=== PATIENT | male | born 1970 | race American Indian/Alaskan Native ===

== ENCOUNTER 2017-04-12 08:14 | Inpatient (IN) | payer OTHER ==
--- NOTE | 2017-04-12 08:58 | Emergency Department Report ---
ED Shortness of Breath HPI - General Chief Complaint: Dyspnea/Respdistress Stated Complaint: SOB / LEG SWELLING Time Seen by Provider: 04/12/17 08:50 Source: patient, family Mode of arrival: Wheelchair Limitations: Physical Limitation - History of Present Illness MD Complaint: shortness of breath, cough -: week(s) Severity: moderate - Related Data Home Medications Medication Instructions Recorded Confirmed Last Taken Amlodipine Besylate [Norvasc] 5 mg PO DAILY 08/19/15 08/19/15 Unknown AtorvaSTATin [Lipitor] 20 mg PO DAILY 08/19/15 08/19/15 Unknown Colesevelam [Welchol] 1,875 mg PO BID 08/19/15 08/19/15 Unknown Duloxetine HCl [DULoxetine] 60 mg PO DAILY 08/19/15 08/19/15 Unknown Furosemide [Lasix TAB] 20 mg PO DAILY 08/19/15 08/19/15 Unknown Insulin Glargine [Lantus VIAL] 35 units SQ BID 08/19/15 08/19/15 Unknown Insulin Glargine [Lantus VIAL] 100 unit SQ DAILY 08/19/15 08/19/15 Unknown Insulin Lispro [Humalog Kwikpen 35 units SQ BID 08/19/15 08/19/15 Unknown 200 UNITS/ML] Iron,Fum&Ps/FA/Vit B&C#18/L.ca 1 each PO DAILY 08/19/15 08/19/15 Unknown [Fusion Plus Capsule] Losartan [Cozaar] 100 mg PO DAILY 08/19/15 08/19/15 Unknown Ofloxacin [Ofloxacin 0.3%] 5 ml INTRAOCULA DAILY 08/19/15 08/19/15 Unknown Potassium Chloride [Klor-Con 10] 10 meq PO DAILY 08/19/15 08/19/15 Unknown Tobramycin/Dexameth 0.1-0.3% 3.5 gm SUBDERMAL DAILY 08/19/15 08/19/15 Unknown [Tobradex] Allergies Allergy/AdvReac Type Severity Reaction Status Date / Time AMMY Inhibitors Allergy Unknown Verified 08/19/15 01:31 ED Review of Systems ROS: Stated complaint: SOB / LEG SWELLING Other details as noted in HPI Comment: All other systems reviewed and negative Constitutional: denies: chills, fever Respiratory: orthopnea, shortness of breath, SOB with exertion. denies: cough, wheezing Cardiovascular: palpitations. denies: chest pain Endocrine: excessive sweating Gastrointestinal: denies: abdominal pain, nausea, vomiting Neurological: denies: headache, numbness ED Past Medical Hx - Past Medical History Previous Medical History?: Yes Hx Hypertension: Yes Hx Diabetes: Yes Additional medical history: HIGH CHOLESTEROL, Afib - Surgical History Past Surgical History?: Yes Hx Cholecystectomy: Yes Additional Surgical History: Cardiac ablation - Social History Smoking Status: Never Smoker Substance Use Type: Non Opiate Pain, Prescribed - Medications Home Medications: Home Medications Medication Instructions Recorded Confirmed Last Taken Type Amlodipine Besylate [Norvasc] 5 mg PO DAILY 08/19/15 08/19/15 Unknown History AtorvaSTATin [Lipitor] 20 mg PO DAILY 08/19/15 08/19/15 Unknown History Colesevelam [Welchol] 1,875 mg PO BID 08/19/15 08/19/15 Unknown History Duloxetine HCl [DULoxetine] 60 mg PO DAILY 08/19/15 08/19/15 Unknown History Furosemide [Lasix TAB] 20 mg PO DAILY 08/19/15 08/19/15 Unknown History Insulin Glargine [Lantus VIAL] 35 units SQ BID 08/19/15 08/19/15 Unknown History Insulin Glargine [Lantus VIAL] 100 unit SQ DAILY 08/19/15 08/19/15 Unknown History Insulin Lispro [Humalog Kwikpen 35 units SQ BID 08/19/15 08/19/15 Unknown History 200 UNITS/ML] Iron,Fum&Ps/FA/Vit B&C#18/L.ca 1 each PO DAILY 08/19/15 08/19/15 Unknown History [Fusion Plus Capsule] Losartan [Cozaar] 100 mg PO DAILY 08/19/15 08/19/15 Unknown History Ofloxacin [Ofloxacin 0.3%] 5 ml INTRAOCULA DAILY 08/19/15 08/19/15 Unknown History Potassium Chloride [Klor-Con 10] 10 meq PO DAILY 08/19/15 08/19/15 Unknown History Tobramycin/Dexameth 0.1-0.3% 3.5 gm SUBDERMAL DAILY 08/19/15 08/19/15 Unknown History [Tobradex] ED Physical Exam - General Limitations: Physical Limitation General appearance: alert, in no apparent distress - Head Head exam: Present: atraumatic - Eye Eye exam: Present: normal appearance Pupils: Present: normal accommodation - ENT ENT exam: Present: normal exam - Neck Neck exam: Present: normal inspection - Respiratory Respiratory exam: Present: normal lung sounds bilaterally. Absent: respiratory distress, wheezes, rales - Cardiovascular Cardiovascular Exam: Present: regular rate, normal rhythm, normal heart sounds - GI/Abdominal GI/Abdominal exam: Present: soft. Absent: distended, tenderness, guarding, rebound - Back Exam Back exam: Present: normal inspection. Absent: CVA tenderness (L) - Neurological Exam Neurological exam: Present: alert, oriented X3, CN II-XII intact ED Course Vital Signs 04/12/17 04/12/17 08:16 09:14 Temperature 97.9 F Pulse Rate 73 Respiratory 20 20 Rate Blood Pressure 156/98 O2 Sat by Pulse 100 100 Oximetry - Reevaluation(s) Reevaluation #1: 04/12/17 10:[address] Milner for admission. ED Medical Decision Making - Lab Data Result diagrams: 04/12/17 08:34 04/12/17 08:34 Critical care attestation.: If time is entered above; I have spent that time in minutes in the direct care of this critically ill patient, excluding procedure time. ED Disposition Clinical Impression: Shortness of breath, Acute on chronic renal failure, CHF exacerbation Disposition: OP ADMIT IP TO THIS HOSP Is pt being admited?: Yes Condition: Stable
[2017-04-12 08:59] LABS: Hematocrit 27.3 % (35.5-45.6); Hemoglobin 8.7 gm/dl (11.8-15.2); Mean Corpuscular Hemoglobin 23 pg (28-32); Mean Corpuscular Volume 74 fl (84-94)
[2017-04-12 09:00] LABS: Basophils % (Auto) 0.8 % (0.0-1.8); Eosinophils % (Auto) 1.9 % (0.0-4.3); Mean Corpuscular HGB Conc 32 % (32-34); Platelet Count 478 K/mm3 (140-440); Red Cell Distribution Width 17.2 % (13.2-15.2)
[2017-04-12 09:03] LABS: INR 1.2 (0.87-1.13)
[2017-04-12 09:04] LABS: Partial Thromboplastin Time 46.7 Sec. (24.2-36.6)
[2017-04-12 09:07] LABS: BUN/Creatinine Ratio 12.75; Calcium 7.2 mg/dL (8.4-10.2); Chloride 103.3 mmol/L (98-107); Potassium 4.8 mmol/L (3.6-5.0)
--- NOTE | 2017-04-12 09:17 | XRay Report ---
CHEST TWO VIEWS: 04/12/17 08:14:00 CLINICAL: Shortness of breath. COMPARISON: None FINDINGS: Normal heart and pulmonary vasculature. The lungs are normally expanded and clear. Mild degenerative changes in the spine. IMPRESSION: No acute cardiopulmonary process.
[2017-04-12] MEDS ORDERED: BABY ASPIRIN PO ONE (10:10)
[2017-04-12] MEDS ORDERED: LASIX IV ONE (10:12)
[2017-04-12] MEDS ORDERED: DULCOLAX PR PRN (11:00)
[2017-04-12] MEDS ORDERED: ZOFRAN IV PRN (11:00)
[2017-04-12 11:55] LABS: Bacteria,Urine 1+ /HPF (Negative); Bilirubin,Urine NEG (Negative); Blood,Urine SM (Negative); Ketones,Urine NEG (Negative); Leukocyte Esterase,Urine NEG (Negative); Mucus,Urine FEW /HPF; Nitrite,Urine NEG (Negative); Urobilinogen,Urine < 2.0 mg/dL (<2.0)
[2017-04-12 11:56] LABS: Protein,Urine >500 mg/dL (Negative)
--- NOTE | 2017-04-12 13:09 | Nuclear Medicine Report ---
FINAL REPORT EXAM: NM LUNG SCAN PERF/VENT HISTORY: CHEST PAIN,SOB, H/O DVT TECHNIQUE: Lung ventilation with 17.0 mCi of xenon-133 gas Lung perfusion with 5.5 mCi of IV technetium 99m MAA Standard multiple planar ventilation and perfusion lung images PRIORS: Two-view chest 04/12/2017 FINDINGS: Ventilation and perfusion uptake is diffusely homogeneous bilaterally without focal matched or mismatched defect. Specifically, there is no mismatched perfusion defect to suggest pulmonary embolism. There is no central air trapping to suggest emphysema. IMPRESSION: Lung ventilation and perfusion scan negative for pulmonary embolism
[2017-04-12] MEDS: PEPCID PO SCH (13:19)
[2017-04-12] MEDS: NOVOLOG SUB-Q SCH ×2 (13:19→17:55)
[2017-04-12] MEDS: HEPARIN SUB-Q SCH ×2 (13:49→21:30)
--- NOTE | 2017-04-12 15:07 | History and Physical Report ---
History of Present Illness Date of examination: 04/12/17 Date of admission: 04/12/17 13:35 Chief complaint: Shortness of breath History of present illness: Patient is a 47-year-old male with past medical history including hyperlipidemia , chronic kidney disease, cardiac ablation, diabetes mellitus and multiple left knee surgery who presents to the ER complaining of bilateral leg edema worsening on the left and associated shortness of breath 1 day with reported left sided chest pain which is worse on lying down and improves with sitting up. The patient also does report worsening shortness of breath on lying supine with positive orthopnea improves with sitting up. He denies any sick contacts and he is followed by box repairer and primary care physician and is supposed to be evaluated by nephrology but has not had a full evaluation done. The pain he describes as a 5/10 in intensity with no radiation and no associated diaphoresis. He states that he woke him up this morning. Denies any palpitation nausea vomiting or diarrhea as noted. ROS Constitutional: No fever, fatigue or weight loss. Skin: No rash. Eyes: No recent vision problems or eye pain. ENT: No congestion, ear pain, or sore throat. Endocrine: No thyroid problems. Cardiovascular: Chest pain Respiratory: Reports shortness of breath but no cough, congestion, or wheezing. Gastrointestinal: No abdominal pain, nausea, vomiting, or diarrhea. Genitourinary: No dysuria. Musculoskeletal: Left lower extremity swelling bilaterally disjointed left knee joint Neurologic: No seizures. Hematologic: No unusual bruising or bleeding. Psychiatric: No psychiatric problems, hallucinations or depression. All other systems reviewed and otherwise negative. Past History Past Medical History: diabetes, hypertension, hyperlipidemia Past Surgical History: Other (cardiac ablation. Multiple knee surgeries on the left knee) Social history: no significant social history, full code. denies: alcohol abuse , prescription drug abuse, IV drug use Family history: no significant family history Medications and Allergies Allergies Allergy/AdvReac Type Severity Reaction Status Date / Time AMMY Inhibitors Allergy Unknown Verified 08/19/15 01:31 Home Medications Medication Instructions Recorded Confirmed Last Taken Type Amlodipine Besylate [Norvasc] 5 mg PO DAILY 08/19/15 08/19/15 Unknown History AtorvaSTATin [Lipitor] 20 mg PO DAILY 08/19/15 08/19/15 Unknown History Colesevelam [Welchol] 1,875 mg PO BID 08/19/15 08/19/15 Unknown History Duloxetine HCl [DULoxetine] 60 mg PO DAILY 08/19/15 08/19/15 Unknown History Furosemide [Lasix TAB] 20 mg PO DAILY 08/19/15 08/19/15 Unknown History Insulin Glargine [Lantus VIAL] 35 units SQ BID 08/19/15 08/19/15 Unknown History Insulin Glargine [Lantus VIAL] 100 unit SQ DAILY 08/19/15 08/19/15 Unknown History Insulin Lispro [Humalog Kwikpen 35 units SQ BID 08/19/15 08/19/15 Unknown History 200 UNITS/ML] Iron,Fum&Ps/FA/Vit B&C#18/L.ca 1 each PO DAILY 08/19/15 08/19/15 Unknown History [Fusion Plus Capsule] Losartan [Cozaar] 100 mg PO DAILY 08/19/15 08/19/15 Unknown History Ofloxacin [Ofloxacin 0.3%] 5 ml INTRAOCULA DAILY 08/19/15 08/19/15 Unknown History Potassium Chloride [Klor-Con 10] 10 meq PO DAILY 08/19/15 08/19/15 Unknown History Tobramycin/Dexameth 0.1-0.3% 3.5 gm SUBDERMAL DAILY 08/19/15 08/19/15 Unknown History [Tobradex] Active Meds: Active Medications Acetaminophen (Tylenol) 650 mg PO Q4H PRN PRN Reason: Pain MILD(1-3)/Fever >100.5/GARZON Albuterol/Ipratropium (Duoneb *Not For Prn Use*) 1 ampul IH Q6HRT [facility] Atorvastatin Calcium (Lipitor) 20 mg PO DAILY [facility] Bisacodyl (Dulcolax) 10 mg [place] QDAY PRN PRN Reason: Constipation unrelieved by MOM Colesevelam HCl (Welchol) 1,875 mg PO BID [facility] Dextrose (D50w (25gm)) 50 ml IV PRN PRN PRN Reason: Hypoglycemia Duloxetine HCl (Cymbalta) 60 mg PO QDAY [facility] Famotidine (Pepcid) 20 mg PO DAILY [facility] Last Admin: 04/12/17 13:19 Dose: 20 mg Furosemide (Lasix) 40 mg IV BID@0600,1800 [facility] Heparin Sodium (Porcine) (Heparin) 5,000 unit SUB-Q Q12HR [facility] Last Admin: 04/12/17 13:49 Dose: 5,000 unit Insulin Aspart (Novolog) 0 units SUB-Q ACHS [facility] PRN Reason: Protocol Last Admin: 04/12/17 13:19 Dose: 6 units Insulin Detemir (Levemir) 35 units SUB-Q QHS [facility] Ondansetron HCl (Zofran) 4 mg IV Q4H PRN PRN Reason: N/V unrelieved by Reglan Tobramycin/Dexamethasone (Tobradex) 1 inch OU DAILY [facility] Exam - Physical Exam Narrative exam: VITAL SIGNS: Reviewed. GENERAL: The patient appeared well nourished and normally developed. Vital signs as documented. HEAD: No signs of head trauma. EYES: Pupils are equal. Extraocular motions intact. EARS: Hearing grossly intact. MOUTH: Oropharynx is normal. NECK: No adenopathy, no JVD. CHEST: Chest with clear breath sounds bilaterally. No wheezes, rales, or rhonchi. CARDIAC: Regular rate and rhythm. S1 and S2, without murmurs, gallops, or rubs. VASCULAR: +1 pitting Edema. Peripheral pulses normal and equal in all extremities. ABDOMEN: Soft, without detectable tenderness. No sign of distention. No rebound or guarding, and no masses palpated. Bowel Sounds normal. MUSCULOSKELETAL: Limited range of motion Left Knee, left knee disfigured, increased width and diameter. Extremities without clubbing, cyanosis. +1 Pitting edema. NEUROLOGIC EXAM: Alert and oriented x 3. No focal sensory or strength deficits. Speech normal. Follows commands. PSYCHIATRIC: Mood normal. SKIN: Multiple venous stasis changes - Constitutional Vitals: Temp Pulse Resp BP Pulse Ox 97.9 F 71 16 150/86 99 04/12/17 08:16 04/12/17 14:00 04/12/17 14:00 04/12/17 14:00 04/12/17 14:00 Results - Labs CBC & Chem 7: 04/12/17 08:34 04/12/17 08:34 Labs: Laboratory Last Values WBC 8.0 K/mm3 (4.5-11.0) 04/12/17 08:34 RBC 3.70 M/mm3 (3.65-5.03) 04/12/17 08:34 Hgb 8.7 gm/dl (11.8-15.2) L 04/12/17 08:34 Hct 27.3 % (35.5-45.6) L 04/12/17 08:34 MCV 74 fl (84-94) L 04/12/17 08:34 MCH 23 pg (28-32) L 04/12/17 08:34 MCHC 32 % (32-34) 04/12/17 08:34 RDW 17.2 % (13.2-15.2) H 04/12/17 08:34 Plt Count 478 K/mm3 (140-440) H 04/12/17 08:34 Lymph % (Auto) 22.0 % (13.4-35.0) 04/12/17 08:34 [place] % (Auto) 6.8 % (0.0-7.3) 04/12/17 08:34 Eos % (Auto) 1.9 % (0.0-4.3) 04/12/17 08:34 Baso % (Auto) 0.8 % (0.0-1.8) 04/12/17 08:34 Lymph # 1.8 K/mm3 (1.2-5.4) 04/12/17 08:34 [place] # 0.6 K/mm3 (0.0-0.8) 04/12/17 08:34 Eos # 0.1 K/mm3 (0.0-0.4) 04/12/17 08:34 Baso # 0.1 K/mm3 (0.0-0.1) 04/12/17 08:34 Seg Neutrophils % 68.5 % (40.0-70.0) 04/12/17 08:34 Seg Neutrophils # 5.5 K/mm3 (1.8-7.7) 04/12/17 08:34 PT 15.8 Sec. (12.2-14.9) H 04/12/17 08:34 INR 1.20 (0.87-1.13) H 04/12/17 08:34 APTT 46.7 Sec. (24.2-36.6) H 04/12/17 08:34 D-Dimer 2932 ng/mlDDU (0-234) H 04/12/17 08:34 Sodium 134 mmol/L (137-145) L 04/12/17 08:34 Potassium 4.8 mmol/L (3.6-5.0) 04/12/17 08:34 Chloride 103.3 mmol/L (98-107) 04/12/17 08:34 Carbon Dioxide 17 mmol/L (22-30) L 04/12/17 08:34 Anion Gap 19 mmol/L 04/12/17 08:34 BUN 51 mg/dL (9-20) H 04/12/17 08:34 Creatinine 4.0 mg/dL (0.8-1.5) H 04/12/17 08:34 Estimated GFR 20 ml/min 04/12/17 08:34 BUN/Creatinine Ratio 12.75 % 04/12/17 08:34 Glucose 282 mg/dL (75-100) H 04/12/17 08:34 POC Glucose 295 (70-105) H 04/12/17 11:37 Osmolality 304 Mosm/kg 04/12/17 11:00 Calcium 7.2 mg/dL (8.4-10.2) L 04/12/17 08:34 Troponin T 0.157 ng/mL (0.00-0.029) H* 04/12/17 08:34 NT-Pro-B Natriuret Pep 9214 pg/mL (0-450) H 04/12/17 08:34 Triglycerides 89 mg/dL (2-149) 04/12/17 08:34 Cholesterol 84 mg/dL (50-199) 04/12/17 08:34 LDL Cholesterol Direct 32 mg/dL (50-130) L 04/12/17 08:34 HDL Cholesterol 35 mg/dL (40-59) L 04/12/17 08:34 Cholesterol/HDL Ratio 2.40 % 04/12/17 08:34 TSH 0.027 mlU/mL (0.270-4.200) L 04/12/17 09:14 Free T4 1.03 ng/dL (0.76-1.46) 04/12/17 09:14 Urine Color Yellow (Yellow) 04/12/17 11:37 Urine Turbidity Clear (Clear) 04/12/17 11:37 Urine pH 5.0 (5.0-7.0) 04/12/17 11:37 Ur Specific [place] 1.014 (1.003-1.030) 04/12/17 11:37 Urine Protein >500 mg/dL (Negative) 04/12/17 11:37 Urine Glucose (UA) >=500 mg/dL (Negative) 04/12/17 11:37 Urine Ketones Neg mg/dL (Negative) 04/12/17 11:37 Urine Blood Sm (Negative) 04/12/17 11:37 Urine Nitrite Neg (Negative) 04/12/17 11:37 Urine Bilirubin Neg (Negative) 04/12/17 11:37 Urine Urobilinogen < 2.0 mg/dL (<2.0) 04/12/17 11:37 Ur Leukocyte Esterase Neg (Negative) 04/12/17 11:37 Urine WBC (Auto) 1.0 /HPF (0.0-6.0) 04/12/17 11:37 Urine RBC (Auto) 7.0 /HPF (0.0-6.0) 04/12/17 11:37 U Epithel Cells (Auto) 1.0 /HPF (0-13.0) 04/12/17 11:37 Urine Bacteria (Auto) 1+ /HPF (Negative) 04/12/17 11:37 Urine Mucus Few /HPF 04/12/17 11:37 Assessment and Plan Assessment and plan: Patient is a 47-year-old male with past medical history including hyperlipidemia , chronic kidney disease, cardiac ablation, diabetes mellitus and multiple left knee surgery who presents to the ER complaining of bilateral leg edema worsening on the left and associated shortness of breath 1 day with reported left sided chest pain which is worse on lying down and improves with sitting up. The patient also does report worsening shortness of breath on lying supine with positive orthopnea improves with sitting up. He denies any sick contacts and he is followed by box repairer and primary care physician and is supposed to be evaluated by nephrology but has not had a full evaluation done. The pain he describes as a 5/10 in intensity with no radiation and no associated diaphoresis. He states that he woke him up this morning. Denies any palpitation nausea vomiting or diarrhea as noted. * Acute on chronic congestive heart failure possible systolic * Acute kidney injury on chronic kidney disease likely secondary to vasomotor nephropathy * Diabetes mellitus with hyperglycemia * Hyperlipidemia * NSTEMI type 2 * Anemia of chronic kidney disease * Coagulopathy PLAN: * Admit to telemetry * Concern for orthopenic description and noted JVD, will start on Lasix IV * Nephrology consulted, and case discussed with covering MD * chest pain related to CHF, EKG with no evidence of ST elevation * Monitor H/H, I/O, Daily weight. * NO PE noted on imaging. * Consult cardiology * Echocardiogram * Statin, BB, home med reconciliation * DVT/GI prophy * Plan discussed with patient in detail * PT/OT eval and treat. Advance Directives: Yes Plan of care discussed with patient/family: Yes
[2017-04-12] MEDS: DUONEB *Not for PRN Use IH SCH ×2 (17:16→20:57)
[2017-04-12 17:29] LABS: Iron 25 ug/dL (49-181); Total Iron Binding Capacity 98 mcg/dL (250-450)
--- NOTE | 2017-04-12 17:53 | Consultation ---
History of Present Illness - Reason for Consult Consult date: 04/12/17 acute renal failure, chronic renal failure - History of Present Illness Patient is a 47-year-old AAM with medical history significant for DM type 2, Hypetension, Hyperlipidemia, CKD stage 3, Obesity and multiple left knee surgery who presents to the ER complaining of shortness of breath of 1 day duration. Patient also reports left sided chest pain which is worse on lying down and improves with sitting up. History positive for orthopnea. His legs are chroncially swollen, left greater than right. Earlier this year his creatinine was 2.8. He does takes NSAIDs few times a week. Patient denies any N, V, D, abd pain, rash, cough, kidney stone, hematuria or jaundice. His creatinine is 4 on admission. Past History Past Medical History: diabetes, hypertension, hyperlipidemia Past Surgical History: Other (cardiac ablation. Multiple knee surgeries on the left knee) Social history: no significant social history, full code. denies: alcohol abuse , prescription drug abuse, IV drug use Family history: no significant family history Medications and Allergies Allergies Allergy/AdvReac Type Severity Reaction Status Date / Time AMMY Inhibitors Allergy Unknown Verified 08/19/15 01:31 Home Medications Medication Instructions Recorded Confirmed Last Taken Type Amlodipine Besylate [Norvasc] 5 mg PO DAILY 08/19/15 08/19/15 Unknown History AtorvaSTATin [Lipitor] 20 mg PO DAILY 08/19/15 08/19/15 Unknown History Colesevelam [Welchol] 1,875 mg PO BID 08/19/15 08/19/15 Unknown History Duloxetine HCl [DULoxetine] 60 mg PO DAILY 08/19/15 08/19/15 Unknown History Furosemide [Lasix TAB] 20 mg PO DAILY 08/19/15 08/19/15 Unknown History Insulin Glargine [Lantus VIAL] 35 units SQ BID 08/19/15 08/19/15 Unknown History Insulin Glargine [Lantus VIAL] 100 unit SQ DAILY 08/19/15 08/19/15 Unknown History Insulin Lispro [Humalog Kwikpen 35 units SQ BID 08/19/15 08/19/15 Unknown History 200 UNITS/ML] Iron,Fum&Ps/FA/Vit B&C#18/L.ca 1 each PO DAILY 08/19/15 08/19/15 Unknown History [Fusion Plus Capsule] Losartan [Cozaar] 100 mg PO DAILY 08/19/15 08/19/15 Unknown History Ofloxacin [Ofloxacin 0.3%] 5 ml INTRAOCULA DAILY 08/19/15 08/19/15 Unknown History Potassium Chloride [Klor-Con 10] 10 meq PO DAILY 08/19/15 08/19/15 Unknown History Tobramycin/Dexameth 0.1-0.3% 3.5 gm SUBDERMAL DAILY 08/19/15 08/19/15 Unknown History [Tobradex] Active Meds: Active Medications Acetaminophen (Tylenol) 650 mg PO Q4H PRN PRN Reason: Pain MILD(1-3)/Fever >100.5/[facility]ON Albuterol/Ipratropium (Duoneb *Not For Prn Use*) 1 ampul IH Q6HRT [facility] Last Admin: 04/12/17 17:16 Dose: 1 ampul Atorvastatin Calcium (Lipitor) 20 mg PO DAILY [facility] Bisacodyl (Dulcolax) 10 mg [place] QDAY PRN PRN Reason: Constipation unrelieved by MOM Colesevelam HCl (Welchol) 1,875 mg PO BID [facility] Dextrose (D50w (25gm)) 50 ml IV PRN PRN PRN Reason: Hypoglycemia Duloxetine HCl (Cymbalta) 60 mg PO QDAY [facility] Famotidine (Pepcid) 20 mg PO DAILY [facility] Last Admin: 04/12/17 13:19 Dose: 20 mg Furosemide (Lasix) 40 mg IV BID@0600,1800 [facility] Heparin Sodium (Porcine) (Heparin) 5,000 unit SUB-Q Q12HR [facility] Last Admin: 04/12/17 13:49 Dose: 5,000 unit Insulin Aspart (Novolog) 0 units SUB-Q ACHS [facility] PRN Reason: Protocol Last Admin: 04/12/17 13:19 Dose: 6 units Insulin Detemir (Levemir) 35 units SUB-Q QHS [facility] Ondansetron HCl (Zofran) 4 mg IV Q4H PRN PRN Reason: N/V unrelieved by Alex Tobramycin/Dexamethasone (Tobradex) 1 inch OU DAILY [facility] Review of Systems Constitutional: no weight loss, no weight gain, no fever, no chills, no anorexia , no weakness, no poor appetite Ears, nose, mouth and throat: no sinus pain, no epistaxis, no dysphagia Cardiovascular: chest pain, orthopnea, edema, shortness of breath, dyspnea on exertion, high blood pressure, leg edema, no palpitations, no syncope, no lightheadedness Respiratory: shortness of breath, dyspnea on exertion, no cough, no hemoptysis Gastrointestinal: no abdominal pain, no nausea, no vomiting, no diarrhea, no melena Genitourinary Male: no dysuria, no hematuria Integumentary: dryness, no rash, no jaundice Neurological: no paralysis, no weakness, no seizures, no syncope, no vertigo, no change in speech Psychiatric: no disorientation Endocrine: other (DM) Hematologic/Lymphatic: no easy bleeding Exam - Vital Signs Vital signs: Vital Signs Temp Pulse Resp BP Pulse Ox 97.9 F 73 20 156/98 100 04/12/17 08:16 04/12/17 08:16 04/12/17 08:16 04/12/17 08:16 04/12/17 08:16 - General Appearance General appearance: well-developed, well-nourished, appears stated age, obese, other (no distress) EENT: ATNC, hearing intact Neck: Present: neck supple, trachea midline Respiratory: Clear to Ascultation Heart: regular, S1S2, no murmurs Gastrointestinal: Present: normoactive bowel sounds. Absent: tenderness, distended Integumentary: other (bilateral LE chronic stasis changes noted) Neurologic: other (right eye blindness) Musculoskeletal: Present: other (left knee swollen) Psychiatric: mood/affect appropriate, cooperative Results - Lab Results 04/12/17 08:34 04/12/17 08:34 Most recent lab results Calcium 7.2 mg/dL (8.4-10.2) L 04/12/17 08:34 - Image Kidney/bladder ultrasound: pending Assessment and Plan - Patient Problems (1) Acute on chronic renal failure Current Visit: Yes Status: Acute Qualifiers: Acute renal failure type: A Chronic kidney disease stage: C Plan to address problem: Acute kideny Injury superimposed on CKD stage 3. The etiology of MARIANA is unclear. Patient appears euvolemic or volume depleted. Start on IV fluids. Urine studies and Renal US ordered. (2) Proteinuria due to type 2 diabetes mellitus Current Visit: Yes Status: Chronic (3) Shortness of breath Current Visit: Yes Status: Acute (4) Anemia Current Visit: Yes Status: Chronic Qualifiers: Anemia type: A Iron deficiency anemia type: I Vitamin B12 deficiency anemia type: V Folate deficiency anemia type: F Bone marrow failure anemia type: B Hemolytic anemia type: H Other causes of anemia: O Chronic kidney disease stage: C
[2017-04-12] MEDS: LASIX IV SCH (18:09)
[2017-04-12 20:51] LABS: Creatine Kinase MB 3.1 ng/mL (0.0-4.0)
[2017-04-12] MEDS: TYLENOL PO PRN (21:29)
[2017-04-12] MEDS: WELCHOL PO SCH (21:29)
[2017-04-12] MEDS: LEVEMIR SUB-Q SCH (22:37)
[2017-04-13 02:25] LABS: Creatine Kinase MB 2.7 ng/mL (0.0-4.0)
[2017-04-13] MEDS: DUONEB *Not for PRN Use IH SCH ×3 (02:30→20:00)
[2017-04-13] MEDS ORDERED: PROVENTIL IH PRN (04:32)
[2017-04-13] MEDS: NOVOLOG SUB-Q SCH ×5 (04:37→22:01)
[2017-04-13 06:07] LABS: Basophils % (Auto) 0.4 % (0.0-1.8); Eosinophils % (Auto) 2.7 % (0.0-4.3); Hematocrit 24.7 % (35.5-45.6); Hemoglobin 7.9 gm/dl (11.8-15.2); Mean Corpuscular HGB Conc 32 % (32-34); Mean Corpuscular Volume 74 fl (84-94); Platelet Count 417 K/mm3 (140-440); Red Blood Count 3.33 M/mm3 (3.65-5.03); White Blood Count 6.7 K/mm3 (4.5-11.0)
[2017-04-13 06:12] LABS: Mean Corpuscular Hemoglobin 24 pg (28-32)
[2017-04-13] MEDS: LASIX IV SCH (06:21)
[2017-04-13] MEDS: NACL 0.9% 1000 ML 1,000 ML IV SCH (06:22)
[2017-04-13 06:29] LABS: BUN/Creatinine Ratio 13.42; Calcium 7.5 mg/dL (8.4-10.2); Chloride 103.7 mmol/L (98-107); Phosphorous 5.2 mg/dL (2.5-4.5); Potassium 4.5 mmol/L (3.6-5.0)
--- NOTE | 2017-04-13 09:04 | Progress Note ---
Assessment and Plan - Patient Problems (1) Acute on chronic renal failure Current Visit: Yes Status: Acute Qualifiers: Acute renal failure type: A Chronic kidney disease stage: C Plan to address problem: Acute kidney Injury superimposed on CKD stage 3. Slight improvement in renal function. Continue IV fluids. Urine studies and Renal US ordered. D/w his at the bedside. (2) Proteinuria due to type 2 diabetes mellitus Current Visit: Yes Status: Chronic (3) Shortness of breath Current Visit: Yes Status: Acute (4) Anemia Current Visit: Yes Status: Chronic Qualifiers: Anemia type: A Iron deficiency anemia type: I Vitamin B12 deficiency anemia type: V Folate deficiency anemia type: F Bone marrow failure anemia type: B Hemolytic anemia type: H Other causes of anemia: O Chronic kidney disease stage: C Subjective Date of service: 04/13/17 Interval history: Patient is feeling better. Objective - Vital Signs Vital signs: Vital Signs - 12hr 04/12/17 04/12/17 04/12/17 21:09 21:10 21:29 Temperature Pulse Rate Pulse Rate [ 74 Anterior Bilateral Throughout] Respiratory 18 Rate Respiratory 18 Rate [Anterior Bilateral Throughout] Blood Pressure O2 Sat by Pulse 100 Oximetry 04/12/17 04/13/17 04/13/17 23:35 00:12 04:56 Temperature 97.6 F 97.6 F Pulse Rate 81 81 84 Pulse Rate [ Anterior Bilateral Throughout] Respiratory 18 20 Rate Respiratory Rate [Anterior Bilateral Throughout] Blood Pressure 147/71 171/88 O2 Sat by Pulse 99 99 Oximetry - General Appearance General appearance: well-developed, well-nourished, appears stated age, other ( no distress) EENT: ATNC, mucous membranes moist, hearing intact Neck: supple Respiratory: Present: Clear to Ascultation Cardiology: regular, S1S2, no murmurs Gastrointestinal: normoactive bowel sounds, no tenderness, no distended Integumentary: no rash Neurologic: no asterixis, other (right eye blindness) Musculoskeletal: other (swollen left knee, no edema) Psychiatric: mood/affect appropriate, cooperative - Lab 04/13/17 04:50 04/13/17 04:50 Most recent lab results Calcium 7.5 mg/dL (8.4-10.2) L 04/13/17 04:50 Phosphorus 5.20 mg/dL (2.5-4.5) H 04/13/17 04:50
[2017-04-13] MEDS ORDERED: NON-FORMULARY (Duloxetine Hcl [Duloxetine] 60 MG) PO SCH (10:00)
[2017-04-13] MEDS: PEPCID PO SCH (11:00)
[2017-04-13] MEDS: TOBRADEX OU SCH (11:00)
[2017-04-13] MEDS: CYMBALTA PO SCH (11:00)
[2017-04-13] MEDS: WELCHOL PO SCH ×2 (11:00→21:42)
--- NOTE | 2017-04-13 11:25 | Ultrasound Report ---
RENAL ULTRASOUND: 04/13/17 09:00:00 CLINICAL: Acute renal failure. FINDINGS: High resolution ultrasound demonstrated normal nondilated renal collecting systems. Physiologic cyst in the right renal collecting system. Moderate heterogeneous increased echogenicity of the kidneys. No renal mass, cyst or calculus. The right kidney measures 14.2 x 6.9 x 5.8-cm. The renal parenchyma measures 2.5-cm in thickness. The left kidney measures 13.0 x 5.3 x 5.5-cm. The renal parenchyma measures 2.6-cm in thickness. Normal urinary bladder with moderate distention. IMPRESSION: Bilateral medical renal disease with relatively large echogenic kidneys. No hydronephrosis.
--- NOTE | 2017-04-13 11:41 | Consultation ---
History of Present Illness Consult date: 04/13/17 Requesting physician: LILIBETH DANGELO Consult reason: congestive heart failure History of present illness: Patient is a 47-year-old male followed irregularly at the [facility]. He has a history of paroxysmal atrial fibrillation status post ablation done in April. Patient has chronic what appears to be lymphedema. Patient also had multiple surgeries to his knee. He presented to the hospital basically with worsening of swelling in both the knees. Did not complain of any significant shortness of breath or chest pain. From the heart standpoint he reports he is doing fine. Unfortunately has not followed up with his money manager lately. Patient denies any acute chest pain or shortness of breath. In the hospital he was noted to have acute on chronic renal failure. Patient currently asymptomatic Past History Past Medical History: atrial fib, diabetes, hypertension, hyperlipidemia Past Surgical History: Other (cardiac ablation. Multiple knee surgeries on the left knee) Social history: no significant social history, full code. denies: alcohol abuse , prescription drug abuse, IV drug use Family history: no significant family history Medications and Allergies Allergies Allergy/AdvReac Type Severity Reaction Status Date / Time AMMY Inhibitors Allergy Unknown Verified 08/19/15 01:31 Home Medications Medication Instructions Recorded Confirmed Last Taken Type Amlodipine Besylate [Norvasc] 5 mg PO DAILY 08/19/15 08/19/15 Unknown History AtorvaSTATin [Lipitor] 20 mg PO DAILY 08/19/15 08/19/15 Unknown History Colesevelam [Welchol] 1,875 mg PO BID 08/19/15 08/19/15 Unknown History Duloxetine HCl [DULoxetine] 60 mg PO DAILY 08/19/15 08/19/15 Unknown History Furosemide [Lasix TAB] 20 mg PO DAILY 08/19/15 08/19/15 Unknown History Insulin Glargine [Lantus VIAL] 35 units SQ BID 08/19/15 08/19/15 Unknown History Insulin Glargine [Lantus VIAL] 100 unit SQ DAILY 08/19/15 08/19/15 Unknown History Insulin Lispro [Humalog Kwikpen 35 units SQ BID 08/19/15 08/19/15 Unknown History 200 UNITS/ML] Iron,Fum&Ps/FA/Vit B&C#18/L.ca 1 each PO DAILY 08/19/15 08/19/15 Unknown History [Fusion Plus Capsule] Losartan [Cozaar] 100 mg PO DAILY 08/19/15 08/19/15 Unknown History Ofloxacin [Ofloxacin 0.3%] 5 ml INTRAOCULA DAILY 08/19/15 08/19/15 Unknown History Potassium Chloride [Klor-Con 10] 10 meq PO DAILY 08/19/15 08/19/15 Unknown History Tobramycin/Dexameth 0.1-0.3% 3.5 gm SUBDERMAL DAILY 08/19/15 08/19/15 Unknown History [Tobradex] Active Meds: Active Medications Acetaminophen (Tylenol) 650 mg PO Q4H PRN PRN Reason: Pain MILD(1-3)/Fever >100.5/GARZON Last Admin: 04/12/17 21:29 Dose: 650 mg Albuterol (Proventil) 2.5 mg IH Q4HRT PRN PRN Reason: Shortness Of Breath Albuterol/Ipratropium (Duoneb *Not For Prn Use*) 1 ampul IH Q6HRT [facility] Atorvastatin Calcium (Lipitor) 20 mg PO DAILY [facility] Bisacodyl (Dulcolax) 10 mg AK QDAY PRN PRN Reason: Constipation unrelieved by MOM Colesevelam HCl (Welchol) 1,875 mg PO BID [facility] Last Admin: 04/12/17 21:29 Dose: 1,875 mg Dextrose (D50w (25gm)) 50 ml IV PRN PRN PRN Reason: Hypoglycemia Duloxetine HCl (Cymbalta) 60 mg PO QDAY [facility] Famotidine (Pepcid) 20 mg PO DAILY [facility] Last Admin: 04/12/17 13:19 Dose: 20 mg Heparin Sodium (Porcine) (Heparin) 5,000 unit SUB-Q Q12HR [facility] Last Admin: 04/12/17 21:30 Dose: 5,000 unit Sodium Chloride (Nacl 0.9% 1000 Ml) 1,000 mls @ 50 mls/hr IV DIRECT [facility] Last Admin: 04/13/17 06:22 Dose: 75 mls/hr Insulin Aspart (Novolog) 0 units SUB-Q ACHS [facility] PRN Reason: Protocol Last Admin: 04/13/17 08:07 Dose: Not Given Insulin Detemir (Levemir) 35 units SUB-Q QHS [facility] Last Admin: 04/12/17 22:37 Dose: 35 units Ondansetron HCl (Zofran) 4 mg IV Q4H PRN PRN Reason: N/V unrelieved by Alex Tobramycin/Dexamethasone (Tobradex) 1 inch OU DAILY [facility] Review of Systems All systems: negative (as mentioned in H&P) Physical Examination Vital Signs Temp Pulse Resp BP Pulse Ox 97.9 F 73 20 156/98 100 04/12/17 08:16 04/12/17 08:16 04/12/17 08:16 04/12/17 08:16 04/12/17 08:16 Narrative exam: GEN: NAD , morbidly obese HEENT: Carotids 2+ NECK: SUPPLE, CVS: RRR, NORMAL S1S2 LUNGS/CHEST: CTA ABD: SOFT, MSK: Massively swollen NEURO: CN 2-12 GROSSLY INTACT, NO FOCAL DEFICITS PSY: CALM Results 04/13/17 04:50 04/13/17 04:50 Cardiac Enzymes 04/12/17 04/13/17 Range/Units 18:09 01:17 CK-MB (CK-2) 3.1 2.7 (0.0-4.0) ng/mL CBC 04/13/17 Range/Units 04:50 WBC 6.7 (4.5-11.0) K/mm3 RBC 3.33 L (3.65-5.03) M/mm3 Hgb 7.9 L (11.8-15.2) gm/dl Hct 24.7 L (35.5-45.6) % Plt Count 417 (140-440) K/mm3 Lymph # 1.9 (1.2-5.4) K/mm3 [place] # 0.6 (0.0-0.8) K/mm3 Eos # 0.2 (0.0-0.4) K/mm3 Baso # 0.0 (0.0-0.1) K/mm3 Comprehensive Metabolic Panel 04/13/17 Range/Units 04:50 Sodium 134 L (137-145) mmol/L Potassium 4.5 (3.6-5.0) mmol/L Chloride 103.7 (98-107) mmol/L Carbon Dioxide 15 L (22-30) mmol/L BUN 51 H (9-20) mg/dL Creatinine 3.8 H (0.8-1.5) mg/dL Glucose 179 H (75-100) mg/dL Calcium 7.5 L (8.4-10.2) mg/dL EKG interpretations - Telemetry EKG Rhythm: Sinus Rhythm Assessment and Plan IMPRESSION * Elevated BNP chronic edema, however no symptoms, exam findings, chest x-ray suggest you off heart failure. Elevated BNP could be secondary to his renal failure * Borderline elevated troponin in the setting of renal failure doubt non-ST elevation CA * History of A. fib status post ablation currently in normal sinus rhythm with a chads score of 1 and not on any long-term anticoagulation * Acute kidney injury on chronic kidney disease * Diabetes mellitus with hyperglycemia * Hyperlipidemia * Chronic lymphedema * Anemia of chronic kidney disease PLAN: * Patient does not appear to be in congestive heart failure agree with nephrology in not perceiving diuretics and constraining gentle IV hydration by the monitoring renal function * 2-D echo has been ordered * Workup for massive swelling of his left knee * Resume home medicines * Cardiology will continue to follow
[2017-04-13] MEDS: HEPARIN SUB-Q SCH ×2 (12:01→21:42)
--- NOTE | 2017-04-13 13:24 | Progress Note ---
Assessment and Plan Assessment and plan: Patient is a 47-year-old male with past medical history including hyperlipidemia , chronic kidney disease, cardiac ablation, diabetes mellitus and multiple left knee surgery who presents to the ER complaining of bilateral leg edema worsening on the left and associated shortness of breath 1 day with reported left sided chest pain which is worse on lying down and improves with sitting up. The patient also does report worsening shortness of breath on lying supine with positive orthopnea improves with sitting up. He denies any sick contacts and he is followed by mcat tutor and primary care physician and is supposed to be evaluated by nephrology but has not had a full evaluation done. The pain he describes as a 5/10 in intensity with no radiation and no associated diaphoresis. He states that he woke him up this morning. Denies any palpitation nausea vomiting or diarrhea as noted. * Acute dyspnea * Elevated BNP, chronic edema doubt CHF after thorough review * Chronic lymphedema * Acute kidney injury on chronic kidney disease likely secondary to vasomotor nephropathy * Diabetes mellitus with hyperglycemia * Hyperlipidemia * NSTEMI type 2 * Anemia of chronic kidney disease * Coagulopathy PLAN: * Admit to telemetry * Hold IV lasix, agree with gentle hydration, monitor renal function * ortho consult * Doppler left lower ext, xray knee, xray hip due to fall * Nephrology consulted, and case discussed with covering MD * chest pain related to CHF, EKG with no evidence of ST elevation * Monitor H/H, I/O, Daily weight. * NO PE noted on imaging. * Cardiology input noted. * Echocardiogram * Statin, BB, home med reconciliation * DVT/GI prophy * Plan discussed with patient and spouse in detail * PT/OT eval and treat. History Interval history: Patient seen and examined in no acute distress at this time. Reports improvement in shortness of breath. Nursing staff reports the patient was found on the floor the patient states that his knee gave out while he was trying to play back to benefit onto the Bactrim that he slid down to the floor with no impact. Hospitalist Physical - Physical exam Narrative exam: VITAL SIGNS: Reviewed. GENERAL: The patient appeared well nourished and normally developed. Vital signs as documented. HEAD: No signs of head trauma. EYES: Pupils are equal. Extraocular motions intact. EARS: Hearing grossly intact. MOUTH: Oropharynx is normal. NECK: No adenopathy, no JVD. CHEST: Chest with clear breath sounds bilaterally. No wheezes, rales, or rhonchi. CARDIAC: Regular rate and rhythm. S1 and S2, without murmurs, gallops, or rubs. VASCULAR: Trace pitting Edema. Peripheral pulses normal and equal in all extremities. ABDOMEN: Soft, without detectable tenderness. No sign of distention. No rebound or guarding, and no masses palpated. Bowel Sounds normal. MUSCULOSKELETAL: Limited range of motion Left Knee, left knee disfigured, increased width and diameter. Extremities without clubbing, cyanosis. Trace Pitting edema. NEUROLOGIC EXAM: Alert and oriented x 3. No focal sensory or strength deficits. Speech normal. Follows commands. PSYCHIATRIC: Mood normal. SKIN: Multiple venous stasis changes - Constitutional Vitals: Temp Pulse Resp BP Pulse Ox 98.5 F 92 H 18 159/95 100 04/13/17 07:45 04/13/17 07:45 04/13/17 07:45 04/13/17 07:45 04/13/17 07:45 Results - Labs CBC & Chem 7: 04/13/17 04:50 04/13/17 04:50 Labs: Laboratory Last Values WBC 6.7 K/mm3 (4.5-11.0) 04/13/17 04:50 RBC 3.33 M/mm3 (3.65-5.03) L 04/13/17 04:50 Hgb 7.9 gm/dl (11.8-15.2) L 04/13/17 04:50 Hct 24.7 % (35.5-45.6) L 04/13/17 04:50 MCV 74 fl (84-94) L 04/13/17 04:50 MCH 24 pg (28-32) L 04/13/17 04:50 MCHC 32 % (32-34) 04/13/17 04:50 RDW 17.0 % (13.2-15.2) H 04/13/17 04:50 Plt Count 417 K/mm3 (140-440) 04/13/17 04:50 Lymph % (Auto) 28.3 % (13.4-35.0) 04/13/17 04:50 [place] % (Auto) 8.9 % (0.0-7.3) H 04/13/17 04:50 Eos % (Auto) 2.7 % (0.0-4.3) 04/13/17 04:50 Baso % (Auto) 0.4 % (0.0-1.8) 04/13/17 04:50 Lymph # 1.9 K/mm3 (1.2-5.4) 04/13/17 04:50 [place] # 0.6 K/mm3 (0.0-0.8) 04/13/17 04:50 Eos # 0.2 K/mm3 (0.0-0.4) 04/13/17 04:50 Baso # 0.0 K/mm3 (0.0-0.1) 04/13/17 04:50 Seg Neutrophils % 59.7 % (40.0-70.0) 04/13/17 04:50 Seg Neutrophils # 4.0 K/mm3 (1.8-7.7) 04/13/17 04:50 PT 15.8 Sec. (12.2-14.9) H 04/12/17 08:34 INR 1.20 (0.87-1.13) H 04/12/17 08:34 APTT 46.7 Sec. (24.2-36.6) H 04/12/17 08:34 D-Dimer 2932 ng/mlDDU (0-234) H 04/12/17 08:34 Sodium 134 mmol/L (137-145) L 04/13/17 04:50 Potassium 4.5 mmol/L (3.6-5.0) 04/13/17 04:50 Chloride 103.7 mmol/L (98-107) 04/13/17 04:50 Carbon Dioxide 15 mmol/L (22-30) L 04/13/17 04:50 Anion Gap 20 mmol/L 04/13/17 04:50 BUN 51 mg/dL (9-20) H 04/13/17 04:50 Creatinine 3.8 mg/dL (0.8-1.5) H 04/13/17 04:50 Estimated GFR 21 ml/min 04/13/17 04:50 BUN/Creatinine Ratio 13.42 % 04/13/17 04:50 Glucose 179 mg/dL (75-100) H 04/13/17 04:50 POC Glucose 177 (70-105) H 04/13/17 11:47 Osmolality 304 Mosm/kg 04/12/17 11:00 Calcium 7.5 mg/dL (8.4-10.2) L 04/13/17 04:50 Phosphorus 5.20 mg/dL (2.5-4.5) H 04/13/17 04:50 Iron 25 ug/dL (49-181) L 04/12/17 16:00 TIBC 98 mcg/dL (250-450) L 04/12/17 16:00 Ferritin 745.3 ng/mL (13.0-400.0) H 04/12/17 16:00 Total Creatine Kinase 107 units/L (55-170) 04/13/17 01:17 CK-MB (CK-2) 2.7 ng/mL (0.0-4.0) 04/13/17 01:17 CK-MB (CK-2) Rel Index 2.5 (0-4) 04/13/17 01:17 Troponin T 0.174 ng/mL (0.00-0.029) H* 04/13/17 01:17 NT-Pro-B Natriuret Pep 9214 pg/mL (0-450) H 04/12/17 08:34 Triglycerides 89 mg/dL (2-149) 04/12/17 08:34 Cholesterol 84 mg/dL (50-199) 04/12/17 08:34 LDL Cholesterol Direct 32 mg/dL (50-130) L 04/12/17 08:34 HDL Cholesterol 35 mg/dL (40-59) L 04/12/17 08:34 Cholesterol/HDL Ratio 2.40 % 04/12/17 08:34 Vitamin B12 369.0 pg/mL (211-911) 04/12/17 16:00 TSH 0.027 mlU/mL (0.270-4.200) L 04/12/17 09:14 Free T4 1.03 ng/dL (0.76-1.46) 04/12/17 09:14 PTH Intact 132.4 pg/mL (15-65) H 04/13/17 04:50 Urine Color Yellow (Yellow) 04/12/17 11:37 Urine Turbidity Clear (Clear) 04/12/17 11:37 Urine pH 5.0 (5.0-7.0) 04/12/17 11:37 Ur Specific [place] 1.014 (1.003-1.030) 04/12/17 11:37 Urine Protein >500 mg/dL (Negative) 04/12/17 11:37 Urine Glucose (UA) >=500 mg/dL (Negative) 04/12/17 11:37 Urine Ketones Neg mg/dL (Negative) 04/12/17 11:37 Urine Blood Sm (Negative) 04/12/17 11:37 Urine Nitrite Neg (Negative) 04/12/17 11:37 Urine Bilirubin Neg (Negative) 04/12/17 11:37 Urine Urobilinogen < 2.0 mg/dL (<2.0) 04/12/17 11:37 Ur Leukocyte Esterase Neg (Negative) 04/12/17 11:37 Urine WBC (Auto) 1.0 /HPF (0.0-6.0) 04/12/17 11:37 Urine RBC (Auto) 7.0 /HPF (0.0-6.0) 04/12/17 11:37 U Epithel Cells (Auto) 1.0 /HPF (0-13.0) 04/12/17 11:37 Urine Bacteria (Auto) 1+ /HPF (Negative) 04/12/17 11:37 Urine Mucus Few /HPF 04/12/17 11:37
--- NOTE | 2017-04-13 16:41 | XRay Report ---
FINAL REPORT EXAM: XR KNEE 3V LT HISTORY: joint deformity TECHNIQUE: 3 views of left knee. PRIORS: None. FINDINGS: Mild medial and moderate lateral joint space narrowing, with mild marginal spurring and more diffuse sclerotic change in distal femur, proximal tibia and especially involving the patella. Very mild lateral subluxation of proximal tibia relative to distal femur. No apparent fracture or willy dislocation. Small and polygonal, ossific densities noted in the posteromedial and posterior joint compartment may represent intra-articular osteocartilaginous bodies. Marked joint effusion and diffuse surrounding soft tissue edema. IMPRESSION: 1. Tricompartment degenerative joint disease and sclerotic change, particularly involving the patella, which may be degenerative versus nonspecific postinflammatory or infectious etiology. Clinical correlation and followup may be warranted. 2. Marked joint effusion and diffuse soft tissue edema.
[2017-04-13] MEDS: LEVEMIR SUB-Q SCH (21:47)
[2017-04-13] MEDS: TYLENOL PO PRN (21:56)
--- NOTE | 2017-04-14 05:07 | Admit Criteria Form ---
Admission Criteria Documentation: HEART FAILURE: COMMON COMPLICATIONS Clinical Indications for Inpatient Care ([place]/check or initial the applicable condition/criteria): Ongoing inpatient care may be indicated for heart failure with 1 or more of the following (1)(2)(3)(4)(5)(6)(7)(8): [ ]I. New-onset heart failure [ ]II. Acute cardiac ischemia causing or associated with failure [ ]III. Ongoing need for care for primary condition requiring frequent therapy adjustments because of changes in cardiac function (eg, drug dosage changes for drugs that are renally metabolized) [X]IV. Complications of heart failure, including 1 or more of the following: [ ]a) Hemodynamic instability [ ]b) Pericardial effusion [ ]c) Symptomatic pleural effusion(16) [ ]d) Hypoxemia [ ]e) Tachypnea [X]f) Dyspnea [ ]g) Syncope [ ]h) Altered mental status [ ]i) Acute renal insufficiency that is severe (reduction of more than 50% in estimated glomerular filtration rate from baseline) or progressive (reduction of more than 25% in estimated glomerular filtration rate from baseline, with creatinine continuing to rise) [ ]j) Debilitating anasarca (eg tissue breakdown with infection, inability to void due to edema)(E) (17) [ ]k) Clinically significant metabolic abnormalities due to heart failure (e.g., new-onset metabolic acidosis) Extended stay may be needed until ALL of the following are present(1)(3)(18)(41) (55): [ ]a) Hemodynamic stability [ ]b) Stable and effective diuretic regimen established (or patient on stable dialysis regimen if in chronic renal failure) [ ]c) Volume status acceptable on oral medication [ ]d) Breathing comfortably at rest [ ]e) Saturation of arterial oxygen greater than 90% or at acceptable baseline [ ]f) Pulmonary edema absent or improved [ ]g) Peripheral or sacral edema absent or improved [ ]h) Renal function stable and manageable at a lower level of care [ ]i) Complications (e.g., pleural effusion) resolved or manageable at a lower level of care [ ]j) Patient or caregiver has received written discharge instructions or educational material addressing activity level, diet, discharge medications, follow-up appointment, weight monitoring, and what to do if symptoms worsen. (56)(57)(58) The original [facility] [employer] content created by Onur Siegel has been revised. The portions of the content which have been revised are identified through the use of italic text or in bold, and Onur Siegel has neither reviewed nor approved the modified material.All other unmodified content is copyright [facility] [employer]. Please see references footnoted in the original [facility] edition 2017 Admission Criteria Met: Yes
[2017-04-14 06:24] LABS: BUN/Creatinine Ratio 12.61; Calcium 7.1 mg/dL (8.4-10.2); Chloride 108.1 mmol/L (98-107); Potassium 4.7 mmol/L (3.6-5.0)
--- NOTE | 2017-04-14 07:43 | Progress Note ---
Hospitalist Physical - Constitutional Vitals: Temp Pulse Resp BP Pulse Ox 98.4 F 109 H 22 145/94 100 04/14/17 05:27 04/14/17 05:27 04/14/17 05:27 04/14/17 05:27 04/14/17 05:27 Results - Labs CBC & Chem 7: 04/13/17 04:50 04/14/17 04:00 Labs: Laboratory Last Values WBC 6.7 K/mm3 (4.5-11.0) 04/13/17 04:50 RBC 3.33 M/mm3 (3.65-5.03) L 04/13/17 04:50 Hgb 7.9 gm/dl (11.8-15.2) L 04/13/17 04:50 Hct 24.7 % (35.5-45.6) L 04/13/17 04:50 MCV 74 fl (84-94) L 04/13/17 04:50 MCH 24 pg (28-32) L 04/13/17 04:50 MCHC 32 % (32-34) 04/13/17 04:50 RDW 17.0 % (13.2-15.2) H 04/13/17 04:50 Plt Count 417 K/mm3 (140-440) 04/13/17 04:50 Lymph % (Auto) 28.3 % (13.4-35.0) 04/13/17 04:50 [place] % (Auto) 8.9 % (0.0-7.3) H 04/13/17 04:50 Eos % (Auto) 2.7 % (0.0-4.3) 04/13/17 04:50 Baso % (Auto) 0.4 % (0.0-1.8) 04/13/17 04:50 Lymph # 1.9 K/mm3 (1.2-5.4) 04/13/17 04:50 [place] # 0.6 K/mm3 (0.0-0.8) 04/13/17 04:50 Eos # 0.2 K/mm3 (0.0-0.4) 04/13/17 04:50 Baso # 0.0 K/mm3 (0.0-0.1) 04/13/17 04:50 Seg Neutrophils % 59.7 % (40.0-70.0) 04/13/17 04:50 Seg Neutrophils # 4.0 K/mm3 (1.8-7.7) 04/13/17 04:50 PT 15.8 Sec. (12.2-14.9) H 04/12/17 08:34 INR 1.20 (0.87-1.13) H 04/12/17 08:34 APTT 46.7 Sec. (24.2-36.6) H 04/12/17 08:34 D-Dimer 2932 ng/mlDDU (0-234) H 04/12/17 08:34 Sodium 140 mmol/L (137-145) 04/14/17 04:00 Potassium 4.7 mmol/L (3.6-5.0) 04/14/17 04:00 Chloride 108.1 mmol/L (98-107) H 04/14/17 04:00 Carbon Dioxide 19 mmol/L (22-30) L 04/14/17 04:00 Anion Gap 18 mmol/L 04/14/17 04:00 BUN 53 mg/dL (9-20) H 04/14/17 04:00 Creatinine 4.2 mg/dL (0.8-1.5) H 04/14/17 04:00 Estimated GFR 19 ml/min 04/14/17 04:00 BUN/Creatinine Ratio 12.61 % 04/14/17 04:00 Glucose 81 mg/dL (75-100) 04/14/17 04:00 POC Glucose 272 (70-105) H 04/13/17 18:34 Osmolality 304 Mosm/kg 04/12/17 11:00 Calcium 7.1 mg/dL (8.4-10.2) L 04/14/17 04:00 Phosphorus 5.20 mg/dL (2.5-4.5) H 04/13/17 04:50 Iron 25 ug/dL (49-181) L 04/12/17 16:00 TIBC 98 mcg/dL (250-450) L 04/12/17 16:00 Ferritin 745.3 ng/mL (13.0-400.0) H 04/12/17 16:00 Total Creatine Kinase 107 units/L (55-170) 04/13/17 01:17 CK-MB (CK-2) 2.7 ng/mL (0.0-4.0) 04/13/17 01:17 CK-MB (CK-2) Rel Index 2.5 (0-4) 04/13/17 01:17 Troponin T 0.174 ng/mL (0.00-0.029) H* 04/13/17 01:17 NT-Pro-B Natriuret Pep 9214 pg/mL (0-450) H 04/12/17 08:34 Triglycerides 89 mg/dL (2-149) 04/12/17 08:34 Cholesterol 84 mg/dL (50-199) 04/12/17 08:34 LDL Cholesterol Direct 32 mg/dL (50-130) L 04/12/17 08:34 HDL Cholesterol 35 mg/dL (40-59) L 04/12/17 08:34 Cholesterol/HDL Ratio 2.40 % 04/12/17 08:34 Vitamin B12 369.0 pg/mL (211-911) 04/12/17 16:00 TSH 0.027 mlU/mL (0.270-4.200) L 04/12/17 09:14 Free T4 1.03 ng/dL (0.76-1.46) 04/12/17 09:14 PTH Intact 132.4 pg/mL (15-65) H 04/13/17 04:50 Urine Color Yellow (Yellow) 04/12/17 11:37 Urine Turbidity Clear (Clear) 04/12/17 11:37 Urine pH 5.0 (5.0-7.0) 04/12/17 11:37 Ur Specific [place] 1.014 (1.003-1.030) 04/12/17 11:37 Urine Protein >500 mg/dL (Negative) 04/12/17 11:37 Urine Glucose (UA) >=500 mg/dL (Negative) 04/12/17 11:37 Urine Ketones Neg mg/dL (Negative) 04/12/17 11:37 Urine Blood Sm (Negative) 04/12/17 11:37 Urine Nitrite Neg (Negative) 04/12/17 11:37 Urine Bilirubin Neg (Negative) 04/12/17 11:37 Urine Urobilinogen < 2.0 mg/dL (<2.0) 04/12/17 11:37 Ur Leukocyte Esterase Neg (Negative) 04/12/17 11:37 Urine WBC (Auto) 1.0 /HPF (0.0-6.0) 04/12/17 11:37 Urine RBC (Auto) 7.0 /HPF (0.0-6.0) 04/12/17 11:37 U Epithel Cells (Auto) 1.0 /HPF (0-13.0) 04/12/17 11:37 Urine Bacteria (Auto) 1+ /HPF (Negative) 04/12/17 11:37 Urine Mucus Few /HPF 04/12/17 11:37
[2017-04-14] MEDS: DUONEB *Not for PRN Use IH SCH ×3 (08:26→21:08)
[2017-04-14] MEDS: NOVOLOG SUB-Q SCH ×4 (09:09→22:34)
[2017-04-14] MEDS: D50W (25GM) Syringe IV PRN (09:52)
[2017-04-14] MEDS: WELCHOL PO SCH ×2 (10:06→22:39)
[2017-04-14] MEDS: PEPCID PO SCH (10:06)
[2017-04-14] MEDS: CYMBALTA PO SCH (10:06)
[2017-04-14] MEDS: HEPARIN SUB-Q SCH ×2 (10:07→22:40)
--- NOTE | 2017-04-14 10:49 | Progress Note ---
Assessment and Plan Shortness of breath no acute process of CXR V\Q scan negative for PE normal LVEF 55-60% on echocardiogram Anemia Chronic renal disease Borderline elevated troponin likely in the setting of renal failure doubt non-ST elevation [place] Hx of Afib currently in normal sinus rhythm on eliquis as an outpatient Diabetes mellitus with hyperglycemia Chronic LE lymphedema Subjective Date of service: 04/14/17 Interval history: Patient denies chest pain and shortness of breath. Family member at bedside. Objective Vital Signs Temp Pulse Pulse Pulse Resp Resp Resp 04/14/17 08:49 97.3 F L 114 H 18 04/14/17 08:27 112 H 17 04/14/17 08:00 112 H 18 04/14/17 05:27 98.4 F 109 H 22 04/14/17 00:40 99.0 F 112 H 22 04/13/17 22:56 19 04/13/17 22:00 110 H 19 04/13/17 21:56 19 04/13/17 20:44 100.1 F H 106 H 20 04/13/17 20:34 19 04/13/17 20:10 110 H 20 04/13/17 20:05 114 H 04/13/17 20:02 106 H 20 04/13/17 18:45 99.2 F 110 H 20 04/13/17 13:41 97 H 18 04/13/17 13:31 98 H 18 04/13/17 11:40 97.9 F 92 H 20 BP Pulse Ox 04/14/17 08:49 171/80 100 04/14/17 08:27 100 04/14/17 08:00 04/14/17 05:27 145/94 100 04/14/17 00:40 121/57 98 04/13/17 22:56 04/13/17 22:00 04/13/17 21:56 04/13/17 20:44 132/72 100 04/13/17 20:34 04/13/17 20:10 04/13/17 20:05 04/13/17 20:02 97 04/13/17 18:45 148/77 99 04/13/17 13:41 04/13/17 13:31 04/13/17 11:40 167/83 97 - Physical Examination General: No Apparent Distress HEENT: Positive: PERRL Neck: Positive: trachea midline Cardiac: Positive: Tachycardia - Labs and Meds Comprehensive Metabolic Panel 04/14/17 Range/Units 04:00 Sodium 140 (137-145) mmol/L Potassium 4.7 (3.6-5.0) mmol/L Chloride 108.1 H (98-107) mmol/L Carbon Dioxide 19 L (22-30) mmol/L BUN 53 H (9-20) mg/dL Creatinine 4.2 H (0.8-1.5) mg/dL Glucose 81 (75-100) mg/dL Calcium 7.1 L (8.4-10.2) mg/dL
[2017-04-14] MEDS: TOBRADEX OU SCH (11:14)
--- NOTE | 2017-04-14 11:45 | Progress Note ---
Assessment and Plan - Patient Problems (1) Acute on chronic renal failure Current Visit: Yes Status: Acute Qualifiers: Acute renal failure type: A Chronic kidney disease stage: C Plan to address problem: Creatinine level remains about the same inspite of IV fluids for the past 2 days. Renal function may be at his baseline. Continue IV fluids for now. Renal prognosis is guarded. Insert Bowens catheter. D/w his at the bedside. (2) Proteinuria due to type 2 diabetes mellitus Current Visit: Yes Status: Chronic (3) Shortness of breath Current Visit: Yes Status: Acute (4) Anemia Current Visit: Yes Status: Chronic Qualifiers: Anemia type: A Iron deficiency anemia type: I Vitamin B12 deficiency anemia type: V Folate deficiency anemia type: F Bone marrow failure anemia type: B Hemolytic anemia type: H Other causes of anemia: O Chronic kidney disease stage: C Subjective Date of service: 04/14/17 Interval history: Patient has been sleeping and hasn't void any urine since yesterday afternoon. Objective - Vital Signs Vital signs: Vital Signs - 12hr 04/14/17 04/14/17 04/14/17 00:40 05:27 08:00 Temperature 99.0 F 98.4 F Pulse Rate 112 H 109 H Pulse Rate [ 112 H Anterior Bilateral Throughout] Respiratory 22 22 Rate Respiratory 18 Rate [Anterior Bilateral Throughout] Blood Pressure 121/57 145/94 O2 Sat by Pulse 98 100 Oximetry 04/14/17 04/14/17 08:27 08:49 Temperature 97.3 F L Pulse Rate 114 H Pulse Rate [ 112 H Anterior Bilateral Throughout] Respiratory 18 Rate Respiratory 17 Rate [Anterior Bilateral Throughout] Blood Pressure 171/80 O2 Sat by Pulse 100 100 Oximetry - General Appearance General appearance: well-developed, appears stated age, obese EENT: ATNC, hearing intact Neck: supple Respiratory: Present: Clear to Ascultation Cardiology: regular, S1S2, no murmurs Gastrointestinal: normoactive bowel sounds, no tenderness, no distended Integumentary: other (chronic stasis changes on both LEs noted) Neurologic: other (difficult to stay awake) Musculoskeletal: other (trace pedal edema) - Lab 04/13/17 04:50 04/14/17 04:00 Most recent lab results Calcium 7.1 mg/dL (8.4-10.2) L 04/14/17 04:00 Phosphorus 5.20 mg/dL (2.5-4.5) H 04/13/17 04:50
--- NOTE | 2017-04-14 14:50 | Consultation ---
History of Present Illness - [facility] Consult date: 04/14/17 Consult reason: joint pain History of present illness: 47-year-old male who complains of a long history of left knee pain and swelling states he was seen by a doctor at [place] where it was recommended to treat this patient's chronic knee problem conservatively. He was given a long leg knee brace which the states became somewhat cumbersome and therefore he began not using it. Patient has a long history of diabetes with severe peripheral neuropathy essentially there is no feelings in his left foot, she also has chronic renal failure and severe deconditioning. Past History Past Medical History: atrial fib, diabetes, hypertension, hyperlipidemia Past Surgical History: Other (cardiac ablation. Multiple knee surgeries on the left knee) Social history: no significant social history, full code. denies: alcohol abuse , prescription drug abuse, IV drug use Family history: no significant family history Medications and Allergies Allergies Allergy/AdvReac Type Severity Reaction Status Date / Time AMMY Inhibitors Allergy Unknown Verified 08/19/15 01:31 Home Medications Medication Instructions Recorded Confirmed Last Taken Type Amlodipine Besylate [Norvasc] 5 mg PO DAILY 08/19/15 04/14/17 1 Day Ago History AtorvaSTATin [Lipitor] 20 mg PO DAILY 08/19/15 04/14/17 1 Day Ago History Colesevelam [Welchol] 1,875 mg PO BID 08/19/15 04/14/17 1 Day Ago History Duloxetine HCl [DULoxetine] 60 mg PO DAILY 08/19/15 04/14/17 1 Day Ago History Furosemide [Lasix TAB] 20 mg PO DAILY 08/19/15 04/14/17 1 Day Ago History Insulin Glargine [Lantus VIAL] 100 unit SQ DAILY 08/19/15 04/14/17 1 Day Ago History Iron,Fum&Ps/FA/Vit B&C#18/L.ca 1 each PO DAILY 08/19/15 04/14/17 1 Day Ago History [Fusion Plus Capsule] Losartan [Cozaar] 100 mg PO DAILY 08/19/15 04/14/17 1 Day Ago History Ofloxacin [Ofloxacin 0.3%] 5 ml INTRAOCULA DAILY 08/19/15 04/14/17 1 Day Ago History Potassium Chloride [Klor-Con 10] 10 meq PO DAILY 08/19/15 04/14/17 1 Day Ago History Tobramycin/Dexameth 0.1-0.3% 3.5 gm SUBDERMAL DAILY 08/19/15 04/14/17 1 Day Ago History [Tobradex] Active Meds: Active Medications Acetaminophen (Tylenol) 650 mg PO Q4H PRN PRN Reason: Pain MILD(1-3)/Fever >100.5/GARZON Last Admin: 04/13/17 21:56 Dose: 650 mg Albuterol (Proventil) 2.5 mg IH Q4HRT PRN PRN Reason: Shortness Of Breath Albuterol/Ipratropium (Duoneb *Not For Prn Use*) 1 ampul IH TIDRT [facility] Last Admin: 04/14/17 13:16 Dose: 1 ampul Atorvastatin Calcium (Lipitor) 20 mg PO DAILY [facility] Last Admin: 04/14/17 10:07 Dose: 20 mg Bisacodyl (Dulcolax) 10 mg OK QDAY PRN PRN Reason: Constipation unrelieved by MOM Colesevelam HCl (Welchol) 1,875 mg PO BID [facility] Last Admin: 04/14/17 10:06 Dose: 1,875 mg Dextrose (D50w (25gm)) 50 ml IV PRN PRN PRN Reason: Hypoglycemia Last Admin: 04/14/17 09:52 Dose: 50 ml Duloxetine HCl (Cymbalta) 60 mg PO QDAY [facility] Last Admin: 04/14/17 10:06 Dose: 60 mg Famotidine (Pepcid) 20 mg PO DAILY [facility] Last Admin: 04/14/17 10:06 Dose: 20 mg Heparin Sodium (Porcine) (Heparin) 5,000 unit SUB-Q Q12HR [facility] Last Admin: 04/14/17 10:07 Dose: 5,000 unit Sodium Chloride (Nacl 0.9% 1000 Ml) 1,000 mls @ 50 mls/hr IV DIRECT [facility] Last Admin: 04/13/17 06:22 Dose: 75 mls/hr Insulin Aspart (Novolog) 0 units SUB-Q ACHS [facility] PRN Reason: Protocol Last Admin: 04/14/17 12:42 Dose: 6 units Insulin Detemir (Levemir) 10 units SUB-Q QHS [facility] Ondansetron HCl (Zofran) 4 mg IV Q4H PRN PRN Reason: N/V unrelieved by Reglan Tobramycin/Dexamethasone (Tobradex) 1 inch OU DAILY [facility] Last Admin: 04/14/17 11:14 Dose: 1 inch Physical Examination - Physical exam Narrative exam: Significant musculoskeletal findings relates to the left lower extremity. He was noted to have pitting edema as well as a large joint effusion there is ligament instability particularly the collateral ligaments and the posterior cruciate appears nonfunctional there is no redness or erythema passive range of motion full Plain x-rays left knee reveal a large soft tissue shadow as well as a laterally placed patella, also patient has stage III osteoarthritic changes in all compartments Assessment and Plan Assessment- chronic left knee effusion, rule out soft tissue tumors versus synovitis Recommendations - MRI scan left knee, he may also require an EMG NCV study to get a gauge of his peripheral neuropathy
--- NOTE | 2017-04-14 15:54 | Progress Note ---
Assessment and Plan Assessment and plan: Patient is a 47-year-old male with past medical history including hyperlipidemia , chronic kidney disease, cardiac ablation, diabetes mellitus and multiple left knee surgery who presents to the ER complaining of bilateral leg edema worsening on the left and associated shortness of breath 1 day with reported left sided chest pain which is worse on lying down and improves with sitting up. The patient also does report worsening shortness of breath on lying supine with positive orthopnea improves with sitting up. He denies any sick contacts and he is followed by director digital and primary care physician and is supposed to be evaluated by nephrology but has not had a full evaluation done. The pain he describes as a 5/10 in intensity with no radiation and no associated diaphoresis. He states that he woke him up this morning. Denies any palpitation nausea vomiting or diarrhea as noted. * Acute dyspnea * resolved. * Elevated BNP, chronic edema doubt CHF after thorough review * Chronic lymphedema with left knee large effusion * ortho following, weight limit exceeds for MRI, will obtain CT of left knee * Acute kidney injury on chronic kidney disease likely secondary to vasomotor nephropathy * Creatnine, stable despite fluids. Continue hydration. Strict I/O, Nephrology infollowing * Diabetes mellitus with hyperglycemia * Was with hypoglycemia this am, family reports patient on 10 units at night at home, will change to 14 units * Hyperlipidemia * Continue statin * NSTEMI type 2 * no acute cardiac event noted, Cardiology input noted, ECHO PENDING * Anemia of chronic kidney disease * Debilty * skilled rehab placement on discharge, per PT recommendation. * Coagulopathy * DVT/GI prophy * Plan discussed with patient and spouse in detail * Anticipate discharge in AM if no further Ortho Intervention and if ok with Nephrology. will need close nephrology management. History Interval history: Patient seen and examined in no acute distress at this time. REMAINS WITHOUT SHORTNESS OF BREATH. Hospitalist Physical - Physical exam Narrative exam: VITAL SIGNS: Reviewed. GENERAL: The patient appeared well nourished and normally developed. Vital signs as documented. HEAD: No signs of head trauma. EYES: Pupils are equal. Extraocular motions intact. EARS: Hearing grossly intact. MOUTH: Oropharynx is normal. NECK: No adenopathy, no JVD. CHEST: Chest with clear breath sounds bilaterally. No wheezes, rales, or rhonchi. CARDIAC: Regular rate and rhythm. S1 and S2, without murmurs, gallops, or rubs. VASCULAR: Trace pitting Edema. Peripheral pulses normal and equal in all extremities. ABDOMEN: Soft, without detectable tenderness. No sign of distention. No rebound or guarding, and no masses palpated. Bowel Sounds normal. MUSCULOSKELETAL: Limited range of motion Left Knee, left knee disfigured, increased width and diameter. Extremities without clubbing, cyanosis. Trace Pitting edema. NEUROLOGIC EXAM: Alert and oriented x 3. No focal sensory or strength deficits. Speech normal. Follows commands. PSYCHIATRIC: Mood normal. SKIN: Multiple venous stasis changes - Constitutional Vitals: Temp Pulse Resp BP Pulse Ox 97.3 F L 108 H 18 171/80 98 04/14/17 08:49 04/14/17 13:17 04/14/17 13:17 04/14/17 08:49 04/14/17 10:00 Results - Labs CBC & Chem 7: 04/13/17 04:50 04/14/17 04:00 Labs: Laboratory Last Values WBC 6.7 K/mm3 (4.5-11.0) 04/13/17 04:50 RBC 3.33 M/mm3 (3.65-5.03) L 04/13/17 04:50 Hgb 7.9 gm/dl (11.8-15.2) L 04/13/17 04:50 Hct 24.7 % (35.5-45.6) L 04/13/17 04:50 MCV 74 fl (84-94) L 04/13/17 04:50 MCH 24 pg (28-32) L 04/13/17 04:50 MCHC 32 % (32-34) 04/13/17 04:50 RDW 17.0 % (13.2-15.2) H 04/13/17 04:50 Plt Count 417 K/mm3 (140-440) 04/13/17 04:50 Lymph % (Auto) 28.3 % (13.4-35.0) 04/13/17 04:50 [place] % (Auto) 8.9 % (0.0-7.3) H 04/13/17 04:50 Eos % (Auto) 2.7 % (0.0-4.3) 04/13/17 04:50 Baso % (Auto) 0.4 % (0.0-1.8) 04/13/17 04:50 Lymph # 1.9 K/mm3 (1.2-5.4) 04/13/17 04:50 [place] # 0.6 K/mm3 (0.0-0.8) 04/13/17 04:50 Eos # 0.2 K/mm3 (0.0-0.4) 04/13/17 04:50 Baso # 0.0 K/mm3 (0.0-0.1) 04/13/17 04:50 Seg Neutrophils % 59.7 % (40.0-70.0) 04/13/17 04:50 Seg Neutrophils # 4.0 K/mm3 (1.8-7.7) 04/13/17 04:50 PT 15.8 Sec. (12.2-14.9) H 04/12/17 08:34 INR 1.20 (0.87-1.13) H 04/12/17 08:34 APTT 46.7 Sec. (24.2-36.6) H 04/12/17 08:34 D-Dimer 2932 ng/mlDDU (0-234) H 04/12/17 08:34 Sodium 140 mmol/L (137-145) 04/14/17 04:00 Potassium 4.7 mmol/L (3.6-5.0) 04/14/17 04:00 Chloride 108.1 mmol/L (98-107) H 04/14/17 04:00 Carbon Dioxide 19 mmol/L (22-30) L 04/14/17 04:00 Anion Gap 18 mmol/L 04/14/17 04:00 BUN 53 mg/dL (9-20) H 04/14/17 04:00 Creatinine 4.2 mg/dL (0.8-1.5) H 04/14/17 04:00 Estimated GFR 19 ml/min 04/14/17 04:00 BUN/Creatinine Ratio 12.61 % 04/14/17 04:00 Glucose 81 mg/dL (75-100) 04/14/17 04:00 POC Glucose 252 (70-105) H 04/14/17 11:24 Osmolality 304 Mosm/kg 04/12/17 11:00 Calcium 7.1 mg/dL (8.4-10.2) L 04/14/17 04:00 Phosphorus 5.20 mg/dL (2.5-4.5) H 04/13/17 04:50 Iron 25 ug/dL (49-181) L 04/12/17 16:00 TIBC 98 mcg/dL (250-450) L 04/12/17 16:00 Ferritin 745.3 ng/mL (13.0-400.0) H 04/12/17 16:00 Total Creatine Kinase 107 units/L (55-170) 04/13/17 01:17 CK-MB (CK-2) 2.7 ng/mL (0.0-4.0) 04/13/17 01:17 CK-MB (CK-2) Rel Index 2.5 (0-4) 04/13/17 01:17 Troponin T 0.174 ng/mL (0.00-0.029) H* 04/13/17 01:17 NT-Pro-B Natriuret Pep 9214 pg/mL (0-450) H 04/12/17 08:34 Triglycerides 89 mg/dL (2-149) 04/12/17 08:34 Cholesterol 84 mg/dL (50-199) 04/12/17 08:34 LDL Cholesterol Direct 32 mg/dL (50-130) L 04/12/17 08:34 HDL Cholesterol 35 mg/dL (40-59) L 04/12/17 08:34 Cholesterol/HDL Ratio 2.40 % 04/12/17 08:34 Vitamin B12 369.0 pg/mL (211-911) 04/12/17 16:00 TSH 0.027 mlU/mL (0.270-4.200) L 04/12/17 09:14 Free T4 1.03 ng/dL (0.76-1.46) 04/12/17 09:14 PTH Intact 132.4 pg/mL (15-65) H 04/13/17 04:50 Urine Color Yellow (Yellow) 04/12/17 11:37 Urine Turbidity Clear (Clear) 04/12/17 11:37 Urine pH 5.0 (5.0-7.0) 04/12/17 11:37 Ur Specific [place] 1.014 (1.003-1.030) 04/12/17 11:37 Urine Protein >500 mg/dL (Negative) 04/12/17 11:37 Urine Glucose (UA) >=500 mg/dL (Negative) 04/12/17 11:37 Urine Ketones Neg mg/dL (Negative) 04/12/17 11:37 Urine Blood Sm (Negative) 04/12/17 11:37 Urine Nitrite Neg (Negative) 04/12/17 11:37 Urine Bilirubin Neg (Negative) 04/12/17 11:37 Urine Urobilinogen < 2.0 mg/dL (<2.0) 04/12/17 11:37 Ur Leukocyte Esterase Neg (Negative) 04/12/17 11:37 Urine WBC (Auto) 1.0 /HPF (0.0-6.0) 04/12/17 11:37 Urine RBC (Auto) 7.0 /HPF (0.0-6.0) 04/12/17 11:37 U Epithel Cells (Auto) 1.0 /HPF (0-13.0) 04/12/17 11:37 Urine Bacteria (Auto) 1+ /HPF (Negative) 04/12/17 11:37 Urine Mucus Few /HPF 04/12/17 11:37 - Imaging and Cardiology Imaging and Cardiology: Effusion in the knee
--- NOTE | 2017-04-14 18:09 | Cat Scan Report ---
FINAL REPORT PROCEDURE: CT LOWER EXTREMITY LT WO CON TECHNIQUE: Computerized axial tomography of the LEFT knee was performed without contrast. HISTORY: left knee, effusion vs mass. Swelling COMPARISON: 04/13/2017 FINDINGS: There is a large knee joint effusion, with intra-articular air. Findings are concerning for an infected effusion/septic arthritis. There is also diffuse articular surface cortical thinning and subarticular sclerosis involving the tibia, femur, and patella. There is also irregular periosteal reaction present. Cannot exclude osteomyelitis. Extensive large fluid collections are seen in the subcutaneous tissues predominantly anteriorly, medially and laterally, which may be contiguous with the joint effusion. Shape of the fluid collections is irregular but large anterior collection measures approximately 15 centimeters transverse x 4.1 centimeters AP x 15 centimeters craniocaudal. No acute fracture is seen. IMPRESSION: Findings are concerning for septic arthritis and possible osteomyelitis. Correlate with aspiration. Recommend further evaluation with MRI with contrast to exclude other pathology. Findings were discussed with the patient's nurse Fiona at 4:53 p.m. central standard time on 04/14/2017.
[2017-04-14] MEDS ORDERED: LEVEMIR SUB-Q SCH (22:00)
[2017-04-14] MEDS: LEVEMIR SUB-Q SCH (22:34)
[2017-04-14] MEDS: COLACE PO SCH (22:39)
[2017-04-15] MEDS: D50W (25GM) Syringe IV PRN (08:17)
[2017-04-15] MEDS: NOVOLOG SUB-Q SCH ×4 (08:18→23:28)
[2017-04-15 08:22] LABS: Albumin 1.7 g/dL (3.9-5); Albumin/Globulin Ratio 0.4 %; BUN/Creatinine Ratio 14.32; Bilirubin,Total 0.2 mg/dL (0.1-1.2); Calcium 7.4 mg/dL (8.4-10.2); Chloride 104.5 mmol/L (98-107); Magnesium 1.4 mg/dL (1.7-2.3); Potassium 4.5 mmol/L (3.6-5.0); Total Protein 5.8 g/dL (6.3-8.2)
--- NOTE | 2017-04-15 08:24 | Progress Note ---
Assessment and Plan - Patient Problems (1) Acute on chronic renal failure Current Visit: Yes Status: Acute Qualifiers: Acute renal failure type: A Chronic kidney disease stage: C Plan to address problem: Acute kidney injury superimposed on CKD stage ?3. Renal function is improving. Continue IV fluids for now. Renal prognosis is guarded. Patient is able to urinate fairly well. D/w his at the bedside. (2) Proteinuria due to type 2 diabetes mellitus Current Visit: Yes Status: Chronic (3) Shortness of breath Current Visit: Yes Status: Acute (4) Anemia Current Visit: Yes Status: Chronic Qualifiers: Anemia type: A Iron deficiency anemia type: I Vitamin B12 deficiency anemia type: V Folate deficiency anemia type: F Bone marrow failure anemia type: B Hemolytic anemia type: H Other causes of anemia: O Chronic kidney disease stage: C Subjective Date of service: 04/15/17 Interval history: Patient is feeling better today. Objective - Vital Signs Vital signs: Vital Signs - 12hr 04/14/17 04/14/17 04/14/17 20:51 21:08 22:00 Temperature 98.5 F Pulse Rate 114 H 112 H Respiratory 20 Rate Blood Pressure 155/79 O2 Sat by Pulse 100 100 Oximetry 04/15/17 04/15/17 04/15/17 01:02 04:20 06:00 Temperature 98.4 F 98.5 F Pulse Rate 108 H 105 H 99 H Respiratory 20 20 Rate Blood Pressure 148/86 152/75 O2 Sat by Pulse 99 105 H Oximetry - General Appearance General appearance: well-developed, appears stated age, obese, other (no distress) EENT: ATNC, mucous membranes moist, hearing intact Neck: supple Respiratory: Present: Clear to Ascultation Cardiology: regular, S1S2, no murmurs Gastrointestinal: normoactive bowel sounds, no tenderness Integumentary: other (stasis changes both LEs) Neurologic: other (right eye blindness) Musculoskeletal: other (trace pedal edema bilaterally) Psychiatric: mood/affect appropriate, cooperative - Lab 04/13/17 04:50 04/15/17 06:21 Most recent lab results Calcium 7.4 mg/dL (8.4-10.2) L 04/15/17 06:21 Phosphorus 5.20 mg/dL (2.5-4.5) H 04/13/17 04:50 Magnesium 1.40 mg/dL (1.7-2.3) L 04/15/17 06:21
[2017-04-15] MEDS: DUONEB *Not for PRN Use IH SCH ×3 (08:51→21:22)
[2017-04-15] MEDS: HEPARIN SUB-Q SCH (09:11)
[2017-04-15] MEDS: CYMBALTA PO SCH (09:14)
[2017-04-15] MEDS: PEPCID PO SCH (09:14)
[2017-04-15] MEDS: WELCHOL PO SCH ×2 (09:14→21:15)
[2017-04-15] MEDS: COLACE PO SCH ×2 (09:14→21:13)
[2017-04-15] MEDS: TOBRADEX OU SCH (09:15)
[2017-04-15] MEDS: TOPROL XL PO SCH (09:31)
--- NOTE | 2017-04-15 10:40 | Progress Note ---
Assessment and Plan Shortness of breath no acute process of CXR V\Q scan negative for PE normal LVEF 55-60% on echocardiogram Anemia Left knee effusion LLE CT reports septic arthritis and possible osteomyelitis Chronic renal disease Borderline elevated troponin likely in the setting of renal failure doubt non-ST elevation [place] Hx of Afib currently in normal sinus rhythm. On beta olga therapy for suppression. on eliquis as an outpatient Diabetes mellitus with hyperglycemia Recommendations Resume eliquis 5 mf po bid if no invasive procedures planned. Subjective Date of service: 04/15/17 Interval history: Patient denies chest pain and shortness of breath. Objective Vital Signs Temp Pulse Pulse Pulse Resp Resp BP 04/15/17 09:36 113 H 18 04/15/17 09:31 113 H 166/96 04/15/17 08:53 97.8 F 110 H 18 183/87 04/15/17 08:49 04/15/17 06:00 99 H 04/15/17 04:20 98.5 F 105 H 20 152/75 04/15/17 01:02 98.4 F 108 H 20 148/86 04/14/17 22:00 112 H 04/14/17 21:08 04/14/17 20:51 98.5 F 114 H 20 155/79 04/14/17 17:42 98.5 F 113 H 18 166/83 04/14/17 14:00 123 H 04/14/17 13:17 108 H 18 04/14/17 13:16 109 H 17 Pulse Ox 04/15/17 09:36 100 04/15/17 09:31 04/15/17 08:53 100 04/15/17 08:49 98 04/15/17 06:00 04/15/17 04:20 105 H 04/15/17 01:02 99 04/14/17 22:00 04/14/17 21:08 100 04/14/17 20:51 100 04/14/17 17:42 100 04/14/17 14:00 04/14/17 13:17 04/14/17 13:16 - Physical Examination General: No Apparent Distress HEENT: Positive: PERRL Neck: Positive: trachea midline Cardiac: Positive: Tachycardia Lungs: Positive: Decreased Breath Sounds Neuro: Positive: Grossly Intact - Labs and Meds Cardiac Enzymes 04/15/17 Range/Units 06:21 AST 13 (5-40) units/L Comprehensive Metabolic Panel 04/15/17 Range/Units 06:21 Sodium 136 L (137-145) mmol/L Potassium 4.5 (3.6-5.0) mmol/L Chloride 104.5 (98-107) mmol/L Carbon Dioxide 18 L (22-30) mmol/L BUN 53 H (9-20) mg/dL Creatinine 3.7 H (0.8-1.5) mg/dL Glucose 54 L (75-100) mg/dL Calcium 7.4 L (8.4-10.2) mg/dL AST 13 (5-40) units/L ALT 13 (7-56) units/L Alkaline Phosphatase 126 (35-129) units/L Total Protein 5.8 L (6.3-8.2) g/dL Albumin 1.7 L (3.9-5) g/dL
--- NOTE | 2017-04-15 11:19 | Vascular Lab Report ---
Left Lower Extremity Venous Duplex Study: Reason for Exam: Pain and swelling of the left lower extremity. Comments on the Right: A limited duplex study was done of the proximal veins of the right lower extremity. All veins visualized are freely compressible without evidence of internal echogenicity. Flow is spontaneous and phasic throughout. No evidence of acute or chronic thrombus is seen in any of the vessels visualized. Comments on the Left: All veins visualized are freely compressible without evidence of internal echogenicity. Flow is spontaneous and phasic throughout. No evidence of acute or chronic thrombus is seen in any of the vessels visualized. Soft tissue changes around the left knee could be consistent with a ruptured Harvey's cyst or a complex mass. Clinical correlation recommended. Impression: No evidence of acute or chronic deep venous thrombosis in the left lower extremity.
[2017-04-15] MEDS: ELIQUIS PO SCH (21:13)
[2017-04-15] MEDS: LEVEMIR SUB-Q SCH (23:30)
[2017-04-16 05:43] LABS: Basophils % (Auto) 0.9 % (0.0-1.8); Eosinophils % (Auto) 2.9 % (0.0-4.3); Hematocrit 21.1 % (35.5-45.6); Hemoglobin 6.7 gm/dl (11.8-15.2); Mean Corpuscular HGB Conc 32 % (32-34); Mean Corpuscular Volume 75 fl (84-94); Platelet Count 392 K/mm3 (140-440); Red Blood Count 2.82 M/mm3 (3.65-5.03); White Blood Count 6.5 K/mm3 (4.5-11.0)
[2017-04-16 05:48] LABS: Mean Corpuscular Hemoglobin 24 pg (28-32)
[2017-04-16 06:15] LABS: BUN/Creatinine Ratio 16.11; Calcium 7.5 mg/dL (8.4-10.2); Chloride 105.6 mmol/L (98-107); Potassium 4.9 mmol/L (3.6-5.0)
[2017-04-16] MEDS: DUONEB *Not for PRN Use IH SCH ×3 (07:43→19:41)
[2017-04-16] MEDS: NOVOLOG SUB-Q SCH ×4 (08:38→21:44)
[2017-04-16] MEDS: CYMBALTA PO SCH (09:10)
[2017-04-16] MEDS: WELCHOL PO SCH ×2 (09:10→21:38)
[2017-04-16] MEDS: COLACE PO SCH ×2 (09:10→21:39)
[2017-04-16] MEDS: PEPCID PO SCH (09:14)
[2017-04-16] MEDS: TOBRADEX OU SCH (09:14)
[2017-04-16] MEDS: TOPROL XL PO SCH (09:22)
--- NOTE | 2017-04-16 10:31 | Progress Note ---
Assessment and Plan Shortness of breath no acute process of CXR V\Q scan negative for PE normal LVEF 55-60% on echocardiogram Anemia with H&H trending downwards Left knee effusion LLE CT reports septic arthritis and possible osteomyelitis Chronic renal disease Borderline elevated troponin likely in the setting of renal failure doubt non-ST elevation [place] Hx of Afib currently in normal sinus rhythm. On beta olga therapy for suppression. on eliquis as an outpatient; currently on hold Diabetes mellitus with hyperglycemia Subjective Date of service: 04/16/17 Interval history: Patient denies chest pain and shortness of breath. Noted hemoglobin trending downwards on lab values. Objective Vital Signs Temp Pulse Resp BP Pulse Ox 04/16/17 09:22 98 H 132/70 04/16/17 08:15 98.5 F 98 H 0 L 138/87 100 04/16/17 05:08 98.7 F 92 H 20 166/81 100 04/16/17 04:46 92 H 04/16/17 00:50 97.6 F 98 H 18 151/81 100 04/16/17 00:49 86 04/15/17 20:55 97.7 F 90 20 133/82 100 04/15/17 18:25 99.9 F H 102 H 18 135/90 100 04/15/17 14:00 94 H 04/15/17 13:01 97.4 F L 93 H 18 178/97 100 - Physical Examination General: No Apparent Distress HEENT: Positive: PERRL Neck: Positive: trachea midline Cardiac: Positive: Reg Rate and Rhythm Lungs: Positive: Decreased Breath Sounds Neuro: Positive: Grossly Intact - Labs and Meds CBC 04/16/17 Range/Units 04:56 WBC 6.5 (4.5-11.0) K/mm3 RBC 2.82 L (3.65-5.03) M/mm3 Hgb 6.7 L (11.8-15.2) gm/dl Hct 21.1 L (35.5-45.6) % Plt Count 392 (140-440) K/mm3 Lymph # 1.5 (1.2-5.4) K/mm3 [place] # 0.7 (0.0-0.8) K/mm3 Eos # 0.2 (0.0-0.4) K/mm3 Baso # 0.1 (0.0-0.1) K/mm3 Comprehensive Metabolic Panel 04/16/17 Range/Units 04:56 Sodium 136 L (137-145) mmol/L Potassium 4.9 (3.6-5.0) mmol/L Chloride 105.6 (98-107) mmol/L Carbon Dioxide 18 L (22-30) mmol/L BUN 58 H (9-20) mg/dL Creatinine 3.6 H (0.8-1.5) mg/dL Glucose 182 H (75-100) mg/dL Calcium 7.5 L (8.4-10.2) mg/dL
[2017-04-16] MEDS ORDERED: NACL 0.9% 500 ML 500 ML IV NR (11:00)
--- NOTE | 2017-04-16 11:20 | Progress Note ---
Assessment and Plan - Patient Problems (1) Acute on chronic renal failure Current Visit: Yes Status: Acute Qualifiers: Acute renal failure type: A Chronic kidney disease stage: C Plan to address problem: Acute kidney injury superimposed on CKD stage ?3. Renal function is stable / improving. IV fluids can be stopped. D/w his at the bedside. (2) Proteinuria due to type 2 diabetes mellitus Current Visit: Yes Status: Chronic (3) Shortness of breath Current Visit: Yes Status: Acute (4) Anemia Current Visit: Yes Status: Chronic Qualifiers: Anemia type: A Iron deficiency anemia type: I Vitamin B12 deficiency anemia type: V Folate deficiency anemia type: F Bone marrow failure anemia type: B Hemolytic anemia type: H Other causes of anemia: O Chronic kidney disease stage: C Plan to address problem: PRBC. Subjective Date of service: 04/16/17 Interval history: Patient is feeling better. Objective - Vital Signs Vital signs: Vital Signs - 12hr 04/16/17 04/16/17 04/16/17 00:49 00:50 04:46 Temperature 97.6 F Pulse Rate 86 98 H 92 H Respiratory 18 Rate Blood Pressure 151/81 O2 Sat by Pulse 100 Oximetry 04/16/17 04/16/17 04/16/17 05:08 08:15 09:22 Temperature 98.7 F 98.5 F Pulse Rate 92 H 98 H 98 H Respiratory 20 0 L Rate Blood Pressure 166/81 138/87 132/70 O2 Sat by Pulse 100 100 Oximetry 04/16/17 04/16/17 10:00 10:51 Temperature Pulse Rate Respiratory 20 98 H Rate Blood Pressure O2 Sat by Pulse 100 100 Oximetry - General Appearance General appearance: well-developed, well-nourished, appears stated age, obese, other (no distress) EENT: ATNC, mucous membranes moist, hearing intact Neck: supple Respiratory: Present: Clear to Ascultation Cardiology: regular, S1S2 Gastrointestinal: normoactive bowel sounds, no tenderness, obese Integumentary: other (chronic stasis changes both LEs) Neurologic: other (right eye blindness) Musculoskeletal: other (swollen left knee, trace pedal edema) Psychiatric: mood/affect appropriate, cooperative - Lab 04/16/17 04:56 04/16/17 04:56 Most recent lab results Calcium 7.5 mg/dL (8.4-10.2) L 04/16/17 04:56 Phosphorus 5.20 mg/dL (2.5-4.5) H 04/13/17 04:50 Magnesium 1.40 mg/dL (1.7-2.3) L 04/15/17 06:21
[2017-04-16] MEDS: ELIQUIS PO SCH ×2 (11:25→21:39)
--- NOTE | 2017-04-16 15:13 | Progress Note ---
Assessment and Plan Assessment and plan: Patient is a 47-year-old male with past medical history including hyperlipidemia , chronic kidney disease, cardiac ablation, diabetes mellitus and multiple left knee surgery who presents to the ER complaining of bilateral leg edema worsening on the left and associated shortness of breath 1 day with reported left sided chest pain which is worse on lying down and improves with sitting up. The patient also does report worsening shortness of breath on lying supine with positive orthopnea improves with sitting up. He denies any sick contacts and he is followed by relations coordinator and primary care physician and is supposed to be evaluated by nephrology but has not had a full evaluation done. The pain he describes as a 5/10 in intensity with no radiation and no associated diaphoresis. He states that he woke him up this morning. Denies any palpitation nausea vomiting or diarrhea as noted. Acute dyspnea, now resolved Was likely due dehydration, VQ scan was low probability for PE, cardiology input appreciated patient does not appear to be in failure, patient actually improved with IV hydration Right knee swelling and deformity CT scan reviewed, case discussed with Dr. Fine orthopedic surgery, it is a chronic finding patient is on have any fever leukocytosis or tachycardia, no warmth or pain to touch of the joints. Therefore clinically does not appear to have osteomyelitis. 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 * Chronic lymphedema Continue supportive care * Acute kidney injury on chronic kidney disease likely secondary to vasomotor nephropathy, renal function is improved with IV fluids and cessation of Lasix * Diabetes mellitus with hyperglycemia, now better controlled, continue insulins * NSTEMI type 2, cardiology input appreciated, meds optimized, eliquis to be restarted * A. fib, rate is controlled, continue eliquis for stroke prophylaxis * Anemia of chronic kidney disease/iron deficiency anemia; continue iron supplements, transfuse as needed * Coagulopathy due to use of eliquis Case management consulted for SNIF placement History Interval history: Consultation have right knee swelling this comforts and poor mobility due to it Hospitalist Physical - Physical exam Narrative exam: GENERAL: The patient appeared well nourished and normally developed. Vital signs as documented. HEAD: No signs of head trauma. EYES: Pupils are equal. Extraocular motions intact. EARS: Hearing grossly intact. MOUTH: Oropharynx is normal. NECK: No adenopathy, no JVD. CHEST: Chest with clear breath sounds bilaterally. No wheezes, rales, or rhonchi. CARDIAC: Regular rate and rhythm. S1 and S2, without murmurs, gallops, or rubs. VASCULAR: Trace pitting Edema. Peripheral pulses normal and equal in all extremities. ABDOMEN: Soft, without detectable tenderness. No sign of distention. No rebound or guarding, and no masses palpated. Bowel Sounds normal. MUSCULOSKELETAL: Limited range of motion Left Knee, left knee disfigured, increased width and diameter. Extremities without clubbing, cyanosis. Trace Pitting edema. NEUROLOGIC EXAM: Alert and oriented x 3. No focal sensory or strength deficits. Speech normal. Follows commands. PSYCHIATRIC: Mood normal. SKIN: Multiple venous stasis changes - Constitutional Vitals: Temp Pulse Resp BP Pulse Ox 98.6 F 97 H 16 136/65 100 04/16/17 14:52 04/16/17 14:52 04/16/17 14:37 04/16/17 14:52 04/16/17 14:37 Results - Labs CBC & Chem 7: 04/17/17 05:04 04/17/17 05:04 Labs: Laboratory Last Values WBC 6.5 K/mm3 (4.5-11.0) 04/16/17 04:56 RBC 2.82 M/mm3 (3.65-5.03) L 04/16/17 04:56 Hgb 6.7 gm/dl (11.8-15.2) L 04/16/17 04:56 Hct 21.1 % (35.5-45.6) L 04/16/17 04:56 MCV 75 fl (84-94) L 04/16/17 04:56 MCH 24 pg (28-32) L 04/16/17 04:56 MCHC 32 % (32-34) 04/16/17 04:56 RDW 17.0 % (13.2-15.2) H 04/16/17 04:56 Plt Count 392 K/mm3 (140-440) 04/16/17 04:56 Lymph % (Auto) 23.9 % (13.4-35.0) 04/16/17 04:56 [place] % (Auto) 11.2 % (0.0-7.3) H 04/16/17 04:56 Eos % (Auto) 2.9 % (0.0-4.3) 04/16/17 04:56 Baso % (Auto) 0.9 % (0.0-1.8) 04/16/17 04:56 Lymph # 1.5 K/mm3 (1.2-5.4) 04/16/17 04:56 [place] # 0.7 K/mm3 (0.0-0.8) 04/16/17 04:56 Eos # 0.2 K/mm3 (0.0-0.4) 04/16/17 04:56 Baso # 0.1 K/mm3 (0.0-0.1) 04/16/17 04:56 Seg Neutrophils % 61.1 % (40.0-70.0) 04/16/17 04:56 Seg Neutrophils # 3.9 K/mm3 (1.8-7.7) 04/16/17 04:56 PT 15.8 Sec. (12.2-14.9) H 04/12/17 08:34 INR 1.20 (0.87-1.13) H 04/12/17 08:34 APTT 46.7 Sec. (24.2-36.6) H 04/12/17 08:34 D-Dimer 2932 ng/mlDDU (0-234) H 04/12/17 08:34 Sodium 136 mmol/L (137-145) L 04/16/17 04:56 Potassium 4.9 mmol/L (3.6-5.0) 04/16/17 04:56 Chloride 105.6 mmol/L (98-107) 04/16/17 04:56 Carbon Dioxide 18 mmol/L (22-30) L 04/16/17 04:56 Anion Gap 17 mmol/L 04/16/17 04:56 BUN 58 mg/dL (9-20) H 04/16/17 04:56 Creatinine 3.6 mg/dL (0.8-1.5) H 04/16/17 04:56 Estimated GFR 22 ml/min 04/16/17 04:56 BUN/Creatinine Ratio 16.11 % 04/16/17 04:56 Glucose 182 mg/dL (75-100) H 04/16/17 04:56 POC Glucose 165 (70-105) H 04/16/17 08:25 Osmolality 304 Mosm/kg 04/12/17 11:00 Calcium 7.5 mg/dL (8.4-10.2) L 04/16/17 04:56 Phosphorus 5.20 mg/dL (2.5-4.5) H 04/13/17 04:50 Magnesium 1.40 mg/dL (1.7-2.3) L 04/15/17 06:21 Iron 25 ug/dL (49-181) L 04/12/17 16:00 TIBC 98 mcg/dL (250-450) L 04/12/17 16:00 Ferritin 745.3 ng/mL (13.0-400.0) H 04/12/17 16:00 Total Bilirubin 0.20 mg/dL (0.1-1.2) 04/15/17 06:21 AST 13 units/L (5-40) 04/15/17 06:21 ALT 13 units/L (7-56) 04/15/17 06:21 Alkaline Phosphatase 126 units/L (35-129) 04/15/17 06:21 Total Creatine Kinase 107 units/L (55-170) 04/13/17 01:17 CK-MB (CK-2) 2.7 ng/mL (0.0-4.0) 04/13/17 01:17 CK-MB (CK-2) Rel Index 2.5 (0-4) 04/13/17 01:17 Troponin T 0.174 ng/mL (0.00-0.029) H* 04/13/17 01:17 NT-Pro-B Natriuret Pep 9214 pg/mL (0-450) H 04/12/17 08:34 Total Protein 5.8 g/dL (6.3-8.2) L 04/15/17 06:21 Albumin 1.7 g/dL (3.9-5) L 04/15/17 06:21 Albumin/Globulin Ratio 0.4 % 04/15/17 06:21 Triglycerides 89 mg/dL (2-149) 04/12/17 08:34 Cholesterol 84 mg/dL (50-199) 04/12/17 08:34 LDL Cholesterol Direct 32 mg/dL (50-130) L 04/12/17 08:34 HDL Cholesterol 35 mg/dL (40-59) L 04/12/17 08:34 Cholesterol/HDL Ratio 2.40 % 04/12/17 08:34 Vitamin B12 369.0 pg/mL (211-911) 04/12/17 16:00 TSH 0.027 mlU/mL (0.270-4.200) L 04/12/17 09:14 Free T4 1.03 ng/dL (0.76-1.46) 04/12/17 09:14 PTH Intact 132.4 pg/mL (15-65) H 04/13/17 04:50 Urine Color Yellow (Yellow) 04/12/17 11:37 Urine Turbidity Clear (Clear) 04/12/17 11:37 Urine pH 5.0 (5.0-7.0) 04/12/17 11:37 Ur Specific [place] 1.014 (1.003-1.030) 04/12/17 11:37 Urine Protein >500 mg/dL (Negative) 04/12/17 11:37 Urine Glucose (UA) >=500 mg/dL (Negative) 04/12/17 11:37 Urine Ketones Neg mg/dL (Negative) 04/12/17 11:37 Urine Blood Sm (Negative) 04/12/17 11:37 Urine Nitrite Neg (Negative) 04/12/17 11:37 Urine Bilirubin Neg (Negative) 04/12/17 11:37 Urine Urobilinogen < 2.0 mg/dL (<2.0) 04/12/17 11:37 Ur Leukocyte Esterase Neg (Negative) 04/12/17 11:37 Urine WBC (Auto) 1.0 /HPF (0.0-6.0) 04/12/17 11:37 Urine RBC (Auto) 7.0 /HPF (0.0-6.0) 04/12/17 11:37 U Epithel Cells (Auto) 1.0 /HPF (0-13.0) 04/12/17 11:37 Urine Bacteria (Auto) 1+ /HPF (Negative) 04/12/17 11:37 Urine Mucus Few /HPF 04/12/17 11:37 Blood Type O POSITIVE 04/16/17 11:06 Antibody Screen Negative 04/16/17 11:06 Crossmatch See Detail 04/16/17 11:06
[2017-04-16] MEDS: LEVEMIR SUB-Q SCH (21:43)
[2017-04-17 06:23] LABS: Basophils % (Auto) 0.5 % (0.0-1.8); Eosinophils % (Auto) 2.5 % (0.0-4.3); Hematocrit 21.3 % (35.5-45.6); Hemoglobin 6.7 gm/dl (11.8-15.2); Mean Corpuscular HGB Conc 32 % (32-34); Mean Corpuscular Volume 76 fl (84-94); Platelet Count 404 K/mm3 (140-440); Red Cell Distribution Width 16.9 % (13.2-15.2); White Blood Count 7.2 K/mm3 (4.5-11.0)
[2017-04-17 06:33] LABS: Mean Corpuscular Hemoglobin 24 pg (28-32)
[2017-04-17 06:37] LABS: BUN/Creatinine Ratio 17.27; Calcium 7.6 mg/dL (8.4-10.2); Chloride 106.5 mmol/L (98-107); Potassium 5.3 mmol/L (3.6-5.0)
--- NOTE | 2017-04-17 08:40 | Progress Note ---
Assessment and Plan - Patient Problems (1) Acute on chronic renal failure Current Visit: Yes Status: Acute Qualifiers: Acute renal failure type: A Chronic kidney disease stage: C Plan to address problem: Acute kidney injury superimposed on CKD stage 4. Renal function is stable / improving. (2) Hyperkalemia Current Visit: Yes Status: Acute Plan to address problem: kayexalate ordered. (3) Proteinuria due to type 2 diabetes mellitus Current Visit: Yes Status: Chronic (4) Shortness of breath Current Visit: Yes Status: Acute (5) Anemia Current Visit: Yes Status: Chronic Qualifiers: Anemia type: A Iron deficiency anemia type: I Vitamin B12 deficiency anemia type: V Folate deficiency anemia type: F Bone marrow failure anemia type: B Hemolytic anemia type: H Other causes of anemia: O Chronic kidney disease stage: C Plan to address problem: S/p PRBC. Subjective Date of service: 04/17/17 Interval history: Patient is feeling ok. Objective - Vital Signs Vital signs: Vital Signs - 12hr 04/16/17 04/17/17 04/17/17 20:46 01:07 05:54 Temperature 99.5 F 99.2 F 98.8 F Pulse Rate 102 H 94 H 91 H Respiratory 18 18 18 Rate Blood Pressure 157/72 152/72 147/69 O2 Sat by Pulse 100 100 100 Oximetry - General Appearance General appearance: well-developed, well-nourished, appears stated age, obese, other (no distress) EENT: ATNC, PERRL, mucous membranes moist, hearing intact Neck: supple Respiratory: Present: Clear to Ascultation Cardiology: regular, S1S2, no murmurs Gastrointestinal: normoactive bowel sounds, no tenderness, no distended Integumentary: other (b/l LE chronic stasis changes noted) Neurologic: other (right eye blindness) Musculoskeletal: other (bilateral EL swollen, L > R) Psychiatric: mood/affect appropriate, cooperative - Lab 04/18/17 09:22 04/18/17 09:22 Most recent lab results Calcium 7.6 mg/dL (8.4-10.2) L 04/17/17 05:04 Phosphorus 5.20 mg/dL (2.5-4.5) H 04/13/17 04:50 Magnesium 1.40 mg/dL (1.7-2.3) L 04/15/17 06:21
[2017-04-17] MEDS ORDERED: KIONEX PR ONE (08:41)
[2017-04-17] MEDS: CYMBALTA PO SCH (09:21)
[2017-04-17] MEDS: WELCHOL PO SCH ×2 (09:21→23:11)
[2017-04-17] MEDS: PEPCID PO SCH (09:22)
[2017-04-17] MEDS: TOPROL XL PO SCH (09:22)
[2017-04-17] MEDS: COLACE PO SCH ×2 (09:22→23:12)
[2017-04-17] MEDS: NOVOLOG SUB-Q SCH ×4 (09:24→23:23)
[2017-04-17] MEDS: TOBRADEX OU SCH (09:29)
[2017-04-17] MEDS: DUONEB *Not for PRN Use IH SCH (09:34)
--- NOTE | 2017-04-17 10:53 | Progress Note ---
Assessment and Plan Shortness of breath no acute process of CXR V\Q scan negative for PE normal LVEF 55-60% on echocardiogram Anemia with H&H trending downwards s/p transfusion of PRBCs Left knee effusion LLE CT reports septic arthritis and possible osteomyelitis Chronic renal disease Borderline elevated troponin likely in the setting of renal failure doubt non-ST elevation [place] Hx of Afib currently in normal sinus rhythm. On beta olga therapy for suppression. on eliquis as an outpatient; currently on hold due to anemia Diabetes mellitus with hyperglycemia Conservative cardiac management. Subjective Date of service: 04/17/17 Interval history: Patient denies chest pain and shortness of breath. Objective Vital Signs Temp Pulse Resp BP Pulse Ox 04/17/17 09:22 90 190/99 04/17/17 08:10 97.6 F 90 20 190/99 100 04/17/17 05:54 98.8 F 91 H 18 147/69 100 04/17/17 01:07 99.2 F 94 H 18 152/72 100 04/16/17 20:46 99.5 F 102 H 18 157/72 100 04/16/17 17:22 98.4 F 98 H 173/101 04/16/17 16:52 98.4 F 98 H 173/101 04/16/17 16:22 98.2 F 98 H 173/101 04/16/17 16:17 98.4 F 98 H 140/66 04/16/17 16:00 98.4 F 98 H 18 140/66 97 04/16/17 15:52 98.4 F 98 H 140/66 04/16/17 15:22 98.2 F 97 H 142/70 04/16/17 14:52 98.6 F 97 H 136/65 04/16/17 14:37 98.5 F 95 H 16 139/78 100 04/16/17 13:00 98.7 F 102 H 20 157/74 100 04/16/17 12:00 96 H - Physical Examination General: No Apparent Distress HEENT: Positive: PERRL Neck: Positive: trachea midline Cardiac: Positive: Reg Rate and Rhythm Lungs: Positive: Decreased Breath Sounds Neuro: Positive: Grossly Intact - Labs and Meds CBC 04/17/17 Range/Units 05:04 WBC 7.2 (4.5-11.0) K/mm3 RBC 2.80 L (3.65-5.03) M/mm3 Hgb 6.7 L (11.8-15.2) gm/dl Hct 21.3 L (35.5-45.6) % Plt Count 404 (140-440) K/mm3 Lymph # 2.0 (1.2-5.4) K/mm3 [place] # 0.8 (0.0-0.8) K/mm3 Eos # 0.2 (0.0-0.4) K/mm3 Baso # 0.0 (0.0-0.1) K/mm3 Comprehensive Metabolic Panel 04/17/17 Range/Units 05:04 Sodium 136 L (137-145) mmol/L Potassium 5.3 H (3.6-5.0) mmol/L Chloride 106.5 (98-107) mmol/L Carbon Dioxide 17 L (22-30) mmol/L BUN 57 H (9-20) mg/dL Creatinine 3.3 H (0.8-1.5) mg/dL Glucose 77 (75-100) mg/dL Calcium 7.6 L (8.4-10.2) mg/dL
--- NOTE | 2017-04-17 13:21 | Progress Note ---
Assessment and Plan will order xray left ankle Subjective Date of service: 04/17/17 Interval history: Discussed findings from CT scan of the left knee, explained that these changes c /w history chronic effusion not sepsis... patient also mentioned he had given a diagnosis of Charcot Joint in past, quite possible that the neuropathy extend to the knee joint as well...not much to offer patient at this point except maybe Above knee amputation.... Objective Vital signs: Vital Signs - 12hr 04/17/17 04/17/17 04/17/17 05:54 08:10 09:22 Temperature 98.8 F 97.6 F Pulse Rate 91 H 90 90 Respiratory 18 20 Rate Blood Pressure 147/69 190/99 190/99 O2 Sat by Pulse 100 100 Oximetry - Labs CBC & BMP: 04/17/17 05:04 04/17/17 05:04 Labs: Abnormal lab results 04/16/17 04/16/17 04/16/17 Range/Units 11:06 12:04 16:06 RBC (3.65-5.03) M/mm3 Hgb (11.8-15.2) gm/dl Hct (35.5-45.6) % MCV (84-94) fl MCH (28-32) pg RDW (13.2-15.2) % [place] % (Auto) (0.0-7.3) % Sodium (137-145) mmol/L Potassium (3.6-5.0) mmol/L Carbon Dioxide (22-30) mmol/L BUN (9-20) mg/dL Creatinine (0.8-1.5) mg/dL POC Glucose 145 H 278 H (70-105) Calcium (8.4-10.2) mg/dL Crossmatch See Detail 04/16/17 04/17/17 04/17/17 Range/Units 21:41 05:04 05:04 RBC 2.80 L (3.65-5.03) M/mm3 Hgb 6.7 L (11.8-15.2) gm/dl Hct 21.3 L (35.5-45.6) % MCV 76 L (84-94) fl MCH 24 L (28-32) pg RDW 16.9 H (13.2-15.2) % [place] % (Auto) 11.5 H (0.0-7.3) % Sodium 136 L (137-145) mmol/L Potassium 5.3 H (3.6-5.0) mmol/L Carbon Dioxide 17 L (22-30) mmol/L BUN 57 H (9-20) mg/dL Creatinine 3.3 H (0.8-1.5) mg/dL POC Glucose 179 H (70-105) Calcium 7.6 L (8.4-10.2) mg/dL Crossmatch 04/17/17 Range/Units 11:29 RBC (3.65-5.03) M/mm3 Hgb (11.8-15.2) gm/dl Hct (35.5-45.6) % MCV (84-94) fl MCH (28-32) pg RDW (13.2-15.2) % [place] % (Auto) (0.0-7.3) % Sodium (137-145) mmol/L Potassium (3.6-5.0) mmol/L Carbon Dioxide (22-30) mmol/L BUN (9-20) mg/dL Creatinine (0.8-1.5) mg/dL POC Glucose 211 H (70-105) Calcium (8.4-10.2) mg/dL Crossmatch
[2017-04-17] MEDS ORDERED: NACL 0.9% 500 ML 500 ML IV ONE (17:59)
--- NOTE | 2017-04-17 18:18 | Progress Note ---
Assessment and Plan Assessment and plan: Patient is a 47-year-old male with past medical history including hyperlipidemia , chronic kidney disease, cardiac ablation, diabetes mellitus and multiple left knee surgery who presents to the ER complaining of bilateral leg edema worsening on the left and associated shortness of breath 1 day with reported left sided chest pain which is worse on lying down and improves with sitting up. The patient also does report worsening shortness of breath on lying supine with positive orthopnea improves with sitting up. He denies any sick contacts and he is followed by lead burner helper and primary care physician and is supposed to be evaluated by nephrology but has not had a full evaluation done. The pain he describes as a 5/10 in intensity with no radiation and no associated diaphoresis. He states that he woke him up this morning. Denies any palpitation nausea vomiting or diarrhea as noted. Acute dyspnea, now resolved Was likely due dehydration, VQ scan was low probability for PE, cardiology input appreciated patient does not appear to be in failure, patient actually improved with IV hydration Right knee swelling and deformity CT scan reviewed, case discussed with Dr. Fine orthopedic surgery, it is a chronic finding patient is on have any fever leukocytosis or tachycardia, no warmth or pain to touch of the joints. Therefore clinically does not appear to have osteomyelitis. 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 Follow-up MRI of his rates knee and right ankle x-ray today * Chronic lymphedema Continue supportive care * Acute kidney injury on chronic kidney disease likely secondary to vasomotor nephropathy, renal function is improved with IV fluids and cessation of Lasix * Diabetes mellitus with hyperglycemia, now better controlled, continue insulins * NSTEMI type 2, cardiology input appreciated, meds optimized, eliquis to be restarted * A. fib, rate is controlled, continue eliquis for stroke prophylaxis * Anemia of chronic kidney disease/iron deficiency anemia; continue iron supplements, transfuse as needed * Coagulopathy due to use of eliquis, expected outcome * Hyperkalemia, we'll avoid ARB due to this. We'll give him alternative blood pressure medications. Kayexalate was given earlier today * Accelerated hypertension, meds have been optimized. Case management consulted for SNIF placement Case was discussed in great detail with his in the presence of the patient. History Interval history: Consultation have right knee swelling this comforts and poor mobility due to it Hospitalist Physical - Physical exam Narrative exam: GENERAL: The patient appeared well nourished and normally developed. Vital signs as documented. HEAD: No signs of head trauma. EYES: Pupils are equal. Extraocular motions intact. EARS: Hearing grossly intact. MOUTH: Oropharynx is normal. NECK: No adenopathy, no JVD. CHEST: Chest with clear breath sounds bilaterally. No wheezes, rales, or rhonchi. CARDIAC: Regular rate and rhythm. S1 and S2, without murmurs, gallops, or rubs. VASCULAR: Trace pitting Edema. Peripheral pulses normal and equal in all extremities. ABDOMEN: Soft, without detectable tenderness. No sign of distention. No rebound or guarding, and no masses palpated. Bowel Sounds normal. MUSCULOSKELETAL: Limited range of motion Left Knee, left knee disfigured, increased width and diameter. Extremities without clubbing, cyanosis. Trace Pitting edema. NEUROLOGIC EXAM: Alert and oriented x 3. No focal sensory or strength deficits. Speech normal. Follows commands. PSYCHIATRIC: Mood normal. SKIN: Multiple venous stasis changes - Constitutional Vitals: Temp Pulse Resp BP Pulse Ox 97.6 F 100 H 20 151/93 100 04/17/17 12:30 04/17/17 12:30 04/17/17 12:30 04/17/17 12:30 04/17/17 12:30 Results - Labs CBC & Chem 7: 04/17/17 05:04 04/17/17 05:04 Labs: Laboratory Last Values WBC 7.2 K/mm3 (4.5-11.0) 04/17/17 05:04 RBC 2.80 M/mm3 (3.65-5.03) L 04/17/17 05:04 Hgb 6.7 gm/dl (11.8-15.2) L 04/17/17 05:04 Hct 21.3 % (35.5-45.6) L 04/17/17 05:04 MCV 76 fl (84-94) L 04/17/17 05:04 MCH 24 pg (28-32) L 04/17/17 05:04 MCHC 32 % (32-34) 04/17/17 05:04 RDW 16.9 % (13.2-15.2) H 04/17/17 05:04 Plt Count 404 K/mm3 (140-440) 04/17/17 05:04 Lymph % (Auto) 27.0 % (13.4-35.0) 04/17/17 05:04 [place] % (Auto) 11.5 % (0.0-7.3) H 04/17/17 05:04 Eos % (Auto) 2.5 % (0.0-4.3) 04/17/17 05:04 Baso % (Auto) 0.5 % (0.0-1.8) 04/17/17 05:04 Lymph # 2.0 K/mm3 (1.2-5.4) 04/17/17 05:04 [place] # 0.8 K/mm3 (0.0-0.8) 04/17/17 05:04 Eos # 0.2 K/mm3 (0.0-0.4) 04/17/17 05:04 Baso # 0.0 K/mm3 (0.0-0.1) 04/17/17 05:04 Seg Neutrophils % 58.5 % (40.0-70.0) 04/17/17 05:04 Seg Neutrophils # 4.2 K/mm3 (1.8-7.7) 04/17/17 05:04 PT 15.8 Sec. (12.2-14.9) H 04/12/17 08:34 INR 1.20 (0.87-1.13) H 04/12/17 08:34 APTT 46.7 Sec. (24.2-36.6) H 04/12/17 08:34 D-Dimer 2932 ng/mlDDU (0-234) H 04/12/17 08:34 Sodium 136 mmol/L (137-145) L 04/17/17 05:04 Potassium 5.3 mmol/L (3.6-5.0) H 04/17/17 05:04 Chloride 106.5 mmol/L (98-107) 04/17/17 05:04 Carbon Dioxide 17 mmol/L (22-30) L 04/17/17 05:04 Anion Gap 18 mmol/L 04/17/17 05:04 BUN 57 mg/dL (9-20) H 04/17/17 05:04 Creatinine 3.3 mg/dL (0.8-1.5) H 04/17/17 05:04 Estimated GFR 25 ml/min 04/17/17 05:04 BUN/Creatinine Ratio 17.27 % 04/17/17 05:04 Glucose 77 mg/dL (75-100) 04/17/17 05:04 POC Glucose 269 (70-105) H 04/17/17 17:22 Osmolality 304 Mosm/kg 04/12/17 11:00 Calcium 7.6 mg/dL (8.4-10.2) L 04/17/17 05:04 Phosphorus 5.20 mg/dL (2.5-4.5) H 04/13/17 04:50 Magnesium 1.40 mg/dL (1.7-2.3) L 04/15/17 06:21 Iron 25 ug/dL (49-181) L 04/12/17 16:00 TIBC 98 mcg/dL (250-450) L 04/12/17 16:00 Ferritin 745.3 ng/mL (13.0-400.0) H 04/12/17 16:00 Total Bilirubin 0.20 mg/dL (0.1-1.2) 04/15/17 06:21 AST 13 units/L (5-40) 04/15/17 06:21 ALT 13 units/L (7-56) 04/15/17 06:21 Alkaline Phosphatase 126 units/L (35-129) 04/15/17 06:21 Total Creatine Kinase 107 units/L (55-170) 04/13/17 01:17 CK-MB (CK-2) 2.7 ng/mL (0.0-4.0) 04/13/17 01:17 CK-MB (CK-2) Rel Index 2.5 (0-4) 04/13/17 01:17 Troponin T 0.174 ng/mL (0.00-0.029) H* 04/13/17 01:17 NT-Pro-B Natriuret Pep 9214 pg/mL (0-450) H 04/12/17 08:34 Total Protein 5.8 g/dL (6.3-8.2) L 04/15/17 06:21 Albumin 1.7 g/dL (3.9-5) L 04/15/17 06:21 Albumin/Globulin Ratio 0.4 % 04/15/17 06:21 Triglycerides 89 mg/dL (2-149) 04/12/17 08:34 Cholesterol 84 mg/dL (50-199) 04/12/17 08:34 LDL Cholesterol Direct 32 mg/dL (50-130) L 04/12/17 08:34 HDL Cholesterol 35 mg/dL (40-59) L 04/12/17 08:34 Cholesterol/HDL Ratio 2.40 % 04/12/17 08:34 Vitamin B12 369.0 pg/mL (211-911) 04/12/17 16:00 TSH 0.027 mlU/mL (0.270-4.200) L 04/12/17 09:14 Free T4 1.03 ng/dL (0.76-1.46) 04/12/17 09:14 PTH Intact 132.4 pg/mL (15-65) H 04/13/17 04:50 Urine Color Yellow (Yellow) 04/12/17 11:37 Urine Turbidity Clear (Clear) 04/12/17 11:37 Urine pH 5.0 (5.0-7.0) 04/12/17 11:37 Ur Specific [place] 1.014 (1.003-1.030) 04/12/17 11:37 Urine Protein >500 mg/dL (Negative) 04/12/17 11:37 Urine Glucose (UA) >=500 mg/dL (Negative) 04/12/17 11:37 Urine Ketones Neg mg/dL (Negative) 04/12/17 11:37 Urine Blood Sm (Negative) 04/12/17 11:37 Urine Nitrite Neg (Negative) 04/12/17 11:37 Urine Bilirubin Neg (Negative) 04/12/17 11:37 Urine Urobilinogen < 2.0 mg/dL (<2.0) 04/12/17 11:37 Ur Leukocyte Esterase Neg (Negative) 04/12/17 11:37 Urine WBC (Auto) 1.0 /HPF (0.0-6.0) 04/12/17 11:37 Urine RBC (Auto) 7.0 /HPF (0.0-6.0) 04/12/17 11:37 U Epithel Cells (Auto) 1.0 /HPF (0-13.0) 04/12/17 11:37 Urine Bacteria (Auto) 1+ /HPF (Negative) 04/12/17 11:37 Urine Mucus Few /HPF 04/12/17 11:37 Blood Type O POSITIVE 04/16/17 11:06 Antibody Screen Negative 04/16/17 11:06 Crossmatch See Detail 04/16/17 11:06
--- NOTE | 2017-04-17 18:32 | Magnetic Resonance Report ---
FINAL REPORT PROCEDURE: MR LE JOINT LT WO CON TECHNIQUE: Magnetic resonance imaging of the LEFT knee was performed using standard pulse sequences. CPT 84737 HISTORY: Left knee swelling and pain COMPARISON: CT 04/14/2017 FINDINGS: There is patient motion artifact. There is also limited resolution Medial meniscus: The anterior horn and body are not well resolved, likely degeneratively chronically torn. Lateral meniscus: The anterior horn is not well-visualized and likely chronically degeneratively torn Anterior cruciate ligaments: Anterior cruciate ligament fibers are not resolved and likely torn distally Posterior cruciate ligament: Grossly intact Medial collateral ligament: There is medial displacement of the medial collateral ligament by fluid. The ligament appears grossly intact Iliotibial band: Grossly intact Lateral collateral ligamentous complex: Grossly intact Medial patellar retinaculum: Not well resolved Lateral patellar retinaculum: Grossly intact Marrow signal: There is patchy low T1 and high T2 signal particularly involving the lateral femoral condyle and lateral tibial plateau articular surfaces Chondral defects: Diffuse thinning of the articular cartilage in all 3 compartments Joint effusion: There is very large joint effusion. Large bilobed circumscribed fluid collection is seen anteriorly, which may be contiguous with the joint fluid; this collection measures approximately 8.5 centimeters AP x 15 centimeters transverse x 4.1 centimeters craniocaudal. Smaller pockets of fluid are seen in the posterior soft tissues. There are ill-defined areas of heterogeneous and low signal within the fluid, possibly related to debris or hemorrhage. Mass lesion: No discrete soft tissue mass is seen, however there is limited evaluation due to lack of contrast administration Popliteal cyst: Small Harvey's cyst is present Soft tissues: Diffuse subcutaneous and muscle edema like signal is present IMPRESSION: Large joint effusion and anterior subcutaneous fluid collection. Cannot exclude an infectious process such as a septic arthritis. Findings may be related to a chronic inflammatory process or chronic effusion with hemorrhage. Correlation could be made with joint aspiration as clinically indicated. Tears of the medial and lateral meniscus as described above. Probable tear of the distal anterior cruciate ligament. There is limited evaluation due to poor resolution. Post-contrast MRI imaging may be helpful to evaluate for any enhancing soft tissue component.
[2017-04-17] MEDS: ELIQUIS PO SCH (23:12)
[2017-04-17] MEDS: PROCARDIA XL PO SCH (23:12)
[2017-04-17] MEDS: LEVEMIR SUB-Q SCH (23:13)
[2017-04-18] MEDS: TYLENOL PO PRN (01:05)
[2017-04-18] MEDS: NACL 0.9% 1000 ML 1,000 ML IV SCH ×2 (03:19→23:10)
--- NOTE | 2017-04-18 08:03 | Progress Note ---
Assessment and Plan Assessment and plan: Patient is a 47-year-old male with past medical history including hyperlipidemia , chronic kidney disease, cardiac ablation, diabetes mellitus and multiple left knee surgery who presents to the ER complaining of bilateral leg edema worsening on the left and associated shortness of breath 1 day with reported left sided chest pain which is worse on lying down and improves with sitting up. The patient also does report worsening shortness of breath on lying supine with positive orthopnea improves with sitting up. He denies any sick contacts and he is followed by disability aide and primary care physician and is supposed to be evaluated by nephrology but has not had a full evaluation done. The pain he describes as a 5/10 in intensity with no radiation and no associated diaphoresis. He states that he woke him up this morning. Denies any palpitation nausea vomiting or diarrhea as noted. 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 Fine orthopedic surgery, it is a chronic finding patient is on have any fever leukocytosis or tachycardia, no warmth or pain to touch of the joints. Therefore clinically does not appear to have osteomyelitis or infectious process. patient will most likely benefit from PT and transferred to a rehabilitation facility where he can improve upon his gait He has a known history of Charcot joints and this is most likely a manifestation of charcoal joints. MRI right knee Large joint effusion and serious subcutaneous fluid collection. Cannot exclude an infectious process such as septic arthritis. Findings may be related to chronic inflammatory process or chronic effusion with hemorrhage correlation could be made with joint aspiration as clinically indicated. Tears of the medial and lateral meniscus. Probable tear of the distal anterior cruciate ligament. * We'll discuss this case with Dr. Fine, to see if patient will benefit from joint aspiration. * Follow-up right ankle x-ray today * Chronic lymphedema Continue supportive care * Acute kidney injury on chronic kidney disease likely secondary to vasomotor nephropathy, renal function is improved with IV fluids and cessation of Lasix * Diabetes mellitus with hyperglycemia, now better controlled, continue insulins * NSTEMI type 2, cardiology input appreciated, meds optimized, eliquis to be restarted * A. fib, rate is controlled, continue eliquis for stroke prophylaxis * Anemia of chronic kidney disease/iron deficiency anemia; continue iron supplements, status post 1 unit of PRBC transfusion, follow up repeat hemoglobin * Coagulopathy due to use of eliquis, expected outcome * Hyperkalemia, we'll avoid ARB or AMMY due to this. We'll give him alternative blood pressure medications. sp Kayexalate on 04/17, fup repeat K * Accelerated hypertension, meds have been optimized. Case management consulted for SNIF placement Case was discussed in great detail with his in the presence of the patient. History Interval history: Consultation have right knee swelling this comforts and poor mobility due to it Hospitalist Physical - Physical exam Narrative exam: GENERAL: The patient appeared well nourished and normally developed. Vital signs as documented. HEAD: No signs of head trauma. EYES: Pupils are equal. Extraocular motions intact. EARS: Hearing grossly intact. MOUTH: Oropharynx is normal. NECK: No adenopathy, no JVD. CHEST: Chest with clear breath sounds bilaterally. No wheezes, rales, or rhonchi. CARDIAC: Regular rate and rhythm. S1 and S2, without murmurs, gallops, or rubs. VASCULAR: Trace pitting Edema. Peripheral pulses normal and equal in all extremities. ABDOMEN: Soft, without detectable tenderness. No sign of distention. No rebound or guarding, and no masses palpated. Bowel Sounds normal. MUSCULOSKELETAL: Limited range of motion Left Knee, left knee disfigured, increased width and diameter. Extremities without clubbing, cyanosis. Trace Pitting edema. NEUROLOGIC EXAM: Alert and oriented x 3. No focal sensory or strength deficits. Speech normal. Follows commands. PSYCHIATRIC: Mood normal. SKIN: Multiple venous stasis changes - Constitutional Vitals: Temp Pulse Resp BP Pulse Ox 98.7 F 96 H 20 138/65 99 04/18/17 06:45 04/18/17 06:45 04/18/17 06:45 04/18/17 06:45 04/18/17 00:07 Results - Labs CBC & Chem 7: 04/18/17 09:22 04/18/17 09:22 Labs: Laboratory Last Values WBC 7.2 K/mm3 (4.5-11.0) 04/17/17 05:04 RBC 2.80 M/mm3 (3.65-5.03) L 04/17/17 05:04 Hgb 6.7 gm/dl (11.8-15.2) L 04/17/17 05:04 Hct 21.3 % (35.5-45.6) L 04/17/17 05:04 MCV 76 fl (84-94) L 04/17/17 05:04 MCH 24 pg (28-32) L 04/17/17 05:04 MCHC 32 % (32-34) 04/17/17 05:04 RDW 16.9 % (13.2-15.2) H 04/17/17 05:04 Plt Count 404 K/mm3 (140-440) 04/17/17 05:04 Lymph % (Auto) 27.0 % (13.4-35.0) 04/17/17 05:04 Falls % (Auto) 11.5 % (0.0-7.3) H 04/17/17 05:04 Eos % (Auto) 2.5 % (0.0-4.3) 04/17/17 05:04 Baso % (Auto) 0.5 % (0.0-1.8) 04/17/17 05:04 Lymph # 2.0 K/mm3 (1.2-5.4) 04/17/17 05:04 Falls # 0.8 K/mm3 (0.0-0.8) 04/17/17 05:04 Eos # 0.2 K/mm3 (0.0-0.4) 04/17/17 05:04 Baso # 0.0 K/mm3 (0.0-0.1) 04/17/17 05:04 Seg Neutrophils % 58.5 % (40.0-70.0) 04/17/17 05:04 Seg Neutrophils # 4.2 K/mm3 (1.8-7.7) 04/17/17 05:04 PT 15.8 Sec. (12.2-14.9) H 04/12/17 08:34 INR 1.20 (0.87-1.13) H 04/12/17 08:34 APTT 46.7 Sec. (24.2-36.6) H 04/12/17 08:34 D-Dimer 2932 ng/mlDDU (0-234) H 04/12/17 08:34 Sodium 136 mmol/L (137-145) L 04/17/17 05:04 Potassium 5.3 mmol/L (3.6-5.0) H 04/17/17 05:04 Chloride 106.5 mmol/L (98-107) 04/17/17 05:04 Carbon Dioxide 17 mmol/L (22-30) L 04/17/17 05:04 Anion Gap 18 mmol/L 04/17/17 05:04 BUN 57 mg/dL (9-20) H 04/17/17 05:04 Creatinine 3.3 mg/dL (0.8-1.5) H 04/17/17 05:04 Estimated GFR 25 ml/min 04/17/17 05:04 BUN/Creatinine Ratio 17.27 % 04/17/17 05:04 Glucose 77 mg/dL (75-100) 04/17/17 05:04 POC Glucose 254 (70-105) H 04/17/17 21:17 Osmolality 304 Mosm/kg 04/12/17 11:00 Calcium 7.6 mg/dL (8.4-10.2) L 04/17/17 05:04 Phosphorus 5.20 mg/dL (2.5-4.5) H 04/13/17 04:50 Magnesium 1.40 mg/dL (1.7-2.3) L 04/15/17 06:21 Iron 25 ug/dL (49-181) L 04/12/17 16:00 TIBC 98 mcg/dL (250-450) L 04/12/17 16:00 Ferritin 745.3 ng/mL (13.0-400.0) H 04/12/17 16:00 Total Bilirubin 0.20 mg/dL (0.1-1.2) 04/15/17 06:21 AST 13 units/L (5-40) 04/15/17 06:21 ALT 13 units/L (7-56) 04/15/17 06:21 Alkaline Phosphatase 126 units/L (35-129) 04/15/17 06:21 Total Creatine Kinase 107 units/L (55-170) 04/13/17 01:17 CK-MB (CK-2) 2.7 ng/mL (0.0-4.0) 04/13/17 01:17 CK-MB (CK-2) Rel Index 2.5 (0-4) 04/13/17 01:17 Troponin T 0.174 ng/mL (0.00-0.029) H* 04/13/17 01:17 NT-Pro-B Natriuret Pep 9214 pg/mL (0-450) H 04/12/17 08:34 Total Protein 5.8 g/dL (6.3-8.2) L 04/15/17 06:21 Albumin 1.7 g/dL (3.9-5) L 04/15/17 06:21 Albumin/Globulin Ratio 0.4 % 04/15/17 06:21 Triglycerides 89 mg/dL (2-149) 04/12/17 08:34 Cholesterol 84 mg/dL (50-199) 04/12/17 08:34 LDL Cholesterol Direct 32 mg/dL (50-130) L 04/12/17 08:34 HDL Cholesterol 35 mg/dL (40-59) L 04/12/17 08:34 Cholesterol/HDL Ratio 2.40 % 04/12/17 08:34 Vitamin B12 369.0 pg/mL (211-911) 04/12/17 16:00 TSH 0.027 mlU/mL (0.270-4.200) L 04/12/17 09:14 Free T4 1.03 ng/dL (0.76-1.46) 04/12/17 09:14 PTH Intact 132.4 pg/mL (15-65) H 04/13/17 04:50 Urine Color Yellow (Yellow) 04/12/17 11:37 Urine Turbidity Clear (Clear) 04/12/17 11:37 Urine pH 5.0 (5.0-7.0) 04/12/17 11:37 Ur Specific [place] 1.014 (1.003-1.030) 04/12/17 11:37 Urine Protein >500 mg/dL (Negative) 04/12/17 11:37 Urine Glucose (UA) >=500 mg/dL (Negative) 04/12/17 11:37 Urine Ketones Neg mg/dL (Negative) 04/12/17 11:37 Urine Blood Sm (Negative) 04/12/17 11:37 Urine Nitrite Neg (Negative) 04/12/17 11:37 Urine Bilirubin Neg (Negative) 04/12/17 11:37 Urine Urobilinogen < 2.0 mg/dL (<2.0) 04/12/17 11:37 Ur Leukocyte Esterase Neg (Negative) 04/12/17 11:37 Urine WBC (Auto) 1.0 /HPF (0.0-6.0) 04/12/17 11:37 Urine RBC (Auto) 7.0 /HPF (0.0-6.0) 04/12/17 11:37 U Epithel Cells (Auto) 1.0 /HPF (0-13.0) 04/12/17 11:37 Urine Bacteria (Auto) 1+ /HPF (Negative) 04/12/17 11:37 Urine Mucus Few /HPF 04/12/17 11:37 Blood Type O POSITIVE 04/16/17 11:06 Antibody Screen Negative 04/16/17 11:06 Crossmatch See Detail 04/16/17 11:06
--- NOTE | 2017-04-18 08:23 | Progress Note ---
Assessment and Plan - Patient Problems (1) Acute on chronic renal failure Current Visit: Yes Status: Acute Qualifiers: Acute renal failure type: A Chronic kidney disease stage: C Plan to address problem: Acute kidney injury superimposed on CKD stage 4. Renal function is stable, likely his baseline. (2) Hyperkalemia Current Visit: Yes Status: Acute Plan to address problem: Improved. (3) Proteinuria due to type 2 diabetes mellitus Current Visit: Yes Status: Chronic (4) Shortness of breath Current Visit: Yes Status: Acute (5) Anemia Current Visit: Yes Status: Chronic Qualifiers: Anemia type: A Iron deficiency anemia type: I Vitamin B12 deficiency anemia type: V Folate deficiency anemia type: F Bone marrow failure anemia type: B Hemolytic anemia type: H Other causes of anemia: O Chronic kidney disease stage: C Plan to address problem: S/p PRBC. Subjective Date of service: 04/18/17 Interval history: Patient is feeling ok. Objective - Vital Signs Vital signs: Vital Signs - 12hr 04/17/17 04/17/17 04/17/17 20:32 22:00 23:25 Temperature 99.1 F Pulse Rate 99 H Pulse Rate [ 80 Right Radial] Respiratory 18 19 Rate Respiratory 18 Rate [Chest] Blood Pressure 157/78 O2 Sat by Pulse 100 Oximetry 04/18/17 04/18/17 04/18/17 00:07 01:05 04:15 Temperature 100.1 F H 99.0 F Pulse Rate 103 H 95 H Pulse Rate [ Right Radial] Respiratory 18 20 19 Rate Respiratory Rate [Chest] Blood Pressure 163/72 134/64 O2 Sat by Pulse 99 Oximetry 04/18/17 04/18/17 04/18/17 04:45 05:15 06:15 Temperature 98.9 F 98.8 F 99.0 F Pulse Rate 95 H 100 H 97 H Pulse Rate [ Right Radial] Respiratory 20 20 20 Rate Respiratory Rate [Chest] Blood Pressure 154/73 160/79 152/76 O2 Sat by Pulse Oximetry 04/18/17 06:45 Temperature 98.7 F Pulse Rate 96 H Pulse Rate [ Right Radial] Respiratory 20 Rate Respiratory Rate [Chest] Blood Pressure 138/65 O2 Sat by Pulse Oximetry - General Appearance General appearance: well-developed, well-nourished, appears stated age, obese, other (no distress) EENT: ATNC, mucous membranes moist, hearing intact Neck: supple Respiratory: Present: Clear to Ascultation Cardiology: regular, S1S2, no murmurs Gastrointestinal: normoactive bowel sounds, no tenderness, no distended Integumentary: other (b/l LE chronic stasis changes noted) Neurologic: other (right eye blindness) Musculoskeletal: other (bilateral LE swollen, L > R, left knee swollen) Psychiatric: mood/affect appropriate, cooperative - Lab 04/18/17 09:22 04/18/17 09:22 Most recent lab results Calcium 7.6 mg/dL (8.4-10.2) L 04/17/17 05:04 Phosphorus 5.20 mg/dL (2.5-4.5) H 04/13/17 04:50 Magnesium 1.40 mg/dL (1.7-2.3) L 04/15/17 06:21
--- NOTE | 2017-04-18 09:12 | XRay Report ---
Right ankle: Fall, pain and swelling. There is diffuse swelling of the tissues involving the distal leg and ankle extending into the proximal foot. There is an oblique fracture through the distal shaft of the fibula with mild separation of the bony structures but good alignment. There is a separation fracture of the medial malleolus. This is small anterior displaced bony fragment. The tibiotalar alignment appears intact. There are degenerative changes involving the articular margins between the talus and tarsal navicular bone. The sustentacular joint is difficult to assess but grossly normal. Impression: Tibia and fibular fractures as described.
[2017-04-18 09:51] LABS: Hematocrit 25.2 % (35.5-45.6); Hemoglobin 7.9 gm/dl (11.8-15.2); Mean Corpuscular HGB Conc 31 % (32-34); Mean Corpuscular Volume 77 fl (84-94); Platelet Count 441 K/mm3 (140-440); Red Blood Count 3.28 M/mm3 (3.65-5.03); Red Cell Distribution Width 17.1 % (13.2-15.2)
[2017-04-18 09:52] LABS: Mean Corpuscular Hemoglobin 24 pg (28-32)
[2017-04-18] MEDS ORDERED: NON-FORMULARY (Losartan [Cozaar] 100 MG) PO SCH (10:00)
[2017-04-18] MEDS ORDERED: NON-FORMULARY (Amlodipine Besylate [Norvasc] 5 MG) PO SCH (10:00)
[2017-04-18] MEDS: CYMBALTA PO SCH (10:02)
[2017-04-18] MEDS: PROCARDIA XL PO SCH ×2 (10:02→23:08)
[2017-04-18] MEDS: PEPCID PO SCH (10:03)
[2017-04-18] MEDS: ELIQUIS PO SCH ×2 (10:03→23:07)
[2017-04-18] MEDS: TOPROL XL PO SCH (10:03)
[2017-04-18] MEDS: THERAGRAN Tab PO SCH (10:03)
[2017-04-18] MEDS: COLACE PO SCH ×2 (10:03→23:10)
[2017-04-18] MEDS: WELCHOL PO SCH ×2 (10:04→23:08)
[2017-04-18] MEDS: TOBRADEX OU SCH (10:09)
[2017-04-18] MEDS: NOVOLOG SUB-Q SCH ×4 (10:10→23:09)
[2017-04-18 10:25] LABS: BUN/Creatinine Ratio 15.55; Calcium 7.6 mg/dL (8.4-10.2); Chloride 106.8 mmol/L (98-107); Potassium 4.6 mmol/L (3.6-5.0)
--- NOTE | 2017-04-18 11:06 | Consultation ---
History of Present Illness - Reason for Consult Consult date: 04/18/17 Left Knee Osteomyelitis ? Requesting physician: JOSE TENA - History of Present Illness Mr. Hong is a 47-year-old man with multiple chronic medical problems and a history of surgeries to his left knee. He currently has swelling of the left knee with concerns for cellulitis/ osteomyelitis. Left knee xray showed a large joint effusion. A duplex scan of the left leg showed no thrombus, but soft tissue changes consistent with either a ruptured Hravey's cyst or a complex mass. A CT left leg showed changes consistent with septic arthritis and possible underlying osteomyelitis. ID consultation is requested for treatment recommendations. Past History Past Medical History: atrial fib, diabetes, hypertension, hyperlipidemia Past Surgical History: Other (cardiac ablation. Multiple knee surgeries on the left knee) Social history: no significant social history, full code. denies: alcohol abuse , prescription drug abuse, IV drug use Family history: no significant family history Medications and Allergies Allergies Allergy/AdvReac Type Severity Reaction Status Date / Time AMMY Inhibitors Allergy Unknown Verified 08/19/15 01:31 Home Medications Medication Instructions Recorded Confirmed Last Taken Type Amlodipine Besylate [Norvasc] 5 mg PO DAILY 08/19/15 04/14/17 1 Day Ago History AtorvaSTATin [Lipitor] 20 mg PO DAILY 08/19/15 04/14/17 1 Day Ago History Colesevelam [Welchol] 1,875 mg PO BID 08/19/15 04/14/17 1 Day Ago History Duloxetine HCl [DULoxetine] 60 mg PO DAILY 08/19/15 04/14/17 1 Day Ago History Furosemide [Lasix TAB] 20 mg PO DAILY 08/19/15 04/14/17 1 Day Ago History Insulin Glargine [Lantus VIAL] 100 unit SQ DAILY 08/19/15 04/14/17 1 Day Ago History Iron,Fum&Ps/FA/Vit B&C#18/L.ca 1 each PO DAILY 08/19/15 04/14/17 1 Day Ago History [Fusion Plus Capsule] Losartan [Cozaar] 100 mg PO DAILY 08/19/15 04/14/17 1 Day Ago History Ofloxacin [Ofloxacin 0.3%] 5 ml INTRAOCULA DAILY 08/19/15 04/14/17 1 Day Ago History Potassium Chloride [Klor-Con 10] 10 meq PO DAILY 08/19/15 04/14/17 1 Day Ago History Tobramycin/Dexameth 0.1-0.3% 3.5 gm SUBDERMAL DAILY 08/19/15 04/14/17 1 Day Ago History [Tobradex] Active Meds: Active Medications Acetaminophen (Tylenol) 650 mg PO Q4H PRN PRN Reason: Pain MILD(1-3)/Fever >100.5/GARZON Last Admin: 04/18/17 01:05 Dose: 650 mg Albuterol (Proventil) 2.5 mg IH Q4HRT PRN PRN Reason: Shortness Of Breath Apixaban (Eliquis) 5 mg PO Q12HR LANI PRN Reason: Protocol Last Admin: 04/18/17 10:03 Dose: 5 mg Atorvastatin Calcium (Lipitor) 20 mg PO DAILY [facility] Last Admin: 04/18/17 10:03 Dose: 20 mg Bisacodyl (Dulcolax) 10 mg MN QDAY PRN PRN Reason: Constipation unrelieved by MOM Last Admin: 04/15/17 19:16 Dose: 10 mg Colesevelam HCl (Welchol) 1,875 mg PO BID [facility] Last Admin: 04/18/17 10:04 Dose: 1,875 mg Dextrose (D50w (25gm)) 50 ml IV PRN PRN PRN Reason: Hypoglycemia Last Admin: 04/15/17 08:17 Dose: 50 ml Docusate Sodium (Colace) 100 mg PO BID [facility] Last Admin: 04/18/17 10:03 Dose: 100 mg Duloxetine HCl (Cymbalta) 60 mg PO QDAY [facility] Last Admin: 04/18/17 10:02 Dose: 60 mg Famotidine (Pepcid) 20 mg PO DAILY [facility] Last Admin: 04/18/17 10:03 Dose: 20 mg Sodium Chloride (Nacl 0.9% 1000 Ml) 1,000 mls @ 50 mls/hr IV DIRECT [facility] Last Admin: 04/18/17 03:19 Dose: 75 mls/hr Insulin Aspart (Novolog) 0 units SUB-Q ACHS LANI PRN Reason: Protocol Last Admin: 04/18/17 10:10 Dose: Not Given Insulin Detemir (Levemir) 14 units SUB-Q QHS [facility] Last Admin: 04/17/17 23:13 Dose: 14 units Metoprolol Succinate (Toprol Xl) 50 mg PO QDAY [facility] Last Admin: 04/18/17 10:03 Dose: 50 mg Multivitamins (Theragran Tab) 1 each PO QDAY [facility] Last Admin: 04/18/17 10:03 Dose: 1 each Nifedipine (Procardia Xl) 30 mg PO Q12HR [facility] Last Admin: 04/18/17 10:02 Dose: 30 mg Ondansetron HCl (Zofran) 4 mg IV Q4H PRN PRN Reason: N/V unrelieved by Alex Tobramycin/Dexamethasone (Tobradex) 1 inch OU DAILY [facility] Last Admin: 04/18/17 10:09 Dose: 1 inch Review of Systems All systems: negative Physical Examination - Constitutional Vitals: Vital Signs Temp Pulse Resp BP Pulse Ox 97.6 F 102 H 18 169/81 99 04/18/17 08:00 04/18/17 08:00 04/18/17 08:00 04/18/17 08:00 04/18/17 08:00 Temperature -Last 24 Hours Temperature 97.6 F Temperature 98.7 F Temperature 99.0 F Temperature 98.8 F Temperature 98.9 F Temperature 98.9 F Temperature 99.0 F Temperature 100.1 F Temperature 99.1 F Temperature 98.1 F Temperature 97.6 F Results - Labs CBC & Chem 7: 04/18/17 09:22 04/18/17 09:22 Labs: Abnormal lab results 04/16/17 04/17/17 04/17/17 Range/Units 11:06 11:29 17:22 RBC (3.65-5.03) M/mm3 Hgb (11.8-15.2) gm/dl Hct (35.5-45.6) % MCV (84-94) fl MCH (28-32) pg MCHC (32-34) % RDW (13.2-15.2) % Plt Count (140-440) K/mm3 Carbon Dioxide (22-30) mmol/L BUN (9-20) mg/dL Creatinine (0.8-1.5) mg/dL Glucose (75-100) mg/dL POC Glucose 211 H 269 H (70-105) Calcium (8.4-10.2) mg/dL Crossmatch See Detail 04/17/17 04/18/17 04/18/17 Range/Units 21:17 09:22 09:22 RBC 3.28 L (3.65-5.03) M/mm3 Hgb 7.9 L (11.8-15.2) gm/dl Hct 25.2 L (35.5-45.6) % MCV 77 L (84-94) fl MCH 24 L (28-32) pg MCHC 31 L (32-34) % RDW 17.1 H (13.2-15.2) % Plt Count 441 H (140-440) K/mm3 Carbon Dioxide 16 L (22-30) mmol/L BUN 56 H (9-20) mg/dL Creatinine 3.6 H (0.8-1.5) mg/dL Glucose 112 H (75-100) mg/dL POC Glucose 254 H (70-105) Calcium 7.6 L (8.4-10.2) mg/dL Crossmatch - Imaging and Cardiology Chest x-ray: report reviewed (no acute cardiopulmonary process) Assessment and Plan - Patient Problems (1) Septic arthritis Current Visit: Yes Status: Acute Qualifiers: Septic arthritis location: knee Septic arthritis organism: due to unspecified organism Laterality: left Qualified Code(s): M00.9 - Pyogenic arthritis, unspecified Plan to address problem: 1. An urgent left knee arthrocentesis with cell count/ differential, culture and crystal assessment is needed. 2. Will check GC/ chalmydia and blood culture. 3. An MRI will be useful to confirm osteomyelitis, however previous orthopedic surgery may preclude this. 4. Will start empiric Vancomycin and Rocephin pending further results.
--- NOTE | 2017-04-18 11:49 | Progress Note ---
Assessment and Plan Shortness of breath no acute process of CXR V\Q scan negative for PE normal LVEF 55-60% on echocardiogram Anemia s/p transfusion of PRBCs Left knee effusion LLE CT reports septic arthritis and possible osteomyelitis Chronic renal disease Borderline elevated troponin likely in the setting of renal failure doubt non-ST elevation [place] Hx of Afib currently in normal sinus rhythm. On beta olga therapy for suppression. on eliquis as an outpatient; currently on hold due to anemia Diabetes mellitus with hyperglycemia Oral anticoagulation currently on hold for anemia. Conservative cardiac management. Subjective Date of service: 04/18/17 Interval history: Patient is resting in bed comfortably. He denies chest pain and shortness of breath. Objective Vital Signs Temp Pulse Pulse Pulse Resp Resp BP 04/18/17 10:00 102 H 18 20 04/18/17 08:00 97.6 F 102 H 18 169/81 04/18/17 06:45 98.7 F 96 H 20 138/65 04/18/17 06:15 99.0 F 97 H 20 152/76 04/18/17 05:15 98.8 F 100 H 20 160/79 04/18/17 04:45 98.9 F 95 H 20 154/73 04/18/17 04:15 99.0 F 95 H 19 134/64 04/18/17 01:05 20 04/18/17 00:07 100.1 F H 103 H 18 163/72 04/17/17 23:25 18 04/17/17 22:00 80 19 04/17/17 20:32 99.1 F 99 H 18 157/78 04/17/17 19:35 97 H 04/17/17 17:20 98.1 F 98 H 20 151/99 04/17/17 12:30 97.6 F 100 H 20 151/93 Pulse Ox 04/18/17 10:00 99 04/18/17 08:00 99 04/18/17 06:45 04/18/17 06:15 04/18/17 05:15 04/18/17 04:45 04/18/17 04:15 04/18/17 01:05 04/18/17 00:07 99 04/17/17 23:25 04/17/17 22:00 04/17/17 20:32 100 04/17/17 19:35 04/17/17 17:20 100 04/17/17 12:30 100 - Physical Examination General: No Apparent Distress HEENT: Positive: PERRL Neck: Positive: trachea midline Cardiac: Positive: Reg Rate and Rhythm Lungs: Positive: Decreased Breath Sounds Neuro: Positive: Grossly Intact - Labs and Meds CBC 04/18/17 Range/Units 09:22 WBC 8.0 (4.5-11.0) K/mm3 RBC 3.28 L (3.65-5.03) M/mm3 Hgb 7.9 L (11.8-15.2) gm/dl Hct 25.2 L (35.5-45.6) % Plt Count 441 H (140-440) K/mm3 Comprehensive Metabolic Panel 04/18/17 Range/Units 09:22 Sodium 139 (137-145) mmol/L Potassium 4.6 (3.6-5.0) mmol/L Chloride 106.8 (98-107) mmol/L Carbon Dioxide 16 L (22-30) mmol/L BUN 56 H (9-20) mg/dL Creatinine 3.6 H (0.8-1.5) mg/dL Glucose 112 H (75-100) mg/dL Calcium 7.6 L (8.4-10.2) mg/dL
[2017-04-18] MEDS ORDERED: VANCOMYCIN/NS 1 GM/250 ML 1 GM/250 ML BAG IV SCH (12:00)
[2017-04-18] MEDS ORDERED: ROCEPHIN/NS 2 GM/100 ML 2 GM/100 ML BAG IV SCH (13:00)
[2017-04-18] MEDS ORDERED: VANCOMYCIN VIAL 1,500 MG in NACL 0.9% 500 ML 500 ML IV SCH (14:00)
[2017-04-18] MEDS: LEVEMIR SUB-Q SCH (23:08)
[2017-04-19 05:44] LABS: Basophils % (Auto) 0.5 % (0.0-1.8); Eosinophils % (Auto) 2.7 % (0.0-4.3); Hemoglobin 7.2 gm/dl (11.8-15.2); Mean Corpuscular HGB Conc 33 % (32-34); Mean Corpuscular Volume 76 fl (84-94); Platelet Count 418 K/mm3 (140-440); Red Blood Count 2.89 M/mm3 (3.65-5.03); White Blood Count 6.1 K/mm3 (4.5-11.0)
[2017-04-19 05:58] LABS: Mean Corpuscular Hemoglobin 25 pg (28-32)
[2017-04-19 06:12] LABS: BUN/Creatinine Ratio 16.38; Calcium 7.8 mg/dL (8.4-10.2); Chloride 104.2 mmol/L (98-107); Potassium 4.3 mmol/L (3.6-5.0)
[2017-04-19] MEDS: NOVOLOG SUB-Q SCH ×4 (08:37→22:13)
--- NOTE | 2017-04-19 10:47 | Progress Note ---
Assessment and Plan Assessment and plan: Patient is a 47-year-old male with past medical history including hyperlipidemia , chronic kidney disease, cardiac ablation, diabetes mellitus and multiple left knee surgery who presents to the ER complaining of bilateral leg edema worsening on the left and associated shortness of breath 1 day with reported left sided chest pain which is worse on lying down and improves with sitting up. The patient also does report worsening shortness of breath on lying supine with positive orthopnea improves with sitting up. He denies any sick contacts and he is followed by [facility] and primary care physician and is supposed to be evaluated by nephrology but has not had a full evaluation done. The pain he describes as a 5/10 in intensity with no radiation and no associated diaphoresis. He states that he woke him up this morning. Denies any palpitation nausea vomiting or diarrhea as noted. 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 Fine orthopedic surgery, it is a chronic finding patient is on have any fever leukocytosis or tachycardia, no warmth or pain to touch of the joints. Therefore clinically does not appear to have osteomyelitis or infectious process. patient will most likely benefit from PT and transferred to a rehabilitation facility where he can improve upon his gait He has a known history of Charcot joints and this is most likely a manifestation of charcot joints. MRI right knee show Large joint effusion and serious subcutaneous fluid collection. Cannot exclude an infectious process such as septic arthritis. Findings may be related to chronic inflammatory process or chronic effusion with hemorrhage correlation could be made with joint aspiration as clinically indicated. Tears of the medial and lateral meniscus. Probable tear of the distal anterior cruciate ligament. Right ankle x-ray: There is diffuse swelling of tissues involving the distal leg and ankle extending to the proximal foot. There is an oblique fracture through the distal shaft of the fibula with mild separation of bony structures with good alignment. A separation or fracture the medial malleolus. Distal anterior displacement fragment. There are degenerative changes involving the articular margin between the talus and tarsal articular bone. * Case was discussed in detail with Dr. Fine, he has known peripheral neuropathy with Charcot joints of the right ankle and right knee with severe deformity. This is chronic, he does not appear to have any infectious process. There is no available surgical management other down offering a BKA to the patient. And this has been offered to him and his and they have declined. * Case was discussed with infectious disease. We'll obtain a joint aspiration on Friday, to definitively rule out infectious process. * Chronic lymphedema Continue supportive care * Acute kidney injury on chronic kidney disease likely secondary to vasomotor nephropathy, renal function is improved with IV fluids and cessation of Lasix * Diabetes mellitus with hyperglycemia, now better controlled, continue insulins * NSTEMI type 2, cardiology input appreciated, meds optimized, eliquis on hold due to anemia * A. fib, rate is controlled, continue eliquis for stroke prophylaxis * Anemia of chronic kidney disease/iron deficiency anemia; continue iron supplements, status post 1 unit of PRBC transfusion * If hemoglobin continues to drop will obtain GI consult. * Eliquis on hold due to anemia * Coagulopathy due to use of eliquis, expected outcome * Hyperkalemia, we'll avoid ARB or AMMY due to this. We'll give him alternative blood pressure medications. sp Kayexalate on 04/17, fup repeat K * Accelerated hypertension, meds have been optimized. * Diarrhea; send stool for cdiff if it recurs Case management consulted for SNIF placement Case was discussed in great detail with his in the presence of the patient. History Interval history: Complaints of right knee swelling , inability to bend the knee which is causing poor mobility He had multiple episodes of watery diarrhea yesterday, but have now resolved. Hospitalist Physical - Physical exam Narrative exam: GENERAL: The patient appeared well nourished and normally developed. Vital signs as documented. HEAD: No signs of head trauma. EYES: Pupils are equal. Extraocular motions intact. EARS: Hearing grossly intact. MOUTH: Oropharynx is normal. NECK: No adenopathy, no JVD. CHEST: Chest with clear breath sounds bilaterally. No wheezes, rales, or rhonchi. CARDIAC: Regular rate and rhythm. S1 and S2, without murmurs, gallops, or rubs. VASCULAR: Trace pitting Edema. Peripheral pulses normal and equal in all extremities. ABDOMEN: Soft, without detectable tenderness. No sign of distention. No rebound or guarding, and no masses palpated. Bowel Sounds normal. MUSCULOSKELETAL: Limited range of motion Left Knee, left knee disfigured, increased width and diameter. Extremities without clubbing, cyanosis. Trace Pitting edema. NEUROLOGIC EXAM: Alert and oriented x 3. No focal sensory or strength deficits. Speech normal. Follows commands. PSYCHIATRIC: Mood normal. SKIN: Multiple venous stasis changes - Constitutional Vitals: Temp Pulse Resp BP Pulse Ox 99.2 F 102 H 22 135/69 96 04/19/17 08:00 04/19/17 08:00 04/19/17 08:00 04/19/17 08:00 04/19/17 08:00 Results - Labs CBC & Chem 7: 04/19/17 04:40 04/19/17 04:40 Labs: Laboratory Last Values WBC 6.1 K/mm3 (4.5-11.0) 04/19/17 04:40 RBC 2.89 M/mm3 (3.65-5.03) L 04/19/17 04:40 Hgb 7.2 gm/dl (11.8-15.2) L 04/19/17 04:40 Hct 22.0 % (35.5-45.6) L 04/19/17 04:40 MCV 76 fl (84-94) L 04/19/17 04:40 MCH 25 pg (28-32) L 04/19/17 04:40 MCHC 33 % (32-34) 04/19/17 04:40 RDW 17.0 % (13.2-15.2) H 04/19/17 04:40 Plt Count 418 K/mm3 (140-440) 04/19/17 04:40 Lymph % (Auto) 21.1 % (13.4-35.0) 04/19/17 04:40 [place] % (Auto) 15.0 % (0.0-7.3) H 04/19/17 04:40 Eos % (Auto) 2.7 % (0.0-4.3) 04/19/17 04:40 Baso % (Auto) 0.5 % (0.0-1.8) 04/19/17 04:40 Lymph # 1.3 K/mm3 (1.2-5.4) 04/19/17 04:40 [place] # 0.9 K/mm3 (0.0-0.8) H 04/19/17 04:40 Eos # 0.2 K/mm3 (0.0-0.4) 04/19/17 04:40 Baso # 0.0 K/mm3 (0.0-0.1) 04/19/17 04:40 Seg Neutrophils % 60.7 % (40.0-70.0) 04/19/17 04:40 Seg Neutrophils # 3.7 K/mm3 (1.8-7.7) 04/19/17 04:40 PT 15.8 Sec. (12.2-14.9) H 04/12/17 08:34 INR 1.20 (0.87-1.13) H 04/12/17 08:34 APTT 46.7 Sec. (24.2-36.6) H 04/12/17 08:34 D-Dimer 2932 ng/mlDDU (0-234) H 04/12/17 08:34 Sodium 135 mmol/L (137-145) L 04/19/17 04:40 Potassium 4.3 mmol/L (3.6-5.0) 04/19/17 04:40 Chloride 104.2 mmol/L (98-107) 04/19/17 04:40 Carbon Dioxide 16 mmol/L (22-30) L 04/19/17 04:40 Anion Gap 19 mmol/L 04/19/17 04:40 BUN 59 mg/dL (9-20) H 04/19/17 04:40 Creatinine 3.6 mg/dL (0.8-1.5) H 04/19/17 04:40 Estimated GFR 22 ml/min 04/19/17 04:40 BUN/Creatinine Ratio 16.38 % 04/19/17 04:40 Glucose 114 mg/dL (75-100) H 04/19/17 04:40 POC Glucose 102 (70-105) 04/19/17 08:13 Osmolality 304 Mosm/kg 04/12/17 11:00 Calcium 7.8 mg/dL (8.4-10.2) L 04/19/17 04:40 Phosphorus 5.20 mg/dL (2.5-4.5) H 04/13/17 04:50 Magnesium 1.40 mg/dL (1.7-2.3) L 04/15/17 06:21 Iron 25 ug/dL (49-181) L 04/12/17 16:00 TIBC 98 mcg/dL (250-450) L 04/12/17 16:00 Ferritin 745.3 ng/mL (13.0-400.0) H 04/12/17 16:00 Total Bilirubin 0.20 mg/dL (0.1-1.2) 04/15/17 06:21 AST 13 units/L (5-40) 04/15/17 06:21 ALT 13 units/L (7-56) 04/15/17 06:21 Alkaline Phosphatase 126 units/L (35-129) 04/15/17 06:21 Total Creatine Kinase 107 units/L (55-170) 04/13/17 01:17 CK-MB (CK-2) 2.7 ng/mL (0.0-4.0) 04/13/17 01:17 CK-MB (CK-2) Rel Index 2.5 (0-4) 04/13/17 01:17 Troponin T 0.174 ng/mL (0.00-0.029) H* 04/13/17 01:17 NT-Pro-B Natriuret Pep 9214 pg/mL (0-450) H 04/12/17 08:34 Total Protein 5.8 g/dL (6.3-8.2) L 04/15/17 06:21 Albumin 1.7 g/dL (3.9-5) L 04/15/17 06:21 Albumin/Globulin Ratio 0.4 % 04/15/17 06:21 Triglycerides 89 mg/dL (2-149) 04/12/17 08:34 Cholesterol 84 mg/dL (50-199) 04/12/17 08:34 LDL Cholesterol Direct 32 mg/dL (50-130) L 04/12/17 08:34 HDL Cholesterol 35 mg/dL (40-59) L 04/12/17 08:34 Cholesterol/HDL Ratio 2.40 % 04/12/17 08:34 Vitamin B12 369.0 pg/mL (211-911) 04/12/17 16:00 TSH 0.027 mlU/mL (0.270-4.200) L 04/12/17 09:14 Free T4 1.03 ng/dL (0.76-1.46) 04/12/17 09:14 PTH Intact 132.4 pg/mL (15-65) H 04/13/17 04:50 Urine Color Yellow (Yellow) 04/12/17 11:37 Urine Turbidity Clear (Clear) 04/12/17 11:37 Urine pH 5.0 (5.0-7.0) 04/12/17 11:37 Ur Specific [place] 1.014 (1.003-1.030) 04/12/17 11:37 Urine Protein >500 mg/dL (Negative) 04/12/17 11:37 Urine Glucose (UA) >=500 mg/dL (Negative) 04/12/17 11:37 Urine Ketones Neg mg/dL (Negative) 04/12/17 11:37 Urine Blood Sm (Negative) 04/12/17 11:37 Urine Nitrite Neg (Negative) 04/12/17 11:37 Urine Bilirubin Neg (Negative) 04/12/17 11:37 Urine Urobilinogen < 2.0 mg/dL (<2.0) 04/12/17 11:37 Ur Leukocyte Esterase Neg (Negative) 04/12/17 11:37 Urine WBC (Auto) 1.0 /HPF (0.0-6.0) 04/12/17 11:37 Urine RBC (Auto) 7.0 /HPF (0.0-6.0) 04/12/17 11:37 U Epithel Cells (Auto) 1.0 /HPF (0-13.0) 04/12/17 11:37 Urine Bacteria (Auto) 1+ /HPF (Negative) 04/12/17 11:37 Urine Mucus Few /HPF 04/12/17 11:37 Blood Type O POSITIVE 04/16/17 11:06 Antibody Screen Negative 04/16/17 11:06 Crossmatch See Detail 04/16/17 11:06
--- NOTE | 2017-04-19 10:48 | Progress Note ---
Assessment and Plan - Patient Problems (1) Acute on chronic renal failure Current Visit: Yes Status: Acute Qualifiers: Acute renal failure type: A Chronic kidney disease stage: C Plan to address problem: Acute kidney injury superimposed on CKD stage 4. Renal function is stable, likely his baseline. (2) Hyperkalemia Current Visit: Yes Status: Acute Plan to address problem: Improved. (3) Proteinuria due to type 2 diabetes mellitus Current Visit: Yes Status: Chronic (4) Shortness of breath Current Visit: Yes Status: Acute (5) Anemia Current Visit: Yes Status: Chronic Qualifiers: Anemia type: A Iron deficiency anemia type: I Vitamin B12 deficiency anemia type: V Folate deficiency anemia type: F Bone marrow failure anemia type: B Hemolytic anemia type: H Other causes of anemia: O Chronic kidney disease stage: C Subjective Date of service: 04/19/17 Interval history: Patient is feeling ok. Objective - Vital Signs Vital signs: Vital Signs - 12hr 04/19/17 04/19/17 04/19/17 04:00 05:48 08:00 Temperature 98.8 F 99.2 F Pulse Rate 102 H 98 H 102 H Respiratory 18 22 Rate Blood Pressure 142/72 135/69 O2 Sat by Pulse 97 96 Oximetry - General Appearance General appearance: well-developed, well-nourished, appears stated age, obese, other (no distress) EENT: ATNC Neck: supple Respiratory: Present: Clear to Ascultation Cardiology: regular, S1S2, no murmurs Gastrointestinal: normoactive bowel sounds, no tenderness, no distended Integumentary: other (b/l LE chronic stasis changes ) Neurologic: other (right eye blindness) Musculoskeletal: other (large left knee effusion) Psychiatric: mood/affect appropriate, cooperative - Lab 04/19/17 04:40 04/19/17 04:40 Most recent lab results Calcium 7.8 mg/dL (8.4-10.2) L 04/19/17 04:40 Phosphorus 5.20 mg/dL (2.5-4.5) H 04/13/17 04:50 Magnesium 1.40 mg/dL (1.7-2.3) L 04/15/17 06:21
[2017-04-19] MEDS: WELCHOL PO SCH ×2 (10:51→22:01)
[2017-04-19] MEDS: CYMBALTA PO SCH (10:52)
[2017-04-19] MEDS: THERAGRAN Tab PO SCH (10:52)
[2017-04-19] MEDS: PEPCID PO SCH (10:52)
[2017-04-19] MEDS: COLACE PO SCH ×2 (10:52→22:01)
[2017-04-19] MEDS: TOPROL XL PO SCH (10:53)
[2017-04-19] MEDS: PROCARDIA XL PO SCH ×2 (10:53→22:00)
[2017-04-19] MEDS: TOBRADEX OU SCH (10:57)
--- NOTE | 2017-04-19 13:20 | Progress Note ---
Assessment and Plan Shortness of breath no acute process of CXR V\Q scan negative for PE normal LVEF 55-60% on echocardiogram Anemia s/p transfusion of PRBCs Left knee effusion LLE CT reports possible septic arthritis Joint aspiration planned for friday. Chronic renal disease Borderline elevated troponin likely in the setting of renal failure doubt non-ST elevation MD Hx of Afib currently in normal sinus rhythm. On beta olga therap. on eliquis as an outpatient; currently on hold due to anemia Diabetes mellitus with hyperglycemia Recommend: Continue to hold Oral anticoagulation. Conservative cardiac management. Subjective Date of service: 04/19/17 Interval history: Pt has no cardiac complaints. Objective Vital Signs Temp Pulse Resp Resp BP Pulse Ox 04/19/17 10:53 102 H 135/69 04/19/17 10:00 20 04/19/17 08:00 99.2 F 102 H 22 135/69 96 04/19/17 05:48 98.8 F 98 H 18 142/72 97 04/19/17 04:00 102 H 04/18/17 20:00 97 H 04/18/17 19:54 98.3 F 97 H 18 139/68 98 04/18/17 16:16 98.7 F 97 H 18 168/81 99 - Physical Examination General: No Apparent Distress HEENT: Positive: PERRL Neck: Positive: trachea midline Cardiac: Positive: Reg Rate and Rhythm Lungs: Positive: clear to auscultation Neuro: Positive: Grossly Intact Abdomen: Positive: Soft, Active Bowel Sounds Extremities: Absent: edema - Labs and Meds CBC 04/19/17 Range/Units 04:40 WBC 6.1 (4.5-11.0) K/mm3 RBC 2.89 L (3.65-5.03) M/mm3 Hgb 7.2 L (11.8-15.2) gm/dl Hct 22.0 L (35.5-45.6) % Plt Count 418 (140-440) K/mm3 Lymph # 1.3 (1.2-5.4) K/mm3 [place] # 0.9 H (0.0-0.8) K/mm3 Eos # 0.2 (0.0-0.4) K/mm3 Baso # 0.0 (0.0-0.1) K/mm3 Comprehensive Metabolic Panel 04/19/17 Range/Units 04:40 Sodium 135 L (137-145) mmol/L Potassium 4.3 (3.6-5.0) mmol/L Chloride 104.2 (98-107) mmol/L Carbon Dioxide 16 L (22-30) mmol/L BUN 59 H (9-20) mg/dL Creatinine 3.6 H (0.8-1.5) mg/dL Glucose 114 H (75-100) mg/dL Calcium 7.8 L (8.4-10.2) mg/dL
--- NOTE | 2017-04-19 13:50 | Consultation ---
History of Present Illness - Reason for Consult Consult date: 04/19/17 Anemia - History of Present Illness See Dictated consult note. Past History Past Medical History: atrial fib, diabetes, hypertension, hyperlipidemia Past Surgical History: Other (cardiac ablation. Multiple knee surgeries on the left knee) Social history: no significant social history, full code. denies: alcohol abuse , prescription drug abuse, IV drug use Family history: no significant family history Medications and Allergies Allergies Allergy/AdvReac Type Severity Reaction Status Date / Time AMMY Inhibitors Allergy Unknown Verified 08/19/15 01:31 Home Medications Medication Instructions Recorded Confirmed Last Taken Type Amlodipine Besylate [Norvasc] 5 mg PO DAILY 08/19/15 04/14/17 1 Day Ago History AtorvaSTATin [Lipitor] 20 mg PO DAILY 08/19/15 04/14/17 1 Day Ago History Colesevelam [Welchol] 1,875 mg PO BID 08/19/15 04/14/17 1 Day Ago History Duloxetine HCl [DULoxetine] 60 mg PO DAILY 08/19/15 04/14/17 1 Day Ago History Furosemide [Lasix TAB] 20 mg PO DAILY 08/19/15 04/14/17 1 Day Ago History Insulin Glargine [Lantus VIAL] 100 unit SQ DAILY 08/19/15 04/14/17 1 Day Ago History Iron,Fum&Ps/FA/Vit B&C#18/L.ca 1 each PO DAILY 08/19/15 04/14/17 1 Day Ago History [Fusion Plus Capsule] Losartan [Cozaar] 100 mg PO DAILY 08/19/15 04/14/17 1 Day Ago History Ofloxacin [Ofloxacin 0.3%] 5 ml INTRAOCULA DAILY 08/19/15 04/14/17 1 Day Ago History Potassium Chloride [Klor-Con 10] 10 meq PO DAILY 08/19/15 04/14/17 1 Day Ago History Tobramycin/Dexameth 0.1-0.3% 3.5 gm SUBDERMAL DAILY 08/19/15 04/14/17 1 Day Ago History [Tobradex] Active Meds: Active Medications Acetaminophen (Tylenol) 650 mg PO Q4H PRN PRN Reason: Pain MILD(1-3)/Fever >100.5/GARZON Last Admin: 04/18/17 01:05 Dose: 650 mg Albuterol (Proventil) 2.5 mg IH Q4HRT PRN PRN Reason: Shortness Of Breath Atorvastatin Calcium (Lipitor) 20 mg PO DAILY [facility] Last Admin: 04/19/17 10:53 Dose: 20 mg Bisacodyl (Dulcolax) 10 mg FL QDAY PRN PRN Reason: Constipation unrelieved by MOM Last Admin: 04/15/17 19:16 Dose: 10 mg Colesevelam HCl (Welchol) 1,875 mg PO BID [facility] Last Admin: 04/19/17 10:51 Dose: 1,875 mg Dextrose (D50w (25gm)) 50 ml IV PRN PRN PRN Reason: Hypoglycemia Last Admin: 04/15/17 08:17 Dose: 50 ml Docusate Sodium (Colace) 100 mg PO BID [facility] Last Admin: 04/19/17 10:52 Dose: Not Given Duloxetine HCl (Cymbalta) 60 mg PO QDAY [facility] Last Admin: 04/19/17 10:52 Dose: 60 mg Famotidine (Pepcid) 20 mg PO DAILY [facility] Last Admin: 04/19/17 10:52 Dose: 20 mg Sodium Chloride (Nacl 0.9% 1000 Ml) 1,000 mls @ 50 mls/hr IV DIRECT [facility] Last Admin: 04/18/17 23:10 Dose: 75 mls/hr Insulin Aspart (Novolog) 0 units SUB-Q ACHS [facility] PRN Reason: Protocol Last Admin: 04/19/17 12:15 Dose: 4 units Insulin Detemir (Levemir) 14 units SUB-Q QHS [facility] Last Admin: 04/18/17 23:08 Dose: 14 units Metoprolol Succinate (Toprol Xl) 50 mg PO QDAY [facility] Last Admin: 04/19/17 10:53 Dose: 50 mg Multivitamins (Theragran Tab) 1 each PO QDAY [facility] Last Admin: 04/19/17 10:52 Dose: 1 each Nifedipine (Procardia Xl) 30 mg PO Q12HR [facility] Last Admin: 04/19/17 10:53 Dose: 30 mg Ondansetron HCl (Zofran) 4 mg IV Q4H PRN PRN Reason: N/V unrelieved by Reglan Tobramycin/Dexamethasone (Tobradex) 1 inch OU DAILY [facility] Last Admin: 04/19/17 10:57 Dose: 1 inch Exam - Constitutional Vitals: Temp Pulse Resp BP Pulse Ox 99.2 F 102 H 20 135/69 96 04/19/17 08:00 04/19/17 10:53 04/19/17 10:00 04/19/17 10:53 04/19/17 08:00 Results - Labs CBC & Chem 7: 04/19/17 04:40 04/19/17 04:40 Labs: Abnormal lab results 04/18/17 04/18/17 04/18/17 Range/Units 12:43 17:07 21:23 RBC (3.65-5.03) M/mm3 Hgb (11.8-15.2) gm/dl Hct (35.5-45.6) % MCV (84-94) fl MCH (28-32) pg RDW (13.2-15.2) % [place] % (Auto) (0.0-7.3) % [place] # (0.0-0.8) K/mm3 Sodium (137-145) mmol/L Carbon Dioxide (22-30) mmol/L BUN (9-20) mg/dL Creatinine (0.8-1.5) mg/dL Glucose (75-100) mg/dL POC Glucose 160 H 203 H 202 H (70-105) Calcium (8.4-10.2) mg/dL 04/19/17 04/19/17 Range/Units 04:40 04:40 RBC 2.89 L (3.65-5.03) M/mm3 Hgb 7.2 L (11.8-15.2) gm/dl Hct 22.0 L (35.5-45.6) % MCV 76 L (84-94) fl MCH 25 L (28-32) pg RDW 17.0 H (13.2-15.2) % [place] % (Auto) 15.0 H (0.0-7.3) % [place] # 0.9 H (0.0-0.8) K/mm3 Sodium 135 L (137-145) mmol/L Carbon Dioxide 16 L (22-30) mmol/L BUN 59 H (9-20) mg/dL Creatinine 3.6 H (0.8-1.5) mg/dL Glucose 114 H (75-100) mg/dL POC Glucose (70-105) Calcium 7.8 L (8.4-10.2) mg/dL Assessment and Plan 1. Anemia - pt has more than 2 yr hx of this, but with no clear etiology. Pt has CRF, and has severe L knee swelling x more than 1 yr, as well as 6 month hx of intermittent N/V. He has chronic irreg BMs with diarrhea alt with constipation. No hx of GI bleed or PUD. - anemia likely due to CRF and anemia of chronic disease - check stool for occult blood - will likely do EGD/Colon to clear GI tract of bleeding source so pt can resume Eliquis
--- NOTE | 2017-04-19 14:46 | Consultation ---
REASON FOR CONSULTATION: Anemia and diarrhea history. 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 He has a longstanding history of poorly controlled diabetes with retinopathy and neuropathy as well as renal failure. He has chronic renal insufficiency for at least 2 years. He presented to the hospital for orthopnea and was found to have [id number] congestive heart failure. While here, he has been anemic and was transfused. He has a history of atrial fibrillation and he was on Eliquis. Because of the anemia, GI consultation is obtained. Of note, the patient had an LV ejection fraction that showed 55-60% ejection fraction. The patient has a chronic history of anemia since at least 2014 and was given iron in , but denies knowing of any clear diagnosis or workup. He denies history of peptic ulcer disease or use of NSAIDs. He denies abdominal pain or willy GI bleed. His bowel movements are irregular with some days of constipation followed by 2-3 days of diarrhea. This is unchanged. He has a 6-month history of intermittent nausea and vomiting occurring approximately twice a week on waking up in the morning with no clear precipitants. He is on Eliquis at home and does not take aspirin or nonsteroidals. There is no family history of colon cancer, though there is a family history of leukemia in his father. PAST MEDICAL HISTORY ALLERGIES: He has an allergy TO AMMY INHIBITORS. MEDICATIONS: At home, he is on insulin, Lasix, duloxetine, WelChol, Lipitor, amlodipine, TobraDex, potassium, losartan and Eliquis as well as iron supplements. PAST MEDICAL HISTORY: He has a history of: 1. Atrial fibrillation -- on Eliquis. 2. Diabetes -- longstanding with multiple complications. 3. Hypertension. 4. Chronic renal insufficiency. 5. Retinopathy, requiring laser surgery. 6. Cholecystectomy. 7. Multiple left knee surgeries - with chronically swollen left knee and questionable osteomyelitis. FAMILY HISTORY: Noncontributory. SOCIAL HISTORY: Negative for tobacco or ethanol usage. REVIEW OF SYSTEMS: As noted above and notable for inability to walk much due to the left knee pain. Otherwise, there has been no weight loss. It is otherwise negative. PHYSICAL EXAMINATION: GENERAL: This is a tall, middle-aged black male lying in bed who appears older than stated age. VITAL SIGNS: Temperature 99.2, pulse 102 and regular, blood pressure 135/69. HEENT: He is anicteric. Pupils are round and reactive. Oropharynx is clear. LUNGS: Clear bilaterally to auscultation. CARDIOVASCULAR: Regular with no extra heart sounds. ABDOMEN: Soft with good bowel sounds and no organomegaly or tenderness to deep palpation. RECTAL: Deferred. EXTREMITIES: Reveal massively swollen left knee and otherwise no edema in the right leg. NEUROLOGIC: He is alert, oriented x 3, grossly nonfocal. LABORATORY DATA: White count is 6.1, hemoglobin 7.2, hematocrit 22.0, MCV of 76, platelet count of 418,000 -- please note, this is after blood transfusion. Sodium is 135, potassium 4.3, chloride 104, bicarbonate 16, BUN 59, creatinine 3.6, glucose is 114 and AST is 13, ALT is 13, alkaline phosphatase is 126, total bilirubin is 0.2, albumin is 1.7. IMPRESSION: Anemia -- etiology unclear. This is more than likely chronic and due to combination of anemia from renal insufficiency as well as anemia of chronic disease given his left knee. Iron studies and B12 done in hospital here were normal. There is no evidence of GI bleeding and no clear GI symptoms to attribute blood loss too. However, the patient is on Eliquis. It is reasonable to proceed with endoscopic evaluation from above and below in order to exclude a GI source on the remote possibility that there is one that could be could be a risk factor for him going back on Eliquis. However, he has done well on Eliquis for quite some time already without any difficulties. His anemia is at least 2 years old, but since the patient cannot recall any endoscopic evaluation, we will consider doing so. In the meantime, however, the family will get labs from before for evaluation. JOB# [id number] HRC/NTS
[2017-04-19] MEDS: ELIQUIS PO SCH (16:56)
--- NOTE | 2017-04-19 17:55 | Progress Note ---
Assessment and Plan - Patient Problems (1) Septic arthritis Current Visit: Yes Status: Acute Qualifiers: Septic arthritis location: knee Septic arthritis organism: due to unspecified organism Laterality: left Qualified Code(s): M00.9 - Pyogenic arthritis, unspecified Plan to address problem: 1. Patient has a chronic effusion dating back > 12 months. 2. Will continue to defer antimicrobials pending arthrocentesis with culture to hopefully guide therapy. 3. Await result of GC/ chlamydia. Subjective Date of service: 04/19/17 Principal diagnosis: Left Knee Effusion Interval history: Patient remains afebrile. Unchanged symptoms involving left knee. Planned arthrocentesis on Friday. Objective - Constitutional Vitals: Vital Signs Temp Pulse Resp BP Pulse Ox 98.5 F 92 H 20 154/85 100 04/19/17 13:00 04/19/17 13:00 04/19/17 13:00 04/19/17 13:00 04/19/17 13:00 Temperature -Last 24 Hours Temperature 98.5 F Temperature 99.2 F Temperature 98.8 F Temperature 98.3 F General appearance: Present: no acute distress, well-nourished - Respiratory Respiratory effort: normal Respiratory: bilateral: CTA - Cardiovascular Rhythm: regular Heart Sounds: Present: S1 & S2 Extremity abnormal: edema (marked edema of left knee, slightly reduced overlying warmth, otherwise unchanged since yesterday) - Gastrointestinal General gastrointestinal: Present: soft, non-distended - Integumentary Integumentary: clear, no rash - Neurologic Neurologic: no focal deficits - Psychiatric Psychiatric: appropriate mood/affect - Labs CBC & Chem 7: 04/19/17 04:40 04/19/17 04:40 Labs: Abnormal lab results 04/18/17 04/18/17 04/18/17 Range/Units 12:43 17:07 21:23 RBC (3.65-5.03) M/mm3 Hgb (11.8-15.2) gm/dl Hct (35.5-45.6) % MCV (84-94) fl MCH (28-32) pg RDW (13.2-15.2) % [place] % (Auto) (0.0-7.3) % [place] # (0.0-0.8) K/mm3 Sodium (137-145) mmol/L Carbon Dioxide (22-30) mmol/L BUN (9-20) mg/dL Creatinine (0.8-1.5) mg/dL Glucose (75-100) mg/dL POC Glucose 160 H 203 H 202 H (70-105) Calcium (8.4-10.2) mg/dL 04/19/17 04/19/17 Range/Units 04:40 04:40 RBC 2.89 L (3.65-5.03) M/mm3 Hgb 7.2 L (11.8-15.2) gm/dl Hct 22.0 L (35.5-45.6) % MCV 76 L (84-94) fl MCH 25 L (28-32) pg RDW 17.0 H (13.2-15.2) % [place] % (Auto) 15.0 H (0.0-7.3) % [place] # 0.9 H (0.0-0.8) K/mm3 Sodium 135 L (137-145) mmol/L Carbon Dioxide 16 L (22-30) mmol/L BUN 59 H (9-20) mg/dL Creatinine 3.6 H (0.8-1.5) mg/dL Glucose 114 H (75-100) mg/dL POC Glucose (70-105) Calcium 7.8 L (8.4-10.2) mg/dL Microbiology 04/18/17 11:58 Peripheral/Venous Blood Culture - Preliminary NO GROWTH AFTER 24 HOURS 04/18/17 15:34 Peripheral/Venous Blood Culture - Preliminary Culture in Progress
[2017-04-19] MEDS: LEVEMIR SUB-Q SCH (22:12)
[2017-04-20] MEDS: NOVOLOG SUB-Q SCH ×4 (08:00→22:03)
[2017-04-20] MEDS: WELCHOL PO SCH ×2 (09:17→22:02)
[2017-04-20] MEDS: COLACE PO SCH ×2 (09:17→22:02)
[2017-04-20] MEDS: TOPROL XL PO SCH (09:18)
[2017-04-20] MEDS: CYMBALTA PO SCH (09:18)
[2017-04-20] MEDS: PROCARDIA XL PO SCH ×2 (09:18→22:02)
[2017-04-20] MEDS: PEPCID PO SCH (09:18)
[2017-04-20] MEDS: THERAGRAN Tab PO SCH (09:18)
[2017-04-20] MEDS: TOBRADEX OU SCH (09:23)
[2017-04-20 09:39] LABS: Basophils % (Auto) 0.8 % (0.0-1.8); Eosinophils % (Auto) 3.4 % (0.0-4.3); Hematocrit 23.5 % (35.5-45.6); Hemoglobin 7.3 gm/dl (11.8-15.2); Mean Corpuscular HGB Conc 31 % (32-34); Mean Corpuscular Volume 77 fl (84-94); Platelet Count 475 K/mm3 (140-440); Red Blood Count 3.05 M/mm3 (3.65-5.03); White Blood Count 6.5 K/mm3 (4.5-11.0)
[2017-04-20 09:44] LABS: Mean Corpuscular Hemoglobin 24 pg (28-32)
[2017-04-20 09:49] LABS: BUN/Creatinine Ratio 16.41; Calcium 7.9 mg/dL (8.4-10.2); Potassium 4.4 mmol/L (3.6-5.0)
--- NOTE | 2017-04-20 10:07 | Progress Note ---
Assessment and Plan Shortness of breath no acute process of CXR V\Q scan negative for PE normal LVEF 55-60% on echocardiogram Anemia s/p transfusion of PRBCs Left knee effusion LLE CT reports possible septic arthritis Joint aspiration planned for friday. Chronic renal disease Borderline elevated troponin likely in the setting of renal failure doubt non-ST elevation OK Hx of Afib currently in normal sinus rhythm. On beta olga. on eliquis as an outpatient; currently on hold due to anemia Diabetes mellitus with hyperglycemia Recommend: Continue to hold Oral anticoagulation till source of anemia identified and GI bleeding excluded. Conservative cardiac management. Subjective Date of service: 04/20/17 Principal diagnosis: Left Knee Effusion Interval history: Pt has no cardiac complaints. Objective Vital Signs Temp Pulse Resp Resp Resp BP Pulse Ox 04/20/17 09:34 18 20 04/20/17 09:18 106 H 144/67 04/20/17 05:07 99.3 F 10 L 20 133/61 98 04/20/17 00:42 98.1 F 102 H 20 126/60 98 04/19/17 22:00 18 20 04/19/17 21:30 98.3 F 94 H 20 139/70 98 04/19/17 20:00 90 04/19/17 16:30 98.4 F 92 H 22 158/89 93 04/19/17 13:00 98.5 F 92 H 20 154/85 100 04/19/17 10:53 102 H 135/69 - Physical Examination General: No Apparent Distress HEENT: Positive: PERRL Neck: Positive: trachea midline Lungs: Positive: clear to auscultation Neuro: Positive: Grossly Intact Abdomen: Positive: Soft, Active Bowel Sounds Extremities: Present: edema, Other (massive swelling of left knee) - Labs and Meds CBC 04/20/17 Range/Units 08:47 WBC 6.5 (4.5-11.0) K/mm3 RBC 3.05 L (3.65-5.03) M/mm3 Hgb 7.3 L (11.8-15.2) gm/dl Hct 23.5 L (35.5-45.6) % Plt Count 475 H (140-440) K/mm3 Lymph # 1.6 (1.2-5.4) K/mm3 [place] # 0.9 H (0.0-0.8) K/mm3 Eos # 0.2 (0.0-0.4) K/mm3 Baso # 0.1 (0.0-0.1) K/mm3 Comprehensive Metabolic Panel 04/20/17 Range/Units 08:47 Sodium 136 L (137-145) mmol/L Potassium 4.4 (3.6-5.0) mmol/L Chloride 105.0 (98-107) mmol/L Carbon Dioxide 17 L (22-30) mmol/L BUN 64 H (9-20) mg/dL Creatinine 3.9 H (0.8-1.5) mg/dL Glucose 113 H (75-100) mg/dL Calcium 7.9 L (8.4-10.2) mg/dL
--- NOTE | 2017-04-20 11:40 | Progress Note ---
Assessment and Plan - Patient Problems (1) Acute on chronic renal failure Current Visit: Yes Status: Acute Qualifiers: Acute renal failure type: A Chronic kidney disease stage: C Plan to address problem: Acute kidney injury superimposed on CKD stage 4. Renal function is stable, likely his baseline. (2) Hyperkalemia Current Visit: Yes Status: Acute Plan to address problem: Improved. (3) Proteinuria due to type 2 diabetes mellitus Current Visit: Yes Status: Chronic (4) Shortness of breath Current Visit: Yes Status: Acute (5) Anemia Current Visit: Yes Status: Chronic Qualifiers: Anemia type: A Iron deficiency anemia type: I Vitamin B12 deficiency anemia type: V Folate deficiency anemia type: F Bone marrow failure anemia type: B Hemolytic anemia type: H Other causes of anemia: O Chronic kidney disease stage: C Plan to address problem: S/p PRBC. Subjective Date of service: 04/20/17 Principal diagnosis: Left Knee Effusion Interval history: Patient is feeling ok. Objective - Vital Signs Vital signs: Vital Signs - 12hr 04/20/17 04/20/17 04/20/17 00:42 05:07 09:18 Temperature 98.1 F 99.3 F Pulse Rate 102 H 10 L 106 H Respiratory 20 20 Rate Respiratory Rate [Chest] Respiratory Rate [Left Knee ] Blood Pressure 126/60 133/61 144/67 O2 Sat by Pulse 98 98 Oximetry 04/20/17 04/20/17 09:34 10:08 Temperature 99.3 F Pulse Rate 106 H Respiratory 20 Rate Respiratory 18 Rate [Chest] Respiratory 20 Rate [Left Knee ] Blood Pressure 144/67 O2 Sat by Pulse 100 Oximetry - General Appearance General appearance: well-developed, well-nourished, appears stated age, obese, other (no distress) EENT: ATNC, PERRL, mucous membranes moist, hearing intact Neck: supple Respiratory: Present: Clear to Ascultation Cardiology: regular, S1S2, no murmurs Gastrointestinal: normoactive bowel sounds, no tenderness, no distended Integumentary: chronic venous stasis Neurologic: other (right eye blindness) Musculoskeletal: joint swelling (left knee), other (bilateral LE edema L > R) Psychiatric: mood/affect appropriate, cooperative - Lab 04/20/17 08:47 04/20/17 08:47 Most recent lab results Calcium 7.9 mg/dL (8.4-10.2) L 04/20/17 08:47 Phosphorus 5.20 mg/dL (2.5-4.5) H 04/13/17 04:50 Magnesium 1.40 mg/dL (1.7-2.3) L 04/15/17 06:21
--- NOTE | 2017-04-20 11:53 | Progress Note ---
Assessment and Plan Assessment and plan: Patient is a 47-year-old male with past medical history including hyperlipidemia , chronic kidney disease, cardiac ablation, diabetes mellitus and multiple left knee surgery who presents to the ER complaining of bilateral leg edema worsening on the left and associated shortness of breath 1 day with reported left sided chest pain which is worse on lying down and improves with sitting up. The patient also does report worsening shortness of breath on lying supine with positive orthopnea improves with sitting up. 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 The pain he describes as a 5/10 in intensity with no radiation and no associated diaphoresis. He states that he woke him up this morning. Denies any palpitation nausea vomiting or diarrhea as noted. 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 Fine orthopedic surgery, it is a chronic finding patient is on have any fever leukocytosis or tachycardia, no warmth or pain to touch of the joints. Therefore clinically does not appear to have osteomyelitis or infectious process. patient will most likely benefit from PT and transferred to a rehabilitation facility where he can improve upon his gait He has a known history of Charcot joints and this is most likely a manifestation of charcot joints. MRI right knee show Large joint effusion and serious subcutaneous fluid collection. Cannot exclude an infectious process such as septic arthritis. Findings may be related to chronic inflammatory process or chronic effusion with hemorrhage correlation could be made with joint aspiration as clinically indicated. Tears of the medial and lateral meniscus. Probable tear of the distal anterior cruciate ligament. Right ankle x-ray: There is diffuse swelling of tissues involving the distal leg and ankle extending to the proximal foot. There is an oblique fracture through the distal shaft of the fibula with mild separation of bony structures with good alignment. A separation or fracture the medial malleolus. Distal anterior displacement fragment. There are degenerative changes involving the articular margin between the talus and tarsal articular bone. * Case was discussed in detail with Dr. Fine, he has known peripheral neuropathy with Charcot joints of the right ankle and right knee with severe deformity. This is chronic, he does not appear to have any infectious process. There is no available surgical management other down offering a BKA to the patient. And this has been offered to him and his and they have declined. , planned for joint aspiration on Friday * Case was discussed with infectious disease. We'll obtain a joint aspiration on Friday, to definitively rule out infectious process. * Chronic lymphedema Continue supportive care * Acute kidney injury on chronic kidney disease likely secondary to vasomotor nephropathy, renal function is improved with IV fluids and cessation of Lasix * Diabetes mellitus with hyperglycemia, now better controlled, continue insulins * NSTEMI type 2, cardiology input appreciated, meds optimized, eliquis on hold due to anemia * A. fib, rate is controlled, continue eliquis for stroke prophylaxis * Anemia of chronic kidney disease/iron deficiency anemia; continue iron supplements, status post 1 unit of PRBC transfusion * GI consult appreciated, likely AOCD due to CKD * Needs Endoscopy to determine if safe for him to continue ESTEE * Eliquis on hold due to anemia * Coagulopathy due to use of eliquis, expected outcome * Hyperkalemia, we'll avoid ARB or AMMY due to this. We'll give him alternative blood pressure medications. sp Kayexalate on 04/17, resolved * Accelerated hypertension, meds have been optimized. * Diarrhea, now resolved; send stool for cdiff if it recurs Case management consulted for SNIF placement Case was discussed in great detail with his in the presence of the patient. History Interval history: Complaints of right knee swelling , inability to bend the knee which is causing poor mobility denies diarrhea yesterday Hospitalist Physical - Physical exam Narrative exam: GENERAL: The patient appeared well nourished and normally developed. Vital signs as documented. HEAD: No signs of head trauma. EYES: Pupils are equal. Extraocular motions intact. EARS: Hearing grossly intact. MOUTH: Oropharynx is normal. NECK: No adenopathy, no JVD. CHEST: Chest with clear breath sounds bilaterally. No wheezes, rales, or rhonchi. CARDIAC: Regular rate and rhythm. S1 and S2, without murmurs, gallops, or rubs. VASCULAR: Trace pitting Edema. Peripheral pulses normal and equal in all extremities. ABDOMEN: Soft, without detectable tenderness. No sign of distention. No rebound or guarding, and no masses palpated. Bowel Sounds normal. MUSCULOSKELETAL: Limited range of motion Left Knee, left knee disfigured, increased width and diameter. Extremities without clubbing, cyanosis. Trace Pitting edema. NEUROLOGIC EXAM: Alert and oriented x 3. No focal sensory or strength deficits. Speech normal. Follows commands. PSYCHIATRIC: Mood normal. SKIN: Multiple venous stasis changes - Constitutional Vitals: Temp Pulse Resp BP Pulse Ox 99.3 F 106 H 20 144/67 100 04/20/17 10:08 04/20/17 10:08 04/20/17 10:08 04/20/17 10:08 04/20/17 10:08 General appearance: Present: no acute distress, well-nourished Results - Labs CBC & Chem 7: 04/20/17 08:47 04/20/17 08:47 Labs: Laboratory Last Values WBC 6.5 K/mm3 (4.5-11.0) 04/20/17 08:47 RBC 3.05 M/mm3 (3.65-5.03) L 04/20/17 08:47 Hgb 7.3 gm/dl (11.8-15.2) L 04/20/17 08:47 Hct 23.5 % (35.5-45.6) L 04/20/17 08:47 MCV 77 fl (84-94) L 04/20/17 08:47 MCH 24 pg (28-32) L 04/20/17 08:47 MCHC 31 % (32-34) L 04/20/17 08:47 RDW 17.0 % (13.2-15.2) H 04/20/17 08:47 Plt Count 475 K/mm3 (140-440) H 04/20/17 08:47 Lymph % (Auto) 24.7 % (13.4-35.0) 04/20/17 08:47 [place] % (Auto) 14.0 % (0.0-7.3) H 04/20/17 08:47 Eos % (Auto) 3.4 % (0.0-4.3) 04/20/17 08:47 Baso % (Auto) 0.8 % (0.0-1.8) 04/20/17 08:47 Lymph # 1.6 K/mm3 (1.2-5.4) 04/20/17 08:47 [place] # 0.9 K/mm3 (0.0-0.8) H 04/20/17 08:47 Eos # 0.2 K/mm3 (0.0-0.4) 04/20/17 08:47 Baso # 0.1 K/mm3 (0.0-0.1) 04/20/17 08:47 Seg Neutrophils % 57.1 % (40.0-70.0) 04/20/17 08:47 Seg Neutrophils # 3.7 K/mm3 (1.8-7.7) 04/20/17 08:47 PT 15.8 Sec. (12.2-14.9) H 04/12/17 08:34 INR 1.20 (0.87-1.13) H 04/12/17 08:34 APTT 46.7 Sec. (24.2-36.6) H 04/12/17 08:34 D-Dimer 2932 ng/mlDDU (0-234) H 04/12/17 08:34 Sodium 136 mmol/L (137-145) L 04/20/17 08:47 Potassium 4.4 mmol/L (3.6-5.0) 04/20/17 08:47 Chloride 105.0 mmol/L (98-107) 04/20/17 08:47 Carbon Dioxide 17 mmol/L (22-30) L 04/20/17 08:47 Anion Gap 18 mmol/L 04/20/17 08:47 BUN 64 mg/dL (9-20) H 04/20/17 08:47 Creatinine 3.9 mg/dL (0.8-1.5) H 04/20/17 08:47 Estimated GFR 20 ml/min 04/20/17 08:47 BUN/Creatinine Ratio 16.41 % 04/20/17 08:47 Glucose 113 mg/dL (75-100) H 04/20/17 08:47 POC Glucose 207 (70-105) H 04/19/17 22:00 Osmolality 304 Mosm/kg 04/12/17 11:00 Calcium 7.9 mg/dL (8.4-10.2) L 04/20/17 08:47 Phosphorus 5.20 mg/dL (2.5-4.5) H 04/13/17 04:50 Magnesium 1.40 mg/dL (1.7-2.3) L 04/15/17 06:21 Iron 25 ug/dL (49-181) L 04/12/17 16:00 TIBC 98 mcg/dL (250-450) L 04/12/17 16:00 Ferritin 745.3 ng/mL (13.0-400.0) H 04/12/17 16:00 Total Bilirubin 0.20 mg/dL (0.1-1.2) 04/15/17 06:21 AST 13 units/L (5-40) 04/15/17 06:21 ALT 13 units/L (7-56) 04/15/17 06:21 Alkaline Phosphatase 126 units/L (35-129) 04/15/17 06:21 Total Creatine Kinase 107 units/L (55-170) 04/13/17 01:17 CK-MB (CK-2) 2.7 ng/mL (0.0-4.0) 04/13/17 01:17 CK-MB (CK-2) Rel Index 2.5 (0-4) 04/13/17 01:17 Troponin T 0.174 ng/mL (0.00-0.029) H* 04/13/17 01:17 NT-Pro-B Natriuret Pep 9214 pg/mL (0-450) H 04/12/17 08:34 Total Protein 5.8 g/dL (6.3-8.2) L 04/15/17 06:21 Albumin 1.7 g/dL (3.9-5) L 04/15/17 06:21 Albumin/Globulin Ratio 0.4 % 04/15/17 06:21 Triglycerides 89 mg/dL (2-149) 04/12/17 08:34 Cholesterol 84 mg/dL (50-199) 04/12/17 08:34 LDL Cholesterol Direct 32 mg/dL (50-130) L 04/12/17 08:34 HDL Cholesterol 35 mg/dL (40-59) L 04/12/17 08:34 Cholesterol/HDL Ratio 2.40 % 04/12/17 08:34 Vitamin B12 369.0 pg/mL (211-911) 04/12/17 16:00 TSH 0.027 mlU/mL (0.270-4.200) L 04/12/17 09:14 Free T4 1.03 ng/dL (0.76-1.46) 04/12/17 09:14 PTH Intact 132.4 pg/mL (15-65) H 04/13/17 04:50 Urine Color Yellow (Yellow) 04/12/17 11:37 Urine Turbidity Clear (Clear) 04/12/17 11:37 Urine pH 5.0 (5.0-7.0) 04/12/17 11:37 Ur Specific [place] 1.014 (1.003-1.030) 04/12/17 11:37 Urine Protein >500 mg/dL (Negative) 04/12/17 11:37 Urine Glucose (UA) >=500 mg/dL (Negative) 04/12/17 11:37 Urine Ketones Neg mg/dL (Negative) 04/12/17 11:37 Urine Blood Sm (Negative) 04/12/17 11:37 Urine Nitrite Neg (Negative) 04/12/17 11:37 Urine Bilirubin Neg (Negative) 04/12/17 11:37 Urine Urobilinogen < 2.0 mg/dL (<2.0) 04/12/17 11:37 Ur Leukocyte Esterase Neg (Negative) 04/12/17 11:37 Urine WBC (Auto) 1.0 /HPF (0.0-6.0) 04/12/17 11:37 Urine RBC (Auto) 7.0 /HPF (0.0-6.0) 04/12/17 11:37 U Epithel Cells (Auto) 1.0 /HPF (0-13.0) 04/12/17 11:37 Urine Bacteria (Auto) 1+ /HPF (Negative) 04/12/17 11:37 Urine Mucus Few /HPF 04/12/17 11:37 Blood Type O POSITIVE 04/16/17 11:06 Antibody Screen Negative 04/16/17 11:06 Crossmatch See Detail 04/16/17 11:06
--- NOTE | 2017-04-20 12:09 | Progress Note ---
Assessment and Plan 1. Anemia - pt has more than 2 yr hx of this, but with no clear etiology. Pt has CRF, and has severe L knee swelling x more than 1 yr, as well as 6 month hx of intermittent N/V. He has chronic irreg BMs with diarrhea alt with constipation. No hx of GI bleed or PUD. - anemia likely due to CRF and anemia of chronic disease - check stool for occult blood - will do EGD/Colon to clear GI tract of bleeding source so pt can resume Eliquis - SCHEDULE procedures for 04/22, since pt getting L knee drained tomorrow. Subjective Date of service: 04/20/17 Principal diagnosis: Left Knee Effusion Interval history: Pt denies complaints except for L knee pain. No GI symptoms. Objective - Constitutional Vitals: Vital Signs - 12hr 04/20/17 04/20/17 04/20/17 00:42 05:07 09:18 Temperature 98.1 F 99.3 F Pulse Rate 102 H 10 L 106 H Respiratory 20 20 Rate Respiratory Rate [Chest] Respiratory Rate [Left Knee ] Blood Pressure 126/60 133/61 144/67 O2 Sat by Pulse 98 98 Oximetry 04/20/17 04/20/17 09:34 10:08 Temperature 99.3 F Pulse Rate 106 H Respiratory 20 Rate Respiratory 18 Rate [Chest] Respiratory 20 Rate [Left Knee ] Blood Pressure 144/67 O2 Sat by Pulse 100 Oximetry General appearance: Present: no acute distress - EENT Eyes: PERRL, EOM intact ENT: hearing intact - Respiratory Respiratory effort: normal - Gastrointestinal General gastrointestinal: Present: soft, non-tender - Labs CBC & Chem 7: 04/20/17 08:47 04/20/17 08:47 Labs: Abnormal lab results 04/19/17 04/19/17 04/19/17 Range/Units 12:52 17:06 22:00 RBC (3.65-5.03) M/mm3 Hgb (11.8-15.2) gm/dl Hct (35.5-45.6) % MCV (84-94) fl MCH (28-32) pg MCHC (32-34) % RDW (13.2-15.2) % Plt Count (140-440) K/mm3 [place] % (Auto) (0.0-7.3) % [place] # (0.0-0.8) K/mm3 Sodium (137-145) mmol/L Carbon Dioxide (22-30) mmol/L BUN (9-20) mg/dL Creatinine (0.8-1.5) mg/dL Glucose (75-100) mg/dL POC Glucose 204 H 170 H 207 H (70-105) Calcium (8.4-10.2) mg/dL 04/20/17 04/20/17 Range/Units 08:47 08:47 RBC 3.05 L (3.65-5.03) M/mm3 Hgb 7.3 L (11.8-15.2) gm/dl Hct 23.5 L (35.5-45.6) % MCV 77 L (84-94) fl MCH 24 L (28-32) pg MCHC 31 L (32-34) % RDW 17.0 H (13.2-15.2) % Plt Count 475 H (140-440) K/mm3 [place] % (Auto) 14.0 H (0.0-7.3) % [place] # 0.9 H (0.0-0.8) K/mm3 Sodium 136 L (137-145) mmol/L Carbon Dioxide 17 L (22-30) mmol/L BUN 64 H (9-20) mg/dL Creatinine 3.9 H (0.8-1.5) mg/dL Glucose 113 H (75-100) mg/dL POC Glucose (70-105) Calcium 7.9 L (8.4-10.2) mg/dL
[2017-04-20] MEDS: TYLENOL PO PRN (18:02)
[2017-04-20] MEDS: LEVEMIR SUB-Q SCH (22:03)
[2017-04-21 05:38] LABS: Hematocrit 21.2 % (35.5-45.6); Hemoglobin 6.8 gm/dl (11.8-15.2); Mean Corpuscular HGB Conc 32 % (32-34); Mean Corpuscular Volume 76 fl (84-94); Platelet Count 447 K/mm3 (140-440); Red Blood Count 2.79 M/mm3 (3.65-5.03)
[2017-04-21 05:44] LABS: Mean Corpuscular Hemoglobin 24 pg (28-32)
[2017-04-21 05:48] LABS: Eosinophils % (Auto) 2.9 % (0.0-4.3)
[2017-04-21 06:01] LABS: BUN/Creatinine Ratio 17.56; Calcium 7.9 mg/dL (8.4-10.2); Chloride 105.4 mmol/L (98-107); Potassium 5.1 mmol/L (3.6-5.0)
[2017-04-21 08:29] LABS: Basophils % (Manual) 0 % (0.0-1.8); Blastocytes % (Manual) 0 %; Diff Status Complete; Hypochromasia 1+
[2017-04-21] MEDS: NOVOLOG SUB-Q SCH ×4 (09:15→21:54)
[2017-04-21] MEDS ORDERED: NACL 0.9% 500 ML 500 ML IV ONE (09:26)
--- NOTE | 2017-04-21 09:31 | Progress Note ---
Assessment and Plan Assessment and plan: Patient is a 47-year-old male with past medical history including hyperlipidemia , chronic kidney disease, cardiac ablation, diabetes mellitus and multiple left knee surgery who presents to the ER complaining of bilateral leg edema worsening on the left and associated shortness of breath 1 day with reported left sided chest pain which is worse on lying down and improves with sitting up. The patient also does report worsening shortness of breath on lying supine with positive orthopnea improves with sitting up. 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 The pain he describes as a 5/10 in intensity with no radiation and no associated diaphoresis. He states that he woke him up this morning. Denies any palpitation nausea vomiting or diarrhea as noted. 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 Fine orthopedic surgery, it is a chronic finding patient is on have any fever leukocytosis or tachycardia, no warmth or pain to touch of the joints. Therefore clinically does not appear to have osteomyelitis or infectious process. patient will most likely benefit from PT and transferred to a rehabilitation facility where he can improve upon his gait He has a known history of Charcot joints and this is most likely a manifestation of charcot joints. MRI Left knee show Large joint effusion and serious subcutaneous fluid collection. Cannot exclude an infectious process such as septic arthritis. Findings may be related to chronic inflammatory process or chronic effusion with hemorrhage correlation could be made with joint aspiration as clinically indicated. Tears of the medial and lateral meniscus. Probable tear of the distal anterior cruciate ligament. Left ankle x-ray: There is diffuse swelling of tissues involving the distal leg and ankle extending to the proximal foot. There is an oblique fracture through the distal shaft of the fibula with mild separation of bony structures with good alignment. A separation or fracture the medial malleolus. Distal anterior displacement fragment. There are degenerative changes involving the articular margin between the talus and tarsal articular bone. * Case was discussed in detail with Dr. Fine, he has known peripheral neuropathy with Charcot joints of the right ankle and right knee with severe deformity. This is chronic, he does not appear to have any infectious process. There is no available surgical management other down offering a BKA to the patient. And this has been offered to him and his and they have declined. , planned for joint aspiration on Friday * Case was discussed with infectious disease. sp joint aspiration, to definitively rule out infectious process. , obtain urine gonorrhea/chlamydia * Chronic lymphedema Continue supportive care * Fever; blood cx, ua, uc, cxr, getting knee aspiration today * Acute kidney injury on chronic kidney disease likely secondary to vasomotor nephropathy, renal function is improved with IV fluids and cessation of Lasix * Diabetes mellitus with hyperglycemia, now better controlled, continue insulins * NSTEMI type 2, cardiology input appreciated, meds optimized, eliquis on hold due to anemia * A. fib, rate is controlled, continue eliquis for stroke prophylaxis * Anemia of chronic kidney disease/iron deficiency anemia; continue iron supplements, status post 1 unit of PRBC transfusion * GI consult appreciated, likely AOCD due to CKD * Needs Endoscopy to determine if safe for him to continue ESTEE * Eliquis on hold due to anemia * Coagulopathy due to use of eliquis, expected outcome * Hyperkalemia, we'll avoid ARB or AMMY due to this. We'll give him alternative blood pressure medications. give kayexalate as needed, will give a dose today * Accelerated hypertension, meds have been optimized. * Diarrhea, now resolved; send stool for cdiff if it recurs Case management consulted for SNIF placement Case was discussed in great detail with his in the presence of the patient. History Interval history: Complaints of right knee swelling , inability to bend the knee which is causing poor mobility denies diarrhea Had fever 101.4 last night Hospitalist Physical - Physical exam Narrative exam: GENERAL: The patient appeared well nourished and normally developed. Vital signs as documented. HEAD: No signs of head trauma. EYES: Pupils are equal. Extraocular motions intact. EARS: Hearing grossly intact. MOUTH: Oropharynx is normal. NECK: No adenopathy, no JVD. CHEST: Chest with clear breath sounds bilaterally. No wheezes, rales, or rhonchi. CARDIAC: Regular rate and rhythm. S1 and S2, without murmurs, gallops, or rubs. VASCULAR: Trace pitting Edema. Peripheral pulses normal and equal in all extremities. ABDOMEN: Soft, without detectable tenderness. No sign of distention. No rebound or guarding, and no masses palpated. Bowel Sounds normal. MUSCULOSKELETAL: Limited range of motion Left Knee, left knee disfigured, increased width and diameter. Left ankle also disfigured. NEUROLOGIC EXAM: Alert and oriented x 3. No focal sensory or strength deficits. Speech normal. Follows commands. PSYCHIATRIC: Mood normal. SKIN: Multiple venous stasis changes - Constitutional Vitals: Temp Pulse Resp BP Pulse Ox 99.2 F 104 H 18 153/70 98 04/21/17 07:57 04/21/17 07:57 04/21/17 07:57 04/21/17 07:57 04/21/17 07:57 General appearance: Present: no acute distress, well-nourished Results - Labs CBC & Chem 7: 04/21/17 04:48 04/21/17 04:48 Labs: Laboratory Last Values WBC 7.0 K/mm3 (4.5-11.0) 04/21/17 04:48 RBC 2.79 M/mm3 (3.65-5.03) L 04/21/17 04:48 Hgb 6.8 gm/dl (11.8-15.2) L 04/21/17 04:48 Hct 21.2 % (35.5-45.6) L 04/21/17 04:48 MCV 76 fl (84-94) L 04/21/17 04:48 MCH 24 pg (28-32) L 04/21/17 04:48 MCHC 32 % (32-34) 04/21/17 04:48 RDW 17.0 % (13.2-15.2) H 04/21/17 04:48 Plt Count 447 K/mm3 (140-440) H 04/21/17 04:48 Lymph % (Auto) 24.7 % (13.4-35.0) 04/20/17 08:47 [place] % (Auto) Prep Room Supervisor 04/21/17 04:48 Eos % (Auto) 2.9 % (0.0-4.3) 04/21/17 04:48 Baso % (Auto) 0.8 % (0.0-1.8) 04/20/17 08:47 Lymph # 1.6 K/mm3 (1.2-5.4) 04/20/17 08:47 [place] # 1.1 K/mm3 (0.0-0.8) H 04/21/17 04:48 Eos # 0.2 K/mm3 (0.0-0.4) 04/21/17 04:48 Baso # 0.1 K/mm3 (0.0-0.1) 04/21/17 04:48 Add Manual Diff Complete 04/21/17 04:48 Total Counted 100 04/21/17 04:48 Seg Neutrophils % 64.3 % (40.0-70.0) 04/21/17 04:48 Seg Neuts % (Manual) 80.0 % (40.0-70.0) H 04/21/17 04:48 Band Neutrophils % 0 % 04/21/17 04:48 Lymphocytes % (Manual) 10.0 % (13.4-35.0) L 04/21/17 04:48 Reactive Lymphs % (Man) 0 % 04/21/17 04:48 Monocytes % (Manual) 8.0 % (0.0-7.3) H 04/21/17 04:48 Eosinophils % (Manual) 2.0 % (0.0-4.3) 04/21/17 04:48 Basophils % (Manual) 0 % (0.0-1.8) 04/21/17 04:48 Metamyelocytes % 0 % 04/21/17 04:48 Myelocytes % 0 % 04/21/17 04:48 Promyelocytes % 0 % 04/21/17 04:48 Blast Cells % 0 % 04/21/17 04:48 Nucleated RBC % Not Reportable 04/21/17 04:48 Seg Neutrophils # 4.5 K/mm3 (1.8-7.7) 04/21/17 04:48 Seg Neutrophils # Man 5.6 K/mm3 (1.8-7.7) 04/21/17 04:48 Band Neutrophils # 0.0 K/mm3 04/21/17 04:48 Lymphocytes # (Manual) 0.7 K/mm3 (1.2-5.4) L 04/21/17 04:48 Abs React Lymphs (Man) 0.0 K/mm3 04/21/17 04:48 Monocytes # (Manual) 0.6 K/mm3 (0.0-0.8) 04/21/17 04:48 Eosinophils # (Manual) 0.1 K/mm3 (0.0-0.4) 04/21/17 04:48 Basophils # (Manual) 0.0 K/mm3 (0.0-0.1) 04/21/17 04:48 Metamyelocytes # 0.0 K/mm3 04/21/17 04:48 Myelocytes # 0.0 K/mm3 04/21/17 04:48 Promyelocytes # 0.0 K/mm3 04/21/17 04:48 Blast Cells # 0.0 K/mm3 04/21/17 04:48 WBC Morphology Not Reportable 04/21/17 04:48 Hypersegmented Neuts Not Reportable 04/21/17 04:48 Hyposegmented Neuts Not Reportable 04/21/17 04:48 Hypogranular Neuts Not Reportable 04/21/17 04:48 Smudge Cells Not Reportable 04/21/17 04:48 Toxic Granulation Not Reportable 04/21/17 04:48 Toxic Vacuolation Not Reportable 04/21/17 04:48 Dohle Bodies Not Reportable 04/21/17 04:48 Pelger-Huet Anomaly Not Reportable 04/21/17 04:48 Lyla Rods Not Reportable 04/21/17 04:48 Platelet Estimate Appears normal 04/21/17 04:48 Clumped Platelets Not Reportable 04/21/17 04:48 Plt Clumps, EDTA Not Reportable 04/21/17 04:48 Large Platelets Not Reportable 04/21/17 04:48 Giant Platelets Not Reportable 04/21/17 04:48 Platelet Satelliting Not Reportable 04/21/17 04:48 Plt Morphology Comment Not Reportable 04/21/17 04:48 RBC Morphology Not Reportable 04/21/17 04:48 Dimorphic RBCs Not Reportable 04/21/17 04:48 Polychromasia Not Reportable 04/21/17 04:48 Hypochromasia 1+ 04/21/17 04:48 Poikilocytosis Not Reportable 04/21/17 04:48 Anisocytosis Not Reportable 04/21/17 04:48 Microcytosis Not Reportable 04/21/17 04:48 Macrocytosis Not Reportable 04/21/17 04:48 Spherocytes Not Reportable 04/21/17 04:48 Pappenheimer Bodies Not Reportable 04/21/17 04:48 Sickle Cells Not Reportable 04/21/17 04:48 Target Cells Not Reportable 04/21/17 04:48 Tear Drop Cells Not Reportable 04/21/17 04:48 Ovalocytes Not Reportable 04/21/17 04:48 Helmet Cells Not Reportable 04/21/17 04:48 [place] Bodies Not Reportable 04/21/17 04:48 [place] Rings Not Reportable 04/21/17 04:48 [place] Cells Not Reportable 04/21/17 04:48 Bite Cells Not Reportable 04/21/17 04:48 Crenated Cell Not Reportable 04/21/17 04:48 Elliptocytes Not Reportable 04/21/17 04:48 Acanthocytes (Spur) Not Reportable 04/21/17 04:48 Rouleaux Not Reportable 04/21/17 04:48 Hemoglobin C Crystals Not Reportable 04/21/17 04:48 Schistocytes Not Reportable 04/21/17 04:48 Malaria parasites Not Reportable 04/21/17 04:48 Shaun Bodies Not Reportable 04/21/17 04:48 Hem Pathologist Commnt No 04/21/17 04:48 PT 15.8 Sec. (12.2-14.9) H 04/12/17 08:34 INR 1.20 (0.87-1.13) H 04/12/17 08:34 APTT 46.7 Sec. (24.2-36.6) H 04/12/17 08:34 D-Dimer 2932 ng/mlDDU (0-234) H 04/12/17 08:34 Sodium 135 mmol/L (137-145) L 04/21/17 04:48 Potassium 5.1 mmol/L (3.6-5.0) H 04/21/17 04:48 Chloride 105.4 mmol/L (98-107) 04/21/17 04:48 Carbon Dioxide 15 mmol/L (22-30) L 04/21/17 04:48 Anion Gap 20 mmol/L 04/21/17 04:48 BUN 72 mg/dL (9-20) H 04/21/17 04:48 Creatinine 4.1 mg/dL (0.8-1.5) H 04/21/17 04:48 Estimated GFR 19 ml/min 04/21/17 04:48 BUN/Creatinine Ratio 17.56 % 04/21/17 04:48 Glucose 118 mg/dL (75-100) H 04/21/17 04:48 POC Glucose 220 (70-105) H 04/20/17 21:29 Osmolality 304 Mosm/kg 04/12/17 11:00 Calcium 7.9 mg/dL (8.4-10.2) L 04/21/17 04:48 Phosphorus 5.20 mg/dL (2.5-4.5) H 04/13/17 04:50 Magnesium 1.40 mg/dL (1.7-2.3) L 04/15/17 06:21 Iron 25 ug/dL (49-181) L 04/12/17 16:00 TIBC 98 mcg/dL (250-450) L 04/12/17 16:00 Ferritin 745.3 ng/mL (13.0-400.0) H 04/12/17 16:00 Total Bilirubin 0.20 mg/dL (0.1-1.2) 04/15/17 06:21 AST 13 units/L (5-40) 04/15/17 06:21 ALT 13 units/L (7-56) 04/15/17 06:21 Alkaline Phosphatase 126 units/L (35-129) 04/15/17 06:21 Total Creatine Kinase 107 units/L (55-170) 04/13/17 01:17 CK-MB (CK-2) 2.7 ng/mL (0.0-4.0) 04/13/17 01:17 CK-MB (CK-2) Rel Index 2.5 (0-4) 04/13/17 01:17 Troponin T 0.174 ng/mL (0.00-0.029) H* 04/13/17 01:17 NT-Pro-B Natriuret Pep 9214 pg/mL (0-450) H 04/12/17 08:34 Total Protein 5.8 g/dL (6.3-8.2) L 04/15/17 06:21 Albumin 1.7 g/dL (3.9-5) L 04/15/17 06:21 Albumin/Globulin Ratio 0.4 % 04/15/17 06:21 Triglycerides 89 mg/dL (2-149) 04/12/17 08:34 Cholesterol 84 mg/dL (50-199) 04/12/17 08:34 LDL Cholesterol Direct 32 mg/dL (50-130) L 04/12/17 08:34 HDL Cholesterol 35 mg/dL (40-59) L 04/12/17 08:34 Cholesterol/HDL Ratio 2.40 % 04/12/17 08:34 Vitamin B12 369.0 pg/mL (211-911) 04/12/17 16:00 TSH 0.027 mlU/mL (0.270-4.200) L 04/12/17 09:14 Free T4 1.03 ng/dL (0.76-1.46) 04/12/17 09:14 PTH Intact 132.4 pg/mL (15-65) H 04/13/17 04:50 Urine Color Yellow (Yellow) 04/12/17 11:37 Urine Turbidity Clear (Clear) 04/12/17 11:37 Urine pH 5.0 (5.0-7.0) 04/12/17 11:37 Ur Specific [place] 1.014 (1.003-1.030) 04/12/17 11:37 Urine Protein >500 mg/dL (Negative) 04/12/17 11:37 Urine Glucose (UA) >=500 mg/dL (Negative) 04/12/17 11:37 Urine Ketones Neg mg/dL (Negative) 04/12/17 11:37 Urine Blood Sm (Negative) 04/12/17 11:37 Urine Nitrite Neg (Negative) 04/12/17 11:37 Urine Bilirubin Neg (Negative) 04/12/17 11:37 Urine Urobilinogen < 2.0 mg/dL (<2.0) 04/12/17 11:37 Ur Leukocyte Esterase Neg (Negative) 04/12/17 11:37 Urine WBC (Auto) 1.0 /HPF (0.0-6.0) 04/12/17 11:37 Urine RBC (Auto) 7.0 /HPF (0.0-6.0) 04/12/17 11:37 U Epithel Cells (Auto) 1.0 /HPF (0-13.0) 04/12/17 11:37 Urine Bacteria (Auto) 1+ /HPF (Negative) 04/12/17 11:37 Urine Mucus Few /HPF 04/12/17 11:37 Blood Type O POSITIVE 04/16/17 11:06 Antibody Screen Negative 04/16/17 11:06 Crossmatch See Detail 04/16/17 11:06
--- NOTE | 2017-04-21 10:37 | XRay Report ---
CHEST ONE VIEW INDICATION: Fever, PICC line placement. COMPARISON: 04/12/2017. FINDINGS: Portable, single, frontal chest radiograph demonstrates normal cardiomediastinal silhouette. Clear lungs. Unremarkable bones. New right upper extremity PICC tip along the distal SVC, approximately 3 cm above the cavoatrial junction. CONCLUSION: No acute disease in the chest with interval uncomplicated right upper extremity PICC placement, as described. Thank you for the opportunity to participate in this patient's care.
[2017-04-21] MEDS ORDERED: KIONEX PO ONE ×2 (11:00→14:00)
--- NOTE | 2017-04-21 11:14 | Progress Note ---
Assessment and Plan Shortness of breath no acute process of CXR V\Q scan negative for PE normal LVEF 55-60% on echocardiogram Anemia s/p transfusion of PRBCs Left knee effusion LLE CT reports septic arthritis and possible osteomyelitis Joint aspiration planned today Chronic renal disease Borderline elevated troponin likely in the setting of renal failure doubt non-ST elevation HI Hx of Afib currently in normal sinus rhythm. On beta olga therapy for suppression. on eliquis as an outpatient; currently on hold due to anemia Diabetes mellitus with hyperglycemia Oral anticoagulation currently on hold for anemia untill source of anemia identified and GI bleeding excluded. Conservative cardiac management. Subjective Date of service: 04/21/17 Principal diagnosis: Left Knee Effusion Interval history: Patient denies chest pain and shortness of breath. For joint aspiration today. Objective Vital Signs Temp Pulse Resp BP Pulse Ox 04/21/17 09:37 98.7 F 107 H 18 144/76 99 04/21/17 07:57 99.2 F 104 H 18 153/70 98 04/21/17 02:45 97.7 F 100 H 20 139/68 100 04/20/17 21:06 99.7 F H 101 H 20 131/60 98 04/20/17 20:33 18 04/20/17 20:00 104 H 04/20/17 16:02 99 04/20/17 16:00 101.4 F H 110 H 22 154/73 97 04/20/17 12:00 99.4 F 96 H 22 136/72 98 - Physical Examination General: No Apparent Distress HEENT: Positive: PERRL Neck: Positive: trachea midline Cardiac: Positive: Reg Rate and Rhythm Neuro: Positive: Grossly Intact - Labs and Meds CBC 04/21/17 Range/Units 04:48 WBC 7.0 (4.5-11.0) K/mm3 RBC 2.79 L (3.65-5.03) M/mm3 Hgb 6.8 L (11.8-15.2) gm/dl Hct 21.2 L (35.5-45.6) % Plt Count 447 H (140-440) K/mm3 [place] # 1.1 H (0.0-0.8) K/mm3 Eos # 0.2 (0.0-0.4) K/mm3 Baso # 0.1 (0.0-0.1) K/mm3 Comprehensive Metabolic Panel 04/21/17 Range/Units 04:48 Sodium 135 L (137-145) mmol/L Potassium 5.1 H (3.6-5.0) mmol/L Chloride 105.4 (98-107) mmol/L Carbon Dioxide 15 L (22-30) mmol/L BUN 72 H (9-20) mg/dL Creatinine 4.1 H (0.8-1.5) mg/dL Glucose 118 H (75-100) mg/dL Calcium 7.9 L (8.4-10.2) mg/dL
--- NOTE | 2017-04-21 11:33 | Progress Note ---
Assessment and Plan - Patient Problems (1) Septic arthritis Current Visit: Yes Status: Acute Qualifiers: Septic arthritis location: knee Septic arthritis organism: due to unspecified organism Laterality: left Qualified Code(s): M00.9 - Pyogenic arthritis, unspecified Plan to address problem: 1. Awaiting findings of arthrocentesis. 2. Continue holding antibiotics for now. Subjective Date of service: 04/21/17 Principal diagnosis: Left Knee Effusion Interval history: Patient is scheduled for arthrocentesis today. Objective - Constitutional Vitals: Vital Signs Temp Pulse Resp BP Pulse Ox 98.7 F 107 H 18 144/76 99 04/21/17 09:37 04/21/17 09:37 04/21/17 09:37 04/21/17 09:37 04/21/17 09:37 Temperature -Last 24 Hours Temperature 98.7 F Temperature 99.2 F Temperature 97.7 F Temperature 99.7 F Temperature 101.4 F Temperature 99.4 F General appearance: Present: no acute distress, other (asleep, appears comfortable) - Respiratory Respiratory effort: normal Respiratory: bilateral: CTA - Cardiovascular Rhythm: regular (tachycardic) Extremity abnormal: edema (unchanged and marked effusion at left knee, no significantly increased warmth) - Gastrointestinal General gastrointestinal: Present: soft, non-distended - Integumentary Integumentary: clear, no rash - Labs CBC & Chem 7: 04/21/17 04:48 04/21/17 04:48 Labs: Abnormal lab results 04/20/17 04/20/17 04/20/17 Range/Units 08:18 12:13 17:29 RBC (3.65-5.03) M/mm3 Hgb (11.8-15.2) gm/dl Hct (35.5-45.6) % MCV (84-94) fl MCH (28-32) pg RDW (13.2-15.2) % Plt Count (140-440) K/mm3 [place] # (0.0-0.8) K/mm3 Seg Neuts % (Manual) (40.0-70.0) % Lymphocytes % (Manual) (13.4-35.0) % Monocytes % (Manual) (0.0-7.3) % Lymphocytes # (Manual) (1.2-5.4) K/mm3 Sodium (137-145) mmol/L Potassium (3.6-5.0) mmol/L Carbon Dioxide (22-30) mmol/L BUN (9-20) mg/dL Creatinine (0.8-1.5) mg/dL Glucose (75-100) mg/dL POC Glucose 115 H 252 H 194 H (70-105) Calcium (8.4-10.2) mg/dL 04/20/17 04/21/17 04/21/17 Range/Units 21:29 04:48 04:48 RBC 2.79 L (3.65-5.03) M/mm3 Hgb 6.8 L (11.8-15.2) gm/dl Hct 21.2 L (35.5-45.6) % MCV 76 L (84-94) fl MCH 24 L (28-32) pg RDW 17.0 H (13.2-15.2) % Plt Count 447 H (140-440) K/mm3 [place] # 1.1 H (0.0-0.8) K/mm3 Seg Neuts % (Manual) 80.0 H (40.0-70.0) % Lymphocytes % (Manual) 10.0 L (13.4-35.0) % Monocytes % (Manual) 8.0 H (0.0-7.3) % Lymphocytes # (Manual) 0.7 L (1.2-5.4) K/mm3 Sodium 135 L (137-145) mmol/L Potassium 5.1 H (3.6-5.0) mmol/L Carbon Dioxide 15 L (22-30) mmol/L BUN 72 H (9-20) mg/dL Creatinine 4.1 H (0.8-1.5) mg/dL Glucose 118 H (75-100) mg/dL POC Glucose 220 H (70-105) Calcium 7.9 L (8.4-10.2) mg/dL - Imaging and cardiology Chest x-ray: report reviewed (no acute disease)
--- NOTE | 2017-04-21 12:26 | Fluoroscopy Report ---
FLUOROSCOPY ARTHROGRAM KNEE LEFT History: Left knee pain and swelling, fever. Description of procedure: Informed consent was obtained. Sterile technique was utilized. 1% lidocaine for skin anesthesia. Using fluoroscopy guidance, multiple attempts to advance an 18-gauge spinal needle into the right knee joint was made. No fluid could be obtained. It was decided at this point to take the patient to CT and utilize CT guidance. CT guidance which was successful. Please refer to that report. Impression: Unsuccessful left knee arthrogram under fluoroscopy. The patient was taken to CT for CT guidance which was successful.
--- NOTE | 2017-04-21 12:33 | Progress Note ---
Assessment and Plan - Patient Problems (1) Acute on chronic renal failure Current Visit: Yes Status: Acute Qualifiers: Acute renal failure type: A Chronic kidney disease stage: C Plan to address problem: Acute kidney injury superimposed on CKD stage 4. Creatinine has been trending upwards for the past few days. Will follow. D/w patient and his regarding vascular evaluation for possible AVF placement. (2) Hyperkalemia Current Visit: Yes Status: Acute Plan to address problem: Kayexalate ordered. (3) Proteinuria due to type 2 diabetes mellitus Current Visit: Yes Status: Chronic (4) Shortness of breath Current Visit: Yes Status: Acute (5) Anemia Current Visit: Yes Status: Chronic Qualifiers: Anemia type: A Iron deficiency anemia type: I Vitamin B12 deficiency anemia type: V Folate deficiency anemia type: F Bone marrow failure anemia type: B Hemolytic anemia type: H Other causes of anemia: O Chronic kidney disease stage: C Plan to address problem: S/p PRBC. Will give Epogen. Subjective Date of service: 04/21/17 Principal diagnosis: Left Knee Effusion Interval history: Patient is doing ok. Objective - Vital Signs Vital signs: Vital Signs - 12hr 04/21/17 04/21/17 04/21/17 02:45 07:57 09:37 Temperature 97.7 F 99.2 F 98.7 F Pulse Rate 100 H 104 H 107 H Respiratory 20 18 18 Rate Blood Pressure 139/68 153/70 144/76 O2 Sat by Pulse 100 98 99 Oximetry - General Appearance General appearance: well-developed, well-nourished, appears stated age, obese, other (no distress) EENT: ATNC, mucous membranes moist, hearing intact Neck: supple Respiratory: Present: Clear to Ascultation Cardiology: regular, S1S2, no murmurs Gastrointestinal: normoactive bowel sounds, no tenderness Integumentary: chronic venous stasis Neurologic: no asterixis, alert and oriented x3, other (right eye blindness) Musculoskeletal: joint swelling (left knee), other (bilateral LE edema, L > R) Psychiatric: mood/affect appropriate, cooperative - Lab 04/21/17 04:48 04/21/17 04:48 Most recent lab results Calcium 7.9 mg/dL (8.4-10.2) L 04/21/17 04:48 Phosphorus 5.20 mg/dL (2.5-4.5) H 04/13/17 04:50 Magnesium 1.40 mg/dL (1.7-2.3) L 04/15/17 06:21
[2017-04-21] MEDS: COLACE PO SCH (12:46)
[2017-04-21] MEDS: CYMBALTA PO SCH (12:49)
[2017-04-21] MEDS: PEPCID PO SCH (12:49)
[2017-04-21] MEDS: WELCHOL PO SCH ×2 (12:50→21:53)
[2017-04-21] MEDS: TOBRADEX OU SCH (12:51)
[2017-04-21] MEDS: THERAGRAN Tab PO SCH (12:51)
--- NOTE | 2017-04-21 12:51 | Cat Scan Report ---
CT NEEDLE GUIDANCE History: Left knee effusion, evaluate for septic knee. Description of procedure: Informed consent was obtained. Sterile technique was utilized. Fluoroscopy guided left knee arthrogram was unsuccessful earlier today. Using CT guidance, a 17-gauge introducer needle was advanced into a large complex left knee effusion in the suprapatellar region. Approximately 20 cc of yellow, thick somewhat cloudy fluid was aspirated and sent to laboratory for analysis. No complications. Impression: Successful left knee joint effusion aspiration under CT guidance.
[2017-04-21] MEDS: PROCARDIA XL PO SCH ×2 (13:03→21:54)
[2017-04-21] MEDS: TOPROL XL PO SCH (13:03)
--- NOTE | 2017-04-21 14:36 | Event Note ---
Date: 04/21/17 VL mapping of upper extremitiesd ordered. D/W patients . Will f/u with recommendations regarding fistula creation.
--- NOTE | 2017-04-21 16:32 | Progress Note ---
Subjective Date of service: 04/21/17 Principal diagnosis: Left Knee Effusion Interval history: Discussed findings of CT and MRI scans with patient and spouse, hx of uncontrolled Type 2 DM along with profound neuropathy in lower extremities resulting in Charcot changes in both ankle/foot as well as the left knee...doubt if aspirating knee joint helpful in obtaining organisms, because of the chronic nature of his problems. According to patient has had swollen knee for at least 1 yr duration. Objective Vital signs: Vital Signs - 12hr 04/21/17 04/21/17 04/21/17 07:57 09:37 13:03 Temperature 99.2 F 98.7 F Pulse Rate 104 H 107 H 116 H Respiratory 18 18 Rate Blood Pressure 153/70 144/76 132/87 O2 Sat by Pulse 98 99 Oximetry - Labs CBC & BMP: 04/21/17 04:48 04/21/17 04:48 Labs: Abnormal lab results 04/20/17 04/20/17 04/20/17 Range/Units 08:18 12:13 17:29 RBC (3.65-5.03) M/mm3 Hgb (11.8-15.2) gm/dl Hct (35.5-45.6) % MCV (84-94) fl MCH (28-32) pg RDW (13.2-15.2) % Plt Count (140-440) K/mm3 [place] # (0.0-0.8) K/mm3 Seg Neuts % (Manual) (40.0-70.0) % Lymphocytes % (Manual) (13.4-35.0) % Monocytes % (Manual) (0.0-7.3) % Lymphocytes # (Manual) (1.2-5.4) K/mm3 Sodium (137-145) mmol/L Potassium (3.6-5.0) mmol/L Carbon Dioxide (22-30) mmol/L BUN (9-20) mg/dL Creatinine (0.8-1.5) mg/dL Glucose (75-100) mg/dL POC Glucose 115 H 252 H 194 H (70-105) Calcium (8.4-10.2) mg/dL Crossmatch 04/20/17 04/21/17 04/21/17 Range/Units 21:29 04:48 04:48 RBC 2.79 L (3.65-5.03) M/mm3 Hgb 6.8 L (11.8-15.2) gm/dl Hct 21.2 L (35.5-45.6) % MCV 76 L (84-94) fl MCH 24 L (28-32) pg RDW 17.0 H (13.2-15.2) % Plt Count 447 H (140-440) K/mm3 [place] # 1.1 H (0.0-0.8) K/mm3 Seg Neuts % (Manual) 80.0 H (40.0-70.0) % Lymphocytes % (Manual) 10.0 L (13.4-35.0) % Monocytes % (Manual) 8.0 H (0.0-7.3) % Lymphocytes # (Manual) 0.7 L (1.2-5.4) K/mm3 Sodium 135 L (137-145) mmol/L Potassium 5.1 H (3.6-5.0) mmol/L Carbon Dioxide 15 L (22-30) mmol/L BUN 72 H (9-20) mg/dL Creatinine 4.1 H (0.8-1.5) mg/dL Glucose 118 H (75-100) mg/dL POC Glucose 220 H (70-105) Calcium 7.9 L (8.4-10.2) mg/dL Crossmatch 04/21/17 Range/Units 13:47 RBC (3.65-5.03) M/mm3 Hgb (11.8-15.2) gm/dl Hct (35.5-45.6) % MCV (84-94) fl MCH (28-32) pg RDW (13.2-15.2) % Plt Count (140-440) K/mm3 [place] # (0.0-0.8) K/mm3 Seg Neuts % (Manual) (40.0-70.0) % Lymphocytes % (Manual) (13.4-35.0) % Monocytes % (Manual) (0.0-7.3) % Lymphocytes # (Manual) (1.2-5.4) K/mm3 Sodium (137-145) mmol/L Potassium (3.6-5.0) mmol/L Carbon Dioxide (22-30) mmol/L BUN (9-20) mg/dL Creatinine (0.8-1.5) mg/dL Glucose (75-100) mg/dL POC Glucose (70-105) Calcium (8.4-10.2) mg/dL Crossmatch See Detail
[2017-04-21 18:10] LABS: Basophils Body Fluid 0 %; Eosinophils Body Fluid 0 %; Lymphocytes BF 0 %; Reactive Lymph Body Fluid 0 %
[2017-04-21] MEDS: LEVEMIR SUB-Q SCH (21:53)
[2017-04-22] MEDS: NACL 0.9% 1000 ML 1,000 ML IV SCH ×2 (06:13→17:36)
[2017-04-22 06:37] LABS: Hematocrit 23.4 % (35.5-45.6); Hemoglobin 7.5 gm/dl (11.8-15.2); Mean Corpuscular HGB Conc 32 % (32-34); Mean Corpuscular Volume 78 fl (84-94); Platelet Count 446 K/mm3 (140-440); Red Cell Distribution Width 17.8 % (13.2-15.2)
[2017-04-22 06:38] LABS: Mean Corpuscular Hemoglobin 25 pg (28-32)
[2017-04-22 07:01] LABS: BUN/Creatinine Ratio 16.36; Calcium 7.8 mg/dL (8.4-10.2); Chloride 107.8 mmol/L (98-107); Phosphorous 6.4 mg/dL (2.5-4.5); Potassium 4.1 mmol/L (3.6-5.0)
[2017-04-22 07:47] LABS: Anisocytosis 1+; Basophils % (Manual) 0 % (0.0-1.8); Blastocytes % (Manual) 0 %; Hypersegmented Neutrophils Few; Hypochromasia 1+
[2017-04-22 07:48] LABS: Diff Status Complete
[2017-04-22] MEDS: NOVOLOG SUB-Q SCH ×4 (08:00→22:58)
[2017-04-22] MEDS: D50W (25GM) Syringe IV PRN (08:09)
--- NOTE | 2017-04-22 08:28 | Progress Note ---
Assessment and Plan - Patient Problems (1) Acute on chronic renal failure Current Visit: Yes Status: Acute Qualifiers: Acute renal failure type: A Chronic kidney disease stage: C Plan to address problem: Acute kidney injury superimposed on CKD stage 4. Creatinine has been trending upwards for the past few days. No uremic signs or symptoms at this time. Renal prognosis is guarded. (2) Hyperkalemia Current Visit: Yes Status: Acute Plan to address problem: Kayexalate prn. (3) Proteinuria due to type 2 diabetes mellitus Current Visit: Yes Status: Chronic (4) Shortness of breath Current Visit: Yes Status: Acute (5) Anemia Current Visit: Yes Status: Chronic Qualifiers: Anemia type: A Iron deficiency anemia type: I Vitamin B12 deficiency anemia type: V Folate deficiency anemia type: F Bone marrow failure anemia type: B Hemolytic anemia type: H Other causes of anemia: O Chronic kidney disease stage: C Plan to address problem: S/p PRBC and Epogen. Subjective Date of service: 04/22/17 Principal diagnosis: Left Knee Effusion Interval history: Patient is doing ok. Objective - Vital Signs Vital signs: Vital Signs - 12hr 04/21/17 04/21/17 04/21/17 21:56 22:00 22:30 Temperature 98.4 F 98.5 F Pulse Rate 110 H 100 H 98 H Respiratory 20 20 Rate Blood Pressure 158/87 157/84 O2 Sat by Pulse 100 100 Oximetry 04/21/17 04/21/17 04/22/17 23:00 23:30 00:00 Temperature 98.9 F 98.4 F 98.6 F Pulse Rate 98 H 82 88 Respiratory 20 20 18 Rate Blood Pressure 154/78 138/67 146/78 O2 Sat by Pulse 100 98 99 Oximetry 04/22/17 04/22/17 04/22/17 00:07 00:30 00:57 Temperature 98.9 F 98.9 F Pulse Rate 101 H 89 Respiratory 18 18 18 Rate Blood Pressure 146/78 142/74 O2 Sat by Pulse 98 100 Oximetry 04/22/17 04/22/17 04/22/17 01:30 04:46 05:15 Temperature 98.4 F 98.2 F Pulse Rate 84 64 110 H Respiratory 20 18 Rate Blood Pressure 140/72 142/67 O2 Sat by Pulse 98 99 Oximetry - General Appearance General appearance: well-developed, well-nourished, appears stated age, obese, other (no distress) EENT: ATNC, mucous membranes moist, hearing intact Neck: supple Respiratory: Present: Clear to Ascultation Cardiology: regular, S1S2, no murmurs Gastrointestinal: normoactive bowel sounds, obese Integumentary: chronic venous stasis Neurologic: other (right eye blindness) Musculoskeletal: joint swelling (left knee), other (bilateral pedal edema L > R) Psychiatric: mood/affect appropriate, cooperative - Lab 04/22/17 06:00 04/22/17 04:00 Most recent lab results Calcium 7.8 mg/dL (8.4-10.2) L 04/22/17 04:00 Phosphorus 6.40 mg/dL (2.5-4.5) H 04/22/17 04:00 Magnesium 1.40 mg/dL (1.7-2.3) L 04/15/17 06:21
--- NOTE | 2017-04-22 09:10 | Discharge Summary ---
Providers - Providers Date of Admission: 04/12/17 13:35 Attending physician: JOSE TENA MD 04/13/17 08:39 Occupational Therapy Evaluate and Treat [CONS] Routine Comment: Reason For Exam: debility Physical Therapy Evaluation and Treat [CONS] Routine Comment: Reason For Exam: debility 04/13/17 13:19 Consult to Physician [CONS] Routine Consulting Provider: JENNY TEIXEIRA Reason For Exam: left knee arthritis, Place consult to:: vicente Notified:: y Phone number called:: [phone] Was contact made?: No Time called:: 15:08 Comment:: left message on machine/ reconsulted 04/17/17 @0951 04/17/17 09:50 Consult to Physician [CONS] Routine Consulting Provider: AMELIA OKEEFE Reason For Exam: Left knee osteomylitis? Place consult to:: ID Notified:: YES Was contact made?: Yes If yes, spoke with:: DR OKEEFE Time called:: 10:12 04/19/17 10:07 PICC Line Insertion [Consult to PICC Line RN] [CONS] Routine Reason For Exam: difficult stick Type Line:: PICC 04/19/17 10:49 Consult to Physician [CONS] Routine Consulting Provider: ONUR BLOUNT Reason For Exam: GIB? diarrhea and drop in hg Place consult to:: Dr. Blount Notified:: Cee SHAIKH Phone number called:: Was contact made?: Yes If yes, spoke with:: Lexie Time called:: 11:09 Primary care physician: LILIBETH DANGELO MD Hospitalization Condition: Stable Pertinent studies: MRI Left knee show Large joint effusion and serious subcutaneous fluid collection. Cannot exclude an infectious process such as septic arthritis. Findings may be related to chronic inflammatory process or chronic effusion with hemorrhage correlation could be made with joint aspiration as clinically indicated. Tears of the medial and lateral meniscus. Probable tear of the distal anterior cruciate ligament. Left ankle x-ray: There is diffuse swelling of tissues involving the distal leg and ankle extending to the proximal foot. There is an oblique fracture through the distal shaft of the fibula with mild separation of bony structures with good alignment. A separation or fracture the medial malleolus. Distal anterior displacement fragment. There are degenerative changes involving the articular margin between the talus and tarsal articular bone. Hospital course: Patient is a 47-year-old male with past medical history including hyperlipidemia , chronic kidney disease, cardiac ablation, diabetes mellitus and multiple left knee surgery who presented to the ER with subacute onset of SOB, and chronic L joint swelling that had worsened and caused decreased mobility. Patient was actually found to be dehydrated and received IV fluids after which he clinically improved. He also had anemia of chronic disease due to chronic kidney disease for which she received multiple transfusions. He was call managed by cardiology, he went on to have a VQ scan that was negative for PE. His cardiac meds were optimized. He'll also call managed by nephrology. He had acute kidney injury due to dehydration, he received IV fluids and Lasix was discontinued after which his kidney function improved. He had vein mapping for placement of AV graft on hospital that showed good veins. His program director refer him to an outpatient vascular surgeon for AV graft placements. He suffers from atrial fibrillation for which she is on eliquis, given his anemia, he went on to have EGD and colonoscopy that only showed duodenal erosion, no active bleeding. Therefore he was started on PPI twice a day. And his eliquis was restarted after that. His insulins were optimized for hyperglycemia. He did have hyperkalemia for which he was taken off AMMY inhibitor/ARB. He had elevated blood pressure while in hospital, therefore his blood pressure meds were optimized. Patient has chronic left lower extremity swelling including his knee and his ankle with severe deformity. He was seen in conjunction with infectious disease and orthopedic surgery. Patient admitted to having chronic neuropathy and lack of sensation in that extremity had been told he had Charcot joint in the past. He had imaging of his left lower extremity which confirmed Charcot joints. There was concern for increase in swelling, therefore patient had aspiration of the joints and the fluid was not consistent with infectious process. More chronic damage to the joint. Due to debility, patient received PT, and is being discharged to a subacute rehabilitation facility. Discharge diagnoses Acute dyspnea, now resolved Dehydration Peripheral neuropathy Left knee swelling and deformity, charcot joint of L knee and ankle * Chronic lymphedema * Acute kidney injury on chronic kidney disease * vasomotor nephropathy * Diabetes mellitus, type 2, Insulin dependent with hyperglycemia * NSTEMI type 2 * A. fib, * Anemia of chronic kidney disease/iron deficiency anemia; continue iron supplements, status post 3 unit of PRBC transfusion * Coagulopathy due to eliquis * Hyperkalemia, * Accelerated hypertension, meds have been optimized. * Debility Disposition: [id number]-[facility] Time spent for discharge: 33 minutes Core Measure Documentation - Palliative Care Palliative Care/ Comfort Measures: Not Applicable - Core Measures Any of the following diagnoses?: none Exam - Physical Exam Narrative exam: GENERAL: The patient appeared well nourished and normally developed. Vital signs as documented. HEAD: No signs of head trauma. EYES: Pupils are equal. Extraocular motions intact. EARS: Hearing grossly intact. MOUTH: Oropharynx is normal. NECK: No adenopathy, no JVD. CHEST: Chest with clear breath sounds bilaterally. No wheezes, rales, or rhonchi. CARDIAC: Regular rate and rhythm. S1 and S2, without murmurs, gallops, or rubs. VASCULAR: Trace pitting Edema. Peripheral pulses normal and equal in all extremities. ABDOMEN: Soft, without detectable tenderness. No sign of distention. No rebound or guarding, and no masses palpated. Bowel Sounds normal. MUSCULOSKELETAL: Limited range of motion Left Knee, left knee disfigured, increased width and diameter. Left ankle also disfigured. NEUROLOGIC EXAM: Alert and oriented x 3. No focal sensory or strength deficits. Speech normal. Follows commands. PSYCHIATRIC: Mood normal. SKIN: Multiple venous stasis changes - Constitutional Vitals: Temp Pulse Resp BP Pulse Ox 98.2 F 110 H 18 142/67 99 04/22/17 04:46 04/22/17 05:15 04/22/17 04:46 04/22/17 04:46 04/22/17 04:46 Plan Follow up with: DANISHA ROBERSON MD [Staff Physician] - 7 Days DARRELL GRIER MD [Staff Physician] - 7 Days KRANTHI VERA JR, MD [Staff Physician] - 3-5 Days STEVEN LUO MD [Staff Physician] - 7 Days MICHAEL HASSAN MD [Staff Physician] - 7 Days Prescriptions: Apixaban [Eliquis] 5 mg PO BID #60 tablet Insulin Aspart [NovoLOG Flexpen] See Protocol SQ ACHS #1 insuln.pen Pantoprazole [Protonix] 40 mg PO BID #60 tablet
--- NOTE | 2017-04-22 09:34 | Gastroenterology Progress Note ---
Addendum entered and electronically signed by VANESSA HARRISON NP 04/22/17 09: 40: 1.Anemia Original Note: Assessment and Plan 1. -HGB 7.5- s/p transfusion 1 units of PRBCs yesterday -continue to monitor H&H and transfuse as needed -no active signs of bleeding -etiology most likely due to chronic disease (CRF) -stool occult blood negative -clear liquid diet today -NPO after MN -PT/INR in am -will schedule for EGD/colonoscopy in am -will follow Subjective Date of service: 04/22/17 Principal diagnosis: anemia Interval history: Patient resting in bed. No acute distress. No active signs of bleeding. Objective - Constitutional Vitals: Temp Pulse Resp BP Pulse Ox 98.2 F 110 H 18 142/67 99 04/22/17 04:46 04/22/17 05:15 04/22/17 04:46 04/22/17 04:46 04/22/17 04:46 General appearance: no acute distress - EENT Eyes: PERRL, EOM intact ENT: hearing intact - Respiratory Respiratory: bilateral: CTA (anterior) - Cardiovascular Rhythm: other (tachycardia) Heart Sounds: Present: S1 & S2 - Extremities Extremity abnormal: edema - Gastrointestinal General gastrointestinal: Present: soft, non-tender, non-distended, normal bowel sounds - Integumentary Integumentary: Present: warm, dry - Neurologic Neurological: alert and oriented x3 - Labs CBC & Chem 7: 04/22/17 06:00 04/22/17 04:00 Labs: Laboratory Results - last 24 hr 04/16/17 04/18/17 04/21/17 11:06 Unknown 08:43 WBC RBC Hgb Hct MCV MCH MCHC RDW Plt Count [place] % (Auto) Add Manual Diff Total Counted Seg Neuts % (Manual) Band Neutrophils % Lymphocytes % (Manual) Reactive Lymphs % (Man) Monocytes % (Manual) Eosinophils % (Manual) Basophils % (Manual) Metamyelocytes % Myelocytes % Promyelocytes % Blast Cells % Nucleated RBC % Seg Neutrophils # Man Band Neutrophils # Lymphocytes # (Manual) Abs React Lymphs (Man) Monocytes # (Manual) Eosinophils # (Manual) Basophils # (Manual) Metamyelocytes # Myelocytes # Promyelocytes # Blast Cells # WBC Morphology Hypersegmented Neuts Hyposegmented Neuts Hypogranular Neuts Smudge Cells Toxic Granulation Toxic Vacuolation Dohle Bodies Pelger-Huet Anomaly Lyla Rods Platelet Estimate Clumped Platelets Plt Clumps, EDTA Large Platelets Giant Platelets Platelet Satelliting Plt Morphology Comment RBC Morphology Dimorphic RBCs Polychromasia Hypochromasia Poikilocytosis Anisocytosis Microcytosis Macrocytosis Spherocytes Pappenheimer Bodies Sickle Cells Target Cells Tear Drop Cells Ovalocytes Helmet Cells [place] Bodies [place] Rings Wojciech Cells Bite Cells Crenated Cell Elliptocytes Acanthocytes (Spur) Rouleaux Hemoglobin C Crystals Schistocytes Malaria parasites Shaun Bodies Hem Pathologist Commnt Sodium Potassium Chloride Carbon Dioxide Anion Gap BUN Creatinine Estimated GFR BUN/Creatinine Ratio Glucose POC Glucose 98 Calcium Phosphorus Fluid Type Synovial Fluid Color Yellow Fluid Appearance Cloudy Fluid WBC 37747 Fluid RBC 3383 Fluid Seg Neutrophils 96.0 Fluid Lymphocytes 0 Fluid Reactive Lymphs 0 Fluid Monocytes 4.0 Fluid Eosinophils 0 Fluid Basophils 0 Fluid Comment Diff performed Synovial Crystals Negative Blood Type Antibody Screen Crossmatch See Detail 04/21/17 04/21/17 04/21/17 13:47 14:56 17:04 WBC RBC Hgb Hct MCV MCH MCHC RDW Plt Count [place] % (Auto) Add Manual Diff Total Counted Seg Neuts % (Manual) Band Neutrophils % Lymphocytes % (Manual) Reactive Lymphs % (Man) Monocytes % (Manual) Eosinophils % (Manual) Basophils % (Manual) Metamyelocytes % Myelocytes % Promyelocytes % Blast Cells % Nucleated RBC % Seg Neutrophils # Man Band Neutrophils # Lymphocytes # (Manual) Abs React Lymphs (Man) Monocytes # (Manual) Eosinophils # (Manual) Basophils # (Manual) Metamyelocytes # Myelocytes # Promyelocytes # Blast Cells # WBC Morphology Hypersegmented Neuts Hyposegmented Neuts Hypogranular Neuts Smudge Cells Toxic Granulation Toxic Vacuolation Dohle Bodies Pelger-Huet Anomaly Lyla Rods Platelet Estimate Clumped Platelets Plt Clumps, EDTA Large Platelets Giant Platelets Platelet Satelliting Plt Morphology Comment RBC Morphology Dimorphic RBCs Polychromasia Hypochromasia Poikilocytosis Anisocytosis Microcytosis Macrocytosis Spherocytes Pappenheimer Bodies Sickle Cells Target Cells Tear Drop Cells Ovalocytes Helmet Cells [place] Bodies [place] Rings [place] Cells Bite Cells Crenated Cell Elliptocytes Acanthocytes (Spur) Rouleaux Hemoglobin C Crystals Schistocytes Malaria parasites Shaun Bodies Hem Pathologist Commnt Sodium Potassium Chloride Carbon Dioxide Anion Gap BUN Creatinine Estimated GFR BUN/Creatinine Ratio Glucose POC Glucose 223 H 250 H Calcium Phosphorus Fluid Type Fluid Color Fluid Appearance Fluid WBC Fluid RBC Fluid Seg Neutrophils Fluid Lymphocytes Fluid Reactive Lymphs Fluid Monocytes Fluid Eosinophils Fluid Basophils Fluid Comment Synovial Crystals Blood Type O POSITIVE Antibody Screen Negative Crossmatch See Detail 04/21/17 04/22/17 04/22/17 21:16 04:00 06:00 WBC 7.0 RBC 3.00 L Hgb 7.5 L Hct 23.4 L MCV 78 L MCH 25 L MCHC 32 RDW 17.8 H Plt Count 446 H [place] % (Auto) Medical Insurance Clerk Add Manual Diff Complete Total Counted 100 Seg Neuts % (Manual) 75.0 H Band Neutrophils % 2.0 Lymphocytes % (Manual) 17.0 Reactive Lymphs % (Man) 0 Monocytes % (Manual) 2.0 Eosinophils % (Manual) 4.0 Basophils % (Manual) 0 Metamyelocytes % 0 Myelocytes % 0 Promyelocytes % 0 Blast Cells % 0 Nucleated RBC % Not Reportable Seg Neutrophils # Man 5.3 Band Neutrophils # 0.1 Lymphocytes # (Manual) 1.2 Abs React Lymphs (Man) 0.0 Monocytes # (Manual) 0.1 Eosinophils # (Manual) 0.3 Basophils # (Manual) 0.0 Metamyelocytes # 0.0 Myelocytes # 0.0 Promyelocytes # 0.0 Blast Cells # 0.0 WBC Morphology Not Reportable Hypersegmented Neuts Few Hyposegmented Neuts Not Reportable Hypogranular Neuts Not Reportable Smudge Cells Not Reportable Toxic Granulation Not Reportable Toxic Vacuolation Not Reportable Dohle Bodies Not Reportable Pelger-Huet Anomaly Not Reportable Lyla Rods Not Reportable Platelet Estimate Appears normal Clumped Platelets Not Reportable Plt Clumps, EDTA Not Reportable Large Platelets Not Reportable Giant Platelets Not Reportable Platelet Satelliting Not Reportable Plt Morphology Comment Not Reportable RBC Morphology Not Reportable Dimorphic RBCs Not Reportable Polychromasia Not Reportable Hypochromasia 1+ Poikilocytosis Not Reportable Anisocytosis 1+ Microcytosis Not Reportable Macrocytosis Not Reportable Spherocytes Not Reportable Pappenheimer Bodies Not Reportable Sickle Cells Not Reportable Target Cells Not Reportable Tear Drop Cells Not Reportable Ovalocytes Not Reportable Helmet Cells Not Reportable [place] Bodies Not Reportable Dillwyn Rings Not Reportable [place] Cells Not Reportable Bite Cells Not Reportable Crenated Cell Not Reportable Elliptocytes Not Reportable Acanthocytes (Spur) Not Reportable Rouleaux Not Reportable Hemoglobin C Crystals Not Reportable Schistocytes Not Reportable Malaria parasites Not Reportable Shaun Bodies Not Reportable Hem Pathologist Commnt No Sodium 140 Potassium 4.1 Chloride 107.8 H Carbon Dioxide 14 L Anion Gap 22 BUN 72 H Creatinine 4.4 H Estimated GFR 18 BUN/Creatinine Ratio 16.36 Glucose 63 L POC Glucose 241 H Calcium 7.8 L Phosphorus 6.40 H Fluid Type Fluid Color Fluid Appearance Fluid WBC Fluid RBC Fluid Seg Neutrophils Fluid Lymphocytes Fluid Reactive Lymphs Fluid Monocytes Fluid Eosinophils Fluid Basophils Fluid Comment Synovial Crystals Blood Type Antibody Screen Crossmatch 04/22/17 08:03 WBC RBC Hgb Hct MCV MCH MCHC RDW Plt Count [place] % (Auto) Add Manual Diff Total Counted Seg Neuts % (Manual) Band Neutrophils % Lymphocytes % (Manual) Reactive Lymphs % (Man) Monocytes % (Manual) Eosinophils % (Manual) Basophils % (Manual) Metamyelocytes % Myelocytes % Promyelocytes % Blast Cells % Nucleated RBC % Seg Neutrophils # Man Band Neutrophils # Lymphocytes # (Manual) Abs React Lymphs (Man) Monocytes # (Manual) Eosinophils # (Manual) Basophils # (Manual) Metamyelocytes # Myelocytes # Promyelocytes # Blast Cells # WBC Morphology Hypersegmented Neuts Hyposegmented Neuts Hypogranular Neuts Smudge Cells Toxic Granulation Toxic Vacuolation Dohle Bodies Pelger-Huet Anomaly Lyla Rods Platelet Estimate Clumped Platelets Plt Clumps, EDTA Large Platelets Giant Platelets Platelet Satelliting Plt Morphology Comment RBC Morphology Dimorphic RBCs Polychromasia Hypochromasia Poikilocytosis Anisocytosis Microcytosis Macrocytosis Spherocytes Pappenheimer Bodies Sickle Cells Target Cells Tear Drop Cells Ovalocytes Helmet Cells [place] Bodies [place] Rings [place] Cells Bite Cells Crenated Cell Elliptocytes Acanthocytes (Spur) Rouleaux Hemoglobin C Crystals Schistocytes Malaria parasites Shaun Bodies Hem Pathologist Commnt Sodium Potassium Chloride Carbon Dioxide Anion Gap BUN Creatinine Estimated GFR BUN/Creatinine Ratio Glucose POC Glucose 67 L Calcium Phosphorus Fluid Type Fluid Color Fluid Appearance Fluid WBC Fluid RBC Fluid Seg Neutrophils Fluid Lymphocytes Fluid Reactive Lymphs Fluid Monocytes Fluid Eosinophils Fluid Basophils Fluid Comment Synovial Crystals Blood Type Antibody Screen Crossmatch
[2017-04-22] MEDS ORDERED: GOLYTELY PO ONE (09:40)
[2017-04-22] MEDS: WELCHOL PO SCH ×2 (10:00→22:55)
--- NOTE | 2017-04-22 10:56 | Progress Note ---
Assessment and Plan Shortness of breath no acute process of CXR V\Q scan negative for PE normal LVEF 55-60% on echocardiogram Anemia s/p transfusion of PRBCs Left knee effusion LLE CT reports septic arthritis and possible osteomyelitis Joint aspiration planned today Chronic renal disease Borderline elevated troponin likely in the setting of renal failure doubt non-ST elevation [place] Hx of Afib currently in normal sinus rhythm. On beta olga therapy for suppression. on eliquis as an outpatient; currently on hold due to anemia Diabetes mellitus with hyperglycemia Oral anticoagulation currently on hold for anemia untill source of anemia identified and GI bleeding excluded. Conservative cardiac management. Subjective Date of service: 04/22/17 Principal diagnosis: anemia Interval history: Patient denies chest pain and shortness of breath. Objective Vital Signs Temp Pulse Resp BP Pulse Ox 04/22/17 09:38 98.2 F 110 H 18 162/71 95 04/22/17 05:15 110 H 04/22/17 04:46 98.2 F 64 18 142/67 99 04/22/17 01:30 98.4 F 84 20 140/72 98 04/22/17 00:57 18 04/22/17 00:30 98.9 F 89 18 142/74 100 04/22/17 00:07 98.9 F 101 H 18 146/78 98 04/22/17 00:00 98.6 F 88 18 146/78 99 04/21/17 23:30 98.4 F 82 20 138/67 98 04/21/17 23:00 98.9 F 98 H 20 154/78 100 04/21/17 22:30 98.5 F 98 H 20 157/84 100 04/21/17 22:00 100 H 04/21/17 21:56 98.4 F 110 H 20 158/87 100 04/21/17 19:56 99.1 F 107 H 20 174/84 100 04/21/17 18:06 98.2 F 110 H 18 159/90 98 04/21/17 14:00 105 H 04/21/17 13:03 116 H 132/87 - Physical Examination General: No Apparent Distress HEENT: Positive: PERRL Neck: Positive: trachea midline Cardiac: Positive: Reg Rate and Rhythm - Labs and Meds CBC 04/22/17 Range/Units 06:00 WBC 7.0 (4.5-11.0) K/mm3 RBC 3.00 L (3.65-5.03) M/mm3 Hgb 7.5 L (11.8-15.2) gm/dl Hct 23.4 L (35.5-45.6) % Plt Count 446 H (140-440) K/mm3 Comprehensive Metabolic Panel 04/22/17 Range/Units 04:00 Sodium 140 (137-145) mmol/L Potassium 4.1 (3.6-5.0) mmol/L Chloride 107.8 H (98-107) mmol/L Carbon Dioxide 14 L (22-30) mmol/L BUN 72 H (9-20) mg/dL Creatinine 4.4 H (0.8-1.5) mg/dL Glucose 63 L (75-100) mg/dL Calcium 7.8 L (8.4-10.2) mg/dL
--- NOTE | 2017-04-22 10:58 | Event Note ---
Date: 04/22/17 Vein mapping was performed, and the patient's anatomy looks amenable to graft/ fistula creation. I spoke with both Drs. Gao and Bernice. We collectively agreed that the patient could go to a SNF and then follow up with Nick as an outpatient. I spoke with the patient about this, and I've arranged for him to follow up in Dr. Shipman' clinic next week.
[2017-04-22 11:51] LABS: Bacteria,Urine 4+ /HPF (Negative); Bilirubin,Urine NEG (Negative); Blood,Urine SM (Negative); Ketones,Urine NEG (Negative); Leukocyte Esterase,Urine NEG (Negative); Mucus,Urine FEW /HPF; Nitrite,Urine NEG (Negative); Urobilinogen,Urine < 2.0 mg/dL (<2.0)
[2017-04-22 11:52] LABS: Protein,Urine >500 mg/dL (Negative)
[2017-04-22] MEDS: PEPCID PO SCH (12:22)
[2017-04-22] MEDS: COLACE PO SCH ×2 (12:23→22:57)
[2017-04-22] MEDS: TOPROL XL PO SCH (12:24)
[2017-04-22] MEDS: PROCARDIA XL PO SCH ×2 (12:25→22:55)
[2017-04-22] MEDS: THERAGRAN Tab PO SCH (12:25)
[2017-04-22] MEDS: TOBRADEX OU SCH (12:26)
[2017-04-22] MEDS: CYMBALTA PO SCH (15:20)
--- NOTE | 2017-04-22 15:56 | Vascular Lab Report ---
Upper extremity vein mapping Reason for exam: Preoperative evaluation for hemodialysis access Comments: On the right, the cephalic vein is usable from elbow to shoulder. The basilic vein is usable from elbow to shoulder. The brachial and radial arteries are patent. The radial artery is of normal caliber. On the left, the cephalic vein is marginal from elbow to shoulder. The basilic vein is usable from elbow to shoulder. The brachial and radial arteries are patent. The radial artery is of normal caliber. Impression: Both cephalic veins are suitable for use as AV access sites. In the upper arm Both basilic veins are suitable for use as AV access sites. In the upper arm No arterial issues were identified.
--- NOTE | 2017-04-22 16:02 | Progress Note ---
Assessment and Plan Assessment and plan: Patient is a 47-year-old male with past medical history including hyperlipidemia , chronic kidney disease, cardiac ablation, diabetes mellitus and multiple left knee surgery who presents to the ER complaining of bilateral leg edema worsening on the left and associated shortness of breath 1 day with reported left sided chest pain which is worse on lying down and improves with sitting up. The patient also does report worsening shortness of breath on lying supine with positive orthopnea improves with sitting up. He denies any sick contacts and he is followed by market research coordinator and primary care physician and is supposed to be evaluated by nephrology but has not had a full evaluation done. The pain he describes as a 5/10 in intensity with no radiation and no associated diaphoresis. He states that he woke him up this morning. Denies any palpitation nausea vomiting or diarrhea as noted. 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 Fine orthopedic surgery, it is a chronic finding patient is on have any fever leukocytosis or tachycardia, no warmth or pain to touch of the joints. Therefore clinically does not appear to have osteomyelitis or infectious process. patient will most likely benefit from PT and transferred to a rehabilitation facility where he can improve upon his gait He has a known history of Charcot joints and this is most likely a manifestation of charcot joints. MRI Left knee show Large joint effusion and serious subcutaneous fluid collection. Cannot exclude an infectious process such as septic arthritis. Findings may be related to chronic inflammatory process or chronic effusion with hemorrhage correlation could be made with joint aspiration as clinically indicated. Tears of the medial and lateral meniscus. Probable tear of the distal anterior cruciate ligament. Left ankle x-ray: There is diffuse swelling of tissues involving the distal leg and ankle extending to the proximal foot. There is an oblique fracture through the distal shaft of the fibula with mild separation of bony structures with good alignment. A separation or fracture the medial malleolus. Distal anterior displacement fragment. There are degenerative changes involving the articular margin between the talus and tarsal articular bone. * Case was discussed in detail with Dr. Fine, he has known peripheral neuropathy with Charcot joints of the right ankle and right knee with severe deformity. This is chronic, he does not appear to have any infectious process. There is no available surgical management other down offering a BKA to the patient. And this has been offered to him and his and they have declined. , planned for joint aspiration on Friday * Case was discussed with infectious disease. sp joint aspiration, cell count was reviewed and is not consistent with infectious process, follow-up urine gonorrhea/chlamydia; however he is low risk for STI as he is in a monogamous relationship * Chronic lymphedema Continue supportive care * Fever; blood cx, ua, uc, cxr, getting knee aspiration today * Acute kidney injury on chronic kidney disease likely secondary to vasomotor nephropathy, renal function is improved with IV fluids and cessation of Lasix * Diabetes mellitus with hyperglycemia, now better controlled, continue insulins * NSTEMI type 2, cardiology input appreciated, meds optimized, eliquis on hold due to anemia * A. fib, rate is controlled, continue eliquis for stroke prophylaxis after endoscopy * Anemia of chronic kidney disease/iron deficiency anemia; continue iron supplements, status post 1 unit of PRBC transfusion * GI consult appreciated, likely AOCD due to CKD * Needs Endoscopy to determine if safe for him to continue ESTEE * Eliquis on hold due to anemia * Coagulopathy due to use of eliquis, expected outcome * Hyperkalemia, we'll avoid ARB or AMMY due to this. We'll give him alternative blood pressure medications. give kayexalate as needed, will give a dose today * Accelerated hypertension, meds have been optimized. * Diarrhea, now resolved; send stool for cdiff if it recurs Case management consulted for SNIF placement Case was discussed in great detail with his in the presence of the patient. History Interval history: Since he had a arthrocentesis yesterday, he reports decrease in swelling of left knee and he is able to benefit better today denies diarrhea afebrile Hospitalist Physical - Physical exam Narrative exam: GENERAL: The patient appeared well nourished and normally developed. Vital signs as documented. HEAD: No signs of head trauma. EYES: Pupils are equal. Extraocular motions intact. EARS: Hearing grossly intact. MOUTH: Oropharynx is normal. NECK: No adenopathy, no JVD. CHEST: Chest with clear breath sounds bilaterally. No wheezes, rales, or rhonchi. CARDIAC: Regular rate and rhythm. S1 and S2, without murmurs, gallops, or rubs. VASCULAR: Trace pitting Edema. Peripheral pulses normal and equal in all extremities. ABDOMEN: Soft, without detectable tenderness. No sign of distention. No rebound or guarding, and no masses palpated. Bowel Sounds normal. MUSCULOSKELETAL: Limited range of motion Left Knee, left knee disfigured, increased width and diameter. Left ankle also disfigured. NEUROLOGIC EXAM: Alert and oriented x 3. No focal sensory or strength deficits. Speech normal. Follows commands. PSYCHIATRIC: Mood normal. SKIN: Multiple venous stasis changes - Constitutional Vitals: Temp Pulse Resp BP Pulse Ox 97.4 F L 111 H 18 154/89 100 04/22/17 13:54 04/22/17 13:54 04/22/17 13:54 04/22/17 13:54 04/22/17 13:54 General appearance: Present: no acute distress, well-nourished Results - Labs CBC & Chem 7: 04/22/17 06:00 04/22/17 04:00 Labs: Laboratory Last Values WBC 7.0 K/mm3 (4.5-11.0) 04/22/17 06:00 RBC 3.00 M/mm3 (3.65-5.03) L 04/22/17 06:00 Hgb 7.5 gm/dl (11.8-15.2) L 04/22/17 06:00 Hct 23.4 % (35.5-45.6) L 04/22/17 06:00 MCV 78 fl (84-94) L 04/22/17 06:00 MCH 25 pg (28-32) L 04/22/17 06:00 MCHC 32 % (32-34) 04/22/17 06:00 RDW 17.8 % (13.2-15.2) H 04/22/17 06:00 Plt Count 446 K/mm3 (140-440) H 04/22/17 06:00 Lymph % (Auto) 24.7 % (13.4-35.0) 04/20/17 08:47 [place] % (Auto) Card Folder 04/22/17 06:00 Eos % (Auto) 2.9 % (0.0-4.3) 04/21/17 04:48 Baso % (Auto) 0.8 % (0.0-1.8) 04/20/17 08:47 Lymph # 1.6 K/mm3 (1.2-5.4) 04/20/17 08:47 [place] # 1.1 K/mm3 (0.0-0.8) H 04/21/17 04:48 Eos # 0.2 K/mm3 (0.0-0.4) 04/21/17 04:48 Baso # 0.1 K/mm3 (0.0-0.1) 04/21/17 04:48 Add Manual Diff Complete 04/22/17 06:00 Total Counted 100 04/22/17 06:00 Seg Neutrophils % 64.3 % (40.0-70.0) 04/21/17 04:48 Seg Neuts % (Manual) 75.0 % (40.0-70.0) H 04/22/17 06:00 Band Neutrophils % 2.0 % 04/22/17 06:00 Lymphocytes % (Manual) 17.0 % (13.4-35.0) 04/22/17 06:00 Reactive Lymphs % (Man) 0 % 04/22/17 06:00 Monocytes % (Manual) 2.0 % (0.0-7.3) 04/22/17 06:00 Eosinophils % (Manual) 4.0 % (0.0-4.3) 04/22/17 06:00 Basophils % (Manual) 0 % (0.0-1.8) 04/22/17 06:00 Metamyelocytes % 0 % 04/22/17 06:00 Myelocytes % 0 % 04/22/17 06:00 Promyelocytes % 0 % 04/22/17 06:00 Blast Cells % 0 % 04/22/17 06:00 Nucleated RBC % Not Reportable 04/22/17 06:00 Seg Neutrophils # 4.5 K/mm3 (1.8-7.7) 04/21/17 04:48 Seg Neutrophils # Man 5.3 K/mm3 (1.8-7.7) 04/22/17 06:00 Band Neutrophils # 0.1 K/mm3 04/22/17 06:00 Lymphocytes # (Manual) 1.2 K/mm3 (1.2-5.4) 04/22/17 06:00 Abs React Lymphs (Man) 0.0 K/mm3 04/22/17 06:00 Monocytes # (Manual) 0.1 K/mm3 (0.0-0.8) 04/22/17 06:00 Eosinophils # (Manual) 0.3 K/mm3 (0.0-0.4) 04/22/17 06:00 Basophils # (Manual) 0.0 K/mm3 (0.0-0.1) 04/22/17 06:00 Metamyelocytes # 0.0 K/mm3 04/22/17 06:00 Myelocytes # 0.0 K/mm3 04/22/17 06:00 Promyelocytes # 0.0 K/mm3 04/22/17 06:00 Blast Cells # 0.0 K/mm3 04/22/17 06:00 WBC Morphology Not Reportable 04/22/17 06:00 Hypersegmented Neuts Few 04/22/17 06:00 Hyposegmented Neuts Not Reportable 04/22/17 06:00 Hypogranular Neuts Not Reportable 04/22/17 06:00 Smudge Cells Not Reportable 04/22/17 06:00 Toxic Granulation Not Reportable 04/22/17 06:00 Toxic Vacuolation Not Reportable 04/22/17 06:00 Dohle Bodies Not Reportable 04/22/17 06:00 Pelger-Huet Anomaly Not Reportable 04/22/17 06:00 Lyla Rods Not Reportable 04/22/17 06:00 Platelet Estimate Appears normal 04/22/17 06:00 Clumped Platelets Not Reportable 04/22/17 06:00 Plt Clumps, EDTA Not Reportable 04/22/17 06:00 Large Platelets Not Reportable 04/22/17 06:00 Giant Platelets Not Reportable 04/22/17 06:00 Platelet Satelliting Not Reportable 04/22/17 06:00 Plt Morphology Comment Not Reportable 04/22/17 06:00 RBC Morphology Not Reportable 04/22/17 06:00 Dimorphic RBCs Not Reportable 04/22/17 06:00 Polychromasia Not Reportable 04/22/17 06:00 Hypochromasia 1+ 04/22/17 06:00 Poikilocytosis Not Reportable 04/22/17 06:00 Anisocytosis 1+ 04/22/17 06:00 Microcytosis Not Reportable 04/22/17 06:00 Macrocytosis Not Reportable 04/22/17 06:00 Spherocytes Not Reportable 04/22/17 06:00 Pappenheimer Bodies Not Reportable 04/22/17 06:00 Sickle Cells Not Reportable 04/22/17 06:00 Target Cells Not Reportable 04/22/17 06:00 Tear Drop Cells Not Reportable 04/22/17 06:00 Ovalocytes Not Reportable 04/22/17 06:00 Helmet Cells Not Reportable 04/22/17 06:00 Barragan-Dewart Bodies Not Reportable 04/22/17 06:00 [place] Rings Not Reportable 04/22/17 06:00 [place] Cells Not Reportable 04/22/17 06:00 Bite Cells Not Reportable 04/22/17 06:00 Crenated Cell Not Reportable 04/22/17 06:00 Elliptocytes Not Reportable 04/22/17 06:00 Acanthocytes (Spur) Not Reportable 04/22/17 06:00 Rouleaux Not Reportable 04/22/17 06:00 Hemoglobin C Crystals Not Reportable 04/22/17 06:00 Schistocytes Not Reportable 04/22/17 06:00 Malaria parasites Not Reportable 04/22/17 06:00 Shaun Bodies Not Reportable 04/22/17 06:00 Hem Pathologist Commnt No 04/22/17 06:00 PT 15.8 Sec. (12.2-14.9) H 04/12/17 08:34 INR 1.20 (0.87-1.13) H 04/12/17 08:34 APTT 46.7 Sec. (24.2-36.6) H 04/12/17 08:34 D-Dimer 2932 ng/mlDDU (0-234) H 04/12/17 08:34 Sodium 140 mmol/L (137-145) 04/22/17 04:00 Potassium 4.1 mmol/L (3.6-5.0) 04/22/17 04:00 Chloride 107.8 mmol/L (98-107) H 04/22/17 04:00 Carbon Dioxide 14 mmol/L (22-30) L 04/22/17 04:00 Anion Gap 22 mmol/L 04/22/17 04:00 BUN 72 mg/dL (9-20) H 04/22/17 04:00 Creatinine 4.4 mg/dL (0.8-1.5) H 04/22/17 04:00 Estimated GFR 18 ml/min 04/22/17 04:00 BUN/Creatinine Ratio 16.36 % 04/22/17 04:00 Glucose 63 mg/dL (75-100) L 04/22/17 04:00 POC Glucose 67 (70-105) L 04/22/17 08:03 Osmolality 304 Mosm/kg 04/12/17 11:00 Calcium 7.8 mg/dL (8.4-10.2) L 04/22/17 04:00 Phosphorus 6.40 mg/dL (2.5-4.5) H 04/22/17 04:00 Magnesium 1.40 mg/dL (1.7-2.3) L 04/15/17 06:21 Iron 25 ug/dL (49-181) L 04/12/17 16:00 TIBC 98 mcg/dL (250-450) L 04/12/17 16:00 Ferritin 745.3 ng/mL (13.0-400.0) H 04/12/17 16:00 Total Bilirubin 0.20 mg/dL (0.1-1.2) 04/15/17 06:21 AST 13 units/L (5-40) 04/15/17 06:21 ALT 13 units/L (7-56) 04/15/17 06:21 Alkaline Phosphatase 126 units/L (35-129) 04/15/17 06:21 Total Creatine Kinase 107 units/L (55-170) 04/13/17 01:17 CK-MB (CK-2) 2.7 ng/mL (0.0-4.0) 04/13/17 01:17 CK-MB (CK-2) Rel Index 2.5 (0-4) 04/13/17 01:17 Troponin T 0.174 ng/mL (0.00-0.029) H* 04/13/17 01:17 NT-Pro-B Natriuret Pep 9214 pg/mL (0-450) H 04/12/17 08:34 Total Protein 5.8 g/dL (6.3-8.2) L 04/15/17 06:21 Albumin 1.7 g/dL (3.9-5) L 04/15/17 06:21 Albumin/Globulin Ratio 0.4 % 04/15/17 06:21 Triglycerides 89 mg/dL (2-149) 04/12/17 08:34 Cholesterol 84 mg/dL (50-199) 04/12/17 08:34 LDL Cholesterol Direct 32 mg/dL (50-130) L 04/12/17 08:34 HDL Cholesterol 35 mg/dL (40-59) L 04/12/17 08:34 Cholesterol/HDL Ratio 2.40 % 04/12/17 08:34 Vitamin B12 369.0 pg/mL (211-911) 04/12/17 16:00 TSH 0.027 mlU/mL (0.270-4.200) L 04/12/17 09:14 Free T4 1.03 ng/dL (0.76-1.46) 04/12/17 09:14 PTH Intact 132.4 pg/mL (15-65) H 04/13/17 04:50 Urine Color Yellow (Yellow) 04/22/17 10:41 Urine Turbidity Turbid (Clear) 04/22/17 10:41 Urine pH 5.0 (5.0-7.0) 04/22/17 10:41 Ur Specific [place] 1.012 (1.003-1.030) 04/22/17 10:41 Urine Protein >500 mg/dL (Negative) 04/22/17 10:41 Urine Glucose (UA) 50 mg/dL (Negative) 04/22/17 10:41 Urine Ketones Neg mg/dL (Negative) 04/22/17 10:41 Urine Blood Sm (Negative) 04/22/17 10:41 Urine Nitrite Neg (Negative) 04/22/17 10:41 Urine Bilirubin Neg (Negative) 04/22/17 10:41 Urine Urobilinogen < 2.0 mg/dL (<2.0) 04/22/17 10:41 Ur Leukocyte Esterase Neg (Negative) 04/22/17 10:41 Urine WBC (Auto) 4.0 /HPF (0.0-6.0) 04/22/17 10:41 Urine RBC (Auto) 2.0 /HPF (0.0-6.0) 04/22/17 10:41 U Epithel Cells (Auto) < 1.0 /HPF (0-13.0) 04/22/17 10:41 Urine Bacteria (Auto) 4+ /HPF (Negative) 04/22/17 10:41 Urine Mucus Few /HPF 04/22/17 10:41 Urine Creatinine 49.5 mg/dL (0.1-20.0) H 04/22/17 11:12 Urine Sodium 41 mEq/L 04/22/17 11:12 Urine Total Protein 490 mg/dL (5-11.8) H 04/22/17 11:12 Fluid Type Synovial 04/18/17 Unknown Fluid Color Yellow 04/18/17 Unknown Fluid Appearance Cloudy 04/18/17 Unknown Fluid WBC 65462 /mm3 04/18/17 Unknown Fluid RBC 3383 /mm3 04/18/17 Unknown Fluid Seg Neutrophils 96.0 % 04/18/17 Unknown Fluid Lymphocytes 0 % 04/18/17 Unknown Fluid Reactive Lymphs 0 % 04/18/17 Unknown Fluid Monocytes 4.0 % 04/18/17 Unknown Fluid Eosinophils 0 % 04/18/17 Unknown Fluid Basophils 0 % 04/18/17 Unknown Fluid Comment Diff performed 04/18/17 Unknown Synovial Crystals Negative (NONE SEEN) 04/18/17 Unknown Blood Type O POSITIVE 04/21/17 13:47 Antibody Screen Negative 04/21/17 13:47 Crossmatch See Detail 04/21/17 13:47
--- NOTE | 2017-04-22 17:23 | Progress Note ---
Assessment and Plan - Patient Problems (1) Septic arthritis Current Visit: Yes Status: Acute Qualifiers: Septic arthritis location: knee Septic arthritis organism: due to unspecified organism Laterality: left Qualified Code(s): M00.9 - Pyogenic arthritis, unspecified Plan to address problem: 1. Synovial fluid with large neutrophilic presence. Cultures are in progress with no growth to date. 2. Will start Rocephin empirically, which can likely be changed to oral Levaquin (not Cipro) or Augmentin to complete a 6-week course. 3. Treatment to be based ultimately on culture data. Subjective Date of service: 04/22/17 Principal diagnosis: anemia Interval history: Patient had arthrocentesis yesterday. Synovial fluid with >11,000 WBCs of neutrophilic predominance. Objective - Constitutional Vitals: Vital Signs Temp Pulse Resp BP Pulse Ox 97.4 F L 111 H 18 154/89 100 04/22/17 13:54 04/22/17 13:54 04/22/17 13:54 04/22/17 13:54 04/22/17 13:54 Temperature -Last 24 Hours Temperature 97.4 F Temperature 98.2 F Temperature 98.2 F Temperature 98.4 F Temperature 98.9 F Temperature 98.9 F Temperature 98.6 F Temperature 98.4 F Temperature 98.9 F Temperature 98.5 F Temperature 98.4 F Temperature 99.1 F Temperature 98.2 F General appearance: Present: no acute distress - EENT Eyes: no conjunctival injection - Respiratory Respiratory effort: normal Respiratory: bilateral: CTA - Cardiovascular Rhythm: regular (tachycardic) Heart Sounds: Present: S1 & S2 Extremity abnormal: other (persistent edema of left knee, no drainage from lateral arthrocentesis site) - Gastrointestinal General gastrointestinal: Present: soft, non-distended - Integumentary Integumentary: clear, no rash - Neurologic Neurologic: focal deficits - Psychiatric Psychiatric: appropriate mood/affect - Labs CBC & Chem 7: 04/22/17 06:00 04/22/17 04:00 Labs: Abnormal lab results 04/16/17 04/21/17 04/21/17 Range/Units 11:06 13:47 14:56 RBC (3.65-5.03) M/mm3 Hgb (11.8-15.2) gm/dl Hct (35.5-45.6) % MCV (84-94) fl MCH (28-32) pg RDW (13.2-15.2) % Plt Count (140-440) K/mm3 Seg Neuts % (Manual) (40.0-70.0) % Chloride (98-107) mmol/L Carbon Dioxide (22-30) mmol/L BUN (9-20) mg/dL Creatinine (0.8-1.5) mg/dL Glucose (75-100) mg/dL POC Glucose 223 H (70-105) Calcium (8.4-10.2) mg/dL Phosphorus (2.5-4.5) mg/dL Urine Creatinine (0.1-20.0) mg/dL Urine Total Protein (5-11.8) mg/dL Crossmatch See Detail See Detail 04/21/17 04/21/17 04/22/17 Range/Units 17:04 21:16 04:00 RBC (3.65-5.03) M/mm3 Hgb (11.8-15.2) gm/dl Hct (35.5-45.6) % MCV (84-94) fl MCH (28-32) pg RDW (13.2-15.2) % Plt Count (140-440) K/mm3 Seg Neuts % (Manual) (40.0-70.0) % Chloride 107.8 H (98-107) mmol/L Carbon Dioxide 14 L (22-30) mmol/L BUN 72 H (9-20) mg/dL Creatinine 4.4 H (0.8-1.5) mg/dL Glucose 63 L (75-100) mg/dL POC Glucose 250 H 241 H (70-105) Calcium 7.8 L (8.4-10.2) mg/dL Phosphorus 6.40 H (2.5-4.5) mg/dL Urine Creatinine (0.1-20.0) mg/dL Urine Total Protein (5-11.8) mg/dL Crossmatch 04/22/17 04/22/17 04/22/17 Range/Units 06:00 08:03 11:12 RBC 3.00 L (3.65-5.03) M/mm3 Hgb 7.5 L (11.8-15.2) gm/dl Hct 23.4 L (35.5-45.6) % MCV 78 L (84-94) fl MCH 25 L (28-32) pg RDW 17.8 H (13.2-15.2) % Plt Count 446 H (140-440) K/mm3 Seg Neuts % (Manual) 75.0 H (40.0-70.0) % Chloride (98-107) mmol/L Carbon Dioxide (22-30) mmol/L BUN (9-20) mg/dL Creatinine (0.8-1.5) mg/dL Glucose (75-100) mg/dL POC Glucose 67 L (70-105) Calcium (8.4-10.2) mg/dL Phosphorus (2.5-4.5) mg/dL Urine Creatinine 49.5 H (0.1-20.0) mg/dL Urine Total Protein 490 H (5-11.8) mg/dL Crossmatch Microbiology 04/21/17 15:37 Peripheral/Venous Blood Culture - Preliminary NO GROWTH AFTER 24 HOURS 04/21/17 13:51 Peripheral/Venous Blood Culture - Preliminary NO GROWTH AFTER 24 HOURS 04/18/17 11:58 Peripheral/Venous Blood Culture - Preliminary NO GROWTH AFTER 4 DAYS 04/18/17 Unknown Synovial Fluid - Right Knee Body Fluid Culture - Preliminary 04/18/17 15:34 Peripheral/Venous Blood Culture - Preliminary NO GROWTH AFTER 72 HOURS 04/19/17 19:05 Stool - Stool Aspirate C. difficile DNA Amplification - Final 04/19/17 19:06 Stool Stool Occult Blood (REBEKAH) - Final
[2017-04-22] MEDS ORDERED: ROCEPHIN/NS 2 GM/100 ML 2 GM/100 ML BAG IV SCH (18:30)
[2017-04-22] MEDS: LEVEMIR SUB-Q SCH (22:56)
[2017-04-23 06:26] LABS: Basophils % (Auto) 1.2 % (0.0-1.8); Eosinophils % (Auto) 3.3 % (0.0-4.3); Hematocrit 22.4 % (35.5-45.6); Hemoglobin 7.4 gm/dl (11.8-15.2); Mean Corpuscular HGB Conc 33 % (32-34); Mean Corpuscular Hemoglobin 26 pg (28-32); Mean Corpuscular Volume 77 fl (84-94); Platelet Count 434 K/mm3 (140-440); Red Blood Count 2.91 M/mm3 (3.65-5.03); Red Cell Distribution Width 17.5 % (13.2-15.2); White Blood Count 5.6 K/mm3 (4.5-11.0)
[2017-04-23 06:35] LABS: BUN/Creatinine Ratio 16.09; Calcium 7.8 mg/dL (8.4-10.2); Chloride 105.6 mmol/L (98-107); Potassium 3.8 mmol/L (3.6-5.0)
[2017-04-23 06:42] LABS: INR 1.23 (0.87-1.13)
[2017-04-23 08:01] LABS: Creatine Kinase MB 3.7 ng/mL (0.0-4.0)
--- NOTE | 2017-04-23 08:13 | Progress Note ---
Assessment and Plan - Patient Problems (1) Acute on chronic renal failure Current Visit: Yes Status: Acute Qualifiers: Acute renal failure type: A Chronic kidney disease stage: C Plan to address problem: Acute kidney injury superimposed on CKD stage 4. Creatinine is better today. No uremic signs or symptoms at this time. Renal prognosis is guarded. (2) Hyperkalemia Current Visit: Yes Status: Acute Plan to address problem: Kayexalate prn. (3) Proteinuria due to type 2 diabetes mellitus Current Visit: Yes Status: Chronic (4) Shortness of breath Current Visit: Yes Status: Acute (5) Anemia Current Visit: Yes Status: Chronic Qualifiers: Anemia type: A Iron deficiency anemia type: I Vitamin B12 deficiency anemia type: V Folate deficiency anemia type: F Bone marrow failure anemia type: B Hemolytic anemia type: H Other causes of anemia: O Chronic kidney disease stage: C Plan to address problem: S/p PRBC and Epogen. Subjective Date of service: 04/23/17 Principal diagnosis: Left Knee Effusion Interval history: Patient is doing ok. Objective - Vital Signs Vital signs: Vital Signs - 12hr 04/22/17 04/23/17 04/23/17 22:00 00:00 04:58 Temperature 97.7 F 97.8 F 98.2 F Pulse Rate 97 H 98 H 98 H Respiratory 18 18 18 Rate Blood Pressure 155/84 132/85 145/81 O2 Sat by Pulse 99 97 97 Oximetry 04/23/17 06:00 Temperature Pulse Rate 99 H Respiratory Rate Blood Pressure O2 Sat by Pulse Oximetry - General Appearance General appearance: well-developed, well-nourished, appears stated age, obese, other (no distress) EENT: ATNC, mucous membranes moist, hearing intact Neck: supple Respiratory: Present: Clear to Ascultation Cardiology: regular, S1S2, no murmurs Gastrointestinal: normoactive bowel sounds, no tenderness, obese Integumentary: chronic venous stasis Neurologic: no asterixis, alert and oriented x3, other (right eye blindness) Musculoskeletal: joint swelling (left knee), other (bilateral LE edema L > R) Psychiatric: mood/affect appropriate, cooperative - Lab 04/23/17 05:41 04/23/17 05:41 Most recent lab results Calcium 7.8 mg/dL (8.4-10.2) L 04/23/17 05:41 Phosphorus 6.40 mg/dL (2.5-4.5) H 04/22/17 04:00 Magnesium 1.40 mg/dL (1.7-2.3) L 04/15/17 06:21 Urine Creatinine 49.5 mg/dL (0.1-20.0) H 04/22/17 11:12 Urine Sodium 41 mEq/L 04/22/17 11:12 Urine Total Protein 490 mg/dL (5-11.8) H 04/22/17 11:12
--- NOTE | 2017-04-23 10:20 | Progress Note ---
Assessment and Plan Shortness of breath no acute process of CXR V\Q scan negative for PE normal LVEF 55-60% on echocardiogram Anemia s/p transfusion of PRBCs Left knee effusion LLE CT reports septic arthritis and possible osteomyelitis s/p Joint aspiration Chronic renal disease Borderline elevated troponin likely in the setting of renal failure doubt non-ST elevation FL Hx of Afib currently in normal sinus rhythm. On beta olga therapy for suppression. on eliquis as an outpatient; currently on hold due to anemia Diabetes mellitus with hyperglycemia Oral anticoagulation currently on hold for anemia untill source of anemia identified and GI bleeding excluded. Conservative cardiac management. Subjective Date of service: 04/23/17 Principal diagnosis: Left Knee Effusion Interval history: Patient denies chest pain and shortness of breath. Awaits GI endoscopy today. Objective Vital Signs Temp Pulse Resp BP Pulse Ox 04/23/17 06:00 99 H 04/23/17 04:58 98.2 F 98 H 18 145/81 97 04/23/17 00:00 97.8 F 98 H 18 132/85 97 04/22/17 22:00 97.7 F 97 H 18 155/84 99 04/22/17 17:34 98.1 F 96 H 18 172/98 99 04/22/17 13:54 97.4 F L 111 H 18 154/89 100 - Physical Examination General: No Apparent Distress HEENT: Positive: PERRL Neck: Positive: trachea midline Cardiac: Positive: Reg Rate and Rhythm Neuro: Positive: Grossly Intact - Labs and Meds Cardiac Enzymes 04/23/17 Range/Units 05:41 CK-MB (CK-2) 3.7 (0.0-4.0) ng/mL Coagulation 04/23/17 Range/Units 05:41 PT 15.4 H (12.2-14.9) Sec. INR 1.23 H (0.87-1.13) CBC 04/23/17 Range/Units 05:41 WBC 5.6 (4.5-11.0) K/mm3 RBC 2.91 L (3.65-5.03) M/mm3 Hgb 7.4 L (11.8-15.2) gm/dl Hct 22.4 L (35.5-45.6) % Plt Count 434 (140-440) K/mm3 Lymph # 1.5 (1.2-5.4) K/mm3 [place] # 0.9 H (0.0-0.8) K/mm3 Eos # 0.2 (0.0-0.4) K/mm3 Baso # 0.1 (0.0-0.1) K/mm3 Comprehensive Metabolic Panel 04/23/17 Range/Units 05:41 Sodium 138 (137-145) mmol/L Potassium 3.8 (3.6-5.0) mmol/L Chloride 105.6 (98-107) mmol/L Carbon Dioxide 15 L (22-30) mmol/L BUN 66 H (9-20) mg/dL Creatinine 4.1 H (0.8-1.5) mg/dL Glucose 124 H (75-100) mg/dL Calcium 7.8 L (8.4-10.2) mg/dL
[2017-04-23] MEDS: TOBRADEX OU SCH (10:37)
[2017-04-23] MEDS: CYMBALTA PO SCH ×2 (10:40→15:10)
[2017-04-23] MEDS: COLACE PO SCH ×2 (10:40→15:05)
[2017-04-23] MEDS: WELCHOL PO SCH ×2 (10:41→15:08)
[2017-04-23] MEDS: PROCARDIA XL PO SCH ×2 (10:43→15:04)
[2017-04-23] MEDS: TOPROL XL PO SCH (10:43)
[2017-04-23] MEDS: PEPCID PO SCH (10:44)
[2017-04-23] MEDS: THERAGRAN Tab PO SCH (10:47)
[2017-04-23] MEDS: NACL 0.9% 1000 ML 1,000 ML IV SCH (11:47)
--- NOTE | 2017-04-23 12:06 | Anesthesia Consultation ---
Anesthesia Consult and Med Hx Date of service: 04/23/17 - Airway Anesthetic Teeth Evaluation: Poor ROM Head & Neck: Adequate Mental/Hyoid Distance: Adequate Mallampati Class: Class III Intubation Access Assessment: Possibly Difficult - Pulmonary Exam CTA: Yes - Cardiac Exam Cardiac Exam: RRR - Pre-Operative Health Status ASA Pre-Surgery Classification: ASA3 Proposed Anesthetic Plan: MAC - Pre-Anesthesia Comment Pre-Anesthesia Comments: EF 55-60%. periphreal neuropathy and bilateral leg weakness - Pulmonary SOB: Yes (resolved) - Cardiovascular System Hx Hypertension: Yes (CHF ) Hx Angina: Yes (resolve,elevated troponin related to acute kidney failure. no St elevation ) Hx Cardia Arrhythmia: Yes (HX Afib ) - Endocrine Hx Renal Disease: Yes (chronic, CR 4.1 ) Hx Insulin Dependent Diabetes: Yes - Hematic Hx Anemia: Yes (s/p transfusions Hgb 7.4)
--- NOTE | 2017-04-23 12:10 | Anesthesia Day of Surgery ---
Anesthesia Day of Surgery - Day of Surgery Patient Examined: Yes Patient H&P Reviewed: Yes Patient is NPO: Yes
[2017-04-23] MEDS ORDERED: WATER FOR IRRIG STERILE IR ONE (12:57)
[2017-04-23] MEDS ORDERED: DIPRIVAN 10 MG/ML IV ONE ×3 (12:58)
--- NOTE | 2017-04-23 13:28 | Post Operative Note ---
Pre-op diagnosis: Anemia Post-op diagnosis: other (Duodenal bulb erosion) Findings: 1. Duodenal bulb erosion 2. Otherwise normal EGD 3. Normal colonoscopy Procedure: EGD/Colonoscopy Anesthesia: MAC Surgeon: CRISTAL SMITH Estimated blood loss: none Pathology: none Condition: stable Disposition: floor (Okay to initiate Eliquis, with daily PPI. Can evaluate anemia further as outpatient, with Hem consult)
[2017-04-23] MEDS ORDERED: LOPRESSOR IV ONE (13:36)
[2017-04-23] MEDS ORDERED: CATAPRES PO ONE (18:00)
[2017-04-23 20:18] VITALS: BP 162/87
--- NOTE | 2017-04-23 21:04 | Operative Report ---
PROCEDURE: Colonoscopy and upper endoscopy. PREOPERATIVE DIAGNOSIS: Anemia. POSTOPERATIVE DIAGNOSES: Duodenal bulb erosions and normal colonoscopy. SEDATION: MAC by Anesthesia. HISTORY: The patient is a 47-year-old man with multiple medical problems including atrial fibrillation and a chronically inflamed left knee with marked swelling, times more than 1 year, who presents with anemia with a hemoglobin of 7.2 and an MCV of 76. Iron studies are not consistent with iron deficiency. B12 is also normal. No willy GI bleeding has been noted. The patient, however, is on Eliquis for atrial fibrillation. PROCEDURE IN DETAIL: Indications, risks, and benefits were explained and consent was obtained. The patient was placed in left lateral decubitus position and sedated. Fuji video upper scope was passed through the mouth and oropharynx into the descending duodenum and scope was then gradually withdrawn with close inspection of mucosa. FINDINGS: 1. Normal esophagus with sharp Z-line located at 44 cm from the incisors. 2. Normal appearing gastric antrum, fundus, body, and cardia. 3. A 5 mm duodenal bulb erosions -- shallow. No stigmata of bleeding. Remainder of duodenum was normal. The patient was then subsequently rotated and a colonoscopy was performed. Fuji video colonoscope was passed through the rectum after digital examination and passed with minimal difficulty to the cecum, which was identified by the ileocecal valve and the appendiceal orifice. Scope was then gradually withdrawn with close inspection of mucosa. FINDINGS: Visualized colonic mucosa is normal appearing with no evidence of mass lesions, vascular lesions, or inflammation. The patient tolerated both procedures well without immediate complications. IMPRESSION: 1. Duodenal bulb erosion. 2. Otherwise, normal upper endoscopy. 3. Normal colonoscopy. 4. No evidence of bleeding source for chronic anemia identified of note. RECOMMENDATIONS: 1. Chronic proton pump inhibitors. 2. May resume Eliquis. 3. Further evaluation of anemia as an outpatient. Anemia has been going on for more than 2 years and warrant hematologic evaluation. He may well warrant a pill camera in the future if there is any evidence of GI blood loss. JOB# [id number] HRC/NTS
== END 2017-04-23 20:50 | DRG 280 ==
LOC: ED 08:14 → 4A 13:35
PROVIDERS: ADMIT Internal Medicine; ATTEND Internal Medicine
PROC: 30233N1 Transfusion of Nonautologous Red Blood Cells into Peripheral Vein, Percutaneous Approach (ICD-10-PCS; principal; 2017-04-16)
PROC: 0DJ08ZZ Inspection of Upper Intestinal Tract, Via Natural or Artificial Opening Endoscopic (ICD-10-PCS; 2017-04-23)
PROC: 02HV33Z Insertion of Infusion Device into Superior Vena Cava, Percutaneous Approach (ICD-10-PCS; 2017-04-23)
PROC: 0DJD8ZZ Inspection of Lower Intestinal Tract, Via Natural or Artificial Opening Endoscopic (ICD-10-PCS; 2017-04-23)
PROC: 0S9D3ZX Drainage of Left Knee Joint, Percutaneous Approach, Diagnostic (ICD-10-PCS; 2017-04-23)
DX: I21.4 Non-ST elevation (NSTEMI) myocardial infarction (principal); I50.23 Acute on chronic systolic (congestive) heart failure; N17.0 Acute kidney failure with tubular necrosis; I13.0 Hypertensive heart and chronic kidney disease with heart failure and stage 1 through stage 4 chronic kidney disease, or unspecified chronic kidney disease; E78.5 Hyperlipidemia, unspecified; D68.9 Coagulation defect, unspecified; E11.610 Type 2 diabetes mellitus with diabetic neuropathic arthropathy; Z79.4 Long term (current) use of insulin; Z88.8 Allergy status to other drugs, medicaments and biological substances; Z90.49 Acquired absence of other specified parts of digestive tract; E11.22 Type 2 diabetes mellitus with diabetic chronic kidney disease; N18.3 Chronic kidney disease, stage 3 (moderate); I48.0 Paroxysmal atrial fibrillation; D63.1 Anemia in chronic kidney disease; E11.65 Type 2 diabetes mellitus with hyperglycemia; M25.462 Effusion, left knee; E87.5 Hyperkalemia
CPT/HCPCS: 36415; 71010; 71020; 73721; 76770; 77012; 78582; 80048; 80053; 80061; 81001; 82270; 82550; 82553; 82570; 82607; 82728; 82962; 83550; 83735; 83880; 83930; 83970; 84100; 84156; 84300; 84439; 84443; 84484; 85007; 85025; 85027; 85048; 85379; 85610; 85730; 86850; 86900; 86901; 86920; 87040; 87086; 87116; 87493; 87591; 89051; 93306; 94640; 96374; A9270-GY; A9540; A9558; J0696; J0885; J1644; J1815; J1818; J1940; J2704; J3370; J7030; J7040; P9016

== ENCOUNTER 2017-04-28 15:25 | Emergency (ER) | payer OTHER ==
--- NOTE | 2017-04-28 16:59 | Emergency Department Report ---
ED Medical Clearance HPI - General Chief complaint: Recheck/Abnormal Lab/Rx Stated complaint: KIDNEY FAILURE Time Seen by Provider: 04/28/17 16:46 Source: patient, family, RN notes reviewed, old records reviewed Mode of arrival: Wheelchair Limitations: Language Barrier - History of Present Illness Initial comments: His is a 47-year-old male. He is previously unknown to me. His primary care dry paste supervisor is Dr. Mar Past medical history includes paroxysmal atrial fibrillation, currently on systemic anticoagulation, diabetes, chronic renal insufficiency, chronic lymphedema, chronic left knee swelling, currently in prison facility. The patient is currently asymptomatic acutely at this time. He was sent to the ER from his prison facility for evaluation of asymptomatic elevated creatinine level. Of note, patient was discharged with a creatinine of 4.1 from this facility recently. An outpatient creatinine was measured to be 4.5. Patient denies headache, neck pain, chest pain, abdominal pain, new, different or worsened shortness of breath, he reports that he feels completely at baseline. The patient's is at bedside, and she independently corroborates this. Reason for Medical Clearance: laboratory abnormality Alledged Intoxication: No Compliant with Home Medications: Yes Traumatic Symptoms: denies traumatic injury Associated Symptoms: denies: chest pain, palpitations, diaphoresis, denies other symptoms, confusion, cough, fever/chills, headaches, anorexia, malaise, rash, seizure, syncope, weakness Treatments Prior to Arrival: none Home medications: Home Medications Medication Instructions Recorded Confirmed Last Taken AtorvaSTATin [Lipitor] 20 mg PO DAILY 08/19/15 04/14/17 04/28/17 Colesevelam [Welchol] 1,875 mg PO BID 08/19/15 04/14/17 04/28/17 Duloxetine HCl [DULoxetine] 60 mg PO DAILY 08/19/15 04/28/17 04/28/17 Tobramycin/Dexameth 0.1-0.3% 3.5 gm SUBDERMAL DAILY 08/19/15 04/28/17 04/28/17 [Tobradex] Previous Rx's Medication Instructions Recorded Last Taken Type Insulin Detemir [Levemir] 14 units SUB-Q QHS #1000 units 04/22/17 04/28/17 Rx Metoprolol Xl [Metoprolol 50 mg PO QDAY #30 tablet 04/22/17 04/28/17 Rx SUCCINATE ER TAB] Multivitamin Tab [Multiple Vitamin 1 each PO QDAY #30 tablet 04/22/17 04/28/17 Rx TAB (Theragran)] NIFEdipine XL [Procardia Xl] 30 mg PO Q12HR #60 tablet 04/22/17 04/28/17 Rx Apixaban [Eliquis] 5 mg PO BID #60 tablet 04/23/17 04/28/17 Rx Insulin Aspart [NovoLOG Flexpen] See Protocol SQ ACHS #1 insuln.pen 04/23/17 Rx Pantoprazole [Protonix] 40 mg PO BID #60 tablet 04/23/17 04/28/17 Rx Allergies/Adverse reactions: Allergies Allergy/AdvReac Type Severity Reaction Status Date / Time AMMY Inhibitors Allergy Unknown Verified 08/19/15 01:31 ED Review of Systems ROS: Stated complaint: KIDNEY FAILURE Other details as noted in HPI Constitutional: denies: fever, malaise Eyes: denies: vision change ENT: denies: epistaxis Respiratory: shortness of breath (chronic) Cardiovascular: edema (chronic). denies: chest pain Gastrointestinal: denies: abdominal pain Genitourinary: denies: urgency Musculoskeletal: arthralgia (chronic) Skin: denies: lesions Neurological: weakness (chronic) ED Past Medical Hx - Past Medical History Hx Hypertension: Yes (CHF ) Hx Diabetes: Yes Hx Deep Vein Thrombosis: No Hx Renal Disease: Yes (chronic, CR 4.1 ) Hx COPD: No Additional medical history: HIGH CHOLESTEROL, Afib - Surgical History Hx Pacemaker: No Hx Internal Defibrillator: No Hx Cholecystectomy: Yes Additional Surgical History: Cardiac ablation - Social History Smoking Status: Never Smoker Substance Use Type: None - Medications Home Medications: Home Medications Medication Instructions Recorded Confirmed Last Taken Type AtorvaSTATin [Lipitor] 20 mg PO DAILY 08/19/15 04/14/17 04/28/17 History Colesevelam [Welchol] 1,875 mg PO BID 08/19/15 04/14/17 04/28/17 History Duloxetine HCl [DULoxetine] 60 mg PO DAILY 08/19/15 04/28/17 04/28/17 History Tobramycin/Dexameth 0.1-0.3% 3.5 gm SUBDERMAL DAILY 08/19/15 04/28/17 04/28/17 History [Tobradex] Insulin Detemir [Levemir] 14 units SUB-Q QHS #1000 units 04/22/17 04/28/1704/28 Rx Metoprolol Xl [Metoprolol 50 mg PO QDAY #30 tablet 04/22/17 04/28/17 04/28/17 Rx SUCCINATE ER TAB] Multivitamin Tab [Multiple Vitamin 1 each PO QDAY #30 tablet 04/22/17 04/28/17 04/28/17 Rx TAB (Theragran)] NIFEdipine XL [Procardia Xl] 30 mg PO Q12HR #60 tablet 04/22/17 04/28/17 Rx Apixaban [Eliquis] 5 mg PO BID #60 tablet 04/23/17 04/28/17 Rx Insulin Aspart [NovoLOG Flexpen] See Protocol SQ ACHS #1 insuln.pen 04/23/1704/28/17 Rx Pantoprazole [Protonix] 40 mg PO BID #60 tablet 04/23/17 04/28/17 04/28/17 Rx ED Physical Exam - General Limitations: No Limitations General appearance: alert, in no apparent distress - Head Head exam: Present: atraumatic, normocephalic - Eye Eye exam: Present: normal appearance, EOMI. Absent: nystagmus - ENT ENT exam: Present: normal exam, normal orophraynx, mucous membranes moist, normal external ear exam - Neck Neck exam: Present: normal inspection, full ROM. Absent: tenderness, meningismus - Respiratory Respiratory exam: Present: normal lung sounds bilaterally. Absent: respiratory distress, wheezes, rales, rhonchi, stridor, chest wall tenderness - Cardiovascular Cardiovascular Exam: Present: regular rate, normal rhythm, normal heart sounds. Absent: bradycardia, tachycardia, irregular rhythm, systolic murmur, diastolic murmur, rubs, gallop - GI/Abdominal GI/Abdominal exam: Present: soft, normal bowel sounds. Absent: distended, tenderness, guarding, rebound, rigid, pulsatile mass - Rectal Rectal exam: Present: deferred - Extremities Exam Extremities exam: Present: normal inspection, full ROM, pedal edema. Absent: tenderness - Back Exam Back exam: Present: normal inspection, full ROM. Absent: paraspinal tenderness - Neurological Exam Neurological exam: Present: alert, oriented X3, other (Extraocular movements intact. Tongue midline. No facial droop. Facial sensation intact to light touch in the V1, V2, V3 distribution bilaterally. 5 and 5 strength in 4 extremities.. Sensation is intact to light touch in 4 extremities.). Absent: motor sensory deficit - Psychiatric Psychiatric exam: Present: normal affect, normal mood - Skin Skin exam: Present: warm, dry, intact, normal color. Absent: rash ED Course Vital Signs 04/28/17 04/28/17 04/28/17 16:01 18:41 21:02 Temperature 97.9 F 98.0 F 98.3 F Pulse Rate 96 H 94 H 77 Respiratory 18 16 16 Rate Blood Pressure 170/81 Blood Pressure 160/88 149/95 [Right] O2 Sat by Pulse 97 98 95 Oximetry ED Medical Decision Making - Lab Data Result diagrams: 04/28/17 16:43 04/28/17 16:43 Vital Signs 04/28/17 04/28/17 16:01 18:41 Temperature 97.9 F 98.0 F Pulse Rate 96 H 94 H Respiratory 18 16 Rate Blood Pressure 170/81 Blood Pressure 160/88 [Right] O2 Sat by Pulse 97 98 Oximetry Lab Results 04/28/17 04/28/17 Range/Units 16:43 16:43 WBC 7.8 (4.5-11.0) K/mm3 RBC 3.26 L (3.65-5.03) M/mm3 Hgb 8.1 L (11.8-15.2) gm/dl Hct 25.2 L (35.5-45.6) % MCV 77 L (84-94) fl MCH 25 L (28-32) pg MCHC 32 (32-34) % RDW 17.7 H (13.2-15.2) % Plt Count 519 H (140-440) K/mm3 Lymph % (Auto) 17.1 (13.4-35.0) % Coffey % (Auto) 15.7 H (0.0-7.3) % Eos % (Auto) 1.6 (0.0-4.3) % Baso % (Auto) 0.8 (0.0-1.8) % Lymph # 1.3 (1.2-5.4) K/mm3 Coffey # 1.2 H (0.0-0.8) K/mm3 Eos # 0.1 (0.0-0.4) K/mm3 Baso # 0.1 (0.0-0.1) K/mm3 Seg Neutrophils % 64.8 (40.0-70.0) % Seg Neutrophils # 5.1 (1.8-7.7) K/mm3 Sodium 137 (137-145) mmol/L Potassium 4.3 (3.6-5.0) mmol/L Chloride 106.1 (98-107) mmol/L Carbon Dioxide 13 L (22-30) mmol/L Anion Gap 22 mmol/L BUN 67 H (9-20) mg/dL Creatinine 4.6 H (0.8-1.5) mg/dL Estimated GFR 17 ml/min BUN/Creatinine Ratio 14.56 % Glucose 173 H (75-100) mg/dL Calcium 8.1 L (8.4-10.2) mg/dL - Medical Decision Making Differential diagnosis: Medical clearance for prison facility placement , chronic renal insufficiency Assessment and plan: 47-year-old male who was sent to the ER for asymptomatic subacute/chronic asymptomatic renal insufficiency. Patient was discharged from this hospital with anemia and renal insufficiency, and numerically his values appear to be at baseline, and he is asymptomatic. The nursing net making supervisor for the care facility, Uri was informed that the patient's current condition does not preclude him from participating in prison care or rehabilitation. Furthermore, the case was discussed with the patient's dry paste supervisor, Dr. Mar who independently agreed, and the patient will follow up with his outpatient neurologist within the next few days to weeks. There is no emergent condition at this time that requires hospitalization. ED Disposition Clinical Impression: CKD (chronic kidney disease) Disposition: DC/TX-70 ANOTHER TYPE HLTHCARE Is pt being admited?: No Does the pt Need Aspirin: No Condition: Stable Instructions: Chronic Kidney Disease (ED) Additional Instructions: Continue current outpatient medications. Follow-up with your primary care dry paste supervisor or primary care physician within the next 2-3 weeks. Return to the ER right away with fevers, chills, chest pain, shortness of breath, intractable nausea or vomiting, confusion, inability to tolerate liquid feeds. Referrals: FAREED HAYNES MD [Primary Care Provider] - 3-5 Days STEVEN LUO MD [Staff Physician] - 3-5 Days
[2017-04-28 17:03] LABS: Basophils % (Auto) 0.8 % (0.0-1.8); Eosinophils % (Auto) 1.6 % (0.0-4.3); Hematocrit 25.2 % (35.5-45.6); Hemoglobin 8.1 gm/dl (11.8-15.2); Mean Corpuscular HGB Conc 32 % (32-34); Mean Corpuscular Volume 77 fl (84-94); Platelet Count 519 K/mm3 (140-440); Red Blood Count 3.26 M/mm3 (3.65-5.03); Red Cell Distribution Width 17.7 % (13.2-15.2); White Blood Count 7.8 K/mm3 (4.5-11.0)
[2017-04-28 17:06] LABS: Mean Corpuscular Hemoglobin 25 pg (28-32)
[2017-04-28 17:10] LABS: BUN/Creatinine Ratio 14.56; Calcium 8.1 mg/dL (8.4-10.2); Chloride 106.1 mmol/L (98-107); Potassium 4.3 mmol/L (3.6-5.0)
[2017-04-28 21:09] VITALS: BP 149/95
== END 2017-04-28 21:38 | disposition other institution (70) ==
LOC: ED 15:25
DX: I12.9 Hypertensive chronic kidney disease with stage 1 through stage 4 chronic kidney disease, or unspecified chronic kidney disease (principal); E11.22 Type 2 diabetes mellitus with diabetic chronic kidney disease; N18.4 Chronic kidney disease, stage 4 (severe)
CPT/HCPCS: 36415; 80048; 85025

== ENCOUNTER 2017-08-28 22:48 | Inpatient (IN) | payer OTHER ==
[2017-08-29 00:18] LABS: Hematocrit 31.6 % (35.5-45.6); Hemoglobin 9.6 gm/dl (11.8-15.2); Mean Corpuscular HGB Conc 30 % (32-34); Mean Corpuscular Volume 76 fl (84-94); Platelet Count 179 K/mm3 (140-440); Red Blood Count 4.15 M/mm3 (3.65-5.03); Red Cell Distribution Width 18.3 % (13.2-15.2); White Blood Count 7.3 K/mm3 (4.5-11.0)
[2017-08-29 00:25] LABS: Mean Corpuscular Hemoglobin 23 pg (28-32)
[2017-08-29 00:32] LABS: Calcium 9.3 mg/dL (8.4-10.2); Chloride 93.4 mmol/L (98-107); Potassium 4.1 mmol/L (3.6-5.0)
[2017-08-29] MEDS ORDERED: NACL 0.9% 250ML 250 ML IV ONE (01:08)
[2017-08-29] MEDS ORDERED: CARDIZEM IV ONE (01:08)
--- NOTE | 2017-08-29 01:14 | Emergency Department Report ---
ED Palpitations HPI - General Chief Complaint: Arrhythmia/Palpitations Stated Complaint: GENERAL ILLNESS Time Seen by Provider: 08/29/17 01:06 Source: patient, family Mode of arrival: Stretcher Limitations: No Limitations - History of Present Illness Initial Comments: 47 YO RENAL DIALYSIS PT WITH C/O CHEST PALPITATIONS AND WEAKNESS THAT KAUR ABOUT 2.5 HRS AGO WHILE AT HOME. HE WAS DIAPHORETIC AND HAVING PALPITATIONS . PT HAD COMPLETE DIALYSIS TODAY AND WAS GIVEN HEPARIN. HE DENIES CHEST PAIN. HIS LEFT KNEE IS SWOLLEN FROM MULTIPLE FALLS AND HE IS GENERALLY NON- AMBULATORY. PER EMS THE PT AHD A FEW RUNS OF VTACH THAT WERE NOT SUSTAINED MD Complaint: rapid heart beat, irregular heart beat -: Sudden, hour(s) (2.5 HRS SGO) Arrythmia History: atrial fibrillation, on anti-coagulants, other (ATRIAL FLUTTER) Associated Symptoms: shortness of breath. denies: nausea/vomiting, anxiety - Related Data Home Medications Medication Instructions Recorded Confirmed Last Taken AtorvaSTATin [Lipitor] 20 mg PO DAILY 08/19/15 04/14/17 04/28/17 Colesevelam [Welchol] 1,875 mg PO BID 08/19/15 04/14/17 04/28/17 Duloxetine HCl [DULoxetine] 60 mg PO DAILY 08/19/15 04/28/17 04/28/17 Tobramycin/Dexameth 0.1-0.3% 3.5 gm SUBDERMAL DAILY 08/19/15 04/28/17 04/28/17 [Tobradex] Previous Rx's Medication Instructions Recorded Last Taken Type Insulin Detemir [Levemir] 14 units SUB-Q QHS #1000 units 04/22/17 04/28/17 Rx Metoprolol Xl [Metoprolol 50 mg PO QDAY #30 tablet 04/22/17 04/28/17 Rx SUCCINATE ER TAB] Multivitamin Tab [Multiple Vitamin 1 each PO QDAY #30 tablet 04/22/17 04/28/17 Rx TAB (Theragran)] NIFEdipine XL [Procardia Xl] 30 mg PO Q12HR #60 tablet 04/22/17 04/28/17 Rx Apixaban [Eliquis] 5 mg PO BID #60 tablet 04/23/17 04/28/17 Rx Insulin Aspart [NovoLOG Flexpen] See Protocol SQ ACHS #1 insuln.pen 04/23/17 Rx Pantoprazole [Protonix TAB] 40 mg PO BID #60 tablet 04/23/17 04/28/17 Rx HYDROcodone/APAP 5-325 [Butler 2 each PO Q4H PRN #12 tablet 06/20/17 Unknown Rx 5-325 mg TAB] Allergies Allergy/AdvReac Type Severity Reaction Status Date / Time AMMY Inhibitors Allergy Unknown Verified 08/19/15 01:31 ED Review of Systems ROS: Stated complaint: GENERAL ILLNESS Other details as noted in HPI Constitutional: denies: chills, fever Eyes: denies: eye pain, eye discharge, vision change ENT: denies: ear pain, throat pain Respiratory: shortness of breath. denies: cough, wheezing Cardiovascular: denies: chest pain, palpitations Endocrine: no symptoms reported Gastrointestinal: denies: abdominal pain, nausea, diarrhea Genitourinary: denies: urgency, dysuria Musculoskeletal: joint swelling (LEFT KNEE). denies: back pain, arthralgia Skin: denies: rash, lesions Neurological: other (NON-AMBULATORY). denies: headache, weakness, paresthesias Psychiatric: denies: anxiety, depression Hematological/Lymphatic: denies: easy bleeding, easy bruising ED Past Medical Hx - Past Medical History Hx Hypertension: Yes (CHF ) Hx Congestive Heart Failure: Yes Hx Diabetes: Yes Hx Deep Vein Thrombosis: No Hx Renal Disease: Yes (chronic, CR 4.1 , DIALYSIS T//FRI) Hx COPD: No Additional medical history: HIGH CHOLESTEROL, Afib, A-FLUTTER,PERIPHERAL NEUROPATHY,ANEMIA, BLOOD TRANSFUSION - Surgical History Hx Pacemaker: No Hx Internal Defibrillator: No Hx Cholecystectomy: Yes Additional Surgical History: Cardiac ablation - Social History Smoking Status: Never Smoker - Medications Home Medications: Home Medications Medication Instructions Recorded Confirmed Last Taken Type AtorvaSTATin [Lipitor] 20 mg PO DAILY 08/19/15 04/14/17 04/28/17 History Colesevelam [Welchol] 1,875 mg PO BID 08/19/15 04/14/17 04/28/17 History Duloxetine HCl [DULoxetine] 60 mg PO DAILY 08/19/15 04/28/17 04/28/17 History Tobramycin/Dexameth 0.1-0.3% 3.5 gm SUBDERMAL DAILY 08/19/15 04/28/17 04/28/17 History [Tobradex] Insulin Detemir [Levemir] 14 units SUB-Q QHS #1000 units 04/22/17 04/28/1704/28 Rx Metoprolol Xl [Metoprolol 50 mg PO QDAY #30 tablet 04/22/17 04/28/17 04/28/17 Rx SUCCINATE ER TAB] Multivitamin Tab [Multiple Vitamin 1 each PO QDAY #30 tablet 04/22/17 04/28/17 04/28/17 Rx TAB (Theragran)] NIFEdipine XL [Procardia Xl] 30 mg PO Q12HR #60 tablet 04/22/17 04/28/17 Rx Apixaban [Eliquis] 5 mg PO BID #60 tablet 04/23/17 04/28/17 Rx Insulin Aspart [NovoLOG Flexpen] See Protocol SQ ACHS #1 insuln.pen 04/23/1704/28/17 Rx Pantoprazole [Protonix TAB] 40 mg PO BID #60 tablet 04/23/17 04/28/17 04/28/17 Rx HYDROcodone/APAP 5-325 [Butler 2 each PO Q4H PRN #12 tablet 06/20/17 Unknown Rx 5-325 mg TAB] ED Physical Exam - General Limitations: No Limitations General appearance: alert, in no apparent distress - Head Head exam: Present: atraumatic, normocephalic - Eye Eye exam: Present: normal appearance - ENT ENT exam: Present: mucous membranes moist - Neck Neck exam: Present: full ROM, other (JVD) - Respiratory Respiratory exam: Present: normal lung sounds bilaterally. Absent: respiratory distress - Cardiovascular Cardiovascular Exam: Present: normal rhythm, tachycardia (PT SWITCHES FROM A- FIB TOA-FLUTTER, AND SINUS TACHYCARDIA), irregular rhythm. Absent: systolic murmur, diastolic murmur, rubs, gallop - GI/Abdominal GI/Abdominal exam: Present: soft, normal bowel sounds - Rectal Rectal exam: Present: deferred - Extremities Exam Extremities exam: Present: pedal edema (2+, BILATERAL HYPERPIGMENTED LOWE EXTREMITY, POOR CIRCULATION) - Back Exam Back exam: Present: normal inspection, full ROM - Neurological Exam Neurological exam: Present: alert, oriented X3, CN II-XII intact - Psychiatric Psychiatric exam: Present: normal affect, normal mood - Skin Skin exam: Present: warm, dry, intact, normal color. Absent: rash ED Course Vital Signs 08/28/17 08/28/17 08/28/17 23:18 23:29 23:30 Temperature 98.8 F Pulse Rate 118 H 121 H 134 H Respiratory 15 18 18 Rate Blood Pressure 127/64 127/64 O2 Sat by Pulse 99 Oximetry 08/28/17 08/29/17 08/29/17 23:46 00:00 00:16 Temperature Pulse Rate 122 H 135 H 123 H Respiratory 14 20 17 Rate Blood Pressure 132/61 129/58 119/68 O2 Sat by Pulse Oximetry 08/29/17 00:30 Temperature Pulse Rate 126 H Respiratory 18 Rate Blood Pressure 120/69 O2 Sat by Pulse Oximetry ED Medical Decision Making - Lab Data Result diagrams: 08/28/17 23:52 08/28/17 23:52 - EKG Data -: EKG Interpreted by [facility] EKG shows normal: axis, QRS complexes, ST-T waves Rate: tachycardia (SINUS TACHYCARDIA, THEN A-FIB THEN A-FLUTTER, PT MOSTLY IN A- FIB) - EKG Data Interpretation: [facility] - Radiology Data Radiology results: report reviewed (CXR;NORMAL CTA: NO PE, PULMONARY VENOUS ) - Medical Decision Making DR PAUL FIGUEREDO WHO IS THE DIALYSIS DOCTOR, WAITING FOR RESPONSE Critical Care Time: Yes Critical care time in (mins) excluding proc time.: 60 Critical care attestation.: If time is entered above; I have spent that time in minutes in the direct care of this critically ill patient, excluding procedure time. [facility]BELLA ED Disposition Clinical Impression: Atrial fibrillation and flutter, Ventricular tachycardia Renal failure Qualifiers: Renal failure chronicity: chronic Chronic kidney disease stage: on chronic dialysis Qualified Code(s): N18.6 - End stage renal disease; Z99.2 - Dependence on renal dialysis; Z99.2 - Dependence on renal dialysis; Z99.2 - Dependence on renal dialysis; Z99.2 - Dependence on renal dialysis CHF (congestive heart failure) Qualifiers: Congestive heart failure type: unspecified congestive heart failure type Congestive heart failure chronicity: acute on chronic Qualified Code(s): I50.9 - Heart failure, unspecified Disposition: -09 OP ADMIT IP TO THIS HOSP Is pt being admited?: Yes Does the pt Need Aspirin: No Condition: Serious Referrals: HAL VERONICA MD [Staff Physician] - 3-5 Days Time of Disposition: 05:36 (DR KYM FIGUEREDO,CASE REVIEWED AND SHE WILL ADMIT HIM TO HER SERVICE)
[2017-08-29] MEDS ORDERED: CARDIZEM/D5W 100MG/100ML 100 MG/100 ML BAG IV SCH (02:00)
--- NOTE | 2017-08-29 02:01 | XRay Report ---
FINAL REPORT EXAM: XR CHEST 1V AP HISTORY: SHORT OF BREATH TECHNIQUE: A portable semi upright view of the chest was obtained. Comparison is made the study of 08/29/2017. FINDINGS: Heart size and mediastinum appear normal. There is a double lumen venous catheter in good position in the superior vena cava. There are no localized infiltrates or effusions. The bones and soft tissues do not show any acute changes. IMPRESSION: No active chest disease.
[2017-08-29] MEDS ORDERED: NACL 0.9% 500 ML 500 ML ONE (02:43)
[2017-08-29] MEDS ORDERED: NACL ONE (03:44)
[2017-08-29 04:48] LABS: Anisocytosis 1+; Basophils % (Manual) 0 % (0.0-1.8); Blastocytes % (Manual) 0 %; Diff Status Complete; Eosinophils % (Manual) 0 % (0.0-4.3); Hypochromasia 1+
--- NOTE | 2017-08-29 05:16 | Cat Scan Report ---
FINAL REPORT EXAM: CT ANGIO CHEST HISTORY: SHORT OF BREATH,TACHYCARDIA TECHNIQUE: A CT angiogram was performed following the intravenous injection of 100 cc of Omnipaque 350. MIP rotational sagittal coronal reconstructions were reviewed. FINDINGS: There is no evidence of pulmonary embolus or aortic dissection. The heart is mildly enlarged. The lungs are diffusely congested. There are no localized infiltrates or pleural effusions. Pericardial fluid is not seen. In the upper abdomen there is diminished attenuation of liver compatible with hepatic steatosis. The skeletal structures reveal multilevel disc degeneration in the thoracic spine. At the thoracic inlet the thyroid gland is prominent in size. There are no focal thyroid lesions. The surrounding soft tissues reveal subcutaneous edema along the chest wall suggesting anasarca. IMPRESSION: No evidence of pulmonary embolus or aortic dissection. Pulmonary vascular congestion with interstitial edema. Probable anasarca also appear Thyromegaly. Hepatic steatosis.
[2017-08-29] MEDS ORDERED: ZOFRAN IV PRN (06:31)
[2017-08-29] MEDS ORDERED: DULCOLAX PR PRN (06:31)
[2017-08-29] MEDS ORDERED: TYLENOL PO PRN (06:31)
--- NOTE | 2017-08-29 06:40 | History and Physical Report ---
History of Present Illness Date of examination: 08/29/17 History of present illness: 47-year-old man with history of end-stage renal disease on dialysis, Friday, , Friday, paroxysmal A. fib, status post ablation, hyperlipidemia, diabetes, coronary artery disease comes to emergency room because around 9:00 last night he developed palpitations and shortness of breath lasting for an hour. He was also diaphoretic, EMS was called and brought the patient to the emergency room. Patient was given IV Cardizem, he is now back in normal sinus Review Of Systems: Constitutional: no weight loss Ears, eyes, nose, mouth and throat: no nasal congestion, no nasal discharge, no sinus pressure, blurry vision, diplopia Neck: No neck pain or rigidity. Cardiovascular: No chest pain Respiratory: No cough Gastrointestinal: No abdominal pain, hematochezia Genitourinary : no dysuria, frequency , hematuria Musculoskeletal: no muscle ache Integumentary: no rash, no pruritis Neurological: no parathesias, focal weakness Endocrine: no cold or heat intolerance, no polyuria or polydipsia Hematologic/Lymphatic: no easy bruising, no easy bleeding, no gland swelling Allergic/Immunologic: no urticaria, no angioedema. PAST MEDICAL HISTORY:end-stage renal disease on dialysis, paroxysmal A. fib, status post ablation, hyperlipidemia, diabetes, coronary artery disease PAST SURGICAL HISTORY: Cholecystectomy, amputation of the right fifth toe FAMILY HISTORY: Hypertension, diabetes SOCIAL HISTORY: Denies alcohol, tobacco, drugs Medications and Allergies Allergies Allergy/AdvReac Type Severity Reaction Status Date / Time AMMY Inhibitors Allergy Unknown Verified 08/19/15 01:31 Home Medications Medication Instructions Recorded Confirmed Last Taken Type AtorvaSTATin [Lipitor] 20 mg PO DAILY 08/19/15 04/14/17 04/28/17 History Colesevelam [Welchol] 1,875 mg PO BID 08/19/15 04/14/17 04/28/17 History Duloxetine HCl [DULoxetine] 60 mg PO DAILY 08/19/15 04/28/17 04/28/17 History Tobramycin/Dexameth 0.1-0.3% 3.5 gm SUBDERMAL DAILY 08/19/15 04/28/17 04/28/17 History [Tobradex] Insulin Detemir [Levemir] 14 units SUB-Q QHS #1000 units 04/22/17 04/28/1704/28 Rx Metoprolol Xl [Metoprolol 50 mg PO QDAY #30 tablet 04/22/17 04/28/17 04/28/17 Rx SUCCINATE ER TAB] Multivitamin Tab [Multiple Vitamin 1 each PO QDAY #30 tablet 04/22/17 04/28/17 04/28/17 Rx TAB (Theragran)] NIFEdipine XL [Procardia Xl] 30 mg PO Q12HR #60 tablet 04/22/17 04/28/17 Rx Apixaban [Eliquis] 5 mg PO BID #60 tablet 04/23/17 04/28/17 Rx Insulin Aspart [NovoLOG Flexpen] See Protocol SQ ACHS #1 insuln.pen 04/23/1704/28/17 Rx Pantoprazole [Protonix TAB] 40 mg PO BID #60 tablet 04/23/17 04/28/17 04/28/17 Rx HYDROcodone/APAP 5-325 [[place] 2 each PO Q4H PRN #12 tablet 06/20/17 Unknown Rx 5-325 mg TAB] Active Meds: Active Medications Acetaminophen (Tylenol) 650 mg PO Q4H PRN PRN Reason: Pain MILD(1-3)/Fever >100.5/GARZON Bisacodyl (Dulcolax) 10 mg [place] QDAY PRN PRN Reason: Constipation unrelieved by MOM Enoxaparin Sodium (Lovenox) 30 mg SUB-Q QDAY [facility] Ondansetron HCl (Zofran) 4 mg IV Q8H PRN PRN Reason: N/V unrelieved by Reglan Exam - Physical Exam Narrative exam: Gen. appearance: Patient lying in bed in no acute distress HEENT: Normocephalic/atraumatic, pupils equal round reactive to light, extra occular movement intact, no scleral icterus, no JVD or thyromegaly or nodule, neck is supple, mucous membrane moist, no erythema or exudate Heart: S1-S2, regular rate and rhythm Lungs: Crackles bilateral breathing comfortable Abdomen: Positive bowel sounds, nontender, nondistended, no organomegaly Extremities: Lymphedema of left leg, cyanosis, clubbing Neuro:: Oriented 3 , cranial nerves II-12 intact, speech, motor intact Skin: No rash, nodules, warm dry - Constitutional Vitals: Temp Pulse Resp BP Pulse Ox 98.8 F 126 H 18 120/69 99 08/28/17 23:29 08/29/17 00:30 08/29/17 00:30 08/29/17 00:30 08/28/17 23:29 Results - Labs CBC & Chem 7: 08/28/17 23:52 08/28/17 23:52 Labs: Abnormal lab results 08/28/17 08/28/17 08/29/17 Range/Units 23:52 23:52 01:34 Hgb 9.6 L (11.8-15.2) gm/dl Hct 31.6 L (35.5-45.6) % MCV 76 L (84-94) fl MCH 23 L (28-32) pg MCHC 30 L (32-34) % RDW 18.3 H (13.2-15.2) % Seg Neuts % (Manual) 80.0 H (40.0-70.0) % Lymphocytes # (Manual) 1.0 L (1.2-5.4) K/mm3 D-Dimer 1313.28 H (0-234) ng/mlDDU Sodium 136 L (137-145) mmol/L Chloride 93.4 L (98-107) mmol/L BUN 26 H (9-20) mg/dL Creatinine 2.0 H (0.8-1.5) mg/dL Glucose 102 H (75-100) mg/dL Troponin T 0.266 H* (0.00-0.029) ng/mL NT-Pro-B Natriuret Pep (0-450) pg/mL LDL Cholesterol Direct 16 L (50-130) mg/dL HDL Cholesterol 25 L (40-59) mg/dL 08/29/17 08/29/17 Range/Units 01:34 03:00 Hgb (11.8-15.2) gm/dl Hct (35.5-45.6) % MCV (84-94) fl MCH (28-32) pg MCHC (32-34) % RDW (13.2-15.2) % Seg Neuts % (Manual) (40.0-70.0) % Lymphocytes # (Manual) (1.2-5.4) K/mm3 D-Dimer (0-234) ng/mlDDU Sodium (137-145) mmol/L Chloride (98-107) mmol/L BUN (9-20) mg/dL Creatinine (0.8-1.5) mg/dL Glucose (75-100) mg/dL Troponin T 0.242 H* (0.00-0.029) ng/mL NT-Pro-B Natriuret Pep 03364 H (0-450) pg/mL LDL Cholesterol Direct (50-130) mg/dL HDL Cholesterol (40-59) mg/dL - Imaging and Cardiology EKG: image reviewed Chest x-ray: image reviewed CT scan - chest: report reviewed Assessment and Plan Assessment A. 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 fib is now resolved, check cardiac enzymes, consult cardiology Check fingersticks and initiate insulin sliding scale Consult renal for dialysis Continue Procrit outpatient medications DVT prophylaxis
[2017-08-29] MEDS ORDERED: D50W (25GM) Syringe IV PRN (06:45)
[2017-08-29 07:46] LABS: Creatine Kinase MB 1.4 ng/mL (0.0-4.0)
--- NOTE | 2017-08-29 07:59 | Consultation ---
History of Present Illness - Reason for Consult Consult date: 08/29/17 end stage renal disease, other (anemia) Medications and Allergies Allergies Allergy/AdvReac Type Severity Reaction Status Date / Time AMMY Inhibitors Allergy Unknown Verified 08/19/15 01:31 Home Medications Medication Instructions Recorded Confirmed Last Taken Type AtorvaSTATin [Lipitor] 20 mg PO DAILY 08/19/15 04/14/17 04/28/17 History Colesevelam [Welchol] 1,875 mg PO BID 08/19/15 04/14/17 04/28/17 History Duloxetine HCl [DULoxetine] 60 mg PO DAILY 08/19/15 04/28/17 04/28/17 History Tobramycin/Dexameth 0.1-0.3% 3.5 gm SUBDERMAL DAILY 08/19/15 04/28/17 04/28/17 History [Tobradex] Insulin Detemir [Levemir] 14 units SUB-Q QHS #1000 units 04/22/17 04/28/1704/28 Rx Metoprolol Xl [Metoprolol 50 mg PO QDAY #30 tablet 04/22/17 04/28/17 04/28/17 Rx SUCCINATE ER TAB] Multivitamin Tab [Multiple Vitamin 1 each PO QDAY #30 tablet 04/22/17 04/28/17 04/28/17 Rx TAB (Theragran)] NIFEdipine XL [Procardia Xl] 30 mg PO Q12HR #60 tablet 04/22/17 04/28/17 Rx Apixaban [Eliquis] 5 mg PO BID #60 tablet 04/23/17 04/28/17 Rx Insulin Aspart [NovoLOG Flexpen] See Protocol SQ ACHS #1 insuln.pen 04/23/1704/28/17 Rx Pantoprazole [Protonix TAB] 40 mg PO BID #60 tablet 04/23/17 04/28/17 04/28/17 Rx HYDROcodone/APAP 5-325 [[place] 2 each PO Q4H PRN #12 tablet 06/20/17 Unknown Rx 5-325 mg TAB] Active Meds: Active Medications Acetaminophen (Tylenol) 650 mg PO Q4H PRN PRN Reason: Pain MILD(1-3)/Fever >100.5/GARZON Apixaban (Eliquis) 5 mg PO BID [facility] PRN Reason: Protocol Atorvastatin Calcium (Lipitor) 20 mg PO QHS [facility] Bisacodyl (Dulcolax) 10 mg [place] QDAY PRN PRN Reason: Constipation unrelieved by MOM Colesevelam HCl (Welchol) 1,875 mg PO BID@0800,1700 [facility] Dextrose (D50w (25gm) Syringe) 50 ml IV PRN PRN PRN Reason: Hypoglycemia Duloxetine HCl (Cymbalta) 60 mg PO QDAY [facility] Insulin Aspart (Novolog) 0 units SUB-Q ACHS [facility] PRN Reason: Protocol Insulin Detemir (Levemir) 14 units SUB-Q QHS [facility] Metoprolol Succinate (Toprol Xl) 50 mg PO QDAY [facility] Nifedipine (Procardia Xl) 30 mg PO Q12HR [facility] Ondansetron HCl (Zofran) 4 mg IV Q8H PRN PRN Reason: N/V unrelieved by Reglan Pantoprazole Sodium (Protonix) 40 mg PO BID [facility] Exam - Vital Signs Vital signs: Vital Signs Pulse Resp 118 H 15 08/28/17 23:18 08/28/17 23:18 Results - Lab Results 08/28/17 23:52 08/28/17 23:52 Most recent lab results Calcium 9.3 mg/dL (8.4-10.2) 08/28/17 23:52
--- NOTE | 2017-08-29 08:22 | Progress Note ---
Hospitalist Physical - Constitutional Vitals: Temp Pulse Resp BP Pulse Ox 98.8 F 77 20 146/78 94 08/28/17 23:29 08/29/17 08:00 08/29/17 08:00 08/29/17 03:00 08/29/17 08:00 Results - Labs CBC & Chem 7: 08/28/17 23:52 08/28/17 23:52 Labs: Laboratory Last Values WBC 7.3 K/mm3 (4.5-11.0) 08/28/17 23:52 RBC 4.15 M/mm3 (3.65-5.03) 08/28/17 23:52 Hgb 9.6 gm/dl (11.8-15.2) L 08/28/17 23:52 Hct 31.6 % (35.5-45.6) L 08/28/17 23:52 MCV 76 fl (84-94) L 08/28/17 23:52 MCH 23 pg (28-32) L 08/28/17 23:52 MCHC 30 % (32-34) L 08/28/17 23:52 RDW 18.3 % (13.2-15.2) H 08/28/17 23:52 Plt Count 179 K/mm3 (140-440) 08/28/17 23:52 Lymph % (Auto) Life Support Technician 08/28/17 23:52 [place] % (Auto) Life Support Technician 08/28/17 23:52 Eos % (Auto) Life Support Technician 08/28/17 23:52 Baso % (Auto) Life Support Technician 08/28/17 23:52 Lymph # Life Support Technician 08/28/17 23:52 [place] # Life Support Technician 08/28/17 23:52 Eos # Life Support Technician 08/28/17 23:52 Baso # Life Support Technician 08/28/17 23:52 Add Manual Diff Complete 08/28/17 23:52 Total Counted 100 08/28/17 23:52 Seg Neutrophils % Life Support Technician 08/28/17 23:52 Seg Neuts % (Manual) 80.0 % (40.0-70.0) H 08/28/17 23:52 Band Neutrophils % 3.0 % 08/28/17 23:52 Lymphocytes % (Manual) 14.0 % (13.4-35.0) 08/28/17 23:52 Reactive Lymphs % (Man) 0 % 08/28/17 23:52 Monocytes % (Manual) 3.0 % (0.0-7.3) 08/28/17 23:52 Eosinophils % (Manual) 0 % (0.0-4.3) 08/28/17 23:52 Basophils % (Manual) 0 % (0.0-1.8) 08/28/17 23:52 Metamyelocytes % 0 % 08/28/17 23:52 Myelocytes % 0 % 08/28/17 23:52 Promyelocytes % 0 % 08/28/17 23:52 Blast Cells % 0 % 08/28/17 23:52 Nucleated RBC % Not Reportable 08/28/17 23:52 Seg Neutrophils # Life Support Technician 08/28/17 23:52 Seg Neutrophils # Man 5.8 K/mm3 (1.8-7.7) 08/28/17 23:52 Band Neutrophils # 0.2 K/mm3 08/28/17 23:52 Lymphocytes # (Manual) 1.0 K/mm3 (1.2-5.4) L 08/28/17 23:52 Abs React Lymphs (Man) 0.0 K/mm3 08/28/17 23:52 Monocytes # (Manual) 0.2 K/mm3 (0.0-0.8) 08/28/17 23:52 Eosinophils # (Manual) 0.0 K/mm3 (0.0-0.4) 08/28/17 23:52 Basophils # (Manual) 0.0 K/mm3 (0.0-0.1) 08/28/17 23:52 Metamyelocytes # 0.0 K/mm3 08/28/17 23:52 Myelocytes # 0.0 K/mm3 08/28/17 23:52 Promyelocytes # 0.0 K/mm3 08/28/17 23:52 Blast Cells # 0.0 K/mm3 08/28/17 23:52 WBC Morphology Not Reportable 08/28/17 23:52 Hypersegmented Neuts Not Reportable 08/28/17 23:52 Hyposegmented Neuts Not Reportable 08/28/17 23:52 Hypogranular Neuts Not Reportable 08/28/17 23:52 Smudge Cells Not Reportable 08/28/17 23:52 Toxic Granulation Not Reportable 08/28/17 23:52 Toxic Vacuolation Not Reportable 08/28/17 23:52 Dohle Bodies Not Reportable 08/28/17 23:52 Pelger-Huet Anomaly Not Reportable 08/28/17 23:52 Lyla Rods Not Reportable 08/28/17 23:52 Platelet Estimate Appears normal 08/28/17 23:52 Clumped Platelets Not Reportable 08/28/17 23:52 Plt Clumps, EDTA Not Reportable 08/28/17 23:52 Large Platelets Not Reportable 08/28/17 23:52 Giant Platelets Not Reportable 08/28/17 23:52 Platelet Satelliting Not Reportable 08/28/17 23:52 Plt Morphology Comment Not Reportable 08/28/17 23:52 RBC Morphology Not Reportable 08/28/17 23:52 Dimorphic RBCs Not Reportable 08/28/17 23:52 Polychromasia Not Reportable 08/28/17 23:52 Hypochromasia 1+ 08/28/17 23:52 Poikilocytosis Not Reportable 08/28/17 23:52 Anisocytosis 1+ 08/28/17 23:52 Microcytosis Not Reportable 08/28/17 23:52 Macrocytosis Not Reportable 08/28/17 23:52 Spherocytes Not Reportable 08/28/17 23:52 Pappenheimer Bodies Not Reportable 08/28/17 23:52 Sickle Cells Not Reportable 08/28/17 23:52 Target Cells Not Reportable 08/28/17 23:52 Tear Drop Cells Not Reportable 08/28/17 23:52 Ovalocytes Not Reportable 08/28/17 23:52 Helmet Cells Not Reportable 08/28/17 23:52 [place] Bodies Not Reportable 08/28/17 23:52 [place] Rings Not Reportable 08/28/17 23:52 Wojciech Cells Not Reportable 08/28/17 23:52 Bite Cells Not Reportable 08/28/17 23:52 Crenated Cell Not Reportable 08/28/17 23:52 Elliptocytes Not Reportable 08/28/17 23:52 Acanthocytes (Spur) Not Reportable 08/28/17 23:52 Rouleaux Not Reportable 08/28/17 23:52 Hemoglobin C Crystals Not Reportable 08/28/17 23:52 Schistocytes Not Reportable 08/28/17 23:52 Malaria parasites Not Reportable 08/28/17 23:52 Shaun Bodies Not Reportable 08/28/17 23:52 Hem Pathologist Commnt No 08/28/17 23:52 D-Dimer 1313.28 ng/mlDDU (0-234) H 08/29/17 01:34 Sodium 136 mmol/L (137-145) L 08/28/17 23:52 Potassium 4.1 mmol/L (3.6-5.0) 08/28/17 23:52 Chloride 93.4 mmol/L (98-107) L 08/28/17 23:52 Carbon Dioxide 27 mmol/L (22-30) 08/28/17 23:52 Anion Gap 20 mmol/L 08/28/17 23:52 BUN 26 mg/dL (9-20) H 08/28/17 23:52 Creatinine 2.0 mg/dL (0.8-1.5) H 08/28/17 23:52 Estimated GFR 44 ml/min 08/28/17 23:52 BUN/Creatinine Ratio 13 % 08/28/17 23:52 Glucose 102 mg/dL (75-100) H 08/28/17 23:52 Calcium 9.3 mg/dL (8.4-10.2) 08/28/17 23:52 Total Creatine Kinase 23 units/L (55-170) L 08/29/17 Unknown CK-MB (CK-2) 1.4 ng/mL (0.0-4.0) 08/29/17 Unknown CK-MB (CK-2) Rel Index 6.0 (0-4) H 08/29/17 Unknown Troponin T 0.239 ng/mL (0.00-0.029) H* 08/29/17 Unknown NT-Pro-B Natriuret Pep 69058 pg/mL (0-450) H 08/29/17 01:34 Triglycerides 59 mg/dL (2-149) 08/28/17 23:52 Cholesterol 52 mg/dL (50-199) 08/28/17 23:52 LDL Cholesterol Direct 16 mg/dL (50-130) L 08/28/17 23:52 HDL Cholesterol 25 mg/dL (40-59) L 08/28/17 23:52 Cholesterol/HDL Ratio 2.08 % 08/28/17 23:52
[2017-08-29] MEDS ORDERED: LOVENOX SUB-Q SCH ×2 (10:00)
[2017-08-29] MEDS ORDERED: NON-FORMULARY (Duloxetine Hcl [Duloxetine] 60 MG) PO SCH (10:00)
[2017-08-29] MEDS: TOPROL XL PO SCH (10:08)
[2017-08-29] MEDS: CYMBALTA PO SCH (10:08)
[2017-08-29] MEDS: PROTONIX PO SCH ×2 (10:09→21:51)
[2017-08-29] MEDS: ELIQUIS PO SCH ×2 (10:09→21:50)
[2017-08-29] MEDS: PROCARDIA XL PO SCH ×2 (10:09→21:51)
[2017-08-29] MEDS: NOVOLOG SUB-Q SCH ×4 (10:10→21:32)
--- NOTE | 2017-08-29 10:34 | Consultation ---
History of Present Illness Consult date: 08/29/17 Consult reason: atrial fibrillation History of present illness: This is a 47yr old male with a history of paroxysmal atrial fibrillation and reports taking flecainide 50mg and is on eliquis for oral anticoagulation. He was brought in with complaints of palpitations. Patient denies chest pain and shortness of breath. He associates palpitations with diaphoresis. There was no syncope. Cardiology consultation was requested. Today, patient reports he is feels better since his initial treatment in the emergency department. Medications and Allergies Allergies Allergy/AdvReac Type Severity Reaction Status Date / Time AMMY Inhibitors Allergy Unknown Verified 08/19/15 01:31 Home Medications Medication Instructions Recorded Confirmed Last Taken Type AtorvaSTATin [Lipitor] 20 mg PO DAILY 08/19/15 08/29/17 1 Day Ago History ~08/28/17 Colesevelam [Welchol] 1,875 mg PO BID 08/19/15 08/29/17 1 Day Ago History ~08/28/17 Duloxetine HCl [DULoxetine] 60 mg PO DAILY 08/19/15 08/29/17 1 Day Ago History ~08/28/17 Tobramycin/Dexameth 0.1-0.3% 3.5 gm SUBDERMAL DAILY 08/19/15 08/29/17 1 Day Ago History [Tobradex] ~08/28/17 Insulin Detemir [Levemir] 14 units SUB-Q QHS #1000 units 04/22/17 08/29/17 1 Day Ago Rx ~08/28/17 Metoprolol Xl [Metoprolol 50 mg PO QDAY #30 tablet 04/22/17 08/29/17 1 Day Ago Rx SUCCINATE ER TAB] ~08/28/17 Multivitamin Tab [Multiple Vitamin 1 each PO QDAY #30 tablet 04/22/17 08/29/17 1 Day Ago Rx TAB (Theragran)] ~08/28/17 NIFEdipine XL [Procardia Xl] 30 mg PO Q12HR #60 tablet 04/22/17 08/29/17 1 Day Ago Rx ~08/28/17 Apixaban [Eliquis] 5 mg PO BID #60 tablet 04/23/17 08/29/17 1 Day Ago Rx ~08/28/17 Insulin Aspart [NovoLOG Flexpen] See Protocol SQ ACHS #1 insuln.pen 04/23/17 1 Day Ago Rx ~08/28/17 Pantoprazole [Protonix TAB] 40 mg PO BID #60 tablet 04/23/17 08/29/17 1 Day Ago Rx ~08/28/17 HYDROcodone/APAP 5-325 [[place] 2 each PO Q4H PRN #12 tablet 06/20/17 08/29/17 1 Day Ago Rx 5-325 mg TAB] ~08/28/17 Active Meds: Active Medications Acetaminophen (Tylenol) 650 mg PO Q4H PRN PRN Reason: Pain MILD(1-3)/Fever >100.5/GARZON Apixaban (Eliquis) 5 mg PO BID [facility] PRN Reason: Protocol Last Admin: 08/29/17 10:09 Dose: 5 mg Atorvastatin Calcium (Lipitor) 20 mg PO QHS [facility] Bisacodyl (Dulcolax) [address] QDAY PRN PRN Reason: Constipation unrelieved by MOM Colesevelam HCl (Welchol) 1,875 mg PO BID@0800,1700 [facility] Dextrose (D50w (25gm) Syringe) 50 ml IV PRN PRN PRN Reason: Hypoglycemia Duloxetine HCl (Cymbalta) 60 mg PO QDAY [facility] Last Admin: 08/29/17 10:08 Dose: 60 mg Insulin Aspart (Novolog) 0 units SUB-Q ACHS [facility] PRN Reason: Protocol Last Admin: 08/29/17 10:10 Dose: Not Given Insulin Detemir (Levemir) 14 units SUB-Q QHS [facility] Metoprolol Succinate (Toprol Xl) 50 mg PO QDAY [facility] Last Admin: 08/29/17 10:08 Dose: 50 mg Nifedipine (Procardia Xl) 30 mg PO Q12HR [facility] Last Admin: 08/29/17 10:09 Dose: 30 mg Ondansetron HCl (Zofran) 4 mg IV Q8H PRN PRN Reason: N/V unrelieved by Reglan Pantoprazole Sodium (Protonix) 40 mg PO BID [facility] Last Admin: 08/29/17 10:09 Dose: 40 mg Physical Examination Vital Signs Pulse Resp 118 H 15 08/28/17 23:18 08/28/17 23:18 General appearance: no acute distress Cardiac: Positive: Reg Rate and Rhythm Results 08/28/17 23:52 08/28/17 23:52 Cardiac Enzymes 08/29/17 Range/Units Unknown CK-MB (CK-2) 1.4 (0.0-4.0) ng/mL Lipids 08/28/17 Range/Units 23:52 Triglycerides 59 (2-149) mg/dL Cholesterol 52 (50-199) mg/dL HDL Cholesterol 25 L (40-59) mg/dL Cholesterol/HDL Ratio 2.08 % CBC 08/28/17 Range/Units 23:52 WBC 7.3 (4.5-11.0) K/mm3 RBC 4.15 (3.65-5.03) M/mm3 Hgb 9.6 L (11.8-15.2) gm/dl Hct 31.6 L (35.5-45.6) % Plt Count 179 (140-440) K/mm3 Lymph # Tracer Clerk [place] # Tracer Clerk Eos # Tracer Clerk Baso # Tracer Clerk Comprehensive Metabolic Panel 08/28/17 Range/Units 23:52 Sodium 136 L (137-145) mmol/L Potassium 4.1 (3.6-5.0) mmol/L Chloride 93.4 L (98-107) mmol/L Carbon Dioxide 27 (22-30) mmol/L BUN 26 H (9-20) mg/dL Creatinine 2.0 H (0.8-1.5) mg/dL Glucose 102 H (75-100) mg/dL Calcium 9.3 (8.4-10.2) mg/dL Assessment and Plan Atrial fib/flutter, paroxysmal currently in sinus rhythm on eliquis for oral anticoagulation ESRD on dialysis Anemia Diabetes Normal LVEF, 55-60% on an echo 04/2017
--- NOTE | 2017-08-29 10:45 | Consultation ---
History of Present Illness - Reason for Consult Consult date: 08/29/17 end stage renal disease, other (anemia) - History of Present Illness The patient is a 47-year-old AAM who is well known to our service with medical history significant for DM type 2, Hypertension, Hyperlipidemia, ESRD on hemodialysis (MWF), Obesity, Anemia, CHF, paroxysmal A.fib and nonambulatory secondary to left knee Charcot's disease who presented to the ER last night with palpitation and SOB of one hour duration. He was found to have A.fib with RVR. Rhythm converted to sinus after IV Cardizem. He is feeling better now. No h/o N, V, D, abd pain, dizziness, cp, syncope, fever, rash or hematuria. His legs are chroncially swollen, left greater than right. Past History Past Medical History: diabetes, dialysis, ESRD, hypertension, other (anemia) Medications and Allergies Allergies Allergy/AdvReac Type Severity Reaction Status Date / Time AMMY Inhibitors Allergy Unknown Verified 08/19/15 01:31 Home Medications Medication Instructions Recorded Confirmed Last Taken Type AtorvaSTATin [Lipitor] 20 mg PO DAILY 08/19/15 08/29/17 1 Day Ago History ~08/28/17 Colesevelam [Welchol] 1,875 mg PO BID 08/19/15 08/29/17 1 Day Ago History ~08/28/17 Duloxetine HCl [DULoxetine] 60 mg PO DAILY 08/19/15 08/29/17 1 Day Ago History ~08/28/17 Tobramycin/Dexameth 0.1-0.3% 3.5 gm SUBDERMAL DAILY 08/19/15 08/29/17 1 Day Ago History [Tobradex] ~08/28/17 Insulin Detemir [Levemir] 14 units SUB-Q QHS #1000 units 04/22/17 08/29/17 1 Day Ago Rx ~08/28/17 Metoprolol Xl [Metoprolol 50 mg PO QDAY #30 tablet 04/22/17 08/29/17 1 Day Ago Rx SUCCINATE ER TAB] ~08/28/17 Multivitamin Tab [Multiple Vitamin 1 each PO QDAY #30 tablet 04/22/17 08/29/17 1 Day Ago Rx TAB (Theragran)] ~08/28/17 NIFEdipine XL [Procardia Xl] 30 mg PO Q12HR #60 tablet 04/22/17 08/29/17 1 Day Ago Rx ~08/28/17 Apixaban [Eliquis] 5 mg PO BID #60 tablet 04/23/17 08/29/17 1 Day Ago Rx ~08/28/17 Insulin Aspart [NovoLOG Flexpen] See Protocol SQ ACHS #1 insuln.pen 04/23/17 1 Day Ago Rx ~08/28/17 Pantoprazole [Protonix TAB] 40 mg PO BID #60 tablet 04/23/17 08/29/17 1 Day Ago Rx ~08/28/17 HYDROcodone/APAP 5-325 [[place] 2 each PO Q4H PRN #12 tablet 06/20/17 08/29/17 1 Day Ago Rx 5-325 mg TAB] ~08/28/17 Active Meds: Active Medications Acetaminophen (Tylenol) 650 mg PO Q4H PRN PRN Reason: Pain MILD(1-3)/Fever >100.5/GARZON Apixaban (Eliquis) 5 mg PO BID [facility] PRN Reason: Protocol Last Admin: 08/29/17 10:09 Dose: 5 mg Atorvastatin Calcium (Lipitor) 20 mg PO QHS [facility] Bisacodyl (Dulcolax) 10 mg [place] QDAY PRN PRN Reason: Constipation unrelieved by MOM Colesevelam HCl (Welchol) 1,875 mg PO BID@0800,1700 [facility] Dextrose (D50w (25gm) Syringe) 50 ml IV PRN PRN PRN Reason: Hypoglycemia Duloxetine HCl (Cymbalta) 60 mg PO QDAY [facility] Last Admin: 08/29/17 10:08 Dose: 60 mg Insulin Aspart (Novolog) 0 units SUB-Q [facility] PRN Reason: Protocol Last Admin: 08/29/17 10:10 Dose: Not Given Insulin Detemir (Levemir) 14 units SUB-Q QHS [facility] Metoprolol Succinate (Toprol Xl) 50 mg PO QDAY [facility] Last Admin: 08/29/17 10:08 Dose: 50 mg Nifedipine (Procardia Xl) 30 mg PO Q12HR [facility] Last Admin: 08/29/17 10:09 Dose: 30 mg Ondansetron HCl (Zofran) 4 mg IV Q8H PRN PRN Reason: N/V unrelieved by Reglan Pantoprazole Sodium (Protonix) 40 mg PO BID [facility] Last Admin: 08/29/17 10:09 Dose: 40 mg Review of Systems Constitutional: weakness, no weight loss, no weight gain, no fever, no chills, no anorexia, no poor appetite Ears, nose, mouth and throat: no epistaxis Cardiovascular: palpitations, rapid/irregular heart beat, edema, shortness of breath, high blood pressure, leg edema, no chest pain, no orthopnea, no syncope , no lightheadedness Respiratory: shortness of breath, no cough, no cough with sputum, no hemoptysis Gastrointestinal: diarrhea, no abdominal pain, no nausea, no vomiting, no melena Genitourinary Male: no dysuria, no hematuria Rectal: no bleeding Musculoskeletal: other (h/o fall) Integumentary: darkening of skin, dryness, no rash, no jaundice Neurological: no paralysis, no seizures, no syncope, no convulsions, no aphasia , no change in speech, no change in mentation, no confusion, no memory loss Psychiatric: no memory loss Hematologic/Lymphatic: no easy bleeding Exam - Vital Signs Vital signs: Vital Signs Pulse Resp 118 H 15 08/28/17 23:18 08/28/17 23:18 - General Appearance General appearance: well-developed, well-nourished, appears stated age, other ( no distress, right IJ tunnel catheter) EENT: ATNC, mucous membranes moist, hearing intact Neck: Present: neck supple, trachea midline Respiratory: Clear to Ascultation Heart: regular, S1S2, no murmurs Gastrointestinal: Present: normoactive bowel sounds Integumentary: no rash, chronic venous stasis, hyperkeratosis Neurologic: no asterixis, alert and oriented x3, CN 3-12 intact, other (right eye blindness) Musculoskeletal: Present: other ((bilateral LE edema, L > R, left knee swollen, right arm AVF with good thrill, muscle wasting noted) Psychiatric: mood/affect appropriate, cooperative Results - Lab Results 08/28/17 23:52 08/28/17 23:52 Most recent lab results Calcium 9.3 mg/dL (8.4-10.2) 08/28/17 23:52 Assessment and Plan 1. ESRD: Continue hemodialysis three times a week, TTS schedule. 2. Anemia: Epogen as needed. 3. A.fib with RVR: SR now. Followed by Cards. 4. Hypertension: Monitor BP. 5. Deconditioning: SNF / rehab, d/w CM.
[2017-08-29] MEDS ORDERED: NACL 0.9% 100 ML IV PRN (10:56)
[2017-08-29] MEDS: WELCHOL PO SCH ×2 (12:08→17:40)
--- NOTE | 2017-08-29 12:32 | Consultation ---
History of Present Illness - Reason for Consult Consult date: 08/29/17 RIGHT AVF - History of Present Illness 47-year-old -Burmese male with DM type 2, Hypertension, Hyperlipidemia, ESRD on hemodialysis (MWF), Obesity, Anemia, CHF, paroxysmal A.fib and nonambulatory secondary to left knee Charcot's disease who presented to the ER last night with palpitation and SOB of one hour duration. He was found to have A.fib with RVR. Rhythm converted to sinus after IV Cardizem. He is feeling better now. Vascular was consult to evaluate the right upper extremity AV access. 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 He has a palpable right ulnar and radial pulse. He has a strong thrill at the antecubital fossa of his brachiocephalic AV fistula, but soon afterwards, I can no longer feel a strong thrill. Past History Past Medical History: diabetes, dialysis, ESRD, hypertension, other (anemia) Medications and Allergies Allergies Allergy/AdvReac Type Severity Reaction Status Date / Time AMMY Inhibitors Allergy Unknown Verified 08/19/15 01:31 Home Medications Medication Instructions Recorded Confirmed Last Taken Type AtorvaSTATin [Lipitor] 20 mg PO DAILY 08/19/15 08/29/17 1 Day Ago History ~08/28/17 Colesevelam [Welchol] 1,875 mg PO BID 08/19/15 08/29/17 1 Day Ago History ~08/28/17 Duloxetine HCl [DULoxetine] 60 mg PO DAILY 08/19/15 08/29/17 1 Day Ago History ~08/28/17 Tobramycin/Dexameth 0.1-0.3% 3.5 gm SUBDERMAL DAILY 08/19/15 08/29/17 1 Day Ago History [Tobradex] ~08/28/17 Insulin Detemir [Levemir] 14 units SUB-Q QHS #1000 units 04/22/17 08/29/17 1 Day Ago Rx ~08/28/17 Metoprolol Xl [Metoprolol 50 mg PO QDAY #30 tablet 04/22/17 08/29/17 1 Day Ago Rx SUCCINATE ER TAB] ~08/28/17 Multivitamin Tab [Multiple Vitamin 1 each PO QDAY #30 tablet 04/22/17 08/29/17 1 Day Ago Rx TAB (Theragran)] ~08/28/17 NIFEdipine XL [Procardia Xl] 30 mg PO Q12HR #60 tablet 04/22/17 08/29/17 1 Day Ago Rx ~08/28/17 Apixaban [Eliquis] 5 mg PO BID #60 tablet 04/23/17 08/29/17 1 Day Ago Rx ~08/28/17 Insulin Aspart [NovoLOG Flexpen] See Protocol SQ ACHS #1 insuln.pen 04/23/17 1 Day Ago Rx ~08/28/17 Pantoprazole [Protonix TAB] 40 mg PO BID #60 tablet 04/23/17 08/29/17 1 Day Ago Rx ~08/28/17 HYDROcodone/APAP 5-325 [[place] 2 each PO Q4H PRN #12 tablet 06/20/17 08/29/17 1 Day Ago Rx 5-325 mg TAB] ~08/28/17 Active Meds: Active Medications Acetaminophen (Tylenol) 650 mg PO Q4H PRN PRN Reason: Pain MILD(1-3)/Fever >100.5/GARZON Amiodarone HCl (Cordarone) 200 mg PO BID LANI Apixaban (Eliquis) 5 mg PO BID LANI PRN Reason: Protocol Last Admin: 08/29/17 10:09 Dose: 5 mg Atorvastatin Calcium (Lipitor) 20 mg PO QHS [facility] Bisacodyl (Dulcolax) 10 mg DC QDAY PRN PRN Reason: Constipation unrelieved by MOM Colesevelam HCl (Welchol) 1,875 mg PO BID@0800,1700 [facility] Last Admin: 08/29/17 12:08 Dose: Not Given Dextrose (D50w (25gm) Syringe) 50 ml IV PRN PRN PRN Reason: Hypoglycemia Duloxetine HCl (Cymbalta) 60 mg PO QDAY [facility] Last Admin: 08/29/17 10:08 Dose: 60 mg Sodium Chloride (Nacl 0.9%) 100 mls @ 999 mls/hr IV JOHNNIE PRN PRN Reason: Hypotension Insulin Aspart (Novolog) 0 units SUB-Q ACHS LANI PRN Reason: Protocol Last Admin: 08/29/17 12:08 Dose: Not Given Insulin Detemir (Levemir) 14 units SUB-Q QHS [facility] Metoprolol Succinate (Toprol Xl) 50 mg PO QDAY [facility] Last Admin: 08/29/17 10:08 Dose: 50 mg Nifedipine (Procardia Xl) 30 mg PO Q12HR [facility] Last Admin: 08/29/17 10:09 Dose: 30 mg Ondansetron HCl (Zofran) 4 mg IV Q8H PRN PRN Reason: N/V unrelieved by Reglan Pantoprazole Sodium (Protonix) 40 mg PO BID [facility] Last Admin: 08/29/17 10:09 Dose: 40 mg Review of Systems All systems: negative (see HPI) Exam - Constitutional Vitals: Temp Pulse Resp BP Pulse Ox 98.8 F 78 21 164/77 96 08/28/17 23:29 08/29/17 08:35 08/29/17 08:35 08/29/17 08:35 08/29/17 08:50 General appearance: Present: no acute distress - EENT Eyes: Present: EOM intact ENT: hearing intact - Respiratory Respiratory effort: normal - Extremities Extremities: pulses intact (palpable pedal pulses ; palpable right ulnar and radial pulse), normal temperature, normal color - Abdominal General gastrointestinal: Present: soft - Psychiatric Psychiatric: appropriate mood/affect, cooperative - Neurologic Neurologic: moves all extremities Results - Labs CBC & Chem 7: 08/28/17 23:52 08/28/17 23:52 Labs: Abnormal lab results 08/28/17 08/28/17 08/29/17 Range/Units 23:52 23:52 01:34 Hgb 9.6 L (11.8-15.2) gm/dl Hct 31.6 L (35.5-45.6) % MCV 76 L (84-94) fl MCH 23 L (28-32) pg MCHC 30 L (32-34) % RDW 18.3 H (13.2-15.2) % Seg Neuts % (Manual) 80.0 H (40.0-70.0) % Lymphocytes # (Manual) 1.0 L (1.2-5.4) K/mm3 D-Dimer 1313.28 H (0-234) ng/mlDDU Sodium 136 L (137-145) mmol/L Chloride 93.4 L (98-107) mmol/L BUN 26 H (9-20) mg/dL Creatinine 2.0 H (0.8-1.5) mg/dL Glucose 102 H (75-100) mg/dL Total Creatine Kinase (55-170) units/L CK-MB (CK-2) Rel Index (0-4) Troponin T 0.266 H* (0.00-0.029) ng/mL NT-Pro-B Natriuret Pep (0-450) pg/mL LDL Cholesterol Direct 16 L (50-130) mg/dL HDL Cholesterol 25 L (40-59) mg/dL 08/29/17 08/29/17 08/29/17 Range/Units 01:34 03:00 05:45 Hgb (11.8-15.2) gm/dl Hct (35.5-45.6) % MCV (84-94) fl MCH (28-32) pg MCHC (32-34) % RDW (13.2-15.2) % Seg Neuts % (Manual) (40.0-70.0) % Lymphocytes # (Manual) (1.2-5.4) K/mm3 D-Dimer (0-234) ng/mlDDU Sodium (137-145) mmol/L Chloride (98-107) mmol/L BUN (9-20) mg/dL Creatinine (0.8-1.5) mg/dL Glucose (75-100) mg/dL Total Creatine Kinase (55-170) units/L CK-MB (CK-2) Rel Index (0-4) Troponin T 0.242 H* 0.241 H* (0.00-0.029) ng/mL NT-Pro-B Natriuret Pep 66546 H (0-450) pg/mL LDL Cholesterol Direct (50-130) mg/dL HDL Cholesterol (40-59) mg/dL 08/29/17 Range/Units Unknown Hgb (11.8-15.2) gm/dl Hct (35.5-45.6) % MCV (84-94) fl MCH (28-32) pg MCHC (32-34) % RDW (13.2-15.2) % Seg Neuts % (Manual) (40.0-70.0) % Lymphocytes # (Manual) (1.2-5.4) K/mm3 D-Dimer (0-234) ng/mlDDU Sodium (137-145) mmol/L Chloride (98-107) mmol/L BUN (9-20) mg/dL Creatinine (0.8-1.5) mg/dL Glucose (75-100) mg/dL Total Creatine Kinase 23 L (55-170) units/L CK-MB (CK-2) Rel Index 6.0 H (0-4) Troponin T 0.239 H* (0.00-0.029) ng/mL NT-Pro-B Natriuret Pep (0-450) pg/mL LDL Cholesterol Direct (50-130) mg/dL HDL Cholesterol (40-59) mg/dL Assessment and Plan 47-year-old left-handed male with multiple medical problems who had a right sided brachiocephalic AV fistula created in June. On physical examination, he has a mild claw deformity of his hands, but has been present for years. This did not occur after surgery per patient. He may benefit from outpatient neurology follow-up. The right upper extremity AV fistula has a strong thrill at the antecubital fossa, but this soon he comes pulsatile. I will obtain a fistula ultrasound to further evaluate the access, but I am concerned due to his obesity he may require a fistula elevation.
--- NOTE | 2017-08-29 14:54 | Discharge Summary ---
<LORRAINE NORRIS - Last Filed: 08/29/17 15:17> Providers - Providers Date of Admission: 08/29/17 06:31 Date of discharge: 08/29/17 Attending physician: JOSE TENA MD 08/29/17 06:03 Consult to Physician [CONS] Stat Consulting Provider: STEVEN LUO Reason For Exam: NEED FOR DIALYSIS Place consult to:: ED Notified:: PHONE Was contact made?: No 08/29/17 06:31 Consult to Physician [CONS] Routine Consulting Provider: DANISHA ROBERSON Reason For Exam: afib/rvr Place consult to:: [facility] Notified:: y Comment:: added to list 08/29/17 10:43 Consult to Interventional Radiology [CONS] Routine Consulting Provider: NASIR RAMESH Reason For Exam: Evaluation of the right arm AVF. Place consult to:: vascular Notified:: office Phone number called:: [phone] Was contact made?: Yes If yes, spoke with:: goldie Time called:: 11:48 Primary care physician: KRANTHI VERA Hospitalization Reason for admission: like Condition: Good Hospital course: Patient is 47-year-old -Greenlandic male with DM type 2, Hypertension, Hyperlipidemia, ESRD on hemodialysis (MWF), Obesity, Anemia, CHF, paroxysmal A.fib and nonambulatory secondary to left knee Charcot's disease who presented to the ER last night with palpitation and SOB of one hour duration. He was diagnosed with Abnormal cardiac enzyme,End-stage renal disease on dialysis, status post contrast, Diabetes,Coronary artery disease,Hyperlipidemia, Lymphedema. He was found to have A.fib with RVR. Rhythm converted to sinus after IV Cardizem. He received emergent dialysis, during which excess fluid was removed.He was restarted on the rest of her meds. Cardiology was consulted and recommended no further cardiac work up. Patient clinically improved and stable for discharge. Patient was advised to follow up with his primary care provider. Discharge diagnosed A. fib with RVR Abnormal cardiac enzyme End-stage renal disease on dialysis, status post contrast Diabetes, dictated by neuropathy Coronary artery disease Hyperlipidemia Lymphedema Disposition: TO HOME OR SELFCARE Time spent for discharge: 35 minutes Core Measure Documentation - Palliative Care Palliative Care/ Comfort Measures: Not Applicable - Core Measures Any of the following diagnoses?: none Exam - Constitutional Vitals: Temp Pulse Resp BP Pulse Ox 98.5 F 82 20 156/74 98 08/29/17 12:47 08/29/17 12:47 08/29/17 12:47 08/29/17 12:47 08/29/17 12:47 General appearance: Present: no acute distress - EENT Eyes: Present: PERRL ENT: hearing intact - Neck Neck: Present: supple - Respiratory Respiratory effort: normal Respiratory: bilateral: CTA - Cardiovascular Rhythm: regular Heart Sounds: Present: S1 & S2 - Extremities Extremity abnormal: other (Bilateral LE swelling ) - Abdominal General gastrointestinal: Present: soft, non-tender Male genitourinary: Present: deferred - Rectal Rectal Exam: deferred - Integumentary Integumentary: Present: clear, warm, dry - Musculoskeletal Musculoskeletal: strength equal bilaterally - Psychiatric Psychiatric: appropriate mood/affect - Neurologic Neurologic: moves all extremities - Allied Health Allied health notes reviewed: nursing Plan Diet: low fat, low cholesterol, low salt, renal Follow up with: HAL VERONICA MD [Staff Physician] - 3-5 Days Prescriptions: Amiodarone [Cordarone 200 MG TAB] 200 mg PO BID #60 tab <JOSE TENA - Last Filed: 09/13/17 13:21> Providers - Providers Date of Admission: 08/29/17 06:31 Attending physician: JOSE TENA MD 08/29/17 06:03 Consult to Physician [CONS] Stat Consulting Provider: STEVEN LUO Reason For Exam: NEED FOR DIALYSIS Place consult to:: ED Notified:: PHONE Was contact made?: No 08/29/17 06:31 Consult to Physician [CONS] Routine Consulting Provider: DANISHA ROBERSON Reason For Exam: afib/rvr Place consult to:: [facility] Notified:: y Comment:: added to list 08/29/17 10:43 Consult to Interventional Radiology [CONS] Routine Consulting Provider: NASIR RAMESH Reason For Exam: Evaluation of the right arm AVF. Place consult to:: vascular Notified:: office Phone number called:: [phone] Was contact made?: Yes If yes, spoke with:: goldie Time called:: 11:48 Primary care physician: KRANTHI VERA Hospitalization Hospital course: I saw and evaluated the patient. I agree with the findings and the plan of care as documented in the Nurse Practitioner's~note, Exam - Constitutional Vitals: Temp Pulse Resp BP Pulse Ox 97.7 F 83 20 140/80 97 08/30/17 16:57 08/30/17 16:57 08/30/17 16:57 08/30/17 16:57 08/30/17 16:57
[2017-08-29] MEDS: CORDARONE PO SCH (21:52)
[2017-08-29] MEDS ORDERED: LEVEMIR SUB-Q SCH (22:00)
--- NOTE | 2017-08-30 00:43 | Progress Note ---
Assessment and Plan Assessment and plan: A. fib with RVR optimize meds A. fib is now resolved, spoke with cardiology Abnormal cardiac enzyme -due to ESRD, no further workup, case dw cardiology End-stage renal disease on dialysis, status post contrast continue HD per renal Diabetes, continue SSI Coronary artery disease stable asymptomatic Hyperlipidemia continue statin History Interval history: Review of systems Constitutional: No fevers, no malaise, no joint pains CVS: No chest pain, no orthopnea, no dyspnea on exertion, no pedal edema GI: No abdominal pain, no diarrhea, no vomiting, no constipation Respiratory: No shortness of breath, no wheezing, no coughing Hospitalist Physical - Physical exam Narrative exam: Gen. appearance: Patient lying in bed in no acute distress HEENT: Normocephalic/atraumatic, pupils equal round reactive to light, extra occular movement intact, no scleral icterus, no JVD or thyromegaly or nodule, neck is supple, mucous membrane moist, no erythema or exudate Heart: S1-S2, regular rate and rhythm Lungs: Crackles bilateral breathing comfortable Abdomen: Positive bowel sounds, nontender, nondistended, no organomegaly Extremities: Lymphedema of left leg, cyanosis, clubbing Neuro:: Oriented 3 , cranial nerves II-12 intact, speech, motor intact Skin: No rash, nodules, warm dry - Constitutional Vitals: Temp Pulse Resp BP Pulse Ox 98.7 F 71 18 123/65 93 08/29/17 20:08 08/29/17 21:32 08/29/17 20:08 08/29/17 20:08 08/29/17 20:08 General appearance: Present: no acute distress Results - Labs CBC & Chem 7: 08/30/17 07:10 08/30/17 07:10 Labs: Laboratory Last Values WBC 7.3 K/mm3 (4.5-11.0) 08/28/17 23:52 RBC 4.15 M/mm3 (3.65-5.03) 08/28/17 23:52 Hgb 9.6 gm/dl (11.8-15.2) L 08/28/17 23:52 Hct 31.6 % (35.5-45.6) L 08/28/17 23:52 MCV 76 fl (84-94) L 08/28/17 23:52 MCH 23 pg (28-32) L 08/28/17 23:52 MCHC 30 % (32-34) L 08/28/17 23:52 RDW 18.3 % (13.2-15.2) H 08/28/17 23:52 Plt Count 179 K/mm3 (140-440) 08/28/17 23:52 Lymph % (Auto) Clinical Research Technician 08/28/17 23:52 [place] % (Auto) Clinical Research Technician 08/28/17 23:52 Eos % (Auto) Clinical Research Technician 08/28/17 23:52 Baso % (Auto) Clinical Research Technician 08/28/17 23:52 Lymph # Clinical Research Technician 08/28/17 23:52 [place] # Clinical Research Technician 08/28/17 23:52 Eos # Clinical Research Technician 08/28/17 23:52 Baso # Clinical Research Technician 08/28/17 23:52 Add Manual Diff Complete 08/28/17 23:52 Total Counted 100 08/28/17 23:52 Seg Neutrophils % Clinical Research Technician 08/28/17 23:52 Seg Neuts % (Manual) 80.0 % (40.0-70.0) H 08/28/17 23:52 Band Neutrophils % 3.0 % 08/28/17 23:52 Lymphocytes % (Manual) 14.0 % (13.4-35.0) 08/28/17 23:52 Reactive Lymphs % (Man) 0 % 08/28/17 23:52 Monocytes % (Manual) 3.0 % (0.0-7.3) 08/28/17 23:52 Eosinophils % (Manual) 0 % (0.0-4.3) 08/28/17 23:52 Basophils % (Manual) 0 % (0.0-1.8) 08/28/17 23:52 Metamyelocytes % 0 % 08/28/17 23:52 Myelocytes % 0 % 08/28/17 23:52 Promyelocytes % 0 % 08/28/17 23:52 Blast Cells % 0 % 08/28/17 23:52 Nucleated RBC % Not Reportable 08/28/17 23:52 Seg Neutrophils # Clinical Research Technician 08/28/17 23:52 Seg Neutrophils # Man 5.8 K/mm3 (1.8-7.7) 08/28/17 23:52 Band Neutrophils # 0.2 K/mm3 08/28/17 23:52 Lymphocytes # (Manual) 1.0 K/mm3 (1.2-5.4) L 08/28/17 23:52 Abs React Lymphs (Man) 0.0 K/mm3 08/28/17 23:52 Monocytes # (Manual) 0.2 K/mm3 (0.0-0.8) 08/28/17 23:52 Eosinophils # (Manual) 0.0 K/mm3 (0.0-0.4) 08/28/17 23:52 Basophils # (Manual) 0.0 K/mm3 (0.0-0.1) 08/28/17 23:52 Metamyelocytes # 0.0 K/mm3 08/28/17 23:52 Myelocytes # 0.0 K/mm3 08/28/17 23:52 Promyelocytes # 0.0 K/mm3 08/28/17 23:52 Blast Cells # 0.0 K/mm3 08/28/17 23:52 WBC Morphology Not Reportable 08/28/17 23:52 Hypersegmented Neuts Not Reportable 08/28/17 23:52 Hyposegmented Neuts Not Reportable 08/28/17 23:52 Hypogranular Neuts Not Reportable 08/28/17 23:52 Smudge Cells Not Reportable 08/28/17 23:52 Toxic Granulation Not Reportable 08/28/17 23:52 Toxic Vacuolation Not Reportable 08/28/17 23:52 Dohle Bodies Not Reportable 08/28/17 23:52 Pelger-Huet Anomaly Not Reportable 08/28/17 23:52 Lyla Rods Not Reportable 08/28/17 23:52 Platelet Estimate Appears normal 08/28/17 23:52 Clumped Platelets Not Reportable 08/28/17 23:52 Plt Clumps, EDTA Not Reportable 08/28/17 23:52 Large Platelets Not Reportable 08/28/17 23:52 Giant Platelets Not Reportable 08/28/17 23:52 Platelet Satelliting Not Reportable 08/28/17 23:52 Plt Morphology Comment Not Reportable 08/28/17 23:52 RBC Morphology Not Reportable 08/28/17 23:52 Dimorphic RBCs Not Reportable 08/28/17 23:52 Polychromasia Not Reportable 08/28/17 23:52 Hypochromasia 1+ 08/28/17 23:52 Poikilocytosis Not Reportable 08/28/17 23:52 Anisocytosis 1+ 08/28/17 23:52 Microcytosis Not Reportable 08/28/17 23:52 Macrocytosis Not Reportable 08/28/17 23:52 Spherocytes Not Reportable 08/28/17 23:52 Pappenheimer Bodies Not Reportable 08/28/17 23:52 Sickle Cells Not Reportable 08/28/17 23:52 Target Cells Not Reportable 08/28/17 23:52 Tear Drop Cells Not Reportable 08/28/17 23:52 Ovalocytes Not Reportable 08/28/17 23:52 Helmet Cells Not Reportable 08/28/17 23:52 [place] Bodies Not Reportable 08/28/17 23:52 [place] Rings Not Reportable 08/28/17 23:52 [place] Cells Not Reportable 08/28/17 23:52 Bite Cells Not Reportable 08/28/17 23:52 Crenated Cell Not Reportable 08/28/17 23:52 Elliptocytes Not Reportable 08/28/17 23:52 Acanthocytes (Spur) Not Reportable 08/28/17 23:52 Rouleaux Not Reportable 08/28/17 23:52 Hemoglobin C Crystals Not Reportable 08/28/17 23:52 Schistocytes Not Reportable 08/28/17 23:52 Malaria parasites Not Reportable 08/28/17 23:52 Shaun Bodies Not Reportable 08/28/17 23:52 Hem Pathologist Commnt No 08/28/17 23:52 D-Dimer 1313.28 ng/mlDDU (0-234) H 08/29/17 01:34 Sodium 136 mmol/L (137-145) L 08/28/17 23:52 Potassium 4.1 mmol/L (3.6-5.0) 08/28/17 23:52 Chloride 93.4 mmol/L (98-107) L 08/28/17 23:52 Carbon Dioxide 27 mmol/L (22-30) 08/28/17 23:52 Anion Gap 20 mmol/L 08/28/17 23:52 BUN 26 mg/dL (9-20) H 08/28/17 23:52 Creatinine 2.0 mg/dL (0.8-1.5) H 08/28/17 23:52 Estimated GFR 44 ml/min 08/28/17 23:52 BUN/Creatinine Ratio 13 % 08/28/17 23:52 Glucose 102 mg/dL (75-100) H 08/28/17 23:52 POC Glucose 132 (70-105) H 08/29/17 21:29 Calcium 9.3 mg/dL (8.4-10.2) 08/28/17 23:52 Total Creatine Kinase 23 units/L (55-170) L 08/29/17 Unknown CK-MB (CK-2) 1.4 ng/mL (0.0-4.0) 08/29/17 Unknown CK-MB (CK-2) Rel Index 6.0 (0-4) H 08/29/17 Unknown Troponin T 0.239 ng/mL (0.00-0.029) H* 08/29/17 Unknown NT-Pro-B Natriuret Pep 45825 pg/mL (0-450) H 08/29/17 01:34 Triglycerides 59 mg/dL (2-149) 08/28/17 23:52 Cholesterol 52 mg/dL (50-199) 08/28/17 23:52 LDL Cholesterol Direct 16 mg/dL (50-130) L 08/28/17 23:52 HDL Cholesterol 25 mg/dL (40-59) L 08/28/17 23:52 Cholesterol/HDL Ratio 2.08 % 08/28/17 23:52
--- NOTE | 2017-08-30 07:06 | Progress Note ---
Assessment and Plan 1. ESRD: Continue hemodialysis three times a week, TTS schedule. 2. Anemia: Epogen as needed. 3. A.fib with RVR: SR now. Followed by Cards. 4. Hypertension: Monitor BP. 5. Deconditioning: SNF / rehab, d/w CM. Subjective Date of service: 08/30/17 Interval history: Patient is doing ok. Objective - Vital Signs Vital signs: Vital Signs - 12hr 08/29/17 08/29/17 08/30/17 20:08 21:32 00:15 Temperature 98.7 F 98.5 F Pulse Rate 71 71 74 Respiratory 18 18 Rate Blood Pressure 123/65 141/71 O2 Sat by Pulse 93 94 Oximetry 08/30/17 04:31 Temperature 98.2 F Pulse Rate 91 H Respiratory 20 Rate Blood Pressure 159/80 O2 Sat by Pulse 94 Oximetry - General Appearance General appearance: well-developed, well-nourished, appears stated age, other ( no distress, right IJ tunnel catheter) EENT: ATNC, hearing intact Neck: supple Respiratory: Present: Clear to Ascultation Cardiology: regular, S1S2, no murmurs Gastrointestinal: normoactive bowel sounds, no tenderness, no distended, obese Integumentary: chronic venous stasis, hyperkeratosis Neurologic: no asterixis, alert and oriented x3, other (right eye blind) Musculoskeletal: other (bilateral knee swelling, L > R, right arm AVF) Psychiatric: mood/affect appropriate, cooperative - Lab 08/28/17 23:52 08/28/17 23:52 Most recent lab results Calcium 9.3 mg/dL (8.4-10.2) 08/28/17 23:52
[2017-08-30 08:14] LABS: Calcium 9.5 mg/dL (8.4-10.2); Chloride 96.2 mmol/L (98-107)
[2017-08-30 08:17] LABS: Basophils % (Auto) 0.5 % (0.0-1.8); Eosinophils % (Auto) 1.7 % (0.0-4.3); Hematocrit 29.1 % (35.5-45.6); Hemoglobin 8.9 gm/dl (11.8-15.2); Mean Corpuscular HGB Conc 31 % (32-34); Mean Corpuscular Volume 75 fl (84-94); Platelet Count 190 K/mm3 (140-440); Red Blood Count 3.88 M/mm3 (3.65-5.03); Red Cell Distribution Width 18.8 % (13.2-15.2); White Blood Count 7.7 K/mm3 (4.5-11.0)
[2017-08-30 08:19] LABS: Mean Corpuscular Hemoglobin 23 pg (28-32)
[2017-08-30] MEDS: WELCHOL PO SCH (09:02)
[2017-08-30] MEDS: NOVOLOG SUB-Q SCH ×2 (09:03→16:04)
[2017-08-30] MEDS: ELIQUIS PO SCH (09:07)
[2017-08-30] MEDS: CYMBALTA PO SCH (09:08)
[2017-08-30] MEDS: CORDARONE PO SCH (09:08)
[2017-08-30] MEDS: PROTONIX PO SCH (09:09)
--- NOTE | 2017-08-30 09:32 | Progress Note ---
Assessment and Plan Paroxysmal atrial fibrillation reverted to SR after IV diltiazem History of atrial flutter s/p ablation in [place]. Patient states that he was taking flecainide at home prior to admission Normal LVEF History of normal MPI per patient ESRD on HD Type II DM Recommendations: Continue current management Continue amiodarone Okay to DC home Patient to follow-up as an outpatient with Dr. Crisostomo Subjective Date of service: 08/30/17 Principal diagnosis: atrial fibrillation Interval history: Patient remains in sinus rhythm. Spontaneously converted on Cardizem. No events overnight Objective Vital Signs Temp Pulse Resp BP BP Pulse Ox 08/30/17 08:38 98.0 F 79 20 142/65 93 08/30/17 04:31 98.2 F 91 H 20 159/80 94 08/30/17 00:15 98.5 F 74 18 141/71 94 08/29/17 21:32 71 08/29/17 20:08 98.7 F 71 18 123/65 93 08/29/17 17:17 97.8 F 74 20 136/72 98 08/29/17 16:11 97.8 F 74 20 136/72 97 08/29/17 12:47 98.5 F 82 20 156/74 98 08/29/17 12:42 82 08/29/17 11:35 98.5 F 80 20 153/69 94 08/29/17 11:24 98.5 F 80 20 156/74 94 - Physical Examination Narrative exam: Physical examination Vitals reviewed GEN: No acute distress noted HEENT: Carotids 2+ NECK: Supple CVS: S1 and S2 heard no significant murmur or gallop noted LUNGS/CHEST: Normal auscultation ABD: Soft nontender Extremities: No edema noted normal color NEURO: Alert moves all all 4 extremities PSY: Stable Patient seen and examined Neck: Positive: neck supple, trachea midline - Labs and Meds CBC 08/30/17 Range/Units 07:10 WBC 7.7 (4.5-11.0) K/mm3 RBC 3.88 (3.65-5.03) M/mm3 Hgb 8.9 L (11.8-15.2) gm/dl Hct 29.1 L (35.5-45.6) % Plt Count 190 (140-440) K/mm3 Lymph # 0.8 L (1.2-5.4) K/mm3 [place] # 1.2 H (0.0-0.8) K/mm3 Eos # 0.1 (0.0-0.4) K/mm3 Baso # 0.0 (0.0-0.1) K/mm3 Comprehensive Metabolic Panel 08/30/17 Range/Units 07:10 Sodium 139 (137-145) mmol/L Potassium 4.0 (3.6-5.0) mmol/L Chloride 96.2 L (98-107) mmol/L Carbon Dioxide 26 (22-30) mmol/L BUN 38 H (9-20) mg/dL Creatinine 2.9 H (0.8-1.5) mg/dL Glucose 82 (75-100) mg/dL Calcium 9.5 (8.4-10.2) mg/dL - Imaging and Cardiology EKG: image reviewed
[2017-08-30] MEDS ORDERED: NACL 0.9% 1000 ML 2,000 ML ONE (13:31)
--- NOTE | 2017-08-30 15:05 | Progress Note ---
Assessment and Plan 47-year-old left-handed male with multiple medical problems who had a right sided brachiocephalic AV fistula created in June. The AVF is immature. The patient will require outpatient fistulogram and coiling the side branches, allowing for further maturation, and subsequently probably an elevation. This will be arranged as an outpatient. Subjective Date of service: 08/30/17 Principal diagnosis: atrial fibrillation Interval history: Actively receiving dialysis. Objective - Constitutional Vitals: Vital Signs - 12hr 08/30/17 08/30/17 08/30/17 04:31 08:38 11:55 Temperature 98.2 F 98.0 F 99.9 F H Pulse Rate 91 H 79 79 Respiratory 20 20 18 Rate Blood Pressure 159/80 104/73 Blood Pressure 142/65 [Left] O2 Sat by Pulse 94 93 Oximetry 08/30/17 08/30/17 08/30/17 12:00 12:13 12:15 Temperature Pulse Rate 78 78 79 Respiratory Rate Blood Pressure 139/71 119/61 Blood Pressure [Left] O2 Sat by Pulse Oximetry 08/30/17 08/30/17 08/30/17 12:30 12:45 13:00 Temperature Pulse Rate 80 81 81 Respiratory Rate Blood Pressure 137/71 138/70 141/71 Blood Pressure [Left] O2 Sat by Pulse Oximetry 08/30/17 08/30/17 13:15 13:30 Temperature Pulse Rate 81 82 Respiratory Rate Blood Pressure 143/71 137/70 Blood Pressure [Left] O2 Sat by Pulse Oximetry General appearance: Present: no acute distress - EENT Eyes: EOM intact ENT: hearing intact - Respiratory Respiratory effort: normal Extremity abnormal: other (actively receiving dialysis) - Psychiatric Psychiatric: appropriate mood/affect, cooperative - Labs CBC & Chem 7: 08/30/17 07:10 08/30/17 07:10 Labs: Abnormal lab results 08/29/17 08/29/17 08/29/17 Range/Units 11:44 16:14 21:29 Hgb (11.8-15.2) gm/dl Hct (35.5-45.6) % MCV (84-94) fl MCH (28-32) pg MCHC (32-34) % RDW (13.2-15.2) % Lymph % (Auto) (13.4-35.0) % Harney % (Auto) (0.0-7.3) % Lymph # (1.2-5.4) K/mm3 Harney # (0.0-0.8) K/mm3 Seg Neutrophils % (40.0-70.0) % Chloride (98-107) mmol/L BUN (9-20) mg/dL Creatinine (0.8-1.5) mg/dL POC Glucose 116 H 134 H 132 H (70-105) 08/30/17 08/30/17 Range/Units 07:10 07:10 Hgb 8.9 L (11.8-15.2) gm/dl Hct 29.1 L (35.5-45.6) % MCV 75 L (84-94) fl MCH 23 L (28-32) pg MCHC 31 L (32-34) % RDW 18.8 H (13.2-15.2) % Lymph % (Auto) 10.5 L (13.4-35.0) % Harney % (Auto) 15.6 H (0.0-7.3) % Lymph # 0.8 L (1.2-5.4) K/mm3 Harney # 1.2 H (0.0-0.8) K/mm3 Seg Neutrophils % 71.7 H (40.0-70.0) % Chloride 96.2 L (98-107) mmol/L BUN 38 H (9-20) mg/dL Creatinine 2.9 H (0.8-1.5) mg/dL POC Glucose (70-105)
[2017-08-30] MEDS: TOPROL XL PO SCH (16:03)
[2017-08-30] MEDS: PROCARDIA XL PO SCH (16:03)
[2017-08-30 16:05] VITALS: BP 140/80
--- NOTE | 2017-09-01 13:37 | Vascular Lab Report ---
FISTULA DUPLEX EXAM: REASON FOR EXAM: AVF malfunction with ESRD. NOTE: THE FISTULA IS LOCATED IN THE RIGHT UPPER EXTREMITY. COMMENTS ON THE FISTULA: This is a brachial artery inflow to cephalic vein outflow AV fistula. Morphologically, there are no large pseudoaneurysms. There is no velocity gradient to suggest focal stenosis. COMMENTS ON THE INFLOW: The inflow velocity is 325 CM/S which is adequate. The brachial artery is 235 CM/S. which is adequate. COMMENTS ON THE OUTFLOW: The venous outflow is 109-246 cm/s which is adequate. The volume is 416-528 mL/min which is low. There are multiple side branches in the mid and proximal arm draining blood from the main cephalic vein. The fistula is predominately 8 mm below the skin which is deep. IMPRESSION: No evidence of focal stenosis. There are multiple side branches stealing flow from the AV fistula. The fistula is too deep measuring 8 mm below the skin throughout most of its course. The volume passing through the fistula is inadequate.
== END 2017-08-30 17:21 | disposition home or self-care (01) | DRG 308 ==
LOC: ED 22:48 → 4A 08-29 06:31
PROVIDERS: ADMIT Internal Medicine; ATTEND Internal Medicine
PROC: 5A1D70Z Performance of Urinary Filtration, Intermittent, Less than 6 Hours Per Day (ICD-10-PCS; principal; 2017-08-30)
DX: I48.0 Paroxysmal atrial fibrillation (principal); N18.6 End stage renal disease; I13.2 Hypertensive heart and chronic kidney disease with heart failure and with stage 5 chronic kidney disease, or end stage renal disease; A52.16 Charcot's arthropathy (tabetic); I48.92 Unspecified atrial flutter; I47.2 Ventricular tachycardia; I25.10 Atherosclerotic heart disease of native coronary artery without angina pectoris; E78.5 Hyperlipidemia, unspecified; I89.0 Lymphedema, not elsewhere classified; D64.9 Anemia, unspecified; E11.22 Type 2 diabetes mellitus with diabetic chronic kidney disease; E66.9 Obesity, unspecified; I50.9 Heart failure, unspecified; E11.42 Type 2 diabetes mellitus with diabetic polyneuropathy; Z90.49 Acquired absence of other specified parts of digestive tract; Z82.49 Family history of ischemic heart disease and other diseases of the circulatory system; Z88.8 Allergy status to other drugs, medicaments and biological substances; Z83.3 Family history of diabetes mellitus; Z89.421 Acquired absence of other right toe(s); Z79.01 Long term (current) use of anticoagulants; Z68.33 Body mass index [BMI] 33.0-33.9, adult
CPT/HCPCS: 36415; 71010; 71275; 80048; 80061; 82550; 82553; 82962; 83880; 84484; 85007; 85025; 85379; 93005; 93010; 93990; 96374; A9270-GY; J1818; J7030; J7040; Q9967

== ENCOUNTER 2017-11-06 11:10 | Emergency (ER) | payer OTHER ==
[2017-11-06 11:36] VITALS: BP 158/77
[2017-11-06 12:12] LABS: Hematocrit 28.8 % (35.5-45.6); Mean Corpuscular HGB Conc 31 % (32-34); Mean Corpuscular Volume 73 fl (84-94); Platelet Count 390 K/mm3 (140-440); Red Blood Count 3.94 M/mm3 (3.65-5.03)
[2017-11-06 12:31] LABS: Mean Corpuscular Hemoglobin 23 pg (28-32); Red Cell Distribution Width 21.7 % (13.2-15.2)
[2017-11-06 13:18] LABS: Calcium 8.8 mg/dL (8.4-10.2)
--- NOTE | 2017-11-06 13:22 | Emergency Department Report ---
ED General Adult HPI - General Chief complaint: Medical Clearance Stated complaint: ABNORMAL LABS Time Seen by Provider: 11/06/17 12:56 Source: patient Mode of arrival: Ambulatory Limitations: No Limitations - History of Present Illness Initial comments: Patient is a 47-year-old Syrian male who is presenting with a possible anemia. Patient is on dialysis Friday and Friday and his last dialysis session he had labs done and the patient and his called stating that they needed to come to the emergency department, low hemoglobin. His states that his hemoglobin was reported as 5. Patient states he feels fine is no shortness of breath chest pain or fatigue. We will redraw of these labs today. - Related Data Home Medications Medication Instructions Recorded Confirmed Last Taken AtorvaSTATin [Lipitor] 20 mg PO DAILY 08/19/15 08/29/17 1 Day Ago ~08/28/17 Colesevelam [Welchol] 1,875 mg PO BID 08/19/15 08/29/17 1 Day Ago ~08/28/17 Duloxetine HCl [DULoxetine] 60 mg PO DAILY 08/19/15 08/29/17 1 Day Ago ~08/28/17 Tobramycin/Dexameth 0.1-0.3% 3.5 gm SUBDERMAL DAILY 08/19/15 08/29/17 1 Day Ago [Tobradex] ~08/28/17 Previous Rx's Medication Instructions Recorded Last Taken Type Insulin Detemir [Levemir] 14 units SUB-Q QHS #1000 units 04/22/17 1 Day Ago Rx ~08/28/17 Metoprolol Xl [Metoprolol 50 mg PO QDAY #30 tablet 04/22/17 1 Day Ago Rx SUCCINATE ER TAB] ~08/28/17 Multivitamin Tab [Multiple Vitamin 1 each PO QDAY #30 tablet 04/22/17 1 Day Ago Rx TAB (Theragran)] ~08/28/17 NIFEdipine XL [Procardia Xl] 30 mg PO Q12HR #60 tablet 04/22/17 1 Day Ago Rx ~08/28/17 Apixaban [Eliquis] 5 mg PO BID #60 tablet 04/23/17 1 Day Ago Rx ~08/28/17 Insulin Aspart [NovoLOG Flexpen] See Protocol SQ ACHS #1 insuln.pen 04/23/17 1 Day Ago Rx ~08/28/17 Pantoprazole [Protonix TAB] 40 mg PO BID #60 tablet 04/23/17 1 Day Ago Rx ~08/28/17 HYDROcodone/APAP 5-325 [[place] 2 each PO Q4H PRN #12 tablet 06/20/17 1 Day Ago Rx 5-325 mg TAB] ~08/28/17 DULoxetine [Cymbalta] 60 mg PO QDAY capsule 08/29/17 Unknown Rx NIFEdipine XL [Procardia Xl] 30 mg PO Q12HR tablet 08/29/17 Unknown Rx Amiodarone [Cordarone 200 MG TAB] 200 mg PO BID #60 tab 08/30/17 Unknown Rx Allergies Allergy/AdvReac Type Severity Reaction Status Date / Time AMMY Inhibitors Allergy Unknown Verified 08/19/15 01:31 ED Review of Systems ROS: Stated complaint: ABNORMAL LABS Other details as noted in HPI Comment: All other systems reviewed and negative ED Past Medical Hx - Past Medical History Hx Hypertension: Yes Hx Congestive Heart Failure: Yes Hx Diabetes: Yes Hx Deep Vein Thrombosis: No Hx Renal Disease: Yes Hx Asthma: No Hx COPD: No Hx HIV: No Additional medical history: HIGH CHOLESTEROL, Afib, A-FLUTTER,PERIPHERAL NEUROPATHY,ANEMIA, BLOOD TRANSFUSION - Surgical History Hx Coronary Stent: No Hx Pacemaker: No Hx Internal Defibrillator: No Hx Cholecystectomy: Yes Additional Surgical History: Cardiac ablation - Social History Smoking Status: Never Smoker Substance Use Type: None - Medications Home Medications: Home Medications Medication Instructions Recorded Confirmed Last Taken Type AtorvaSTATin [Lipitor] 20 mg PO DAILY 08/19/15 08/29/17 1 Day Ago History ~08/28/17 Colesevelam [Welchol] 1,875 mg PO BID 08/19/15 08/29/17 1 Day Ago History ~08/28/17 Duloxetine HCl [DULoxetine] 60 mg PO DAILY 08/19/15 08/29/17 1 Day Ago History ~08/28/17 Tobramycin/Dexameth 0.1-0.3% 3.5 gm SUBDERMAL DAILY 08/19/15 08/29/17 1 Day Ago History [Tobradex] ~08/28/17 Insulin Detemir [Levemir] 14 units SUB-Q QHS #1000 units 04/22/17 08/29/17 1 Day Ago Rx ~08/28/17 Metoprolol Xl [Metoprolol 50 mg PO QDAY #30 tablet 04/22/17 08/29/17 1 Day Ago Rx SUCCINATE ER TAB] ~08/28/17 Multivitamin Tab [Multiple Vitamin 1 each PO QDAY #30 tablet 04/22/17 08/29/17 1 Day Ago Rx TAB (Theragran)] ~08/28/17 NIFEdipine XL [Procardia Xl] 30 mg PO Q12HR #60 tablet 04/22/17 08/29/17 1 Day Ago Rx ~08/28/17 Apixaban [Eliquis] 5 mg PO BID #60 tablet 04/23/17 08/29/17 1 Day Ago Rx ~08/28/17 Insulin Aspart [NovoLOG Flexpen] See Protocol SQ ACHS #1 insuln.pen 04/23/17 1 Day Ago Rx ~08/28/17 Pantoprazole [Protonix TAB] 40 mg PO BID #60 tablet 04/23/17 08/29/17 1 Day Ago Rx ~08/28/17 HYDROcodone/APAP 5-325 [Rogers 2 each PO Q4H PRN #12 tablet 06/20/17 08/29/17 1 Day Ago Rx 5-325 mg TAB] ~08/28/17 DULoxetine [Cymbalta] 60 mg PO QDAY capsule 08/29/17 Unknown Rx NIFEdipine XL [Procardia Xl] 30 mg PO Q12HR tablet 08/29/17 Unknown Rx Amiodarone [Cordarone 200 MG TAB] 200 mg PO BID #60 tab 08/30/17 Unknown Rx ED Physical Exam - General Limitations: No Limitations General appearance: alert, in no apparent distress - Head Head exam: Present: atraumatic, normocephalic - Eye Eye exam: Present: normal appearance - ENT ENT exam: Present: mucous membranes moist - Neck Neck exam: Present: normal inspection - Respiratory Respiratory exam: Present: normal lung sounds bilaterally. Absent: respiratory distress, wheezes, rales - Cardiovascular Cardiovascular Exam: Present: regular rate, normal rhythm. Absent: systolic murmur, diastolic murmur, rubs, gallop - GI/Abdominal GI/Abdominal exam: Present: soft, normal bowel sounds. Absent: distended, tenderness, guarding - Rectal Rectal exam: Present: deferred - Extremities Exam Extremities exam: Present: normal inspection - Back Exam Back exam: Present: normal inspection - Neurological Exam Neurological exam: Present: alert, oriented X3 - Psychiatric Psychiatric exam: Present: normal affect, normal mood - Skin Skin exam: Present: warm, dry, intact, normal color. Absent: rash ED Course Vital Signs 11/06/17 11:32 Temperature 97.7 F Pulse Rate 67 Respiratory 16 Rate Blood Pressure 158/77 O2 Sat by Pulse 99 Oximetry ED Medical Decision Making - Lab Data Result diagrams: 11/06/17 11:40 11/06/17 11:40 - Medical Decision Making His hemoglobin was 9.0. His potassium was within normal limits. Patient does not require a transfusion at this time and will be discharged home. His Daphne called his dialysis center and they would have scheduled him to come to dialysis first thing in the morning. Patient does not show any signs of fluid overload or shortness of breath and is safe to be discharged home. Critical care attestation.: If time is entered above; I have spent that time in minutes in the direct care of this critically ill patient, excluding procedure time. ED Disposition Clinical Impression: Mild anemia Disposition: DC-01 TO HOME OR SELFCARE Is pt being admited?: No Does the pt Need Aspirin: No Condition: Stable Referrals: PRIMARY CARE, [Primary Care Provider] - 3-5 Days
== END 2017-11-06 13:41 | disposition home or self-care (01) ==
LOC: ED 11:10
DX: D64.89 Other specified anemias (principal); I11.0 Hypertensive heart disease with heart failure; I50.9 Heart failure, unspecified; E78.00 Pure hypercholesterolemia, unspecified; E11.42 Type 2 diabetes mellitus with diabetic polyneuropathy; Z88.8 Allergy status to other drugs, medicaments and biological substances; Z79.4 Long term (current) use of insulin
CPT/HCPCS: 36415; 80048; 85027; 86850; 86900; 86901; 99283

== ENCOUNTER 2018-01-13 16:09 | Emergency (ER) | payer MEDICARE, OTHER ==
[2018-01-13 17:22] LABS: Basophils # (Auto) 0.1 K/mm3 (0.0-0.1); Basophils % (Auto) 1.2 % (0.0-1.8); Eosinophils # (Auto) 0.2 K/mm3 (0.0-0.4); Eosinophils % (Auto) 2.5 % (0.0-4.3); Hematocrit 27.6 % (35.5-45.6); Hemoglobin 8.4 gm/dl (11.8-15.2); Lymphocytes # (Auto) 1.5 K/mm3 (1.2-5.4); Mean Corpuscular HGB Conc 30 % (32-34); Mean Corpuscular Volume 73 fl (84-94); Monocytes # (Auto) 0.9 K/mm3 (0.0-0.8); Monocytes % (Auto) 10.5 % (0.0-7.3); Platelet Count 246 K/mm3 (140-440); Red Blood Count 3.79 M/mm3 (3.65-5.03)
[2018-01-13 17:27] LABS: Mean Corpuscular Hemoglobin 22 pg (28-32)
[2018-01-13 17:33] LABS: Calcium 8.2 mg/dL (8.4-10.2)
--- NOTE | 2018-01-13 17:33 | Emergency Department Report ---
ED Palpitations HPI - General Chief Complaint: Arrhythmia/Palpitations Stated Complaint: IRREGULAR HEART BEAT Time Seen by Provider: 01/13/18 16:52 Source: patient, EMS Mode of arrival: Stretcher Limitations: No Limitations - History of Present Illness Initial Comments: Patient is 48 years old male history of end stage renal disease he is on hemodialysis, atrial fibrillation, congestive heart failure and hypertension. Patient brought to the ER by EMS after he finished his dialysis is thought having palpitation, heart rate was 150 beats per minutes. By the time EMS came to pick the patient from dialysis center his heart rate came down to 80s. Patient denied any chest pain or shortness of breath at that time. Patient stated that he had history of episode like this before and he is following with [facility]. He stated that they recently treated with amiodarone to metoprolol. Patient is asymptomatic at this moment with a heart rate of 70. MD Complaint: rapid heart beat, "heart racing", irregular heart beat - Related Data Home Medications Medication Instructions Recorded Confirmed Last Taken AtorvaSTATin [Lipitor] 20 mg PO DAILY 08/19/15 08/29/17 1 Day Ago ~08/28/17 Colesevelam [Welchol] 1,875 mg PO BID 08/19/15 08/29/17 1 Day Ago ~08/28/17 Duloxetine HCl [DULoxetine] 60 mg PO DAILY 08/19/15 08/29/17 1 Day Ago ~08/28/17 Tobramycin/Dexameth 0.1-0.3% 3.5 gm SUBDERMAL DAILY 08/19/15 08/29/17 1 Day Ago [Tobradex] ~08/28/17 Previous Rx's Medication Instructions Recorded Last Taken Type Detemir (Nf) [Levemir (Nf)] 14 units SUB-Q QHS #1000 units 04/22/17 1 Day Ago Rx ~08/28/17 Metoprolol Xl [Metoprolol 50 mg PO QDAY #30 tablet 04/22/17 1 Day Ago Rx SUCCINATE ER TAB] ~08/28/17 Multivitamin Tab [Multiple Vitamin 1 each PO QDAY #30 tablet 04/22/17 1 Day Ago Rx TAB (Theragran)] ~08/28/17 NIFEdipine XL [Procardia Xl] 30 mg PO Q12HR #60 tablet 04/22/17 1 Day Ago Rx ~08/28/17 Apixaban [Eliquis] 5 mg PO BID #60 tablet 04/23/17 1 Day Ago Rx ~08/28/17 Insulin Aspart [NovoLOG Flexpen] See Protocol SQ ACHS #1 insuln.pen 04/23/17 1 Day Ago Rx ~08/28/17 Pantoprazole [Protonix TAB] 40 mg PO BID #60 tablet 04/23/17 1 Day Ago Rx ~08/28/17 HYDROcodone/APAP 5-325 [[place] 2 each PO Q4H PRN #12 tablet 06/20/17 1 Day Ago Rx 5-325 mg TAB] ~08/28/17 DULoxetine [Cymbalta] 60 mg PO QDAY capsule 08/29/17 Unknown Rx NIFEdipine XL [Procardia Xl] 30 mg PO Q12HR tablet 08/29/17 Unknown Rx Amiodarone [Cordarone 200 MG TAB] 200 mg PO BID #60 tab 08/30/17 Unknown Rx Amiodarone [Cordarone 200 MG TAB] 200 mg PO BID #60 tab 01/13/18 Unknown Rx Allergies Allergy/AdvReac Type Severity Reaction Status Date / Time AMMY Inhibitors Allergy Unknown Verified 08/19/15 01:31 ED Review of Systems ROS: Stated complaint: IRREGULAR HEART BEAT Other details as noted in HPI Comment: All other systems reviewed and negative Constitutional: no symptoms reported Respiratory: denies: cough, orthopnea, shortness of breath, SOB with exertion, SOB at rest, stridor Cardiovascular: palpitations. denies: chest pain, dyspnea on exertion, orthopnea, edema, syncope, paroxysmal nocturnal dyspnea Gastrointestinal: denies: abdominal pain, nausea, vomiting, diarrhea, constipation, hematemesis, melena, hematochezia Neurological: denies: headache, weakness, numbness, paresthesias, confusion ED Past Medical Hx - Past Medical History Previous Medical History?: Yes Hx Hypertension: Yes Hx Congestive Heart Failure: Yes Hx Diabetes: Yes Hx Deep Vein Thrombosis: No Hx Renal Disease: Yes Hx Asthma: No Hx COPD: No Hx HIV: No Additional medical history: HIGH CHOLESTEROL, Afib, A-FLUTTER,PERIPHERAL NEUROPATHY,ANEMIA, BLOOD TRANSFUSION - Surgical History Past Surgical History?: Yes Hx Coronary Stent: No Hx Pacemaker: No Hx Internal Defibrillator: No Hx Cholecystectomy: Yes Additional Surgical History: Cardiac ablation. right toe amputation - Social History Smoking Status: Never Smoker Substance Use Type: None - Medications Home Medications: Home Medications Medication Instructions Recorded Confirmed Last Taken Type AtorvaSTATin [Lipitor] 20 mg PO DAILY 08/19/15 08/29/17 1 Day Ago History ~08/28/17 Colesevelam [Welchol] 1,875 mg PO BID 08/19/15 08/29/17 1 Day Ago History ~08/28/17 Duloxetine HCl [DULoxetine] 60 mg PO DAILY 08/19/15 08/29/17 1 Day Ago History ~08/28/17 Tobramycin/Dexameth 0.1-0.3% 3.5 gm SUBDERMAL DAILY 08/19/15 08/29/17 1 Day Ago History [Tobradex] ~08/28/17 Detemir (Nf) [Levemir (Nf)] 14 units SUB-Q QHS #1000 units 04/22/17 08/29/17 1 Day Ago Rx ~08/28/17 Metoprolol Xl [Metoprolol 50 mg PO QDAY #30 tablet 04/22/17 08/29/17 1 Day Ago Rx SUCCINATE ER TAB] ~08/28/17 Multivitamin Tab [Multiple Vitamin 1 each PO QDAY #30 tablet 04/22/17 08/29/17 1 Day Ago Rx TAB (Theragran)] ~08/28/17 NIFEdipine XL [Procardia Xl] 30 mg PO Q12HR #60 tablet 04/22/17 08/29/17 1 Day Ago Rx ~08/28/17 Apixaban [Eliquis] 5 mg PO BID #60 tablet 04/23/17 08/29/17 1 Day Ago Rx ~08/28/17 Insulin Aspart [NovoLOG Flexpen] See Protocol SQ ACHS #1 insuln.pen 04/23/17 1 Day Ago Rx ~08/28/17 Pantoprazole [Protonix TAB] 40 mg PO BID #60 tablet 04/23/17 08/29/17 1 Day Ago Rx ~08/28/17 HYDROcodone/APAP 5-325 [[place] 2 each PO Q4H PRN #12 tablet 06/20/17 08/29/17 1 Day Ago Rx 5-325 mg TAB] ~08/28/17 DULoxetine [Cymbalta] 60 mg PO QDAY capsule 08/29/17 Unknown Rx NIFEdipine XL [Procardia Xl] 30 mg PO Q12HR tablet 08/29/17 Unknown Rx Amiodarone [Cordarone 200 MG TAB] 200 mg PO BID #60 tab 08/30/17 Unknown Rx Amiodarone [Cordarone 200 MG TAB] 200 mg PO BID #60 tab 01/13/18 Unknown Rx ED Physical Exam - General Limitations: No Limitations General appearance: alert, in no apparent distress - Head Head exam: Present: atraumatic, normocephalic, normal inspection - Eye Eye exam: Present: normal appearance, PERRL - ENT ENT exam: Present: normal exam, normal orophraynx, mucous membranes moist - Neck Neck exam: Present: normal inspection, full ROM. Absent: tenderness, meningismus, lymphadenopathy, thyromegaly - Respiratory Respiratory exam: Present: normal lung sounds bilaterally. Absent: respiratory distress, wheezes, rales, rhonchi, stridor, chest wall tenderness, accessory muscle use, decreased breath sounds, prolonged expiratory - Cardiovascular Cardiovascular Exam: Present: regular rate, normal rhythm, normal heart sounds - GI/Abdominal GI/Abdominal exam: Present: soft, normal bowel sounds. Absent: distended, tenderness, guarding, rebound, rigid, organomegaly, mass, bruit, pulsatile mass - Extremities Exam Extremities exam: Present: normal inspection, full ROM, normal capillary refill - Back Exam Back exam: Present: normal inspection, full ROM. Absent: tenderness, CVA tenderness (R), CVA tenderness (L), muscle spasm, paraspinal tenderness, vertebral tenderness, rash noted - Neurological Exam Neurological exam: Present: alert, oriented X3, CN II-XII intact, normal gait - Skin Skin exam: Present: warm, intact, normal color ED Course Vital Signs 01/13/18 01/13/18 01/13/18 16:42 17:01 17:15 Temperature 98.6 F Pulse Rate 75 74 73 Respiratory 16 15 19 Rate Blood Pressure 165/83 Blood Pressure 160/76 [Left] O2 Sat by Pulse 96 98 98 Oximetry 01/13/18 01/13/18 17:31 17:35 Temperature Pulse Rate 76 Respiratory 11 L 18 Rate Blood Pressure 165/83 Blood Pressure [Left] O2 Sat by Pulse 98 100 Oximetry - Reevaluation(s) Reevaluation #1: 01/13/18 18:51 Patient observed in the ER with no evidence of arrhythmia noticed on the monitor. Patient remained in sinus rhythm with rate of 70-80. Patient still denying any chest pain or shortness of breath. I reviewed patient's previous troponin and his troponin is always elevated. ED Medical Decision Making - Lab Data Result diagrams: 01/13/18 16:59 01/13/18 16:59 - EKG Data -: EKG Interpreted by Me EKG shows normal: sinus rhythm Rate: normal - EKG Data Interpretation: no acute changes - Radiology Data Radiology results: report reviewed Referring Physician: RK FELIX Patient Name: OLYA NOE Date of : 1970 Sex: Male Report Date: 2018-01-13 Report Status: Finalized Findings [address] [address] XRay Report Signed Patient: OLYA NOE MR#: [id number] : 1970 Acct:[id number] Age/Sex: 48 / M ADM Date: 01/13/18 Loc: ED Attending Dr: Ordering Physician: RK FELIX Date of Service: 01/13/18 Procedure(s): XR chest 1V ap Accession Number(s): [id number] cc: RK FELIX Fluoro Time In Minutes: FINAL REPORT EXAM: XR CHEST 1V AP HISTORY: palpitation TECHNIQUE: Frontal portable examination of the chest PRIORS: 08/29/2017 FINDINGS: Oblique patient position limits the examination. Imaged demographics obscure the left CP angle, limiting the examination. There is no pulmonary consolidation, pleural effusion, or pneumothorax. The regional skeleton is without acute pathology. The cardiac silhouette size is slightly enlarged without evidence of vascular congestion or pulmonary edema. IMPRESSION: No acute pulmonary disease in the visualized chest Slight cardiomegaly Transcribed By: BAL Dictated By: YON CEBALLOS MD Electronically Authenticated By: YON CEBALLOS MD Signed Date/Time: 01/13/181835 DD/ 35 TD/TT: 01/13/181835 - Medical Decision Making I discussed the patient with Dr. Pelayo, container finishing inspector for [facility], he advised to stop metoprolol and restart amiodarone again. And to follow-up with his doctor Acacia in two days. Critical care attestation.: If time is entered above; I have spent that time in minutes in the direct care of this critically ill patient, excluding procedure time. ED Disposition Clinical Impression: Arrhythmia, CHF (congestive heart failure), ESRD (end stage renal disease) on dialysis Disposition: TO HOME OR SELFCARE Is pt being admited?: No Condition: Stable Instructions: Atrial Fibrillation (ED) Prescriptions: Amiodarone [Cordarone 200 MG TAB] 200 mg PO BID #60 tab Referrals: PRIMARY CARE, [Primary Care Provider] - 3-5 Days
[2018-01-13 17:46] VITALS: BP 165/83
[2018-01-13 17:58] LABS: Chol/HDL Ratio 1.92 %
--- NOTE | 2018-01-13 18:42 | XRay Report ---
FINAL REPORT EXAM: XR CHEST 1V AP HISTORY: palpitation TECHNIQUE: Frontal portable examination of the chest PRIORS: 08/29/2017 FINDINGS: Oblique patient position limits the examination. Imaged demographics obscure the left CP angle, limiting the examination. There is no pulmonary consolidation, pleural effusion, or pneumothorax. The regional skeleton is without acute pathology. The cardiac silhouette size is slightly enlarged without evidence of vascular congestion or pulmonary edema. IMPRESSION: No acute pulmonary disease in the visualized chest Slight cardiomegaly
== END 2018-01-13 19:11 | disposition home or self-care (01) ==
LOC: ED 16:09
DX: I49.9 Cardiac arrhythmia, unspecified (principal); I13.2 Hypertensive heart and chronic kidney disease with heart failure and with stage 5 chronic kidney disease, or end stage renal disease; E11.22 Type 2 diabetes mellitus with diabetic chronic kidney disease; N18.6 End stage renal disease; I50.9 Heart failure, unspecified; Z99.2 Dependence on renal dialysis; Z79.4 Long term (current) use of insulin; Z88.8 Allergy status to other drugs, medicaments and biological substances
CPT/HCPCS: 36415; 71045; 80048; 80061; 84484; 85025; 93005; 93010; 99285

== ENCOUNTER 2018-09-05 15:14 | Inpatient (IN) | payer MEDICARE, OTHER ==
[2018-09-05] MEDS ORDERED: LOPRESSOR IV ONE (16:00)
[2018-09-05 16:23] LABS: Basophils # (Auto) 0.1 K/mm3 (0.0-0.1); Basophils % (Auto) 1.1 % (0.0-1.8); Eosinophils # (Auto) 0.1 K/mm3 (0.0-0.4); Eosinophils % (Auto) 2.5 % (0.0-4.3); Hematocrit 36.7 % (35.5-45.6); Hemoglobin 11.7 gm/dl (11.8-15.2); Lymphocytes # (Auto) 1.1 K/mm3 (1.2-5.4); Mean Corpuscular HGB Conc 32 % (32-34); Mean Corpuscular Volume 76 fl (84-94); Monocytes # (Auto) 0.7 K/mm3 (0.0-0.8); Monocytes % (Auto) 12.6 % (0.0-7.3); Platelet Count 166 K/mm3 (140-440); Red Blood Count 4.84 M/mm3 (3.65-5.03)
[2018-09-05 16:26] LABS: Mean Corpuscular Hemoglobin 24 pg (28-32); Red Cell Distribution Width 23.9 % (13.2-15.2)
[2018-09-05 16:34] LABS: INR 1.3 (0.87-1.13); Partial Thromboplastin Time 31.4 Sec. (24.2-36.6)
[2018-09-05 16:38] LABS: Albumin 2.9 g/dL (3.9-5); Calcium 8.7 mg/dL (8.4-10.2)
--- NOTE | 2018-09-05 16:50 | XRay Report ---
FINAL REPORT PROCEDURE: XR CHEST 1V AP TECHNIQUE: Chest radiograph anteroposterior view. CPT 36963 HISTORY: chest pain COMPARISON: 01/13/2018 FINDINGS: Heart: Cardiac size is upper limit of normal. Mediastinum/Vessels: Normal. Lungs/Pleural space: There is mild degree elevation of right hemidiaphragm. Bilateral lungs and pleur al spaces are clear. Bony thorax: No acute osseous abnormality. Life support devices: None. IMPRESSION: No acute cardiopulmonary abnormality.
[2018-09-05 17:02] LABS: Chol/HDL Ratio 1.87 %
--- NOTE | 2018-09-05 18:29 | Emergency Department Report ---
HPI - General Chief Complaint: Arrhythmia/Palpitations Time Seen by Provider: 09/05/18 15:59 - HPI HPI: 48 y.o kayla is here with chest pain, nausea, palpitations that occured while he was getting dialysis. he has a history of charcot syndrome and has been bedboud for 3 years now. He rates his pain as mild and is accompanied by hr in 130-140s, dialysis nurses sent him to er for further evaluation. He has not taken any medications for his symptoms. He denies any alleviating factors or exacerbating factor. states his hr will stay down for a few minutes then go back up. He denies any fever, chills or night sweats, but has has facial pain and nose bleed last week. nose bleed resolved, but facial pain remained, his who is at bedside states she thought he had a sinus infection and was contemplating bringing him to er. He is compliant with his dialysis and meds. ED Past Medical Hx - Past Medical History Hx Hypertension: Yes Hx Congestive Heart Failure: Yes Hx Diabetes: Yes Hx Deep Vein Thrombosis: No Hx Renal Disease: Yes Hx Asthma: No Hx COPD: No Hx HIV: No Additional medical history: HIGH CHOLESTEROL, Afib, A-FLUTTER,PERIPHERAL NEUROPATHY,ANEMIA, BLOOD TRANSFUSION - Surgical History Hx Coronary Stent: No Hx Pacemaker: No Hx Internal Defibrillator: No Hx Cholecystectomy: Yes Additional Surgical History: Cardiac ablation. right toe amputation - Social History Smoking Status: Former Smoker Substance Use Type: None - Medications Home Medications: Home Medications Medication Instructions Recorded Confirmed Last Taken Type AtorvaSTATin [Lipitor] 20 mg PO DAILY 08/19/15 08/29/17 1 Day Ago History ~08/28/17 Colesevelam [Welchol] 1,875 mg PO BID 08/19/15 08/29/17 1 Day Ago History ~08/28/17 Duloxetine HCl [DULoxetine] 60 mg PO DAILY 08/19/15 08/29/17 1 Day Ago History ~08/28/17 Tobramycin/Dexameth 0.1-0.3% 3.5 gm SUBDERMAL DAILY 08/19/15 08/29/17 1 Day Ago History [Tobradex] ~08/28/17 Detemir (Nf) [Levemir (Nf)] 14 units SUB-Q QHS #1000 units 04/22/17 08/29/17 1 Day Ago Rx ~08/28/17 Metoprolol Xl [Metoprolol 50 mg PO QDAY #30 tablet 04/22/17 08/29/17 1 Day Ago Rx SUCCINATE ER TAB] ~08/28/17 Multivitamin Tab [Multiple Vitamin 1 each PO QDAY #30 tablet 04/22/17 08/29/17 1 Day Ago Rx TAB (Theragran)] ~08/28/17 NIFEdipine XL [Procardia Xl] 30 mg PO Q12HR #60 tablet 04/22/17 08/29/17 1 Day Ago Rx ~08/28/17 Apixaban [Eliquis] 5 mg PO BID #60 tablet 04/23/17 08/29/17 1 Day Ago Rx ~08/28/17 Insulin Aspart [NovoLOG Flexpen] See Protocol SQ ACHS #1 insuln.pen 04/23/17 08/29/17 1 Day Ago Rx ~08/28/17 Pantoprazole [Protonix TAB] 40 mg PO BID #60 tablet 04/23/17 08/29/17 1 Day Ago Rx ~08/28/17 HYDROcodone/APAP 5-325 [[place] 2 each PO Q4H PRN #12 tablet 06/20/17 08/29/17 1 Day Ago Rx 5-325 mg TAB] ~08/28/17 DULoxetine [Cymbalta] 60 mg PO QDAY capsule 08/29/17 Unknown Rx NIFEdipine XL [Procardia Xl] 30 mg PO Q12HR tablet 08/29/17 Unknown Rx Amiodarone [Cordarone 200 MG TAB] 200 mg PO BID #60 tab 08/30/17 Unknown Rx Amiodarone [Cordarone 200 MG TAB] 200 mg PO BID #60 tab 01/13/18 Unknown Rx ED Review of Systems ROS: Stated complaint: INCREASED HEART RATE Other details as noted in HPI Respiratory: cough Cardiovascular: chest pain, palpitations, dyspnea on exertion Physical Exam - Physical Exam Vital Signs: Vital Signs 09/05/18 09/05/18 09/05/18 15:16 15:26 15:30 Temperature 97.5 F L Pulse Rate 148 H 147 H 147 H Respiratory 18 17 13 Rate Blood Pressure 147/95 145/96 O2 Sat by Pulse 100 96 Oximetry 09/05/18 09/05/18 09/05/18 15:46 16:00 16:16 Temperature Pulse Rate 151 H 149 H 144 H Respiratory 15 16 15 Rate Blood Pressure 145/96 108/69 108/69 O2 Sat by Pulse Oximetry 09/05/18 09/05/18 09/05/18 16:30 16:35 16:46 Temperature Pulse Rate 74 77 Respiratory 17 21 Rate Blood Pressure 108/69 150/89 150/81 O2 Sat by Pulse Oximetry 09/05/18 09/05/18 09/05/18 17:00 17:16 17:30 Temperature Pulse Rate 76 77 78 Respiratory 14 19 17 Rate Blood Pressure 150/81 150/81 150/81 O2 Sat by Pulse Oximetry Physical Exam: GENERAL APPEARANCE: Well developed, well nourished, alert and cooperative, and appears to be in no acute distress. HEAD: normocephalic. EYES: PERRL, EOMI. Fundi normal, vision is grossly intact. EARS: External auditory canals and tympanic membranes clear, hearing grossly intact. NOSE: No nasal discharge. THROAT: Oral cavity and pharynx normal. No inflammation, swelling, exudate, or lesions. Teeth and gingiva in good general condition. NECK: Neck supple, non-tender without lymphadenopathy, masses or thyromegaly. CARDIAC: tachycardia, mild 2/6 mario alberto. There is no peripheral edema, cyanosis or pallor. Extremities are warm and well perfused. Capillary refill is less than 2 seconds. No carotid bruits. LUNGS: Clear to auscultation and percussion without rales, rhonchi, wheezing or diminished breath sounds. ABDOMEN: Positive bowel sounds. Soft, nondistended, nontender. No guarding or rebound. No masses. MUSKULOSKELETAL: charcot deformities in left knee and ankle, contraction mild all lower ext. right upper ext dialysis shunt d/c/i ED Course Vital Signs 09/05/18 09/05/18 09/05/18 15:16 15:26 15:30 Temperature 97.5 F L Pulse Rate 148 H 147 H 147 H Respiratory 18 17 13 Rate Blood Pressure 147/95 145/96 O2 Sat by Pulse 100 96 Oximetry 09/05/18 09/05/18 09/05/18 15:46 16:00 16:16 Temperature Pulse Rate 151 H 149 H 144 H Respiratory 15 16 15 Rate Blood Pressure 145/96 108/69 108/69 O2 Sat by Pulse Oximetry 09/05/18 09/05/18 09/05/18 16:30 16:35 16:46 Temperature Pulse Rate 74 77 Respiratory 17 21 Rate Blood Pressure 108/69 150/89 150/81 O2 Sat by Pulse Oximetry 09/05/18 09/05/18 09/05/18 17:00 17:16 17:30 Temperature Pulse Rate 76 77 78 Respiratory 14 19 17 Rate Blood Pressure 150/81 150/81 150/81 O2 Sat by Pulse Oximetry - Reevaluation(s) Reevaluation #1: 09/05/18 18:29 tachycardia ddx: new onset afib sinus tach dehydration nonstemi ED Medical Decision Making - Lab Data Result diagrams: 09/05/18 16:09 09/05/18 16:09 Critical care attestation.: If time is entered above; I have spent that time in minutes in the direct care of this critically ill patient, excluding procedure time. ED Disposition Clinical Impression: Atrial fibrillation and flutter, Paroxysmal a-fib Disposition: - OP ADMIT IP TO THIS HOSP Is pt being admited?: Yes Does the pt Need Aspirin: No Condition: Stable Referrals: PRIMARY CARE, [Primary Care Provider] - 3-5 Days
--- NOTE | 2018-09-05 18:37 | History and Physical Report ---
History of Present Illness Chief complaint: My chest hurts History of present illness: 48 YO Male with CHF, DM, ESRD on HD(T,R,Sa), HLD, Atrial Fib/Flutter S/P Ablation, Charcot Joint (left Knee),Lymphedema, Debility with Bedbound Status, presents to ED for evaluation. Pt states that he was undergoing dialysis and exp erienced acute onset of chest pain, as well as palpitations. Pt states that pain is 5/10, localized to the left chest, constant, not worsened with exertion or relieved with rest. EMS was notified, and patient was transported to [facility] for further care and evaluation. Pt seen and evaluated in ED and found to have ACS, as well as Atrial Fib with RVR. Pt admitted to telemetry. Cardiology consulted in ED. PT denies fever, chills, hemoptysis, BRBPR, dark stool, productive cough, trauma, or recent ill contacts. Past History Past Medical History: atrial fib, ESRD, heart failure, hypertension Past Surgical History: Other (Cardiac Ablation, Right Toe amputation) Social history: , lives with family. denies: smoking, alcohol abuse, prescription drug abuse Family history: hypertension Medications and Allergies Allergies Allergy/AdvReac Type Severity Reaction Status Date / Time AMMY Inhibitors Allergy Unknown Verified 08/19/15 01:31 Home Medications Medication Instructions Recorded Confirmed Last Taken Type AtorvaSTATin [Lipitor] 20 mg PO DAILY 08/19/15 08/29/17 1 Day Ago History ~08/28/17 Colesevelam [Welchol] 1,875 mg PO BID 08/19/15 08/29/17 1 Day Ago History ~08/28/17 Duloxetine HCl [DULoxetine] 60 mg PO DAILY 08/19/15 08/29/17 1 Day Ago History ~08/28/17 Tobramycin/Dexameth 0.1-0.3% 3.5 gm SUBDERMAL DAILY 08/19/15 08/29/17 1 Day Ago History [Tobradex] ~08/28/17 Detemir (Nf) [Levemir (Nf)] 14 units SUB-Q QHS #1000 units 04/22/17 08/29/17 1 Day Ago Rx ~08/28/17 Metoprolol Xl [Metoprolol 50 mg PO QDAY #30 tablet 04/22/17 08/29/17 1 Day Ago Rx SUCCINATE ER TAB] ~08/28/17 Multivitamin Tab [Multiple Vitamin 1 each PO QDAY #30 tablet 04/22/17 08/29/17 1 Day Ago Rx TAB (Theragran)] ~08/28/17 NIFEdipine XL [Procardia Xl] 30 mg PO Q12HR #60 tablet 04/22/17 08/29/17 1 Day Ago Rx ~08/28/17 Apixaban [Eliquis] 5 mg PO BID #60 tablet 04/23/17 08/29/17 1 Day Ago Rx ~08/28/17 Insulin Aspart [NovoLOG Flexpen] See Protocol SQ ACHS #1 insuln.pen 04/23/17 08/29/17 1 Day Ago Rx ~08/28/17 Pantoprazole [Protonix TAB] 40 mg PO BID #60 tablet 04/23/17 08/29/17 1 Day Ago Rx ~08/28/17 HYDROcodone/APAP 5-325 [[place] 2 each PO Q4H PRN #12 tablet 06/20/17 08/29/17 1 Day Ago Rx 5-325 mg TAB] ~08/28/17 DULoxetine [Cymbalta] 60 mg PO QDAY capsule 08/29/17 Unknown Rx NIFEdipine XL [Procardia Xl] 30 mg PO Q12HR tablet 08/29/17 Unknown Rx Amiodarone [Cordarone 200 MG TAB] 200 mg PO BID #60 tab 08/30/17 Unknown Rx Amiodarone [Cordarone 200 MG TAB] 200 mg PO BID #60 tab 01/13/18 Unknown Rx Review of Systems Constitutional: no weight loss, no weight gain, no fever, no chills Ears, nose, mouth and throat: no ear pain, no ear discharge, no tinnitis, no decreased hearing, no nose pain Cardiovascular: chest pain, palpitations, no orthopnea, no edema, no syncope, no lightheadedness Respiratory: no cough, no cough with sputum, no excessive sputum, no hemoptysis Gastrointestinal: no nausea, no vomiting, no diarrhea, no constipation Genitourinary Male: no hematuria, no urinary hesitancy Rectal: no pain, no incontinence, no bleeding Musculoskeletal: no neck stiffness, no neck pain, no shooting arm pain, no arm numbness/tingling, no shooting leg pain Integumentary: no rash, no pruritis, no redness, no sores, no wounds Neurological: no transient paralysis, no paralysis, no weakness, no parathesias, no numbness, no tingling, no seizures Psychiatric: no anxiety, no memory loss, no change in sleep habits, no sleep disturbances, no insomnia, no hypersomnia, no change in appetite Endocrine: no cold intolerance, no heat intolerance, no polyphagia, no excessive thirst, no polydipsia, no polyuria, no nocturia, no weight change Hematologic/Lymphatic: no easy bruising, no easy bleeding, no lymphadenopathy, no lymphedema Allergic/Immunologic: no urticaria, no allergic rhinitis, no wheezing, no persistent infections, no anaphylaxis, no angioedema Exam - Constitutional Vitals: Temp Pulse Resp BP Pulse Ox 97.5 F L 78 17 150/81 96 09/05/18 15:16 09/05/18 17:30 09/05/18 17:30 09/05/18 17:30 09/05/18 15:30 General appearance: Present: mild distress - EENT Eyes: Present: PERRL ENT: hearing intact, clear oral mucosa - Neck Neck: Present: supple, normal ROM - Respiratory Respiratory effort: normal Respiratory: bilateral: CTA - Cardiovascular Rhythm: irregularly irregular Heart Sounds: Present: S1 & S2. Absent: rub, click - Extremities Extremities: pulses symmetrical, No edema Peripheral Pulses: within normal limits - Abdominal General gastrointestinal: Present: soft, non-tender, non-distended, normal bowel sounds Male genitourinary: Present: normal - Integumentary Integumentary: Present: clear, warm, dry - Musculoskeletal Musculoskeletal: gait normal, strength equal bilaterally - Psychiatric Psychiatric: appropriate mood/affect, intact judgment & insight - Neurologic Neurologic: CNII-XII intact, moves all extremities Results - Labs CBC & Chem 7: 09/05/18 16:09 09/05/18 16:09 Labs: Abnormal lab results 09/05/18 09/05/18 09/05/18 Range/Units 16:09 16:09 16:09 Hgb 11.7 L (11.8-15.2) gm/dl MCV 76 L (84-94) fl MCH 24 L (28-32) pg RDW 23.9 H (13.2-15.2) % Levy % (Auto) 12.6 H (0.0-7.3) % Lymph # 1.1 L (1.2-5.4) K/mm3 PT 16.6 H (12.2-14.9) Sec. INR 1.30 H (0.87-1.13) Chloride (98-107) mmol/L Carbon Dioxide (22-30) mmol/L Creatinine (0.8-1.5) mg/dL Glucose (75-100) mg/dL Alkaline Phosphatase (35-129) units/L Troponin T 0.218 H* (0.00-0.029) ng/mL Albumin (3.9-5) g/dL LDL Cholesterol Direct 26 L (50-130) mg/dL // Range/Units 16:09 Hgb (11.8-15.2) gm/dl MCV (84-94) fl MCH (28-32) pg RDW (13.2-15.2) % Levy % (Auto) (0.0-7.3) % Lymph # (1.2-5.4) K/mm3 PT (12.2-14.9) Sec. INR (0.87-1.13) Chloride 96.5 L (98-107) mmol/L Carbon Dioxide 31 H (22-30) mmol/L Creatinine 2.1 H (0.8-1.5) mg/dL Glucose 110 H (75-100) mg/dL Alkaline Phosphatase 337 H (35-129) units/L Troponin T (0.00-0.029) ng/mL Albumin 2.9 L (3.9-5) g/dL LDL Cholesterol Direct (50-130) mg/dL Assessment and Plan - Patient Problems (1) Atrial fibrillation and flutter Current Visit: Yes Status: Acute Plan to address problem: Rate control, admit to telemetry, cardiology consulted, therapeutic anticoagulation, (2) CHF (congestive heart failure) Current Visit: No Status: Acute Qualifiers: Heart failure type: systolic Heart failure chronicity: acute on chronic Qualified Code(s): I50.23 - Acute on chronic systolic (congestive) heart failure Plan to address problem: Admit to telemetry, cardiology consulted in ED, BNP, strict I/O, monitor uop q shift, daily weight, diuresis, afterload reduction, blood pressure control (3) ESRD (end stage renal disease) Current Visit: No Status: Acute Plan to address problem: Nephrology consulted in ED, dialysis as per renal team. (4) DVT prophylaxis Current Visit: No Status: Acute Plan to address problem: SCD to BLE while in bed.
[2018-09-05] MEDS ORDERED: PROVENTIL IH PRN (19:14)
[2018-09-05] MEDS ORDERED: ZOFRAN IV PRN (19:14)
[2018-09-05] MEDS ORDERED: SODIUM CHLORIDE FLUSH SYRINGE 10 ML IV PRN ×2 (19:14)
[2018-09-05] MEDS ORDERED: MORPHINE IV PRN (19:14)
[2018-09-05] MEDS ORDERED: NITROSTAT SL PRN (19:14)
[2018-09-05] MEDS ORDERED: BABY ASPIRIN PO STA (19:14)
[2018-09-05] MEDS ORDERED: TYLENOL PO PRN (19:14)
[2018-09-05] MEDS ORDERED: NORCO 5/325 PO PRN (19:17)
[2018-09-05 19:29] LABS: Free T4 (Free Thyroxine) 4.24 ng/dL (0.76-1.46)
[2018-09-05] MEDS ORDERED: D50W (25GM) Syringe IV PRN (20:05)
[2018-09-05] MEDS ORDERED: DETEMIR SUB-Q SCH (22:00)
[2018-09-05] MEDS ORDERED: BABY ASPIRIN ONE (22:03)
[2018-09-05] MEDS: ELIQUIS PO SCH (22:59)
[2018-09-05] MEDS: PROCARDIA XL PO SCH (22:59)
[2018-09-05] MEDS: PEPCID PO SCH (22:59)
[2018-09-05] MEDS: PROTONIX PO SCH (22:59)
[2018-09-05] MEDS: CORDARONE PO SCH (22:59)
[2018-09-05] MEDS: SODIUM CHLORIDE FLUSH SYRINGE 10 ML IV SCH (23:00)
[2018-09-05] MEDS: WELCHOL PO SCH (23:38)
[2018-09-05] MEDS: LANTUS SUB-Q SCH (23:58)
[2018-09-05] MEDS: HumaLOG SUB-Q SCH (23:58)
[2018-09-06] MEDS ORDERED: APRESOLINE IV PRN (06:31)
[2018-09-06 07:14] LABS: Albumin 2.7 g/dL (3.9-5); Calcium 8.8 mg/dL (8.4-10.2)
--- NOTE | 2018-09-06 08:31 | Consultation ---
History of Present Illness - Reason for Consult Consult date: 09/06/18 end stage renal disease - History of Present Illness The patient is a 48 YO AAM who is well known to our service with medical history significant for DM type 2, Hypertension, Hyperlipidemia, ESRD on hemodialysis (TTS), Anemia, CHF, paroxysmal A.fib, Hyperthyroidism, Generalized muscle weakness and nonambulatory secondary to left knee Charcot's disease who presented to the ER yesterday from the hemodialysis unit with tachycardia. While on hemodialysis yesterday he developed tachycardia with heart rate in the 150s. In the emergency room, his ECG was in narrow complex tachycardia at 146 bpm. The rhythm had likely returned to SR spontaneously. He is currently in SR. Patient denies any cp, sob, palpitation, dizziness, diaphoresis, new weakness, N, V, abd pain or syncope. The hemodialysis was stopped 30 min prior to the scheduled time. Past History Past Medical History: atrial fib, ESRD, heart failure, hypertension Past Surgical History: Other (Cardiac Ablation, Right Toe amputation) Social history: , lives with family. denies: smoking, alcohol abuse, prescription drug abuse Family history: hypertension Medications and Allergies Allergies Allergy/AdvReac Type Severity Reaction Status Date / Time AMMY Inhibitors Allergy Unknown Verified 08/19/15 01:31 Home Medications Medication Instructions Recorded Confirmed Last Taken Type AtorvaSTATin [Lipitor] 20 mg PO DAILY 08/19/15 08/29/17 1 Day Ago History ~08/28/17 Colesevelam [Welchol] 1,875 mg PO BID 08/19/15 08/29/17 1 Day Ago History ~08/28/17 Duloxetine HCl [DULoxetine] 60 mg PO DAILY 08/19/15 08/29/17 1 Day Ago History ~08/28/17 Tobramycin/Dexameth 0.1-0.3% 3.5 gm SUBDERMAL DAILY 08/19/15 08/29/17 1 Day Ago History [Tobradex] ~08/28/17 Detemir (Nf) [Levemir (Nf)] 14 units SUB-Q QHS #1000 units 04/22/17 08/29/17 1 Day Ago Rx ~08/28/17 Metoprolol Xl [Metoprolol 50 mg PO QDAY #30 tablet 04/22/17 08/29/17 1 Day Ago Rx SUCCINATE ER TAB] ~08/28/17 Multivitamin Tab [Multiple Vitamin 1 each PO QDAY #30 tablet 04/22/17 08/29/17 1 Day Ago Rx TAB (Theragran)] ~08/28/17 NIFEdipine XL [Procardia Xl] 30 mg PO Q12HR #60 tablet 04/22/17 08/29/17 1 Day Ago Rx ~08/28/17 Apixaban [Eliquis] 5 mg PO BID #60 tablet 04/23/17 08/29/17 1 Day Ago Rx ~08/28/17 Insulin Aspart [NovoLOG Flexpen] See Protocol SQ ACHS #1 insuln.pen 04/23/17 08/29/17 1 Day Ago Rx ~08/28/17 Pantoprazole [Protonix TAB] 40 mg PO BID #60 tablet 04/23/17 08/29/17 1 Day Ago Rx ~08/28/17 HYDROcodone/APAP 5-325 [[place] 2 each PO Q4H PRN #12 tablet 06/20/17 08/29/17 1 Day Ago Rx 5-325 mg TAB] ~08/28/17 DULoxetine [Cymbalta] 60 mg PO QDAY capsule 08/29/17 Unknown Rx NIFEdipine XL [Procardia Xl] 30 mg PO Q12HR tablet 08/29/17 Unknown Rx Amiodarone [Cordarone 200 MG TAB] 200 mg PO BID #60 tab 08/30/17 Unknown Rx Amiodarone [Cordarone 200 MG TAB] 200 mg PO BID #60 tab 01/13/18 Unknown Rx Active Meds: Active Medications Acetaminophen (Tylenol) 650 mg PO Q4H PRN PRN Reason: Pain MILD(1-3)/Fever >100.5/GARZON Acetaminophen/Hydrocodone Bitart ([place] 5/325) 2 each PO Q4H PRN PRN Reason: Pain, Moderate (4-6) Albuterol (Proventil) 2.5 mg IH Q4HRT PRN PRN Reason: Shortness Of Breath Amiodarone HCl (Cordarone) 200 mg PO BID [facility] Last Admin: 09/05/18 22:59 Dose: 200 mg Documented by: Apixaban (Eliquis) 5 mg PO BID [facility]; Protocol Last Admin: 09/05/18 22:59 Dose: 5 mg Documented by: Atorvastatin Calcium (Lipitor) 20 mg PO QHS [facility] Last Admin: 09/05/18 22:59 Dose: 20 mg Documented by: Colesevelam HCl (Welchol) 1,875 mg PO BID [facility] Last Admin: 09/05/18 23:38 Dose: Not Given Documented by: Dextrose (D50w (25gm) Syringe) 50 ml IV PRN PRN PRN Reason: Hypoglycemia Duloxetine HCl (Cymbalta) 60 mg PO QDAY [facility] Famotidine (Pepcid) 10 mg PO BID [facility] Last Admin: 09/05/18 22:59 Dose: 10 mg Documented by: Hydralazine HCl (Apresoline) 10 mg IV Q4H PRN PRN Reason: Blood Pressure Insulin Glargine (Lantus) 15 units SUB-Q [facility] Last Admin: 09/05/18 23:58 Dose: Not Given Documented by: Insulin Human Lispro (Humalog) 0 unit SUB-Q [facility]; Protocol Last Admin: 09/05/18 23:58 Dose: Not Given Documented by: Metoprolol Succinate (Toprol Xl) 50 mg PO QDAY [facility] Morphine Sulfate (Morphine) 2 mg IV Q4H PRN PRN Reason: Pain, Moderate (4-6) Multivitamins (Theragran Tab) 1 each PO QDAY [facility] Nifedipine (Procardia Xl) 30 mg PO Q12HR [facility] Last Admin: 09/05/18 22:59 Dose: 30 mg Documented by: Nitroglycerin (Nitrostat) 0.4 mg SL Q5M PRN PRN Reason: Chest Pain Ondansetron HCl (Zofran) 4 mg IV Q8H PRN PRN Reason: Nausea And Vomiting Pantoprazole Sodium (Protonix) 40 mg PO BID [facility] Last Admin: 09/05/18 22:59 Dose: 40 mg Documented by: Sodium Chloride (Sodium Chloride Flush Syringe 10 Ml) 10 ml IV BID [facility] Last Admin: 09/05/18 23:00 Dose: 10 ml Documented by: Sodium Chloride (Sodium Chloride Flush Syringe 10 Ml) 10 ml IV PRN PRN PRN Reason: LINE FLUSH Sodium Chloride (Sodium Chloride Flush Syringe 10 Ml) 10 ml IV PRN PRN PRN Reason: LINE FLUSH Review of Systems Constitutional: weight loss, weakness (chronic), no weight gain, no fever, no chills Cardiovascular: high blood pressure, no chest pain, no orthopnea, no palpitations, no edema, no syncope, no lightheadedness, no shortness of breath, no leg edema Respiratory: no cough, no shortness of breath Gastrointestinal: diarrhea (chronic, followed by GI), no abdominal pain, no nausea, no vomiting Genitourinary Male: no dysuria, no hematuria Rectal: no bleeding Musculoskeletal: morning stiffness, muscle weakness Integumentary: no rash, no wounds, no jaundice Neurological: weakness, no paralysis, no syncope, no aphasia, no change in speech, no change in mentation, no confusion, no memory loss Exam - Vital Signs Vital signs: Vital Signs Temp Pulse Resp BP Pulse Ox 97.5 F L 148 H 18 147/95 100 09/05/18 15:16 09/05/18 15:16 09/05/18 15:16 09/05/18 15:16 09/05/18 15:16 - General Appearance General appearance: well-developed, appears stated age, other (not in distress) EENT: ATNC, hearing intact Neck: Present: neck supple, trachea midline Respiratory: Clear to Ascultation Heart: regular, S1S2, no murmurs Gastrointestinal: Present: normoactive bowel sounds. Absent: tenderness, distended Integumentary: chronic venous stasis Neurologic: no asterixis, alert and oriented x3, other (generalized weakness noted, right eye blindness, muscle wasting noted) Musculoskeletal: Present: other (bilateral knee swelling L > R, right elbow movements are restricted, right arm AVF) Results - Lab Results 09/05/18 16:09 09/06/18 05:36 Most recent lab results Calcium 8.8 mg/dL (8.4-10.2) 09/06/18 05:36 Assessment and Plan 1. ESRD: Continue hemodialysis three times a week, TTS schedule. Last dialyzed yesterday. 2. A.fib / A.flutter with RVR: SR now. Followed by Cards. 3. Anemia. Monitor. 4. Hyperthyroidism. 5. DM-2.
[2018-09-06] MEDS: HumaLOG SUB-Q SCH ×4 (09:07→21:39)
[2018-09-06] MEDS ORDERED: TOPROL XL PO SCH (10:00)
[2018-09-06] MEDS ORDERED: NON-FORMULARY (Duloxetine Hcl [Duloxetine] 60 MG) PO SCH (10:00)
[2018-09-06] MEDS: PROTONIX PO SCH ×2 (12:24→21:36)
[2018-09-06] MEDS: THERAGRAN Tab PO SCH (12:24)
[2018-09-06] MEDS: CORDARONE PO SCH (12:24)
[2018-09-06] MEDS: PEPCID PO SCH ×2 (12:25→21:36)
[2018-09-06] MEDS: ELIQUIS PO SCH ×2 (12:25→21:37)
[2018-09-06] MEDS: PROCARDIA XL PO SCH ×2 (12:25→21:36)
[2018-09-06] MEDS: CYMBALTA PO SCH (12:25)
[2018-09-06] MEDS: SODIUM CHLORIDE FLUSH SYRINGE 10 ML IV SCH ×2 (12:27→21:37)
--- NOTE | 2018-09-06 13:09 | Consultation ---
History of Present Illness Consult date: 09/06/18 Consult reason: tachycardia History of present illness: The patient is a 48-year-old man who has end-stage renal disease on hemodial ysis. He presented to the emergency room with complaints of palpitations and tachycardia which started during a dialysis session. In the emergency room, his ECG was in narrow complex tachycardia at 146 bpm, the morphology appeared consistent with an AV node reentry tachycardia with a long RP. It is uncertain what if any maneuvers were performed in the emergency room for tachycardia management, there is no clear documentation available in the records reviewed. Nevertheless, at this time the patient is in a stable sinus rhythm. Further laboratory examination has revealed the patient to have severe hypothyroidism, TSH level less than 0.005. In addition, he has bilateral proptosis consistent with hyperthyroid state. Comorbidities include chronic hypertension. The patient is on oral ant icoagulation with Eliquis presumably for a history of paroxysmal atrial fibrillation, but unable to confirm this diagnosis from a review of his past records or patient's history. Previous echocardiogram a year ago April 2017 documented normal left ventricular systolic function, ejection fraction 55-60%. Past History Past Medical History: atrial fib, ESRD, heart failure, hypertension Past Surgical History: Other (Cardiac Ablation, Right Toe amputation) Social history: , lives with family. denies: smoking, alcohol abuse, prescription drug abuse Family history: hypertension Medications and Allergies Allergies Allergy/AdvReac Type Severity Reaction Status Date / Time AMMY Inhibitors Allergy Unknown Verified 08/19/15 01:31 Home Medications Medication Instructions Recorded Confirmed Last Taken Type AtorvaSTATin [Lipitor] 20 mg PO DAILY 08/19/15 08/29/17 1 Day Ago History ~08/28/17 Colesevelam [Welchol] 1,875 mg PO BID 08/19/15 08/29/17 1 Day Ago History ~08/28/17 Duloxetine HCl [DULoxetine] 60 mg PO DAILY 08/19/15 08/29/17 1 Day Ago History ~08/28/17 Tobramycin/Dexameth 0.1-0.3% 3.5 gm SUBDERMAL DAILY 08/19/15 08/29/17 1 Day Ago History [Tobradex] ~08/28/17 Detemir (Nf) [Levemir (Nf)] 14 units SUB-Q QHS #1000 units 04/22/17 08/29/17 1 Day Ago Rx ~08/28/17 Metoprolol Xl [Metoprolol 50 mg PO QDAY #30 tablet 04/22/17 08/29/17 1 Day Ago Rx SUCCINATE ER TAB] ~08/28/17 Multivitamin Tab [Multiple Vitamin 1 each PO QDAY #30 tablet 04/22/17 08/29/17 1 Day Ago Rx TAB (Theragran)] ~08/28/17 NIFEdipine XL [Procardia Xl] 30 mg PO Q12HR #60 tablet 04/22/17 08/29/17 1 Day Ago Rx ~08/28/17 Apixaban [Eliquis] 5 mg PO BID #60 tablet 04/23/17 08/29/17 1 Day Ago Rx ~08/28/17 Insulin Aspart [NovoLOG Flexpen] See Protocol SQ ACHS #1 insuln.pen 04/23/17 08/29/17 1 Day Ago Rx ~08/28/17 Pantoprazole [Protonix TAB] 40 mg PO BID #60 tablet 04/23/17 08/29/17 1 Day Ago Rx ~08/28/17 HYDROcodone/APAP 5-325 [[place] 2 each PO Q4H PRN #12 tablet 06/20/17 08/29/17 1 Day Ago Rx 5-325 mg TAB] ~08/28/17 DULoxetine [Cymbalta] 60 mg PO QDAY capsule 08/29/17 Unknown Rx NIFEdipine XL [Procardia Xl] 30 mg PO Q12HR tablet 08/29/17 Unknown Rx Amiodarone [Cordarone 200 MG TAB] 200 mg PO BID #60 tab 08/30/17 Unknown Rx Amiodarone [Cordarone 200 MG TAB] 200 mg PO BID #60 tab 01/13/18 Unknown Rx Active Meds: Active Medications Acetaminophen (Tylenol) 650 mg PO Q4H PRN PRN Reason: Pain MILD(1-3)/Fever >100.5/GARZON Acetaminophen/Hydrocodone Bitart ([place] 5/325) 2 each PO Q4H PRN PRN Reason: Pain, Moderate (4-6) Albuterol (Proventil) 2.5 mg IH Q4HRT PRN PRN Reason: Shortness Of Breath Amiodarone HCl (Cordarone) 200 mg PO BID LANI Last Admin: 09/06/18 12:24 Dose: 200 mg Documented by: Apixaban (Eliquis) 5 mg PO BID ON LICENSE OF [facility]; Protocol Last Admin: 09/06/18 12:25 Dose: 5 mg Documented by: Atorvastatin Calcium (Lipitor) 20 mg PO QHS ON LICENSE OF [facility] Last Admin: 09/05/18 22:59 Dose: 20 mg Documented by: Colesevelam HCl (Welchol) 1,875 mg PO BID ON LICENSE OF [facility] Last Admin: 09/05/18 23:38 Dose: Not Given Documented by: Dextrose (D50w (25gm) Syringe) 50 ml IV PRN PRN PRN Reason: Hypoglycemia Duloxetine HCl (Cymbalta) 60 mg PO QDAY ON LICENSE OF [facility] Last Admin: 09/06/18 12:25 Dose: 60 mg Documented by: Famotidine (Pepcid) 10 mg PO BID ON LICENSE OF [facility] Last Admin: 09/06/18 12:25 Dose: 10 mg Documented by: Hydralazine HCl (Apresoline) 10 mg IV Q4H PRN PRN Reason: Blood Pressure Insulin [facility]ine (L[facility]us) [facility] Last Admin: 09/05/18 23:58 Dose: Not Given Documented by: Insulin Human Lispro (Humalog) 0 unit SUB-Q [facility]; Protocol Last Admin: 09/06/18 12:27 Dose: Not Given Documented by: Metoprolol Succinate (Toprol Xl) 50 mg PO QDAY ON LICENSE OF [facility] Last Admin: 09/06/18 12:24 Dose: 50 mg Documented by: Morphine Sulfate (Morphine) 2 mg IV Q4H PRN PRN Reason: Pain, Moderate (4-6) Multivitamins (Theragran Tab) 1 each PO QDAY ON LICENSE OF [facility] Last Admin: 09/06/18 12:24 Dose: 1 each Documented by: Nifedipine (Procardia Xl) 30 mg PO Q12HR ON LICENSE OF [facility] Last Admin: 09/06/18 12:25 Dose: 30 mg Documented by: Nitroglycerin (Nitrostat) 0.4 mg SL Q5M PRN PRN Reason: Chest Pain Ondansetron HCl (Zofran) 4 mg IV Q8H PRN PRN Reason: Nausea And Vomiting Pantoprazole Sodium (Protonix) 40 mg PO BID ON LICENSE OF [facility] Last Admin: 09/06/18 12:24 Dose: 40 mg Documented by: Sodium Chloride (Sodium Chloride Flush Syringe 10 Ml) 10 ml IV BID ON LICENSE OF [facility] Last Admin: 09/06/18 12:27 Dose: 10 ml Documented by: Sodium Chloride (Sodium Chloride Flush Syringe 10 Ml) 10 ml IV PRN PRN PRN Reason: LINE FLUSH Sodium Chloride (Sodium Chloride Flush Syringe 10 Ml) 10 ml IV PRN PRN PRN Reason: LINE FLUSH Review of Systems Cardiovascular: palpitations, rapid/irregular heart beat, shortness of breath, no chest pain, no orthopnea, no edema, no syncope, no lightheadedness Physical Examination Vital Signs Temp Pulse Resp BP Pulse Ox 97.5 F L 148 H 18 147/95 100 09/05/18 15:16 09/05/18 15:16 09/05/18 15:16 09/05/18 15:16 09/05/18 15:16 General appearance: no acute distress HEENT: Positive: PERRL, Other (bilateral severe proptosis) Neck: Positive: neck supple Cardiac: Positive: Reg Rate and Rhythm Lungs: Positive: Decreased Breath Sounds Neuro: Positive: Grossly Intact Abdomen: Positive: Soft Male genitourinary: Positive: deferred Skin: Positive: Clear Extremities: Absent: edema Results 09/05/18 16:09 09/06/18 05:36 Cardiac Enzymes 09/05/18 09/06/18 Range/Units 16:09 05:36 AST 19 28 (5-40) units/L Coagulation 09/05/18 Range/Units 16:09 PT 16.6 H (12.2-14.9) Sec. INR 1.30 H (0.87-1.13) APTT 31.4 (24.2-36.6) Sec. Lipids 09/05/18 Range/Units 16:09 Triglycerides 82 (2-149) mg/dL Cholesterol 75 (50-199) mg/dL HDL Cholesterol 40 (40-59) mg/dL Cholesterol/HDL Ratio 1.87 % CBC 09/05/18 Range/Units 16:09 WBC 5.2 (4.5-11.0) K/mm3 RBC 4.84 (3.65-5.03) M/mm3 Hgb 11.7 L (11.8-15.2) gm/dl Hct 36.7 (35.5-45.6) % Plt Count 166 (140-440) K/mm3 Lymph # 1.1 L (1.2-5.4) K/mm3 [place] # 0.7 (0.0-0.8) K/mm3 Eos # 0.1 (0.0-0.4) K/mm3 Baso # 0.1 (0.0-0.1) K/mm3 Comprehensive Metabolic Panel 09/05/18 09/06/18 Range/Units 16:09 05:36 Sodium 137 139 (137-145) mmol/L Potassium 3.9 4.0 (3.6-5.0) mmol/L Chloride 96.5 L 96.6 L (98-107) mmol/L Carbon Dioxide 31 H 30 (22-30) mmol/L BUN 20 28 H (9-20) mg/dL Creatinine 2.1 H 3.1 H (0.8-1.5) mg/dL Glucose 110 H 80 (75-100) mg/dL Calcium 8.7 8.8 (8.4-10.2) mg/dL AST 19 28 (5-40) units/L ALT 18 19 (7-56) units/L Alkaline Phosphatase 337 H 329 H (35-129) units/L Total Protein 8.1 7.9 (6.3-8.2) g/dL Albumin 2.9 L 2.7 L (3.9-5) g/dL EKG interpretations - EKG Other supraventricular dysrythmias: atypical AV noelle Assessment and Plan - Patient Problems (1) Supraventricular tachycardia Current Visit: Yes Status: Acute Plan to address problem: Patient presented with narrow complex tachycardia, the likely etiology is the finding of severe hypothyroidism with a TSH level less than 0.005. In addition to therapy with propranolol, we will defer to internal medicine and endocrinology for management of hypothyroidism.
--- NOTE | 2018-09-06 13:33 | Progress Note ---
Assessment and Plan Assessment and plan: 48-year-old man with history of A. fib, end-stage renal disease, CHF, hypertension, received ablation for A. fib/A flutter in the past. Check all joints of left knee, lymphedema, debility with bedbound status. The patient was receiving dialysis when he suddenly developed chest pain and tachycardia. He was brought to the hospital and found to have A. fib with RVR A. fib with RVR and hypercoagulable state -Likely due to hyperthyroidism. -Started on methimazole, beta olga . Will need outpatient endocrinology follow-up. Hyperthyroidism Methimazole and propranolol, outpatient endocrinology CHF? Check echo, keep euvolemic End-stage renal disease Continue HD her renal Type II MT Due to tachycardia, and creatinine likely related to degenerative renal disease Medical management DVT prophylaxis Chemical History Interval history: Review of systems Constitutional: No fevers, no malaise, no joint pains CVS: No chest pain, no orthopnea, no dyspnea on exertion, no pedal edema GI: No abdominal pain, no diarrhea, no vomiting, no constipation Respiratory: No shortness of breath, no wheezing, no coughing Hospitalist Physical - Physical exam Narrative exam: General.: Appears well, no distress, nontoxic HEENT: Moist mucous membranes, extraocular muscles intact, no lymphadenopathy Neck: supple Cardiac: S1-S2 heard Lungs: clear to auscultation bilaterally Abdomen: soft , nontender, nondistended, bowel sounds positive Extremities: no edema clubbing or cyanosis Skin: no rash or lesions Neurologic: no gross focal deficits Psych: appropriate behavior, appropriate mood, corporative, judgment intact - Constitutional Vitals: Temp Pulse Resp BP Pulse Ox 98.4 F 86 18 180/96 97 09/06/18 08:01 09/06/18 12:24 09/06/18 08:01 09/06/18 12:24 09/06/18 08:01 General appearance: Present: no acute distress Results - Labs CBC & Chem 7: 09/05/18 16:09 09/06/18 05:36 Labs: Laboratory Last Values WBC 5.2 K/mm3 (4.5-11.0) 09/05/18 16:09 RBC 4.84 M/mm3 (3.65-5.03) 09/05/18 16:09 Hgb 11.7 gm/dl (11.8-15.2) L 09/05/18 16:09 Hct 36.7 % (35.5-45.6) 09/05/18 16:09 MCV 76 fl (84-94) L 09/05/18 16:09 MCH 24 pg (28-32) L 09/05/18 16:09 MCHC 32 % (32-34) 09/05/18 16:09 RDW 23.9 % (13.2-15.2) H 09/05/18 16:09 Plt Count 166 K/mm3 (140-440) 09/05/18 16:09 Lymph % (Auto) 21.0 % (13.4-35.0) 09/05/18 16:09 [place] % (Auto) 12.6 % (0.0-7.3) H 09/05/18 16:09 Eos % (Auto) 2.5 % (0.0-4.3) 09/05/18 16:09 Baso % (Auto) 1.1 % (0.0-1.8) 09/05/18 16:09 Lymph # 1.1 K/mm3 (1.2-5.4) L 09/05/18 16:09 [place] # 0.7 K/mm3 (0.0-0.8) 09/05/18 16:09 Eos # 0.1 K/mm3 (0.0-0.4) 09/05/18 16:09 Baso # 0.1 K/mm3 (0.0-0.1) 09/05/18 16:09 Seg Neutrophils % 62.8 % (40.0-70.0) 09/05/18 16:09 Seg Neutrophils # 3.2 K/mm3 (1.8-7.7) 09/05/18 16:09 PT 16.6 Sec. (12.2-14.9) H 09/05/18 16:09 INR 1.30 (0.87-1.13) H 09/05/18 16:09 APTT 31.4 Sec. (24.2-36.6) 09/05/18 16:09 Sodium 139 mmol/L (137-145) 09/06/18 05:36 Potassium 4.0 mmol/L (3.6-5.0) 09/06/18 05:36 Chloride 96.6 mmol/L (98-107) L 09/06/18 05:36 Carbon Dioxide 30 mmol/L (22-30) 09/06/18 05:36 Anion Gap 16 mmol/L 09/06/18 05:36 BUN 28 mg/dL (9-20) H 09/06/18 05:36 Creatinine 3.1 mg/dL (0.8-1.5) H 09/06/18 05:36 Estimated GFR 26 ml/min 09/06/18 05:36 BUN/Creatinine Ratio 9 % 09/06/18 05:36 Glucose 80 mg/dL (75-100) 09/06/18 05:36 POC Glucose 81 (70-105) 09/06/18 12:28 Calcium 8.8 mg/dL (8.4-10.2) 09/06/18 05:36 Total Bilirubin 0.70 mg/dL (0.1-1.2) 09/06/18 05:36 AST 28 units/L (5-40) 09/06/18 05:36 ALT 19 units/L (7-56) 09/06/18 05:36 Alkaline Phosphatase 329 units/L (35-129) H 09/06/18 05:36 Troponin T 0.192 ng/mL (0.00-0.029) H* 09/06/18 05:36 NT-Pro-B Natriuret Pep 34813 pg/mL (0-450) H 09/05/18 16:09 Total Protein 7.9 g/dL (6.3-8.2) 09/06/18 05:36 Albumin 2.7 g/dL (3.9-5) L 09/06/18 05:36 Albumin/Globulin Ratio 0.5 % 09/06/18 05:36 Triglycerides 82 mg/dL (2-149) 09/05/18 16:09 Cholesterol 75 mg/dL (50-199) 09/05/18 16:09 LDL Cholesterol Direct 26 mg/dL (50-130) L 09/05/18 16:09 HDL Cholesterol 40 mg/dL (40-59) 09/05/18 16:09 Cholesterol/HDL Ratio 1.87 % 09/05/18 16:09 TSH < 0.005 mlU/mL (0.270-4.200) L 09/05/18 16:09 Free T4 4.24 ng/dL (0.76-1.46) H 09/05/18 16:09
[2018-09-06] MEDS: INDERAL LA PO SCH (15:41)
[2018-09-06] MEDS: WELCHOL PO SCH ×2 (15:42→21:36)
[2018-09-06] MEDS: TAPAZOLE PO SCH ×2 (15:43→21:37)
[2018-09-06] MEDS: LANTUS SUB-Q SCH (21:39)
[2018-09-07] MEDS: TAPAZOLE PO SCH ×3 (05:50→22:37)
[2018-09-07] MEDS: HumaLOG SUB-Q SCH ×4 (08:15→22:45)
--- NOTE | 2018-09-07 09:26 | Progress Note ---
Assessment and Plan 1. ESRD: Continue hemodialysis three times a week, TTS schedule. 2. A.fib / A.flutter with RVR: SR now. 3. Anemia. Monitor. 4. Hyperthyroidism. 5. DM-2. Subjective Date of service: 09/07/18 Interval history: Patient was seen and examined at the bedside. Objective - Vital Signs Vital signs: Vital Signs - 12hr 09/06/18 09/07/18 09/07/18 22:33 00:12 04:11 Temperature 98.3 F 97.9 F Pulse Rate 70 71 Respiratory 20 18 18 Rate Blood Pressure 141/75 156/82 O2 Sat by Pulse 97 98 Oximetry 09/07/18 08:54 Temperature 98.6 F Pulse Rate 72 Respiratory 20 Rate Blood Pressure 142/78 O2 Sat by Pulse 95 Oximetry - General Appearance General appearance: well-developed, appears stated age, other (not in distress) EENT: ATNC, hearing intact Neck: supple Respiratory: Present: Clear to Ascultation Cardiology: regular, S1S2, no murmurs Gastrointestinal: normoactive bowel sounds, no tenderness, no distended Integumentary: chronic venous stasis Neurologic: no asterixis, alert and oriented x3, other (right eye blind) Musculoskeletal: other (bilateral knee swollen, L > R, left arm AVF / AVG) - Lab 09/05/18 16:09 09/06/18 05:36 Most recent lab results Calcium 8.8 mg/dL (8.4-10.2) 09/06/18 05:36 Medications & Allergies - Medications Allergies/Adverse Reactions: Allergies AMMY Inhibitors Allergy (Verified 08/19/15 01:31) Unknown Home Medications: Home Medications Medication Instructions Recorded Confirmed Last Taken Type AtorvaSTATin [Lipitor] 20 mg PO DAILY 08/19/15 08/29/17 1 Day Ago History ~08/28/17 Colesevelam [Welchol] 1,875 mg PO BID 08/19/15 08/29/17 1 Day Ago History ~08/28/17 Duloxetine HCl [DULoxetine] 60 mg PO DAILY 08/19/15 08/29/17 1 Day Ago History ~08/28/17 Tobramycin/Dexameth 0.1-0.3% 3.5 gm SUBDERMAL DAILY 08/19/15 08/29/17 1 Day Ago History [Tobradex] ~08/28/17 Detemir (Nf) [Levemir (Nf)] 14 units SUB-Q QHS #1000 units 04/22/17 08/29/17 1 Day Ago Rx ~08/28/17 Multivitamin Tab [Multiple Vitamin 1 each PO QDAY #30 tablet 04/22/17 08/29/17 1 Day Ago Rx TAB (Theragran)] ~08/28/17 NIFEdipine XL [Procardia Xl] 30 mg PO Q12HR #60 tablet 04/22/17 08/29/17 1 Day Ago Rx ~08/28/17 Apixaban [Eliquis] 5 mg PO BID #60 tablet 04/23/17 08/29/17 1 Day Ago Rx ~08/28/17 Insulin Aspart [NovoLOG Flexpen] See Protocol SQ ACHS #1 insuln.pen 04/23/17 08/29/17 1 Day Ago Rx ~08/28/17 Pantoprazole [Protonix TAB] 40 mg PO BID #60 tablet 04/23/17 08/29/17 1 Day Ago Rx ~08/28/17 HYDROcodone/APAP 5-325 [[place] 2 each PO Q4H PRN #12 tablet 06/20/17 08/29/17 1 Day Ago Rx 5-325 mg TAB] ~08/28/17 DULoxetine [Cymbalta] 60 mg PO QDAY capsule 08/29/17 Unknown Rx Propranolol LA [Inderal LA] 80 mg PO QDAY #30 capsule 09/07/18 Unknown Rx methIMAzole [Tapazole] 5 mg PO Q8HR 30 Days tablet 09/07/18 Unknown Rx Active Medications: Generic Name Dose Route Start Last Admin Trade Name Freq PRN Reason Stop Dose Admin Acetaminophen 650 mg 09/05/18 19:14 Tylenol PO Q4H PRN Pain MILD(1-3)/Fever >100.5/GARZON Acetaminophen/Hydrocodone Bitart 2 each 09/05/18 19:17 [place] 5/325 PO Q4H PRN Pain, Moderate (4-6) Albuterol 2.5 mg 09/05/18 19:14 Proventil IH Q4HRT PRN Shortness Of Breath Apixaban 5 mg 09/05/18 22:00 09/06/18 21:37 Eliquis PO 5 mg BID LANI Administration Protocol Atorvastatin Calcium 20 mg 09/05/18 22:00 09/06/18 21:38 Lipitor PO 20 mg QHS LANI Administration Colesevelam HCl 1,875 mg 09/05/18 22:00 09/06/18 21:36 Welchol PO 1,875 mg BID LNAI Administration Dextrose 50 ml 09/05/18 20:05 D50w (25gm) Syringe IV PRN PRN Hypoglycemia Duloxetine HCl 60 mg 09/06/18 10:00 09/06/18 12:25 Cymbalta PO 60 mg QDAY LANI Administration Famotidine 10 mg 09/05/18 22:00 09/06/18 21:36 Pepcid PO 10 mg BID LANI Administration Hydralazine HCl 10 mg 09/06/18 06:31 Apresoline IV Q4H PRN Blood Pressure Insulin Glargine 15 units 09/05/18 22:00 09/06/18 21:39 Lantus SUB-Q Not Given QHS [facility] Insulin Human Lispro 0 unit 09/05/18 22:00 09/07/18 08:15 Humalog SUB-Q Not Given [facility] Protocol Methimazole 5 mg 09/06/18 14:00 09/07/18 05:50 Tapazole PO 5 mg Q8HR [facility] Administration Morphine Sulfate 2 mg 09/05/18 19:14 Morphine IV Q4H PRN Pain, Moderate (4-6) Multivitamins 1 each 09/06/18 10:00 09/06/18 12:24 Theragran Tab PO 1 each QDAY [facility] Administration Nifedipine 30 mg 09/05/18 22:00 09/06/18 21:36 Procardia Xl PO 30 mg Q12HR [facility] Administration Nitroglycerin 0.4 mg 09/05/18 19:14 Nitrostat SL Q5M PRN Chest Pain Ondansetron HCl 4 mg 09/05/18 19:14 Zofran IV Q8H PRN Nausea And Vomiting Pantoprazole Sodium 40 mg 09/05/18 22:00 09/06/18 21:36 Protonix PO 40 mg BID LANI Administration Propranolol HCl 80 mg 09/06/18 14:00 09/06/18 15:41 Inderal La PO 80 mg QDAY LANI Administration Sodium Chloride 10 ml 09/05/18 22:00 12/30/18 21:37 Sodium Chloride Flush Syringe 10 Ml IV 10 ml BID LANI Administration Sodium Chloride 10 ml 09/05/18 19:14 Sodium Chloride Flush Syringe 10 Ml IV PRN PRN LINE FLUSH Sodium Chloride 10 ml 09/05/18 19:14 Sodium Chloride Flush Syringe 10 Ml IV PRN PRN LINE FLUSH
[2018-09-07] MEDS: ELIQUIS PO SCH ×2 (09:37→22:37)
[2018-09-07] MEDS: THERAGRAN Tab PO SCH (09:37)
[2018-09-07] MEDS: PROTONIX PO SCH ×2 (09:37→23:05)
[2018-09-07] MEDS: PEPCID PO SCH ×2 (09:37→22:38)
[2018-09-07] MEDS: CYMBALTA PO SCH (09:37)
[2018-09-07] MEDS: WELCHOL PO SCH ×2 (09:37→22:37)
[2018-09-07] MEDS: INDERAL LA PO SCH (09:38)
[2018-09-07] MEDS: PROCARDIA XL PO SCH ×2 (09:38→22:38)
[2018-09-07] MEDS: SODIUM CHLORIDE FLUSH SYRINGE 10 ML IV SCH ×2 (09:39→22:46)
--- NOTE | 2018-09-07 12:15 | Progress Note ---
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 On propanolol for suppression End-stage renal disease on hemodialysis Severe hyperthyroidism TSH level less than 0.005. Hypertension Hx of paroxysmal atrial fibrillation on eliquis as an outpatient Diabetes Previous echocardiogram a year ago April 2017 documented normal left ventricu lar systolic function, ejection fraction 55-60%. Continue medical therapy for suppression of paroxysmal AVNRT. Otherwise, conservative cardiac management. Subjective Date of service: 09/07/18 Interval history: Patient has no complaints. Stable sinus rhythm on tele. Objective Vital Signs Temp Pulse Resp BP Pulse Ox 09/07/18 09:38 70 141/75 09/07/18 08:54 98.6 F 72 20 142/78 95 09/07/18 04:11 97.9 F 71 18 156/82 98 09/07/18 00:12 98.3 F 70 18 141/75 97 09/06/18 22:33 20 09/06/18 20:30 73 09/06/18 19:54 98.3 F 73 18 140/72 100 09/06/18 17:31 97.5 F L 18 146/68 09/06/18 15:41 86 115/77 09/06/18 12:24 86 180/96 - Physical Examination General: No Apparent Distress HEENT: Positive: PERRL Cardiac: Positive: Reg Rate and Rhythm Neuro: Positive: Grossly Intact Extremities: Absent: edema - EKG Other supraventricular dysrythmias: atypical AV noelle
--- NOTE | 2018-09-07 13:16 | Progress Note ---
Assessment and Plan Assessment and plan: 48-year-old man with history of A. fib, end-stage renal disease, CHF, hypertension, received ablation for A. fib/A flutter in the past. Check all joints of left knee, lymphedema, debility with bedbound status. The patient was receiving dialysis when he suddenly developed chest pain and tachycardia. He was brought to the hospital and found to have A. fib with RVR A. fib with RVR and hypercoagulable state -Likely due to hyperthyroidism. -Started on methimazole, beta olga . Will need outpatient endocrinology follow-up. Hyperthyroidism Methimazole and propranolol, outpatient endocrinology CHF? Check echo, keep euvolemic End-stage renal disease Continue HD her renal Type II [place] Due to tachycardia, and creatinine likely related to degenerative renal disease Medical management DVT prophylaxis Chemical Hospitalist Physical - Constitutional Vitals: Temp Pulse Resp BP Pulse Ox 98.1 F 65 20 128/73 98 09/07/18 11:32 09/07/18 11:32 09/07/18 11:32 09/07/18 11:32 09/07/18 11:32 General appearance: Present: no acute distress Results - Labs CBC & Chem 7: 09/05/18 16:09 09/06/18 05:36 Labs: Laboratory Last Values WBC 5.2 K/mm3 (4.5-11.0) 09/05/18 16:09 RBC 4.84 M/mm3 (3.65-5.03) 09/05/18 16:09 Hgb 11.7 gm/dl (11.8-15.2) L 09/05/18 16:09 Hct 36.7 % (35.5-45.6) 09/05/18 16:09 MCV 76 fl (84-94) L 09/05/18 16:09 MCH 24 pg (28-32) L 09/05/18 16:09 MCHC 32 % (32-34) 09/05/18 16:09 RDW 23.9 % (13.2-15.2) H 09/05/18 16:09 Plt Count 166 K/mm3 (140-440) 09/05/18 16:09 Lymph % (Auto) 21.0 % (13.4-35.0) 09/05/18 16:09 [place] % (Auto) 12.6 % (0.0-7.3) H 09/05/18 16:09 Eos % (Auto) 2.5 % (0.0-4.3) 09/05/18 16:09 Baso % (Auto) 1.1 % (0.0-1.8) 09/05/18 16:09 Lymph # 1.1 K/mm3 (1.2-5.4) L 09/05/18 16:09 [place] # 0.7 K/mm3 (0.0-0.8) 09/05/18 16:09 Eos # 0.1 K/mm3 (0.0-0.4) 09/05/18 16:09 Baso # 0.1 K/mm3 (0.0-0.1) 09/05/18 16:09 Seg Neutrophils % 62.8 % (40.0-70.0) 09/05/18 16:09 Seg Neutrophils # 3.2 K/mm3 (1.8-7.7) 09/05/18 16:09 PT 16.6 Sec. (12.2-14.9) H 09/05/18 16:09 INR 1.30 (0.87-1.13) H 09/05/18 16:09 APTT 31.4 Sec. (24.2-36.6) 09/05/18 16:09 Sodium 139 mmol/L (137-145) 09/06/18 05:36 Potassium 4.0 mmol/L (3.6-5.0) 09/06/18 05:36 Chloride 96.6 mmol/L (98-107) L 09/06/18 05:36 Carbon Dioxide 30 mmol/L (22-30) 09/06/18 05:36 Anion Gap 16 mmol/L 09/06/18 05:36 BUN 28 mg/dL (9-20) H 09/06/18 05:36 Creatinine 3.1 mg/dL (0.8-1.5) H 09/06/18 05:36 Estimated GFR 26 ml/min 09/06/18 05:36 BUN/Creatinine Ratio 9 % 09/06/18 05:36 Glucose 80 mg/dL (75-100) 09/06/18 05:36 POC Glucose 134 (70-105) H 09/07/18 11:33 Calcium 8.8 mg/dL (8.4-10.2) 09/06/18 05:36 Total Bilirubin 0.70 mg/dL (0.1-1.2) 09/06/18 05:36 AST 28 units/L (5-40) 09/06/18 05:36 ALT 19 units/L (7-56) 09/06/18 05:36 Alkaline Phosphatase 329 units/L (35-129) H 09/06/18 05:36 Troponin T 0.192 ng/mL (0.00-0.029) H* 09/06/18 05:36 NT-Pro-B Natriuret Pep 29894 pg/mL (0-450) H 09/05/18 16:09 Total Protein 7.9 g/dL (6.3-8.2) 09/06/18 05:36 Albumin 2.7 g/dL (3.9-5) L 09/06/18 05:36 Albumin/Globulin Ratio 0.5 % 09/06/18 05:36 Triglycerides 82 mg/dL (2-149) 09/05/18 16:09 Cholesterol 75 mg/dL (50-199) 09/05/18 16:09 LDL Cholesterol Direct 26 mg/dL (50-130) L 09/05/18 16:09 HDL Cholesterol 40 mg/dL (40-59) 09/05/18 16:09 Cholesterol/HDL Ratio 1.87 % 09/05/18 16:09 TSH < 0.005 mlU/mL (0.270-4.200) L 09/05/18 16:09 Free T4 4.24 ng/dL (0.76-1.46) H 09/05/18 16:09
[2018-09-07] MEDS ORDERED: NACL 0.9% 100 ML IV PRN (14:33)
--- NOTE | 2018-09-07 17:58 | Discharge Summary ---
Providers - Providers Date of Admission: 09/05/18 19:14 Attending physician: JOSE TENA MD 09/05/18 Consult to Cardiac Rehabilitation [CONS] Routine Reason For Exam: Phase I 09/05/18 19:14 Consult to Cardiology [CONS] Routine Consulting Provider: DANISHA ROBERSON Reason For Exam: acs/chf 09/05/18 19:17 Consult to Physician [CONS] Routine Comment: Consulting Provider: STEVEN LUO Physician Instructions: Reason For Exam: ESRD Primary care physician: ABATTOIR MANAGER Hospitalization Condition: Stable Hospital course: 48-year-old man with history of A. fib, end-stage renal disease, CHF, hypertension, received ablation for A. fib/A flutter in the past. Check all joints of left knee, lymphedema, debility with bedbound status. The patient was receiving dialysis when he suddenly developed chest pain and tachycardia. He was brought to the hospital and found to have A. fib with RVR. He was found to have hyperthyroidism, which patient admitted runs in his family. He was started on methimazole and propranolol. And had a markedly improve all. Echocardiogram was done which showed mild decreased EF of 45%, he was continued on dialysis, he did have elevated troponin which is most likely a type II NH from tachycardia. He was seen by cardiology who only recommended treating his hypothyroidism. The patient is going to be discharged after dialysis is done. Diagnoses A. fib with RVR Hypercoagulable state due to A. fib Hyperthyroidism systolic CHF End-stage renal disease Type II NH Disposition: TO HOME OR SELFCARE Time spent for discharge: 33 minutes Core Measure Documentation - Palliative Care Palliative Care/ Comfort Measures: Not Applicable - Core Measures Any of the following diagnoses?: heart failure - Heart Failure Discharge Requirements AMMY/ARB for LVSD if EF <40%: Not Applicable Beta olga at discharge: Yes Exam - Physical Exam Narrative exam: General.: Appears well, no distress, nontoxic HEENT: Proptosis noted Neck: supple Cardiac: S1-S2 heard Lungs: clear to auscultation bilaterally Abdomen: soft , nontender, nondistended, bowel sounds positive Extremities: Deformed extremities, Charcot joint and lymphedema Skin: no rash or lesions Neurologic: no gross focal deficits Psych: appropriate behavior, appropriate mood, corporative, judgment intact - Constitutional Vitals: Temp Pulse Resp BP Pulse Ox 98.1 F 65 20 128/73 98 09/07/18 11:32 09/07/18 11:32 09/07/18 11:32 09/07/18 11:32 09/07/18 11:32 Plan Follow up with: DANISHA ROBERSON MD [Staff Physician] - 7 Days PRIMARY CARE, [Primary Care Provider] - 3-5 Days STEVEN LUO MD [Staff Physician] - 7 Days Prescriptions: methIMAzole [Tapazole] 5 mg PO Q8HR 30 Days tablet Propranolol LA [Inderal LA] 80 mg PO QDAY #30 capsule
[2018-09-07 22:09] VITALS: BP 150/78
[2018-09-07] MEDS: LANTUS SUB-Q SCH (22:46)
== END 2018-09-07 23:55 | disposition home or self-care (01) | DRG 280 ==
LOC: ED 15:14 → 4A 19:14
PROVIDERS: ADMIT Internal Medicine; ATTEND Internal Medicine
PROC: 5A1D70Z Performance of Urinary Filtration, Intermittent, Less than 6 Hours Per Day (ICD-10-PCS; principal; 2018-09-07)
DX: I21.A1 Myocardial infarction type 2 (principal); I50.23 Acute on chronic systolic (congestive) heart failure; N18.6 End stage renal disease; I13.2 Hypertensive heart and chronic kidney disease with heart failure and with stage 5 chronic kidney disease, or end stage renal disease; D68.59 Other primary thrombophilia; I48.92 Unspecified atrial flutter; I47.1 Supraventricular tachycardia; I42.0 Dilated cardiomyopathy; I73.9 Peripheral vascular disease, unspecified; E11.22 Type 2 diabetes mellitus with diabetic chronic kidney disease; E11.40 Type 2 diabetes mellitus with diabetic neuropathy, unspecified; H05.20 Unspecified exophthalmos; I89.0 Lymphedema, not elsewhere classified; I48.0 Paroxysmal atrial fibrillation; E78.5 Hyperlipidemia, unspecified; E05.90 Thyrotoxicosis, unspecified without thyrotoxic crisis or storm; D64.9 Anemia, unspecified; Z79.01 Long term (current) use of anticoagulants; Z82.49 Family history of ischemic heart disease and other diseases of the circulatory system; Z90.49 Acquired absence of other specified parts of digestive tract; Z87.891 Personal history of nicotine dependence; Z89.421 Acquired absence of other right toe(s)
CPT/HCPCS: 36415; 71045; 80053; 80061; 82962; 83880; 84439; 84443; 84484; 85025; 85610; 85730; 93005; 93010; 93306; 94760; G0378; A9270-GY; J1815